=== PATIENT | female | born 2000 | race Caucasian/White ===

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

== ENCOUNTER 2021-01-06 15:56 | Emergency (ER) | payer BC, SELFPAY ==
[2021-01-06 15:57] VITALS: BP 147/98; PULSE 109; RESP 20; TEMP 35.9; O2SAT 98; BMI 51.6
--- NOTE | 2021-01-06 17:00 | RAD_ITS ---
STUDY: X-RAY CHEST REASON FOR EXAM: Female, 20 years old. Cough. Shortness of breath, worse with exertion. Sore throat and headache and multiple nosebleeds. TECHNIQUE: PA and lateral views of the chest. COMPARISON: 01/15/2020. FINDINGS: The lungs are clear and expanded. There is no demonstrated pleural abnormality. Normal size heart. Normal mediastinum and onelia. Normal visualized pulmonary arteries. Normal visualized aortic arch and descending thoracic aorta. Normal visualized thoracic spine. Normal visualized ribs, clavicles, and shoulders. There is no demonstrated abnormality of the visualized soft tissue structures of the upper abdomen. RAD/Chest PA and Lateral IMPRESSION: No acute cardiopulmonary disease. Electronically Signed: Dante Gimenez DO at 17:12 EDT Tel [phone], Service support ,
[2021-01-06] MEDS: Desmopressin Acetate 4 MCG/ML Ampul 15 MCG SC (17:16)
--- NOTE | 2021-01-06 17:34 | ED.VIS.DYS ---
HPI History of Present Illness Chief Complaint: Shortness of Breath Informant: patient and parent Narrative Narrative: Patient presents with 3 or 4 days of some cough. She did have a couple episodes of soft stools but that is resolved. She vomited once after a meal but that is also better. She has not had fevers or myalgias or loss of taste or smell. She does have a history of asthma. She is used her inhaler but does not notice a major change. She is not having chest pain. She is also been having some intermittent nosebleeds mostly on the left. She has a history of von Willebrand's disease but does not have DDAVP nasal spray because it is currently unavailable. No other bleeding. She has never received IV factors. She has never had significant bleeding. Nothing specifically makes her symptoms better or worse although they are slightly improved with albuterol. No history of DVT or PE. No travel. [facility] Medical History (Updated 01/06/21 @ 17:[address] Stanley Crowder MD) Asthma Diarrhea Knee pain Von Willebrand disease Home Medications etonogestrel 68 mg SQ X1 05/21/20 [History Last Taken Unknown] citalopram 40 mg tablet 40 mg PO DAILY 12/10/20 [History Last Taken Unknown] norgestimate 0.25 mg-ethinyl estradiol 35 mcg tablet 1 tab PO DAILY #84 tab 12/10/20 [Rx Last Taken Unknown] Allergy/AdvReac Type Severity Reaction Status Date / Time amphetamine [From Adderall] AdvReac Diarrhea Verified 01/06/21 16:01 dextroamphetamine AdvReac Diarrhea Verified 01/06/21 16:01 [From Adderall] NSAIDS (Non-Steroidal AdvReac BLEEDING Verified 01/06/21 16:00 Anti-Inflamma blood thinners AdvReac Unknown Uncoded 01/06/21 16:00 Surgical History H/O knee surgery Social History pets and animals: Yes sexually active: No Smoking Status: Never smoker alcohol intake: never seatbelt use: always ROS ROS ED Constitutional Constitutional ED: Denies chills or fever(s) Eyes Eyes: Denies blurry vision or change in vision ENT ENT ED: Reports rhinorrhea, sore throat and other Details: See history of present illness. ; Denies ear pain Cardiovascular Cardiovascular: Denies chest pain, palpitations or racing heartbeat Respiratory/Chest Respiratory/Chest: Reports cough and dyspnea; Denies sputum Gastrointestinal Gastrointestinal: Reports diarrhea and nausea; Denies abdominal pain or vomiting Genitourinary Genitourinary ED: Denies dysuria Musculoskeletal Musculoskeletal: Denies myalgias Integumentary Denies rash Neurologic Neurologic: Denies headache(s), paresthesias or weakness Endocrine Endocrinology: Denies polydipsia or polyuria Hematologic/Lymphatic Hematologic/Lymphatic: Denies easy bruising Allergic/Immunologic Allergic/Immunologic ED: Denies urticaria EXAM Physical Exam Const Vital Signs: 01/06/21 15:57 01/06/21 16:43 Temperature 96.7 F L Temperature Source Temporal Pulse Rate 109 H Respiratory Rate 20 H Respiratory Effort Normal Non-Labored Blood Pressure 147/98 H Blood Pressure Mean 114 Pulse Ox 98 Oxygen Delivery Method Room Air Room Air Patient is looking at phone. She is laying back comfortably. No acute distress. Positive well nourished and well developed General Appearance ED: well developed and NAD HEENT HEENT Narrative: No sign of active bleeding at this time. Tympanic membrane's are clear. Oropharynx is normal. No sinus tenderness. Negative for atraumatic, trauma or tenderness Eyes PERRL and EOMs intact bilaterally Neck no lymphadenopathy, supple and no JVD Resp normal respiratory effort and clear to auscultation bilaterally Resp Narrative: No pain with deep breath. Effort and Inspection: Negative for pain with movement Auscultation: Negative for rales, rhonchi or wheezes Cardio regular rate and regular rhythm GI non-tender Palpation: soft Back/Spine no CVA tenderness Extremity General Extremety ED: Negative for edema or tenderness General Extremity: Negative for edema Neuro oriented x3 Sensorium / Orientation: alert Psych mental status grossly normal Skin Rashes: no rashes MDM MDM MDM Narrative Medical decision making narrative: Chest x-ray showed no acute process. Covid is negative. I was able to get her a dose of DDAVP. She would normally use nasal spray for her symptoms. We are able to get subcutaneous as we do not have the nasal spray. She actually has a follow-up appointment with ENT tomorrow. She will use her inhaler. Lab Data Attestation: I reviewed the patient's lab results. Radiography Diagnostic Testing: Clinical Impression(s) from Imaging Studies Chest X-Ray 01/06/21 17:00 IMPRESSION: No acute cardiopulmonary disease. Electronically Signed: Dante BallesterosonDO at 17:12 EDT Tel [phone], Service support , Discharge Plan Triage Chief Complaint: Shortness of Breath ED Provider: Stanley Crowder Dx/Rx/DC Orders Clinical Impression: Von Willebrand disease, Viral URI, Left-sided epistaxis Instructions: Nosebleed, ED URI, Viral, No Abx (Adult) Prescriptions: No Action citalopram [Celexa] 40 mg tablet 40 mg PO DAILY RF: 0 norgestimate-ethinyl estradiol [Sprintec (28)] 0.25-35 mg-mcg tablet 1 tab PO DAILY Qty: 84 RF: 0 etonogestrel 68 MG implant 68 mg SQ X1 RF: 0 Primary Care Provider: Daryl Mccollum Referrals: Daryl Mccollum DO [Primary Care Provider] - 3-5 Days if not improving Disposition Disposition: Home, Self Care
[2021-01-06 17:48] VITALS: BP 137/87; PULSE 102; RESP 16; O2SAT 99
== END 2021-01-06 17:51 | disposition home or self-care (01) ==
PROVIDERS: Emergency Provider Emergency Medicine; PCP Family Medicine
DX: D68.0 Von Willebrand disease (principal); J06.9 Acute upper respiratory infection, unspecified; R04.0 Epistaxis
CPT/HCPCS: 71046; 87426; 99281; 99282; J2597

== ENCOUNTER → 2021-09-04 | Outpatient (CLI) | payer BC, SELFPAY ==
[2021-09-04 10:35] LABS: Absolute Lymphocyte Count 2.15 X10^3/uL (0.83-4.51); Absolute Neutrophil Count 7.7 X10^3/uL (2.0-7.7); Basophil# 0.05 X10^3/uL; Basophil% 0.4 % (0-1); Eosinophil# 0.51 X10^3/uL; Eosinophils% 4.5 % (0-5); Hematocrit 39.3 % (37-47); Hemoglobin 13.1 g/dL (12.0-15.0); Lymphocyte # 2.15 X10^3/ul (0.83-4.51); Mean Corp Hgb Conc 33.3 g/dL (32-36); Mean Corpuscular Hgb 27.3 pg (27.0-32.0); Mean Platelet Vol. 9.7 fl (6.2-12.0); Monocyte# 0.88 X10^3/uL; Monocyte% 7.8 % (0-10); NRBC Flagged by Analyzer 0 % (0-5); Neutrophil # 7.68 X10^3/uL (2.7-7.7); Neutrophil % 67.9 % (47-70); Platelet Count 409 K/mm3 (150-450); RBC Distribution Width CV 12.6 % (11.6-14.6); RBC Distribution Width SD 38.1 fl (35.1-43.9); Red Blood Count 4.79 M/mm3 (4.2-5.4); White Blood Count 11.3 K/mm3 (4.4-11.0)
[2021-09-04 10:43] LABS: Erythrocyte Sedimentation Rate 12 mm/hr (0-30)
[2021-09-04 11:24] LABS: ALB/GLOB Ratio 0.9 RATIO (0.9-2.4); AST(SGOT) 18 U/L (15-37); Alanine Aminotransfer ALT/SGPT 33 U/L (13-56); Albumin, Serum 3.5 g/dL (3.2-5.0); Alkaline Phosphatase 95 U/L (45-117); Amylase 42 U/L (25-115); Anion Gap 8 (5-15); BUN 10 mg/dL (7-18); CRP 4.23 mg/L (0.0-3.0); Calcium,Total 8.7 mg/dL (8.5-10.1); Chloride 107 mmol/L (98-107); Creatinine, Serum 0.77 mg/dL (0.55-1.02); EST Glomerular Filtration Rate 102 mL/min (>60); Est Glom Filt Rate - Afr Amer 124 mL/min (>60); Globulin 3.7 g/dL (2.2-4.2); Glucose 92 mg/dL (74-106); LDH 168 U/L (84-246); Lipase 103 U/L (73-393); Potassium 3.5 mmol/L (3.5-5.1); Protein, Total 7.2 g/dL (6.4-8.2); Sodium Level 140 mmol/L (136-145); Thyroid Stim Hormone (TSH) 2.28 uIU/mL (0.358-3.74)
[2021-09-04 12:15] LABS: Vitamin B12 525 pg/mL (211-911)
[2021-09-08 15:08] LABS: Anti-Centromere B Ab <0.2 AI (0.0-0.9); Anti-Chromatin <0.2 AI (0.0-0.9); Anti-Jo <0.2 AI (0.0-0.9); Anti-Scleroderma-70 AB <0.2 AI (0.0-0.9); RNP Ab 0.4 AI (0.0-0.9); SJOGREN'S Anti-SS-A test < 0.2 AI (0.0-0.9); SJOGREN'S Anti-SS-B test < 0.2 AI (0.0-0.9); Smith Ab <0.2 AI (0.0-0.9)
[2021-09-09 11:22] LABS: Anti-dsDNA Ab <1 IU/mL (0-9)
[2021-09-09 12:14] LABS: Vitamin D 1,25-Dihydroxy 42.4 pg/mL (24.8-81.5)
[2021-09-10 09:09] LABS: Albumin 3.5 g/dL (2.9-4.4); Alpha-1-Globulins 0.2 g/dL (0.0-0.4); Alpha-2-Globulins 0.8 g/dL (0.4-1.0); Gamma Globulin 0.9 g/dL (0.4-1.8); Immunoglobulin A 232 mg/dL (87-352); Immunoglobulin E 381 IU/mL (6-495); Immunoglobulin G 869 mg/dL (719-1475); Immunoglobulin M 60 mg/dL (58-230); PROEL- TOTAL PROTEIN 6.6 g/dL (6.0-8.5)
[2021-09-10 09:57] LABS: Cytoplasmic Ab (C-ANCA) <1:20 titer (Neg:<1:20); Perinuclear Ab (P-ANCA) <1:20 titer (Neg:<1:20)
== END | disposition home or self-care (01) ==
LOC: LAB 09:27
PROVIDERS: PCP Family Medicine; Referring Provider Nurse Practitioner Adult Health; Visit Provider Nurse Practitioner Adult Health
DX: K52.9 Noninfective gastroenteritis and colitis, unspecified (principal)
CPT/HCPCS: 36415; 80053; 82150; 82607; 82652; 82746; 82784; 82785; 83615; 83690; 84165; 84443; 85025; 85652; 86140; 86225; 86235; 86256; 86334

== ENCOUNTER → 2021-09-04 | Outpatient (CLI) | payer BC, SELFPAY ==
--- NOTE | 2021-09-04 13:22 | CT_ITS ---
STUDY: CT ABDOMEN AND PELVIS WITH CONTRAST REASON FOR EXAM: Female, 20 years old. Chronic diarrhea. Abdominal pain. RADIATION DOSAGE (If Supplied By Facility): CTDIvol = ( 34.99 ) mGy, DLP = ( 2092.38 ) mGycm TECHNIQUE: Transaxial images were obtained from the dome of the diaphragm to the symphysis pubis with oral contrast. Oral and amp;amp; IV Readi-CAT and amp;amp; 100mL Isovue-300 was administered. Sagittal and coronal images were reconstructed. Individualized dose optimization techniques were used for this CT. COMPARISON: Comparison is made with prior study dated 09/08/2018. FINDINGS: The visualized lung bases are unremarkable. The visualized portions of the heart are within normal limits. Borderline hepatomegaly. Normal gallbladder and extrahepatic biliary system. Normal spleen. Normal pancreas. Normal bilateral adrenal glands. Normal right kidney. Normal left kidney. Normal visualized stomach. Normal small intestine. Normal colon. The appendix is visualized and appears normal. Normal abdominal aorta. Normal inferior vena cava. Normal retroperitoneum. Normal urinary bladder. Normal abdominal wall. Normal osseous structures. CT/Abdomen/Pelvis WITH Contrast IMPRESSION: Borderline hepatomegaly. Electronically Signed: Robert Palomares MD at 14:06 EDT ,
== END | disposition home or self-care (01) ==
LOC: CT 13:20
PROVIDERS: PCP Family Medicine; Referring Provider Nurse Practitioner Adult Health; Visit Provider Nurse Practitioner Adult Health
DX: K52.9 Noninfective gastroenteritis and colitis, unspecified (principal); R10.9 Unspecified abdominal pain
CPT/HCPCS: 74177; Q9967

== ENCOUNTER → 2021-09-11 | Outpatient (CLI) | payer BC, SELFPAY ==
--- NOTE | 2021-09-11 11:18 | US_ITS ---
STUDY: ULTRASOUND OF THE FEMALE PELVIS - COMPLETE REASON FOR EXAM: Female, 20 years old. AUB -- heavy menses LMP: 08/08/2021. TECHNIQUE: Transabdominal and Transvaginal TECHNICAL QUALITY: Adequate. COMPARISON: None. FINDINGS: The uterus is anteverted and is tilted to the left side of the pelvis. The uterus measures 6.6 cm x 3.6 x 3 cm. Normal uterine cervix. The endometrium measures 4.7 mm in thickness, and is heterogeneous (striated). There is no demonstrated endometrial mass. There is no demonstrated myometrial mass. I.U.D. - The patient does not have an I.U.D. The right ovary is visualized. The right ovary measures 3 cm x 2.6 cm x 2.1 cm. There is no right ovarian cyst or ovarian mass. There is no visualized right adnexal mass or complex lesion. There is normal arterial and normal venous vascularity. The left ovary is visualized. The left ovary measures 3.1 cm x 1.8 cm x 2.1 cm. There is no left ovarian cyst or ovarian mass. There is no visualized left adnexal mass or complex lesion. There is normal arterial and normal venous vascularity. There is no fluid in the cul-de-sac. The pre void volume of the bladder was 303 ml. Polycystic ovary disease: No. US/Pelvic (Non ) IMPRESSION: Normal female pelvis. Electronically Signed: Robert Palomares MD at 13:07 EDT ,
--- NOTE | 2021-09-11 11:18 | US_ITS ---
STUDY: ULTRASOUND OF THE FEMALE PELVIS - COMPLETE REASON FOR EXAM: Female, 20 years old. AUB -- heavy menses LMP: 08/08/2021. TECHNIQUE: Transabdominal and Transvaginal TECHNICAL QUALITY: Adequate. COMPARISON: None. FINDINGS: The uterus is anteverted and is tilted to the left side of the pelvis. The uterus measures 6.6 cm x 3.6 x 3 cm. Normal uterine cervix. The endometrium measures 4.7 mm in thickness, and is heterogeneous (striated). There is no demonstrated endometrial mass. There is no demonstrated myometrial mass. I.U.D. - The patient does not have an I.U.D. The right ovary is visualized. The right ovary measures 3 cm x 2.6 cm x 2.1 cm. There is no right ovarian cyst or ovarian mass. There is no visualized right adnexal mass or complex lesion. There is normal arterial and normal venous vascularity. The left ovary is visualized. The left ovary measures 3.1 cm x 1.8 cm x 2.1 cm. There is no left ovarian cyst or ovarian mass. There is no visualized left adnexal mass or complex lesion. There is normal arterial and normal venous vascularity. There is no fluid in the cul-de-sac. The pre void volume of the bladder was 303 ml. Polycystic ovary disease: No. US/Transvaginal Non- IMPRESSION: Normal female pelvis. Electronically Signed: Robert Palomares MD at 13:07 EDT ,
== END | disposition home or self-care (01) ==
LOC: US 11:14
PROVIDERS: PCP Family Medicine; Referring Provider Obstetrics & Gynecology; Visit Provider Obstetrics & Gynecology
DX: N93.9 Abnormal uterine and vaginal bleeding, unspecified (principal)
CPT/HCPCS: 76830; 76856

== ENCOUNTER 2021-10-02 07:28 | Day surgery (SDC) | payer BC, SELFPAY ==
[2021-10-02] VITALS (9 sets, daily range): BP systolic 121–132; BP diastolic 67–88; PULSE 89–117; RESP 16–18; TEMP 36.7–36.9; O2SAT 95–100; BMI 51.2
--- NOTE | 2021-10-02 07:37 | PCM.HP.BLA ---
History and Physical Date of Admission: 10/02/21 MR#: [id number] Acct: [id number] Name:KEAGAN COOPRE Rep #: [id number] : 2000 ? ? Provider: Dr. Emili Charles, DO Age/Sex:? 20/F ? ? Location: [facility] [place] Status: Signed Intake Vital Signs ? 08/13/2210:32 Height 5 ft 6 in Weight: 315 lb 4 oz BMI 50.8 BP 140/100 H Intake Visit Reasons:?heavy bleeding with Nexplanon, possible removal Animal Behaviourist Required: No Is patient in pain?: No Allergies amphetamine [From Adderall] Adverse Reaction (Verified 08/13/21 11:32) Diarrheadextroamphetamine [From Adderall] Adverse Reaction (Verified 08/13/21 11:32) DiarrheaNSAIDS (Non-Steroidal Anti-Inflamma Adverse Reaction (Verified 08/13/21 11:32) BLEEDINGblood thinners Adverse Reaction (Uncoded 08/13/21 11:32) Unknown Medications citalopram 40 mg tablet 40 mg PO DAILY 12/10/20 [History Confirmed 08/13/21] etonogestrel 68 mg subdermal implant 1 implant SUBDERMAL ONCE 06/04/21 [History Confirmed 08/13/21] methylphenidate HCl 5 mg tablet 5 mg PO DAILY 08/13/21 [History Confirmed 08/13/21] tranexamic acid 650 mg tablet 650 mg PO BID 08/13/21 [History Confirmed 08/13/21] Post menopausal: No Patient : No : No PFSH Medical History? Asthma Depression Diarrhea Encounter for screening for COVID-19 Knee pain URI (upper respiratory infection) Von Willebrand disease Surgical History? H/O knee surgery Social History? pets and animals:? Yes sexually active:? No Smoking Status:? Never smoker alcohol intake:? never seatbelt use:? always HPI heavy bleeding with Nexplanon, possible removal Details: KEAGAN TILLMAN is a 20 year old who presents for discussion about breakthrough? bleeding with nexplanon. She has had it in place x 2 years. Her circus rider has her on lysteda as needed. pt is interested in switching over to a mirena but when this was tried in the office in the past she was unable to tolerate it. She is requesting exam under anesthesia with placement of IUD. Pregancy History ? ? ? 0 ? Elective abortions ? Hx Para ? Spontaneous abortions ? Hx # Term Pregnancies ? Ectopic pregnancies ? Hx # Pregnancies ? Multiple births ? # of living children ? ROS Const ROS Unobtainable: All systems reviewed & are unremarkable except as noted in H Resp Resp: Reports system reviewed and no additional complaints, except as documented; Denies cough GI GI: Reports as per HPI Psych Psych: Reports system reviewed and no additional complaints, except as documented Exam Const General: cooperative, healthy appearing, comfortable and no acute distress Resp Effort & Inspection: normal respiratory effort Skin General: no rashes or lesions noted Psych Appearance: grossly normal Speech and Movement: speech and movement normal Coding Level of Care Code Off vis,est,level 4 Diagnoses Abnormal uterine bleeding (AUB)? N93.9 Von Willebrand disease? D68.0 Menorrhagia with irregular cycle? N92.1 Assessment and Plan Assessment and Plan (1) Abnormal uterine bleeding (AUB): ?Status:?Acute ?Comment: Nexplanon 09/22. Sprintec for breakthrough bleeding 12/10/20 (2) Von Willebrand disease: ?Status:?Acute (3) Menorrhagia with irregular cycle: ?Status:?Acute ?Plan - Dr. Emili Charles, DO: will start with pelvic ultrasound and if uterus measures at least 7 cm will take her to OR for placement of mirena. if any abnormal tissue in endometrium, will also do a D&C UPDATE- I have seen the patient and performed any clinically relevant updates to the history and physical exam. Plan for D&C placement of IUD under anesthesia. Emili Charles, DO
[2021-10-02] MEDS: Lactated Ringers 1,000 ML 15 ML IV (08:00)
[2021-10-02 09:10] LABS: Internal QC Validated? YES +Cl - CLEAR BKGD; Pregnancy, Serum, hCG Quali. NEGATIVE Negative
--- NOTE | 2021-10-02 09:49 | DCINST_ITS ---
Discharge Instructions Diet Discharge Diet: No restrictions Activity Discharge Activity: Return to Normal Activity, May Shower and May Take a Tub Bath (after 1 week) May resume sexual activity in: 1-2 weeks Weight Bearing Status: Weight bearing as tolerated Lifting Restrictions: none Dressing / Incision Call your doctor if you observe: Fever of 101 or Higher, Using more than 1 pad per hour, Shortness of breath and Uncontrolled pain Follow Up Care Please Follow Up With: Emiil Charles DO When: Call [phone] to schedule appointment. Test Results: Test results from this visit will be discussed in further detail at your follow- up appointment, if applicable. Discharge Plan Admission Primary Reason for Your Visit: dilation and curettage, removal of nexplanon, insertion of IUD Attending Provider: Emili Charles Primary Care Provider: Daryl Mccollum Discharge Orders/Prescriptions Prescriptions: New cyclobenzaprine 10 mg tablet 10 mg PO TID PRN (Reason: muscle spasm) Qty: 10 0RF Continued citalopram [Celexa] 40 mg tablet 40 mg PO DAILY methylphenidate HCl [Ritalin] 5 mg tablet 5 mg PO DAILY tranexamic acid [Lysteda] 650 mg tablet 650 mg PO PRN PRN (Reason: Bleeding) colestipol [Colestid] 1 gram tablet 1 g PO BID Rx Instructions: other drugs should be taken at least one hour before or 4 hours after Discontinued Nexplanon 68 mg implant 1 implant subdermal ONCE Rx Instructions: as a single dose Referrals / Follow Up: Daryl Mccollum DO [Primary Care Provider] - Disposition Disposition (needs filled in before D/C Order can be placed): Home, Self Care
--- NOTE | 2021-10-02 09:50 | EMB_PTH ---
PATIENT: KEAGAN TILLMAN LOC: [facility] – [place] U#:[id number] AGE/SX: 20/F ROOM: RE10/02/[address]: Dr. Emili Charles DO : 2000 BED: DIS: 10/02/2021 SPEC #: [id number] RECD: 10/02/21 11:24 STATUS: LIZZ ZIMMERMAN #: [id number] GUDELIA: 10/02/21 09:[address]: Emili Charles DEPT: SURGICAL PATHOLOGY RECD BY: Hugo Steel ENTERED: 10/02/21 11:46 SP TYPE: ENDOM BX/C OTHR DR: Dr. Daryl Mccollum DO Tissues: Endometrium, NOS Procedures: Surgery Specimen Level IV HEADER OPERATION: Pelvic exam under anesthesia, IUD insertion, D & C PRE-OP DIAGNOSIS: Menorrhagia TISSUE SUBMITTED: Endometrial curettings MICROSCOPIC DIAGNOSIS Endometrial curettings: Proliferative endometrium with extensive glandular and stromal breakdown and mucoid tissue. See comment. CHANTEL:galo 10/05/2021 COMMENT The specimen predominantly consists of mucoid tissue. Correlation with clinical findings and appropriate follow up are necessary. MICROSCOPIC DESCRIPTION Slides are reviewed. GROSS DESCRIPTION Received in fixative is one container labeled with the patient's name and designated endometrial curettings. The specimen consists of multiple pieces of bradley-pink soft tissue that in aggregate measure 3 x 2.5 x 0.3 cm. The specimen is totally submitted in one cassette. / CHANTEL:galo 10/02/2021 TC:5 CPT: 49843
--- NOTE | 2021-10-02 09:54 | PCM.OP.BLANK ---
Problems Associated Problem List Diagnoses (1) Von Willebrand disease: (2) Menorrhagia with irregular cycle: Operative Report Date of Procedure: 10/02/21 pre-op diagnosis: menorrhagia, von willebrand's disease, obesity post -op diagnosis: menorrhagia, von willebrand's disease, obesity procedure : dilation and curettage, placement of Mirena IUD, removal of Nexplanon, exam under anesthesia surgeon: Dr. Emili Charles DO Corporate Legal Secretary: none EBL:10cc urine output: 100cc Anesthesia: MAC specimen removed: endometrial curettings Procedure: Patient was prepped and draped in a normal sterile fashion under MAC anesthesia. A weighted speculum was placed in the vagina and the anterior lip of the cervix was grasped with a single-tooth tenaculum. A paracervical block was placed with 1% lidocaine. Cervix was dilated and sounded to [ ] cm. Curettage was performed and 7cm , sent to pathology. The Mirena IUD was inserted without difficulty and the strings were trimmed to 3 cm from the cervix. All instruments were removed from the vagina and excellent hemostasis was noted. The Nexplanon was removed next, starting with injection of 0.25% Marcaine injection. An 11 blade was used to incise the skin and the device was grasped with a hemostat. A steri strip was applied followed by a band-aid. Patient was awoken and taken to recovery in stable condition. Multi Select Codes Urinary/Genital Urinary/Genital CPT Codes: Other Procedure See Report (Exam under anesthesia, dilation and curettage, insertion of mirena Intrauterine device, removal of Nexplanon)
[2021-10-02] MEDS: Bupivacaine 0.25% 30 ML Vial (09:55)
== END 2021-10-02 11:55 | disposition home or self-care (01) ==
LOC: SDC 07:29 → AC 07:29
PROVIDERS: Anesthesiology; PCP Family Medicine; Referring Provider Obstetrics & Gynecology; Visit Provider Obstetrics & Gynecology
PROC: (CPT 57410; principal; 2021-10-02 09:35)
PROC: (CPT 58120; 2021-10-02 09:35)
DX: N92.1 Excessive and frequent menstruation with irregular cycle (principal); D68.0 Von Willebrand disease; Z30.430 Encounter for insertion of intrauterine contraceptive device; F12.90 Cannabis use, unspecified, uncomplicated; F17.200 Nicotine dependence, unspecified, uncomplicated
CPT/HCPCS: 58120; 58300; 00940; 84703; 88305; J7120; J2405; J2597; J3490

== ENCOUNTER 2021-10-06 12:39 | Day surgery (SDC) | payer BC, SELFPAY ==
[2021-10-06] VITALS (7 sets, daily range): BP systolic 128–149; BP diastolic 86–108; PULSE 85–90; RESP 16–18; TEMP 36.3–36.9; O2SAT 97–100; BMI 52.1
[2021-10-06] MEDS: Lactated Ringers 1,000 ML 15 ML IV (13:00)
--- NOTE | 2021-10-06 13:08 | HP.PCM_ITS ---
History and Physical Date of Admission: 10/06/21 She has had diarrhea since elementary school, really since as long as she can remember.? She is very motivated to get the diarrhea under control in order to get a better paying job.? She has been limited in the type of job she can have because she has to have quick access to a bathroom at all times. 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 She estimates that 5 out of 7 days per weeks she has urgent diarrhea; this is typically liquid stool.? She usually has multiple BMs per day.? Diarrhea wakes her up every single night 2-3 times per night.? On random days she may have formed stool, it is usually soft to though.? She does have some lower abdominal cramping which she does not find overly bothersome.? She then intermittently has a severe pain that starts in the middle of the lower abdomen and radiates upward.? This pain occurs when the diarrhea is at its worst, when it is very watery, 4x per hour, has nausea then too, and will vomit. This pain has doubled her over.? She has had to leave work before because of this pain.? She can take 4 Imodium pills with no relief of her diarrhea whatsoever.? She has tried other antidiarrheal medications, whenever my mom has at home, but without relief. She has tried dietary changes but without relief of the diarrhea.? She did have allergy testing when her primary care was at [facility] in [place].? She is allergic to oats and rye so she avoids those.? She does not tolerate dairy or lettuce.? She gets heartburn from red sauce, so she uses bread to help with the heartburn or she takes Tums then. Mother has IBS. Maternal grandfather has UC. Primary care Dr. Mccollum checked labs in May 2021: Hemoglobin 13.6, negative celiac with normal IgA, ESR 17, CRP 3 She has von Willebrand type I.? She manages epistaxis by applying Vaseline in each nostril twice a day.? She manages menses by being on Nexplanon.? Soon she plans to have an IUD instead as long as uterus is appropriate size for that.? She is on citalopram for anxiety and depression.? She is on methylphenidate for ADHD.? She has tranexamic acid to use if needed for bleeding, since DDAVP is not currently available. ROS Const Constitutional: No fatigue ENT ENT: No difficulty swallowing Gastro GI: Positive for abdominal pain, bloating, change in bowel habits, diarrhea, heartburn, excessive flatus and nausea/dyspepsia; No belching, change in stool character, coffee ground emesis, constipation, cramping, difficulty swallowing, feeling full early, incontinent of stools, Vomiting blood/hematemesis, Blood in stool, loose stools, Black,tarry stools, pain with swallowing, vomiting or other Musc Musculoskeletal: Positive for muscle cramps and restless legs; No joint pain Skin Skin: No yellowing of the eye or itchy eyes Neuro Neurology: Positive for restless legs Psych Psychiatric: Positive for anxiety, Positive for depression and Positive for Compulsive Behavior Endo Endocrine: No fatigue Aller/Imm Allergy/Immunologic: No itchy eyes Michael/Lymp Hematologic/Lymphatic: Positive for easy bleeding and easy bruising Exam Const General: cooperative, comfortable, well developed and well groomed Nutritional Appearance: obese HENMT Head: normal to inspection Eyes General: appearance normal, both eyes and all related structures Resp Effort & Inspection: normal respiratory effort GI Palpation: soft, no hepatosplenomegaly, no masses and tender in the LLQ, in the RLQ and periumbilically Quality Reporting Tobacco Screening ([facility] 138) Smoking Status: Never smoker Assessment and Plan Assessment and Plan (1) Chronic diarrhea: ?Status:?Chronic (2) Abdominal pain: ?Status:?Acute ? ? ? Orders: Orders Calprotectin, Stool Today K52.9 - Noninfective gastroenteritis and colitis, unspecified ? Ova and Parasites 8623 Today K52.9 - Noninfective gastroenteritis and colitis, unspecified, K58.9 - Irritable bowel syndrome without diarrhea ? CDIFF (PCR) Today K52.9 - Noninfective gastroenteritis and colitis, unspecified ? ENTERIC PATHOGEN PANEL STOOL Today K52.9 - Noninfective gastroenteritis and colitis, unspecified, K58.9 - Irritable bowel syndrome without diarrhea ? Stool Lactoferrin/WBC Today K52.9 - Noninfective gastroenteritis and colitis, unspecified, K58.9 - Irritable bowel syndrome without diarrhea ? Giardia Lamblia, Stool EIA Today K52.9 - Noninfective gastroenteritis and colitis, unspecified ? Pancreatic Elastase, Fecal Today K52.9 - Noninfective gastroenteritis and colitis, unspecified ? Comprehensive Metabolic Profil Today K52.9 - Noninfective gastroenteritis and colitis, unspecified ? CRP Today K52.9 - Noninfective gastroenteritis and colitis, unspecified ? LDH Today K52.9 - Noninfective gastroenteritis and colitis, unspecified ? CBC W/Diff, Automated Today K52.9 - Noninfective gastroenteritis and colitis, unspecified ? Erythrocyte Sed Rate Today K52.9 - Noninfective gastroenteritis and colitis, unspecified ? [place] Comprehensive Panel Today K52.9 - Noninfective gastroenteritis and colitis, unspecified ? ANCA Today K52.9 - Noninfective gastroenteritis and colitis, unspecified ? Immunoglobulins G/A/M/E Today K52.9 - Noninfective gastroenteritis and colitis, unspecified ? EFREN + Protein Elect, Serum Today K52.9 - Noninfective gastroenteritis and colitis, unspecified ? Vitamin B12 Today K52.9 - Noninfective gastroenteritis and colitis, unspecified ? Folates, (Folic Acid) Today K52.9 - Noninfective gastroenteritis and colitis, unspecified ? Thyroid Stim Hormone (TSH) Today K52.9 - Noninfective gastroenteritis and colitis, unspecified ? Vitamin D 1,25-Dihydroxy Today K52.9 - Noninfective gastroenteritis and colitis, unspecified ? Amylase Today K52.9 - Noninfective gastroenteritis and colitis, unspecified ? Lipase Today K52.9 - Noninfective gastroenteritis and colitis, unspecified ? Fecal Fat, Qualitative Today K52.9 - Noninfective gastroenteritis and colitis, unspecified ? Abdomen/Pelvis WITH Contrast Today K52.9 - Noninfective gastroenteritis and colitis, unspecified, R10.9 - Unspecified abdominal pain ? Medications: New colestipol ?? other drugs should be taken at least one hour before or 4 hours after 1 g? PO BID 60 tabs 1RF diarrhea ? ? Plan This delightful 20-year-old female has significant longstanding diarrhea which includes nocturnal diarrhea.? She has intermittent heartburn.? She has comorbid von Willebrand disease.? Differential diagnosis includes IBS, infection, pancreas disorder. Will initiate biochemical w/u, stool tests for inflammation and infection.? CT of abd pelvis with oral and IV contrast to evaluate the chronic diarrhea with intermittent severe lower abdominal pain.? We will schedule her for EGD and colonoscopy.? I will have her try colestipol 1 g twice daily with caution to avoid taking it around her other medication.? Consider Lomotil.? I will contact her with results and further evaluation and treatment recommendations.? She will follow-up with me in approximately 6 weeks, as well as having a 2-week follow-up after her endoscopies. I have re-examined the patient. There are no clinical changes since date of exam.
[2021-10-06 13:37] LABS: Internal QC Validated? YES +Cl - CLEAR BKGD; Pregnancy, Serum, hCG Quali. NEGATIVE Negative
--- NOTE | 2021-10-06 14:00 | COLBX_PTH ---
PATIENT: KEAGAN TILLMAN LOC: EN U#:[id number] AGE/SX: 20/F ROOM: RE10/06/[address]: Dr. Samir Diaz DO : 2000 BED: DIS: 10/06/2021 SPEC #: [id number] RECD: 10/06/21 15:17 STATUS: LIZZ ERASMO #: [id number] GUDELIA: 10/06/21 14:[address]: Samir Diaz DEPT: SURGICAL PATHOLOGY RECD BY: Hugo Steel ENTERED: 10/07/21 06:57 SP TYPE: COLON BX OTHR DR: Dr. Daryl Mccollum DO Tissues: A - Duodenum, NOS B - Gastric mucous membrane C - Esophagus, NOS D - Ileum, NOS E - COLON BIOPSY Procedures: Special Stain Group II Surgery Specimen Level IV Alcian Blue/PAS (control) HEADER OPERATION: Colonoscopy, EGD ([facility]) PRE-OP DIAGNOSIS: Chronic diarrhea, abdominal pain, intermittent heartburn TISSUE SUBMITTED: A ? Duodenum biopsy, B ? Gastric body biopsy, C ? Distal esophagus biopsy, D ? Terminal ileum, E ? Random colon biopsies MICROSCOPIC DIAGNOSIS A. Duodenum, biopsy: No pathologic change. B. Gastric body, biopsy: Chronic gastritis. See comment. C. Distal esophagus, biopsy: Gastroesophageal junctional mucosa with chronic inflammation. Consistent with reflux esophagitis. No evidence of goblet cell metaplasia. See comment. D. Terminal ileum, biopsy: Acute enteritis. See comment. E. Colon, random biopsy: No pathologic change. AM:galo 10/08/2021 COMMENT B. The results of immunohistochemistry for Helicobacter pylori will be reported separately ([id number]). C. Alcian blue/PAS stain with matched control supports the above diagnosis. D. Sections show neutrophilic infiltration into glandular mucosa. No granulomas or transmural lymphoid aggregates are identified. Focal crypt abscesses are seen. In one fragment, the acute inflammation is seen into the mucosa outside of glands. A definitive ulcer is not identified, Clinical correlation is suggested. MICROSCOPIC DESCRIPTION Slides are reviewed. GROSS DESCRIPTION A - Received in fixative is one container labeled with the patient's name and designated duodenal biopsy. The specimen consists of multiple irregular fragments of light bradley soft tissue that in aggregate measure 0.6 x 0.6 x 0.1 cm. The specimen is totally submitted in one cassette. B - Received in fixative is one container labeled with the patient's name and designated gastric body biopsy. The specimen consists of one irregular fragment of light bradley soft tissue that measures 0.5 x 0.4 x 0.1 cm. The specimen is totally submitted in one cassette. C - Received in fixative is one container labeled with the patient's name and designated distal esophagus biopsy. The specimen consists of two irregular fragments of light bradley soft tissue that in aggregate measure 0.5 x 0.3 x 0.1 cm. The specimen is totally submitted in one cassette. D - Received in fixative is one container labeled with the patient's name and designated terminal ileum. The specimen consists of multiple irregular fragments of light bradley soft tissue that in aggregate measure 1 x 0.3 x 0.1 cm. The specimen is totally submitted in one cassette. E - Received in fixative is one container labeled with the patient's name and designated random colon biopsy. The specimen consists of multiple irregular fragments of light bradley soft tissue that in aggregate measure 2 x 0.6 x 0.1 cm. The specimen is totally submitted in one cassette. / SJ:galo 10/07/2021 TC:2 CPT: 42032 x5, 75550
--- NOTE | 2021-10-06 14:00 | IMM_PTH ---
PATIENT: KEAGAN TILLMAN LOC: EN U#:[id number] AGE/SX: 20/F ROOM: RE10/06/[address]: Dr. Samri Diaz DO : 2000 BED: DIS: 10/06/2021 SPEC #: [id number] RECD: 10/07/21 09:36 STATUS: LIZZ REQ #: [id number] GUDELIA: 10/06/21 14:[address]: Samir Diaz DEPT: IMMUNOHISTOCHEMISTRY RECD BY: Obdulia Swanson ENTERED: 10/07/21 09:36 SP TYPE: IMMUNO OTHR DR: Dr. Daryl Mccollum DO Tissues: B - Stomach, NOS Procedures: H Pylori (initial) Comments: @ Specimen number changed from [id number] to [id number] @ on 10/07/21 at 0941 by RGOOD. PHYSICIAN & INSTITUTION [place] [id number] SPECIMEN INFORMATION: Tissue Source: B ? Gastric body biopsy Clinical Info: Chronic diarrhea, abdominal pain, intermittent heartburn Specimen Number: [id number] CPT code: 01437 METHODOLOGY: Deparaffinized sections of prefer/formalin-fixed tissue or PAP/DQ stained slides are incubated with monoclonal/polyclonal antibodies/oligonucleotide probes. Localization is made via biotin free immunoperoxidase method. Appropriate controls are performed and reacted as expected. Results on target cell population are indicated in the following table: RESULTS: ANTIBODY / CLONE RESULT Block B H Pylori (polyclonal) negative These tests were developed and their performance characteristics determined by [facility]. They may not have been cleared or approved by the U.S. Food and Drug Administration. The FDA has determined that such clearance or approval is not necessary. The above immunohistochemical/dualISH markers are ordered and reviewed by the Pathologist. INTERPRETATION: B. Gastric body, biopsy: Negative for Helicobacter pylori organisms. AM:galo 10/08/2021
--- NOTE | 2021-10-06 15:05 | OP.EGD_ITS ---
Patient Name: Aniyah Munoz Procedure Date: 10/06/2021 2:31 PM Date of : 2000 Age: 20 Procedure: Upper GI endoscopy Indications: Epigastric abdominal pain, Failure to respond to medical treatment Providers: Samir Diaz DO Medicines: Monitored Anesthesia Care Patient Profile: This is a 20 year old female. Refer to note in patient chart for documentation of history and physical. Patient has symptoms of chronic abdominal cramping and chronic epigastric abdominal pain. Complications: No immediate complications. Procedure: Pre-Anesthesia Assessment: - Prior to the procedure, a History and Physical was performed, and patient medications and allergies were reviewed. The risks and benefits of the procedure and the sedation options and risks were discussed with the patient. All questions were answered and informed consent was obtained. Patient identification and proposed procedure were verified by the physician in the pre-procedure area. Mental Status Examination: alert and oriented. Airway Examination: normal oropharyngeal airway and neck mobility. Respiratory Examination: clear to auscultation. CV Examination: normal. Prophylactic Antibiotics: The patient does not require prophylactic antibiotics. Prior Anticoagulants: The patient has taken no previous anticoagulant or antiplatelet agents. After reviewing the risks and benefits, the patient was deemed in satisfactory condition to undergo the procedure. The anesthesia plan was to use moderate sedation / analgesia (conscious sedation). Immediately prior to administration of medications, the patient was re-assessed for adequacy to receive sedatives. The heart rate, respiratory rate, oxygen saturations, blood pressure, adequacy of pulmonary ventilation, and response to care were monitored throughout the procedure. The physical status of the patient was re-assessed after the procedure. After obtaining informed consent, the endoscope was passed under direct vision. Throughout the procedure, the patient's blood pressure, pulse, and oxygen saturations were monitored continuously. The pediatric colonoscope was introduced through the mouth, and advanced to the second part of duodenum. The upper GI endoscopy was accomplished without difficulty. The patient tolerated the procedure well. Scope In: 2:41:58 PM Scope Out: 2:46:50 PM Total Procedure Duration Time 0 hours 4 minutes 52 seconds Findings: The Z-line was irregular and was found 39 cm from the incisors. Biopsies were taken with a cold forceps for histology. Verification of patient identification for the specimen was done. Estimated blood loss was minimal. Patchy mildly erythematous mucosa without bleeding was found in the gastric body. Biopsies were taken with a cold forceps for histology. Verification of patient identification for the specimen was done. Estimated blood loss was minimal. Patchy mildly erythematous mucosa without active bleeding and with no stigmata of bleeding was found in the first portion of the duodenum and in the second portion of the duodenum. Biopsies were taken with a cold forceps for histology. Estimated blood loss: none. Impression: - Z-line irregular, 39 cm from the incisors. Biopsied. - Erythematous mucosa in the gastric body. Biopsied. - Erythematous duodenopathy. Biopsied. Recommendation: - Discharge patient to home. - Resume previous diet. - Continue present medications. - Await pathology results. - Repeat upper endoscopy in 1 year for surveillance. - Return to GI office. Procedure Code(s): --- Professional --- 05061, Esophagogastroduodenoscopy, flexible, transoral; with biopsy, single or multiple CPT copyright 2017 [employer]. All rights reserved. The codes documented in this report are preliminary and upon electric tape slitter review may be revised to meet current compliance requirements. Samir Diaz DO 10/06/2021 3:04:47 PM This report has been signed electronically. Number of Addenda: 1 Note Initiated On: 10/06/2021 2:31 PM Addendum Number: 1 Addendum Date: 12/10/2021 6:35:09 AM MAC was used as sedation for this procedure. Samir Diaz DO 12/10/2021 6:35:13 AM This report has been signed electronically.
--- NOTE | 2021-10-06 15:06 | OP.CCLET_ITS ---
12/10/2021 Daryl Mccollum [address] [place] [address] Re : Upper GI endoscopy procedure for Aniyah Munoz Dear Dr. Mccollum This procedure was performed on Wednesday, October 06, 2021. My impressions and recommendations are as follows: Impressions : - Z-line irregular, 39 cm from the incisors. Biopsied. - Erythematous mucosa in the gastric body. Biopsied. - Erythematous duodenopathy. Biopsied. Recommendations : - Discharge patient to home. - Resume previous diet. - Continue present medications. - Await pathology results. - Repeat upper endoscopy in 1 year for surveillance. - Return to GI office. My findings are described in the full procedure note, which is enclosed. If I can be of further assistance, please feel free to contact me at . Sincerely, Samir Diaz, 10/06/2021 3:04:47 PM This report has been signed electronically.
--- NOTE | 2021-10-06 15:43 | OP.COLON_ITS ---
Patient Name: Aniyah Munoz Procedure Date: 10/06/2021 2:47 PM Date of : 2000 Age: 20 Procedure: Colonoscopy Indications: Chronic diarrhea Providers: Samir Diaz DO Medicines: Monitored Anesthesia Care Patient Profile: This is a 20 year old female. Refer to note in patient chart for documentation of history and physical. Patient has symptoms of chronic abdominal cramping and chronic epigastric abdominal pain. Last Colonoscopy: none. The patient's first colonoscopy is today. Complications: No immediate complications. Procedure: Pre-Anesthesia Assessment: - Prior to the procedure, a History and Physical was performed, and patient medications and allergies were reviewed. The risks and benefits of the procedure and the sedation options and risks were discussed with the patient. All questions were answered and informed consent was obtained. Patient identification and proposed procedure were verified by the physician in the pre-procedure area. Mental Status Examination: alert and oriented. Airway Examination: normal oropharyngeal airway and neck mobility. Respiratory Examination: clear to auscultation. CV Examination: normal. Prophylactic Antibiotics: The patient does not require prophylactic antibiotics. Prior Anticoagulants: The patient has taken no previous anticoagulant or antiplatelet agents. After reviewing the risks and benefits, the patient was deemed in satisfactory condition to undergo the procedure. The anesthesia plan was to use moderate sedation / analgesia (conscious sedation). Immediately prior to administration of medications, the patient was re-assessed for adequacy to receive sedatives. The heart rate, respiratory rate, oxygen saturations, blood pressure, adequacy of pulmonary ventilation, and response to care were monitored throughout the procedure. The physical status of the patient was re-assessed after the procedure. After I obtained informed consent, the scope was passed under direct vision. Throughout the procedure, the patient's blood pressure, pulse, and oxygen saturations were monitored continuously. The pediatric colonoscope was introduced through the anus and advanced to the terminal ileum. The colonoscopy was performed without difficulty. The patient tolerated the procedure well. The quality of the bowel preparation was fair. Scope In: 2:50:03 PM Scope Withdrawal Time 0 hours 6 minutes 8 seconds Scope Out: 2:58:49 PM Total Procedure Duration Time 0 hours 8 minutes 46 seconds Findings: An area of mildly congested mucosa was found in the recto-sigmoid colon, in the sigmoid colon, at the splenic flexure and in the transverse colon. Biopsies were taken with a cold forceps for histology. Verification of patient identification for the specimen was done. Estimated blood loss was minimal. Stool was found in the rectum, in the recto-sigmoid colon, in the descending colon and in the ascending colon. A patchy area of mucosa in the terminal ileum was granular. Biopsies were taken with a cold forceps for histology. Verification of patient identification for the specimen was done. Estimated blood loss was minimal. Impression: - Preparation of the colon was fair. - Congested mucosa in the recto-sigmoid colon, in the sigmoid colon, at the splenic flexure and in the transverse colon. Biopsied. - Stool in the rectum, in the recto-sigmoid colon, in the descending colon and in the ascending colon. - Granularity in the terminal ileum. Biopsied. Recommendation: - Discharge patient to home. - Resume previous diet. - Continue present medications. - Await pathology results. - Repeat colonoscopy in 3 years for surveillance. Procedure Code(s): --- Professional --- 76689, Colonoscopy, flexible; with biopsy, single or multiple CPT copyright 2017 [employer]. All rights reserved. The codes documented in this report are preliminary and upon nurse advisor review may be revised to meet current compliance requirements. Samir Diaz DO 10/06/2021 3:42:46 PM This report has been signed electronically. Number of Addenda: 1 Note Initiated On: 10/06/2021 2:47 PM Addendum Number: 1 Addendum Date: 12/10/2021 6:35:21 AM MAC was used as sedation for this procedure. Samir Diaz DO 12/10/2021 6:35:27 AM This report has been signed electronically.
--- NOTE | 2021-10-06 15:44 | OP.CCLET_ITS ---
12/10/2021 Daryl Mccollum [address] [facility] [place] [address] Re : Colonoscopy procedure for Aniyah Munoz Dear Dr. Mccollum This procedure was performed on Wednesday, October 06, 2021. My impressions and recommendations are as follows: Impressions : - Preparation of the colon was fair. - Congested mucosa in the recto-sigmoid colon, in the sigmoid colon, at the splenic flexure and in the transverse colon. Biopsied. - Stool in the rectum, in the recto-sigmoid colon, in the descending colon and in the ascending colon. - Granularity in the terminal ileum. Biopsied. Recommendations : - Discharge patient to home. - Resume previous diet. - Continue present medications. - Await pathology results. - Repeat colonoscopy in 3 years for surveillance. My findings are described in the full procedure note, which is enclosed. If I can be of further assistance, please feel free to contact me at . Sincerely, Samir Diaz DO 10/06/2021 3:42:46 PM This report has been signed electronically.
== END 2021-10-06 15:55 | disposition home or self-care (01) ==
LOC: EN 12:43 → AC 12:44
PROVIDERS: Anesthesiology; PCP Family Medicine; Referring Provider Family Medicine; Visit Provider Internal Medicine Gastroenterology
PROC: 0DJD8ZZ Inspection of Lower Intestinal Tract, Via Natural or Artificial Opening Endoscopic (ICD-10-PCS; CPT 45378; principal; 2021-10-06 13:55)
DX: K52.9 Noninfective gastroenteritis and colitis, unspecified (principal); Z68.43 Body mass index [BMI] 50.0-59.9, adult; K31.89 Other diseases of stomach and duodenum; K21.00 Gastro-esophageal reflux disease with esophagitis, without bleeding; K29.50 Unspecified chronic gastritis without bleeding; K63.89 Other specified diseases of intestine; E66.9 Obesity, unspecified; F12.90 Cannabis use, unspecified, uncomplicated; F17.290 Nicotine dependence, other tobacco product, uncomplicated; F41.9 Anxiety disorder, unspecified; F90.9 Attention-deficit hyperactivity disorder, unspecified type; Z79.899 Other long term (current) drug therapy
CPT/HCPCS: 43239; 45380; 84703; 88305; 88313; 88342; J7120; J2405

== ENCOUNTER → 2021-10-13 | Outpatient (CLI) | payer BC, SELFPAY ==
[2021-10-13 12:51] LABS: Rubella IgG Reactive (Nonreactive)
[2021-10-16 15:08] LABS: Endomysial Antibody IgA Negative (Negative); HEPATITIS B SURFACE AG Negative (Negative); Hep C Antibodies 0.1 s/co ratio (0.0-0.9); Hepatitis A IgM Antibody Negative (Negative); Hepatitis B Core AB IgM Negative (Negative); Immunoglobulin A 230 mg/dL (87-352); QNTFERON TB Mitogen Value > 10.00 IU/mL (.); QNTFERON TB Nil Value 0.01 IU/mL (.); QNTFERON TB1+ Ag Value 0.01 IU/mL (.); QNTFERON TB2+ Ag Value 0.01 IU/mL (.)
[2021-10-16 17:15] LABS: Mumps Antibody,IgG 80.4 AU/mL (Immune >10.9); QNTIFERON TB Positive Criteria Negative (Negative); V-Zoster IgG (Immunity) 223 index (Immune >165); t-Transglutaminase IgA <2 U/mL (0-3)
== END | disposition home or self-care (01) ==
PROVIDERS: PCP Family Medicine; Referring Provider Nurse Practitioner Adult Health; Visit Provider Nurse Practitioner Adult Health
DX: Z01.84 Encounter for antibody response examination (principal); K50.90 Crohn's disease, unspecified, without complications
CPT/HCPCS: 36415; 80074; 82784; 83516; 86255; 86480; 86735; 86762; 86765; 86787

== ENCOUNTER → 2021-10-15 | Outpatient (CLI) | payer BC, SELFPAY ==
[2021-10-15 11:21] LABS: Cholesterol 200 mg/dL (200); High Density Lipoprotein 32 mg/dL; Triglycerides 154 mg/dL; Very Low Density Lipoprotein 31 mg/dL (5-40)
[2021-10-21 14:31] LABS: Giardia Lamblia, Stool EIA Negative (Negative); Pancreatic Elastase, Fecal > 500 (>200)
[2021-10-22 07:38] LABS: Calprotectin, Stool 82 ug/g (0-120); Fats, Neutral Normal (.); Fats, Total Normal (.)
== END | disposition home or self-care (01) ==
LOC: LAB 09:54
PROVIDERS: PCP Family Medicine; Referring Provider Nurse Practitioner Adult Health; Visit Provider Nurse Practitioner Adult Health
DX: K52.9 Noninfective gastroenteritis and colitis, unspecified (principal); K58.9 Irritable bowel syndrome, unspecified; R79.9 Abnormal finding of blood chemistry, unspecified
CPT/HCPCS: 36415; 80061; 82653; 82705; 83630; 83993; 87177; 87209; 87329; 87493; 87506

== ENCOUNTER 2021-12-12 08:21 | Outpatient (CLI) | payer BC, SELFPAY ==
[2021-12-12 08:52] LABS: Absolute Lymphocyte Count 1.77 X10^3/uL (0.83-4.51); Absolute Neutrophil Count 6.9 X10^3/uL (2.0-7.7); Basophil# 0.04 X10^3/uL; Basophil% 0.4 % (0-1); Eosinophil# 0.17 X10^3/uL; Eosinophils% 1.8 % (0-5); Hematocrit 39.6 % (37-47); Hemoglobin 13.1 g/dL (12.0-15.0); Lymphocyte # 1.77 X10^3/ul (0.83-4.51); Lymphocyte % 18.4 % (19-41); Mean Corp Hgb Conc 33.1 g/dL (32-36); Mean Corpuscular Hgb 28.2 pg (27.0-32.0); Mean Corpuscular Volume 85.2 fL (81-99); Mean Platelet Vol. 9.4 fl (6.2-12.0); Monocyte# 0.72 X10^3/uL; Monocyte% 7.5 % (0-10); NRBC Flagged by Analyzer 0 % (0-5); Neutrophil # 6.89 X10^3/uL (2.7-7.7); Neutrophil % 71.6 % (47-70); Platelet Count 375 K/mm3 (150-450); RBC Distribution Width SD 40.1 fl (35.1-43.9); Red Blood Count 4.65 M/mm3 (4.2-5.4); White Blood Count 9.6 K/mm3 (4.4-11.0)
[2021-12-12 09:19] LABS: AST(SGOT) 20 U/L (15-37); Alanine Aminotransfer ALT/SGPT 34 U/L (13-56); Albumin, Serum 3.6 g/dL (3.2-5.0); Alkaline Phosphatase 90 U/L (45-117); Amylase 42 U/L (25-115); Anion Gap 7 (5-15); BUN 14 mg/dL (7-18); BUN/Creat Ratio 18.5 RATIO (10-20); Calcium,Total 9.3 mg/dL (8.5-10.1); Chloride 110 mmol/L (98-107); Creatinine, Serum 0.76 mg/dL (0.55-1.02); EST Glomerular Filtration Rate 104 mL/min (>60); Est Glom Filt Rate - Afr Amer 126 mL/min (>60); Globulin 3.7 g/dL (2.2-4.2); Glucose 90 mg/dL (74-106); Lipase 105 U/L (73-393); Potassium 4.2 mmol/L (3.5-5.1); Protein, Total 7.3 g/dL (6.4-8.2); Sodium Level 143 mmol/L (136-145)
== END 2021-12-12 23:59 | disposition home or self-care (01) ==
LOC: LAB 08:24
PROVIDERS: PCP Family Medicine; Referring Provider Nurse Practitioner Adult Health; Visit Provider Nurse Practitioner Adult Health
DX: K50.90 Crohn's disease, unspecified, without complications (principal)
CPT/HCPCS: 36415; 80053; 82150; 83690; 85025; 85305; 85306

== ENCOUNTER 2021-12-24 08:05 | Emergency (ER) | payer BC, SELFPAY ==
[2021-12-24 08:06] VITALS: BP 161/103; PULSE 78; RESP 18; TEMP 35.8; O2SAT 100; BMI 48.4
[2021-12-24] MEDS: 0.9% Normal Saline 1,000 ML 1000 ML IV (08:37)
--- NOTE | 2021-12-24 08:42 | ED.VIS.GI ---
HPI HPI - GI History of Present Illness Chief Complaint: Diarrhea Informant: patient Narrative Narrative: Patient persistent watery diarrhea for the past few days. Yesterday cramping in her thighs and headache. No fevers or cough. No abdominal pain. No recent antibiotics. Recent diagnosis of moderate severe Crohn's disease with endoscopies this past October. Stool studies were negative. She is followed by Dr. Diaz. Family history of ulcerative colitis in her father. She was started on Stelara from records initial infusion however insurance declined continued every 2 weeks therapies. Therefore methotrexate weekly injections in the office. After the third dose approximately a week ago she had worse side effects therefore was held. Awaiting for preapproval for Stelara. She did not tolerate prednisone in the past. History of von Willebrand's disease along with psoriasis. Denies any bloody stools. Denies any urinary symptoms. She has been closely followed by GI with her symptoms she had Colestid restarted using Lomotil and Bentyl was increased. She has no abdominal cramping. She had the initial COVID-vaccine x2 with no COVID infections in the past. Reports mild headache. Tylenol taken this morning. Prior similar symptoms: Yes PFSH PFSH Medical History Abnormal uterine bleeding (AUB) Asthma Crohn's disease Depression Encounter for intrauterine device placement Knee pain Marijuana use Rash Restless legs Smoker Von Willebrand disease Home Medications citalopram 40 mg tablet (Celexa) 40 mg PO DAILY 12/10/20 [History Last Taken Unknown] methylphenidate HCl 5 mg tablet (Ritalin) 5 mg PO DAILY 08/13/21 [History Last Taken Unknown] levonorgestrel 20 mcg/24 hours (8 yrs) 52 mg intrauterine device (Mirena) 1 device intrauterine ONCE 10/23/21 [History Last Taken Unknown] ustekinumab 90 mg/mL subcutaneous syringe (Stelara) 90 mg subcut Q8W #1 mL 11/13/21 [Rx Last Taken Unknown] methotrexate sodium (PF) 25 mg/mL injection solution 25 mg subcut QWEEK Crohn's #20 mL 11/30/21 [Rx Last Taken Unknown] promethazine 25 mg tablet 25 mg PO TID PRN nausea and vomiting #30 tabs 12/11/21 [Rx Last Taken Unknown] dicyclomine 10 mg capsule 10 mg PO BID diarrhea #60 caps 12/22/21 [Rx Last Taken Unknown] colestipol 1 gram tablet 1 g PO TID #90 tabs 12/23/21 [Rx Last Taken Unknown] Allergy/AdvReac Type Severity Reaction Status Date / Time nickel Allergy Hives Verified 12/24/21 08:08 amphetamine [From Adderall] AdvReac Diarrhea Verified 12/24/21 08:08 dextroamphetamine AdvReac Diarrhea Verified 12/24/21 08:08 [From Adderall] NSAIDS (Non-Steroidal AdvReac BLEEDING Verified 12/24/21 08:08 Anti-Inflamma blood thinners AdvReac Unknown Uncoded 11/27/21 15:32 Surgical History H/O dilation and curettage H/O knee surgery History of endoscopy Hx of colonoscopy Social History pets and animals: Yes sexually active: No Smoking Status: Current every day smoker tobacco type: e-cigarettes alcohol intake: never substance use type: marijuana seatbelt use: always ROS ROS ED Constitutional Constitutional ED: Denies chills, fever(s) or sweats Eyes Eyes: Denies change in vision ENT ENT ED: Denies dysphagia or sore throat Cardiovascular Cardiovascular: Denies chest pain, leg edema, palpitations or racing heartbeat Respiratory/Chest Respiratory/Chest: Denies cough, dyspnea or dyspnea on exertion Gastrointestinal Gastrointestinal: Reports diarrhea; Denies abdominal pain, nausea or vomiting Genitourinary Genitourinary ED: Denies dysuria, hematuria or urinary frequency Musculoskeletal Musculoskeletal: Reports myalgias; Denies back pain, extremity pain or neck pain Integumentary Denies rash or wounds Neurologic Neurologic: Reports headache(s); Denies paresthesias or weakness EXAM Physical Exam Const Vital Signs: 12/24/21 08:06 Temperature 96.5 F L Temperature Source Temporal Pulse Rate 78 Respiratory Rate 18 Blood Pressure 161/103 H Blood Pressure Mean 122 Pulse Ox 100 Oxygen Delivery Method Room Air Positive well nourished and well developed General Appearance ED: well developed and NAD HEENT HEENT Narrative: Mild dry mucosal membranes normocephalic and atraumatic Eyes PERRL, EOMs intact bilaterally and conjunctivae normal General Eye ED: Yes normal appearance of both eyes Neck no lymphadenopathy and supple Neck Narrative: No meningismus General: Negative for tenderness Chest Wall Chest: Negative for tenderness Resp normal respiratory effort and normal air movement Effort and Inspection: symmetric chest movement; Negative for respiratory distress Cardio regular rate, regular rhythm and no murmurs Peripheral Pulses: pulses 2+ throughout GI normal to inspection, nondistended, normoactive bowel sounds and non-tender GI Narrative: Negative Zhou's McBurney's tenderness. Palpation: Negative for guarding or rebound tenderness present Back/Spine no CVA tenderness and no thoracic nor lumbar tenderness Extremity normal to inspection General Extremety ED: Negative for edema or tenderness General Extremity: Negative for edema Neuro oriented x3, CN's II-XII intact bilaterally and no sensory deficits noted Sensorium / Orientation: awake and alert Skin no rashes or lesions noted and no wounds MDM MDM MDM Narrative Medical decision making narrative: Patient nontoxic vital stable no meningismus. Watery stools are nonbloody. Nontender abdomen. With diarrhea and myalgias in her legs we will check electrolytes. IV fluids given with mild dry mucosal membranes. Will check for COVID due to headache and myalgias and diarrhea. Electrolytes normal COVID-negative. Patient continue oral fluids for hydration should continue her medications per GI. She is awaiting approval for her Stelara. She will follow-up with GI. All questions were answered. Lab Data Labs: Laboratory Results - last 24 hr 12/24/21 08:34 Sodium 140 Potassium 3.6 Chloride 108 H Carbon Dioxide 28.0 Anion Gap 4 L BUN 8 Creatinine 0.71 Estim Creat Clear Calc 118.32 Est GFR (MDRD) Af Amer 135 Est GFR (MDRD) Non-Af 112 BUN/Creatinine Ratio 11.3 Glucose 93 Calcium 9.0 Discharge Plan Triage Chief Complaint: Diarrhea ED Provider: Tim Glasgow Dx/Rx/DC Orders Clinical Impression: Diarrhea, Headache, Hx of Crohn's disease, Myalgia, Dehydration Instructions: ED Crohn's Disease, ED Diarrhea, Unknown Cause, ED Myalgias Prescriptions: No Action citalopram [Celexa] 40 mg tablet 40 mg PO DAILY methylphenidate HCl [Ritalin] 5 mg tablet 5 mg PO DAILY Mirena 20 mcg/24 hours (7 yrs) 52 mg intrauterine device 1 device intrauterine ONCE Rx Instructions: as a single dose Stelara 90 mg/mL syringe 90 mg subcut Q8W Qty: 1 6RF Hold Instructions: Home Medication placed on hold at Doctor's office methotrexate sodium (PF) 25 mg/mL solution 25 mg subcut QWEEK Qty: 20 0RF promethazine 25 mg tablet 25 mg PO TID PRN (Reason: nausea and vomiting) Qty: 30 0RF dicyclomine 10 mg capsule 10 mg PO BID Qty: 60 1RF colestipol 1 gram tablet 1 g PO TID Qty: 90 0RF Primary Care Provider: Daryl Mccollum Referrals: Daryl Mccollum DO [Primary Care Provider] - Friend,DO Samir [Med Staff - Active Staff] - 3-5 Days if not improving Activity Restrictions/Additional Instructions: COVID-negative. Electrolytes normal. Continue fluids for hydration. Continue medications by GI. Follow-up with GI. Disposition Disposition: Home, Self Care
[2021-12-24 09:00] LABS: Anion Gap 4 (5-15); BUN 8 mg/dL (7-18); BUN/Creat Ratio 11.3 RATIO (10-20); Chloride 108 mmol/L (98-107); Creatinine, Serum 0.71 mg/dL (0.55-1.02); EST Glomerular Filtration Rate 112 mL/min (>60); Est Glom Filt Rate - Afr Amer 135 mL/min (>60); Estimated Creatinine Clearance 118.32 ml/min; Glucose 93 mg/dL (74-106); Potassium 3.6 mmol/L (3.5-5.1); Sodium Level 140 mmol/L (136-145)
[2021-12-24 09:48] VITALS: RESP 14
== END 2021-12-24 09:49 | disposition home or self-care (01) ==
PROVIDERS: Emergency Provider Emergency Medicine; PCP Family Medicine; Visit Provider Emergency Medicine
DX: R19.7 Diarrhea, unspecified (principal); R51.9 Headache, unspecified; F12.90 Cannabis use, unspecified, uncomplicated; M79.10 Myalgia, unspecified site; E86.0 Dehydration
CPT/HCPCS: 80048; 87811; 96360; 99283; J7030; A4216

== ENCOUNTER → 2022-04-12 | Outpatient (CLI) | payer BC, SELFPAY ==
[2022-04-12 10:07] VITALS: BP 136/76; PULSE 84; RESP 16; TEMP 36.4; O2SAT 97; BMI 45.5
[2022-04-12 12:13] VITALS: BP 139/84; PULSE 67; RESP 16; TEMP 36.1; O2SAT 99
== END | disposition home or self-care (01) ==
LOC: MEDOUTP 09:49
PROVIDERS: PCP Family Medicine; Referring Provider Nurse Practitioner Adult Health; Visit Provider Nurse Practitioner Adult Health
DX: Z45.2 Encounter for adjustment and management of vascular access device (principal)
CPT/HCPCS: 96365; 96366; J7050; A4216; J3358

== ENCOUNTER → 2022-05-03 | Outpatient (CLI) | payer BC, SELFPAY | END | disposition home or self-care (01) | LOC: SL 08:09 | PROVIDERS: PCP Family Medicine; Referring Provider Family Medicine; Visit Provider Family Medicine | DX: R06.83 Snoring (principal); G47.10 Hypersomnia, unspecified; E66.9 Obesity, unspecified | CPT/HCPCS: 95806 ==

== ENCOUNTER → 2022-09-20 | Outpatient (CLI) | payer BC, SELFPAY ==
[2022-09-20 16:31] LABS: Erythrocyte Sedimentation Rate 7 mm/hr (0-30)
[2022-09-20 17:24] LABS: CRP < 2.90 mg/L (0.0-3.0)
== END | disposition home or self-care (01) ==
PROVIDERS: PCP Family Medicine; Referring Provider Internal Medicine Gastroenterology; Visit Provider Internal Medicine Gastroenterology
DX: K50.90 Crohn's disease, unspecified, without complications (principal)
CPT/HCPCS: 36415; 85652; 86140

== ENCOUNTER → 2023-05-02 | Outpatient (CLI) | payer BC, SELFPAY ==
--- OUTSIDE RECORDS SUMMARY | 2023-05-02 23:28 | XMS RPT_ITS | CCD ---
Author Name Unknown Address [address] [place] [address] Organization [facility] Care Team Providers Care Blade Operator Name Role Phone Kathy Mccollum DO Primary Care Provider KATHY MCCOLLUM Primary Care Unavailable SELF, SELF Referring Unavailable KAREN FRIEDMAN Attending Unavailable SELF, SELF Referring Unavailable SUKHJINDER CONNELL Attending Un available KATHY MCCOLLUM Primary Care Unavailable Kathy Mccollum DO Primary Care Provider Allergies Allergy Classification Reported Allergen(s) Allergy Type Date of Onset Reaction(s) Facility (2 sources) Amphetamine Drug Allergy 1 [facility] (2 sources) Dextroamphetamine Drug Allergy 1 Diarrhea [facility] (2 sources) Ibuprofen Drug Allergy 7 [facility] (2 sources) nickel sulfate Drug Allergy 8 Hives [facility] (2 sources) NSAIDs Propensity to adverse reactions to drug 9 Bleeding [facility] Medications Current Medications Medication Drug Class(es) Dates Sig (Normalized) Sig (Original) tranexamic acid 650 mg oral tablet (3 sources) Antifibrinolytic Agent Start: 04-23-2021 End: 04-25-2023 take 2 tablets by mouth three times daily tranexamic acid (Lysteda) 650 MG tablet Take 2 tablets by mouth 3 times daily. Take as directed for bleeding. May take day 1-3 of your period 60 tablet 3 04/25/2023 Active ustekinumab (2 sources) Interleukin-12 Antagonist, Interleukin-23 Antagonist Ustekinumab (STELARA IV) by Intravenous route. Active Completed/Discontinued Medications Medication Drug Class(es) Dates Sig (Normalized) Sig (Original) citalopram 40 mg oral tablet (2 sources) Serotonin Reuptake Inhibitor Start: 03-27-2021 End: 04-25-2023 take 1 tablet by mouth once daily citalopram 40 MG tablet Take 1 tablet by mouth daily. 03/27/2021 04/25/2023 Discontinued (Other (suppress cancel msg)) etonogestrel 68 mg drug implant (1 source) Progestin End: 04-26-2022 Etonogestrel 68 MG SC implant Inject under the skin. 0 04/26/2022 Discontinued 12 hr loratadine 5 mg / pseudoephedrine sulfate 120 mg extended release oral tablet (2 sources) alpha-Adrenergi c Agonist End: 04-25-2023 loratadine-pseudoeph edrine 5-120 MG Tab SR 12 HR Take by mouth every 12 hours. 04/25/2023 Discontinued (Other (suppress cancel msg)) 8 hr methylphenidate hydrochloride 20 mg extended release oral tablet (2 sources) Central Nervous System Stimulant Start: 02-12-2021 End: 04-25-2023 take 1 tablet by mouth once daily methylphenidate ER 20 MG tablet Take 20 mg by mouth daily. 02/12/2021 04/25/2023 Discontinued (Other (suppress cancel msg)) Problems Active Problems Problem Classification Problem Date Documented Date Episodic/Chronic Anxiety disorders (2 sources) Anxiety; Translations: [Anxiety disorder, unspecified] Onset: 04-23-2021 04-23-2021 Chronic Coagulation and hemorrhagic disorders (4 sources) von Willebrand disorder; Translations: [Von Willebrand disease] Onset: 06-08-2016 Chronic Disorders usually diagnosed in infancy, childhood, or adolescence (2 sources) Attention deficit hyperactivity disorder, predominantly inattentive type; Translations: [Other specified behavioral and emotional disorders with onset usually occurring in childhood and adolescence] Onset: 09-08-2012 04-23-2021 Chronic Menstrual disorders (2 sources) Menometrorrhagia; Translations: [Excessive and frequent menstruation with irregular cycle] Onset: 04-23-2021 04-23-2021 Chronic Other female genital disorders (2 sources) Abnormal uterine bleeding; Translations: [Abnormal uterine and vaginal bleeding, unspecified] Onset: 04-23-2021 04-23-2021 Chronic Other nutritional; endocrine; and metabolic disorders (2 sources) Body mass index 40+ - severely obese; Translations: [Morbid (severe) obesity due to excess calories] Onset: 04-26-2022 04-26-2022 Chronic Unclassified (1 source) Von Willebrand disease, unspecified; Translations: [Von Willebrand disease, unspecified] Onset: 04-25-2023 Past or Other Problems Problem Classification Problem Date Documented Date Episodic/Chronic Mood disorders (2 sources) Mood disorders Onset: 04-23-2021 Resolved: 04-25-2023 04-23-2021 Noninfectious gastroenteritis (2 sources) Gastroenteritis; Translations: [Noninfective gastroenteritis and colitis, unspecified] Onset: 04-23-2021 04-23-2021 Episodic Other upper respiratory disease (2 sources) Bleeding from nose; Translations: [Epistaxis] Onset: 04-23-2021 04-23-2021 Episodic Unclassified (1 source) Von Willebrand disease, unspecified; Translations: [Von Willebrand disease, unspecified] Onset: 04-25-2023 Results Test Name Value Interpretation Reference Range Facil ity Vital Signs Date Time Vital Sign Value Performing Clinician Faci lity 04-25-2023 10:09-0500 Body mass index (BMI) [Ratio] 37.25 kg/m2 Karen Sprockel PAC Work Phone: [facility] 04-25-2023 10:09-0500 Body temperature 97.7 [degF] Karen Sprockel PAC Work Phone: [facility] 04-25-2023 10:09-0500 Body weight 104.69 kg Karen Sprockel PAC Work Phone: [facility] 04-25-2023 10:09-0500 Diastolic blood pressure 86 mm[Hg] Karen Sprockel PAC Work Phone: [facility] 04-25-2023 10:09-0500 Heart rate 76 /min Karen Sprockel PAC Work Phone: [facility] 04-25-2023 10:09-0500 Respiratory rate 16 /min Karen Sprockel PAC Work Phone: [facility] 04-25-2023 10:09-0500 SaO2% (BldA) [Mass fraction] 98 % Karen Sprockel PAC Work Phone: [facility] 04-25-2023 10:09-0500 Systolic blood pressure 135 mm[Hg] Karen Sprockel PAC Work Phone: [facility] 04-26-2022 13:33-0500 Body height 167.6 cm Karen Sprockel PA-C Work Phone: [facility] 04-26-2022 13:33-0500 Body mass index (BMI) [Ratio] 44.71 kg/m2 Karen Sprockel PA-C Work Phone: [facility] 04-26-2022 13:33-0500 Body temperature 98.6 [degF] Karen Sprockel PA-C Work Phone: [facility] 04-26-2022 13:33-0500 Body weight 125.65 kg Karen Sprockel PA-C Work Phone: [facility] 04-26-2022 13:33-0500 Diastolic blood pressure 90 mm[Hg] Karen Sprockel PA-C Work Phone: [facility] 04-26-2022 13:33-0500 Heart rate 76 /min Karen Sprockel PA-C Work Phone: [facility] 04-26-2022 13:33-0500 Respiratory rate 16 /min Karen Sprockel PA-C Work Phone: [facility] 04-26-2022 13:33-0500 SaO2% (BldA) [Mass fraction] 99 % Karen Sprockel PA-C Work Phone: [facility] 04-26-2022 13:33-0500 Systolic blood pressure 140 mm[Hg] Karen Sprockel PA-C Work Phone: [facility] Encounters Encounter Date Encounter Type Care Provider Facility Start: 04-25-2023 ambulatory KATHY Delgado y:MATIAS Start: 04-25-2023 End: 04-25-2023 Office outpatient visit 15 minutes Karen C Sprockel PAC Work Phone: Division of Hematology & Oncology Procedures Date Procedure Procedure Detail Performing Clinician Start: 04-25-2023 CBC AND ELECTRONIC DIFF Karen C Sprockel PAC Work Phone: Start: 04-25-2023 Complete blood count with white cell differential, automated Karen C Sprockel PAC Work Phone: Start: 04-25-2023 Comprehensive metabo lic panel Karen C Sprockel PAC Work Phone: Start: 04-25-2023 REQUEST FOR [facility] SENDOUT Karen C Sprockel PAC Work Phone: Start: 04-26-2022 CBC AND ELECTRONIC DIFF Karen C Sprockel PA-C Work Phone: Start: 04-26-2022 Complete blood count with white cell differential, automated Karen C Sprockel PA-C Work Phone: Start: 04-26-2022 Comprehensive metabo lic panel Karen C Sprockel PA-C Work Phone: Plan of Treatment Date Care Activity Detail Author Start: 04-30-2024 End: 04-30-2024 Patient encounter procedure 04/30/2024 11:30 AM EST Office Visit Division of Hematology & Oncology [address] [facility] [address] [facility] [address] [place] [address] Cullenel, Karen C, PAC [address] [facility] [address] [place] [address] Division of Hematology & Oncology Start: 01-29-2024 Tetanus vaccination TETANUS [facility] Start: 04-25-2023 End: 04-25-2024 VITAMIN C [facility] Immunizations Immunization Date Immunization Notes Care Provider Fa cility 01-23-2022 influenza virus vacc ine, unspecified formulation Karen Sprockel PAC Work Phone: [facility] 08-05-2020 COVID-19 vaccine, Ronna Villanueva, 100 mcg/0.5 mL Karen Sprockel PA-C Work Phone: [facility] 07-05-2020 COVID-19 vaccine, Ronna Villanueva, 100 mcg/0.5 mL Karen Sprockel PA-C Work Phone: [facility] 05-07-2020 meningococcal B vacc ine, recombinant, OMV, adjuvanted Karen Sprockel PA-C Work Phone: [facility] 12-10-2019 influenza, injectabl e, quadrivalent, preservative free Karen Sprockel PA-C Work Phone: [facility] 05-07-2019 meningococcal B vacc ine, recombinant, OMV, adjuvanted Karen Sprockel PA-C Work Phone: [facility] 12-06-2018 influenza virus vacc ine, whole virus Karen Sprockel PA-C Work Phone: [facility] 12-06-2018 influenza, injectabl e, quadrivalent, contains preservative Karen Sprockel PA-C Work Phone: [facility] 12-06-2018 influenza, injectabl e, quadrivalent, preservative free Karen Sprockel PA-C Work Phone: [facility] 04-24-2018 meningococcal polysaccharide (groups A, C, Y and W-135) diphtheria toxoid conjugate vaccine (MCV4P) Karen Sprockel PA-C Work Phone: [facility] 12-04-2017 influenza virus vacc ine, whole virus Karen Sprockel PA-C Work Phone: [facility] 12-04-2017 influenza, injectabl e, quadrivalent, preservative free Karen Sprockel PA-C Work Phone: [facility] 01-10-2017 influenza virus vacc ine, split virus (incl. purified surface antigen) Karen Sprockel PA-C Work Phone: [facility] 01-10-2017 influenza, injectabl e, quadrivalent, preservative free Karen Sprockel PA-C Work Phone: [facility] 11-13-2016 influenza, injectabl e, quadrivalent, preservative free Karen Sprockel PA-C Work Phone: [facility] 03-16-2016 influenza, injectabl e, quadrivalent, preservative free Karen Sprockel PA-C Work Phone: [facility] 03-16-2016 influenza, seasonal, injectable, preservative free Karen Sprockel PA-C Work Phone: [facility] 01-04-2015 influenza, injectabl e, quadrivalent, preservative free Karen Sprockel PA-C Work Phone: [facility] 01-28-2014 meningococcal polysaccharide (groups A, C, Y and W-135) diphtheria toxoid conjugate vaccine (MCV4P) Karen Sprockel PA-C Work Phone: [facility] 01-28-2014 tetanus toxoid, redu shun diphtheria toxoid, and acellular pertussis vaccine, adsorbed Karen Sprockel PA-C Work Phone: [facility] 01-12-2014 influenza, live, intranasal, quadrivalent Karen Sprockel PA-C Work Phone: [facility] 12-05-2012 influenza, live, intranasal, quadrivalent Karen Sprockel PA-C Work Phone: [facility] 11-25-2011 Influenza Vaccine Nasal Abig ail Sprockel PAC Work Phone: [facility] 11-25-2011 influenza virus vacc ine, live, attenuated, for intranasal use Karen Sprockel PA-C Work Phone: [facility] 01-02-2011 Influenza Vaccine Nasal Abig ail Sprockel PAC Work Phone: [facility] 01-02-2011 influenza virus vacc ine, live, attenuated, for intranasal use Karen Sprockel PA-C Work Phone: [facility] 12-27-2009 Influenza Vaccine Nasal Abig ail Sprockel PAC Work Phone: [facility] 12-27-2009 influenza virus vacc ine, live, attenuated, for intranasal use Karen Sprockel PA-C Work Phone: [facility] 01-08-2009 novel Influenza-H1N1 -09, live virus for nasal administration Karen Sprockel PA-C Work Phone: [facility] 12-27-2008 Influenza Vaccine Nasal Abig ail Sprockel PAC Work Phone: [facility] 12-27-2008 influenza virus vacc ine, live, attenuated, for intranasal use Karen Sprockel PA-C Work Phone: [facility] 12-27-2007 influenza virus vacc ine, unspecified formulation Karen Sprockel PA-C Work Phone: [facility] 12-27-2007 influenza virus vacc ine, whole virus Karen Sprockel PA-C Work Phone: [facility] 12-19-2006 diphtheria, tetanus toxoids and acellular pertussis vaccine Karen Sprockel PA-C Work Phone: [facility] 12-19-2006 diphtheria, tetanus toxoids and acellular pertussis vaccine, unspecified formulation Karen Sprockel PA-C Work Phone: [facility] 12-19-2006 influenza virus vacc ine, unspecified formulation Karen Sprockel PA-C Work Phone: [facility] 12-19-2006 influenza virus vacc ine, whole virus Karen Sprockel PA-C Work Phone: [facility] 12-19-2006 measles, mumps and rubella virus vaccine Karen Sprockel PA-C Work Phone: [facility] 12-19-2006 poliovirus vaccine, inactivated Karen Sprockel PA-C Work Phone: [facility] 12-19-2006 varicella virus vaccine Abig ail Sprockel PA-C Work Phone: [facility] 01-13-2006 hepatitis A vaccine, pediatric/adolescent dosage, 2 dose schedule Karen Sprockel PA-C Work Phone: [facility] 01-13-2006 influenza virus vacc ine, unspecified formulation Karen Sprockel PA-C Work Phone: [facility] 01-13-2006 influenza virus vacc ine, whole virus Karen Sprockel PA-C Work Phone: [facility] 07-09-2005 hepatitis A vaccine, pediatric/adolescent dosage, 2 dose schedule Karen Sprockel PA-C Work Phone: [facility] 12-23-2004 influenza virus vacc ine, unspecified formulation Karen Sprockel PA-C Work Phone: [facility] 12-23-2004 influenza virus vacc ine, whole virus Karen Sprockel PA-C Work Phone: [facility] 12-30-2003 pneumococcal conjuga te vaccine, 7 valent Karen Sprockel PA-C Work Phone: [facility] 04-18-2003 diphtheria, tetanus toxoids and acellular pertussis vaccine Karen Sprockel PA-C Work Phone: [facility] 04-18-2003 diphtheria, tetanus toxoids and acellular pertussis vaccine, unspecified formulation Karen Sprockel PA-C Work Phone: [facility] 04-18-2003 haemophilus influenz ae type b conjugate and Hepatitis B vaccine Karen Sprockel PA-C Work Phone: [facility] 04-18-2003 varicella virus vaccine Abig ail Sprockel PA-C Work Phone: [facility] 02-07-2003 influenza virus vacc ine, unspecified formulation Karen Sprockel PA-C Work Phone: [facility] 02-07-2003 influenza virus vacc ine, whole virus Karen Sprockel PA-C Work Phone: [facility] 01-11-2003 influenza virus vacc ine, unspecified formulation Karen Sprockel PA-C Work Phone: [facility] 01-11-2003 influenza virus vacc ine, whole virus Karen Sprockel PA-C Work Phone: [facility] 01-11-2003 measles, mumps and rubella virus vaccine Karen Sprockel PA-C Work Phone: [facility] 10-03-2002 pneumococcal conjuga te vaccine, 7 valent Karen Sprockel PA-C Work Phone: [facility] 10-03-2002 poliovirus vaccine, inactivated Karen Sprockel PA-C Work Phone: [facility] 06-22-2002 diphtheria, tetanus toxoids and acellular pertussis vaccine Karen Sprockel PA-C Work Phone: [facility] 06-22-2002 diphtheria, tetanus toxoids and acellular pertussis vaccine, unspecified formulation Karen Sprockel PA-C Work Phone: [facility] 06-22-2002 haemophilus influenz ae type b vaccine, PRP-T conjugate Karen Sprockel PA-C Work Phone: [facility] 04-12-2002 diphtheria, tetanus toxoids and acellular pertussis vaccine Karen Sprockel PA-C Work Phone: [facility] 04-12-2002 diphtheria, tetanus toxoids and acellular pertussis vaccine, unspecified formulation Karen Sprockel PA-C Work Phone: [facility] 04-12-2002 haemophilus influenz ae type b vaccine, PRP-T conjugate Karen Sprockel PA-C Work Phone: [facility] 04-12-2002 pneumococcal conjuga te vaccine, 7 valent Karen Sprockel PA-C Work Phone: [facility] 04-12-2002 poliovirus vaccine, inactivated Karen Sprockel PA-C Work Phone: [facility] 02-09-2002 diphtheria, tetanus toxoids and acellular pertussis vaccine Karen Sprockel PA-C Work Phone: [facility] 02-09-2002 diphtheria, tetanus toxoids and acellular pertussis vaccine, unspecified formulation Karen Sprtiarrael PA-C Work Phone: [facility] 02-09-2002 haemophilus influenz ae type b conjugate and Hepatitis B vaccine Karen Sprockel PA-C Work Phone: [facility] 02-09-2002 pneumococcal conjuga te vaccine, 7 valent Karen Sprockel PA-C Work Phone: [facility] 02-09-2002 poliovirus vaccine, inactivated Karen Sprockel PA-C Work Phone: [facility] 2001 hepatitis B vaccine, pediatric or pediatric/adolescent dosage Karen Sprockel PA-C Work Phone: [facility] Payers Date Payer Category Payer Unknown JONATHAN CASTILLO O PPO POS [id number] 2019-Present [address] [place] [address] [id number] 2019 Unknown [id number] 2001 Unknown [id number] 2001 Unknown [id number] Social History Date Type Detail Facility Start[facility] Start: 04-26-2022 Tobacco use and exposure Smoke less tobacco non-user [facility] Start: 04-26-2022 End: 04-25-2023 Alcohol intake Lifetime non-drinker (finding) [facility] Start: 04-23-2021 History SDOH Alcohol Frequency 1 [facility] Start: 2001 Sex Assigned At Not on file O SNYDER [facility] Start: 04-16-2022 End: 04-26-2022 Exposure to SARS-CoV-2 (event) Not sure [facility] Start: 04-25-2023 History of Social function [facility] Start: 04-25-2023 Tobacco use panel [facility] Adolescent depressio n screening assessment 0 [facility] History of Present illness Narrative 04-25-2023 Dexter Wong RN - 04/25/2023 10:00 AM Sabina Qiu, [facility] - 04/25/2023 10:00 AM Sara Rdz RN - 04/25/2023 10:00 AM Zach Friedman, JOLIE - 04/25/2023 10:00 AM EST Note Date & Type Note Facility 04-25-2023 History of Present illness Narrative Have you had any s/s of bleeding? (nosebleeds, gums when brushing or flossing, stool/urine): Pt denies Any planned procedures/dental work?: Pt denies Periods- duration, products #/hr, flow: Patient reports moderate to light periods lasting 5-6, using regular tampons, changing every 4 hours or so. Pt reports abnormal bleeding in between periods, in the last two periods has had 4 episodes. They last 1 day, almost not enough bleeding to wear a pad, associated with very painful cramps/nausea. Pt reports having IUD since September or October. Refills needed?: Pt denies Pt reports fatigue increase in fatigue. Initially lost 50lbs with control change in and slowly has continued to lose weight, has leveled out around 230 lbs in the last 3 months. Pt also with new diagnosis of Crohn's and had changed diet. Referral given x 2 for dentist and patient has not heard from them yet. Patient seen by pharmacist today in conjunction with multidisciplinary team. Pt w/ vWD. Stimate Challenge? no Insurance: [facility] (current): Fills TXA at local [facility] Bleeding Log 04/25/23 Treatment: Has TXA for prn use, not using Bleeding history: Menorrhagia- relatively controlled with IUD Bleeding in the last 3 months? none Admissions related to bleeding disorder since last visit: No Upcoming procedures? Yes- wisdom teeth removal. Planning to do here as [facility] will not allow with. Hasn't been able to schedule yet Upcoming high bleed risk activities? No Refill needed? No - only used TXA for IUD placement Treatment adequate to control bleeding? yes Considerations for treatment adjustment: None, advised could use TXA prn heavier menses but not having any issues currently Patient denies difficulty obtaining or affording medications. Patient is not interested in filling at [facility]. Patient informed that she has the right to choose her own pharmacy supplier and is in no way required to fill with [facility], unless desired. PLAN Continue TXA prn. Plan for IV DDAVP + TXA for wisdom teeth removal Problem list updated with current emergency plan Defer to PAIGE Armendariz note for full therapy plan. Clinical Coordinator introduces self to patient and explains role and functioning of [facility]. Discussed with patient that anytime a procedure including dental is going to occur we request they notify the [facility] ahead of time. Also, anytime may need to use factor we request the [facility] be notified. Pt states understanding RN reached out to Norma [facility] regarding need for new ID for pt but d/t allergies needs to be titanium and there are no offerings for titanium bracelets on the order site. Informed pt once she hears back she will contact pt via [employer]. Pt agreeable to this. Hematology Clinic Hemostasis and Thrombosis DISEASE HISTORY: R/O Bleeding diathesis. 22 yo F with diagnosis of Von Willebrand Disease (most likely quantitative) presenting in clinic to establish care. -History: Menorrhagia (2016) -Blood Type: O+ -ISTH-BAT: 7 (04/2021) -Bleeding history: Epistaxis (+) Until age 16 (1-2 times a week, up to 30 minutes) s/p cauterization x 3 (last 02/2021). Bleeding oral hygiene: Brushing (+), Flossing ( no flossing). Bleeding on minor dental procedures/dentist comments in regards of bleeding (-) Easy Bruising (+) > 1 cm (no more than 5 at a time) spontaneous 0% Bleeding minor wounds (+) > 10 minutes Surgeries/Procedures: Tympanostomy Tubes (infancy) --> No bleeding Gingival surgery to expose teeth (2015) --> No bleeding Left knee arthroscopy (2017) --> No bleeing (intranasal DDAVP pre procedure) IUD placement 2021 - Received DDAVP pre and TXA po post, no reported bleeding complications Colonoscopy 2021- did not receive anything, no bleeding complications. Obstetrics/Gynecology: Menarche at 13yo (7-10 days, heavy days 7, changing pads Q1H), states no history of YANNI. Started OCPs 16 yo to control bleeding.Previously had Nexplanon. Currently has IUD. Other Bleeds ( hematuria, GI bleed, muscle hematomas, hemarthrosis): Denies -Family History: Father with history of nosebleeds, has not been evaluated for bleeding disorder. Paternal grandmother with easy bruising and bleeding. -Medication: TXA PRN -Workup: 05/17/2016: Normal multimer analysis 06/29/2016: 0936: FVIII 54.9% (ref 50-170), vWF Ag 58% (ref 50-160), Risto 38% (ref 50-150), vWF propeptide 64 (ref 56-140) 1124: FVIII 305% (Ref 50-170), vWF Ag 215% (ref 50-160), Risto 212% (ref 50-150) 04/23/2021: PT 13.2 (ref 11.9-14.2), PTT 30.3 (ref 24-34.3), Fibrinogen 339 (ref 220-410), FVIII 83% (ref 75-220), vWF Ag 61% (ref 50-180), Risto 71% (ref 40-200), normal multimer analysis, normal PFA INTERVAL HISTORY: Pt was last seen in clinic 04/2022. Presents with father at today's appointment. Pt last had IUD replaced in summer 2021. States periods are monthly, last 5 days and are not heavy, changing tampon 4-5 hours, not soaked. However recently pt has noted to have vaginal spotting, light where she can just wear a panty liner, lasts maybe 1-2 days. During these events she will have pain that radiates to her belly button and radiate to her thighs, and will feel nauseous and have hot sweats. Has lost 90 lbs. Does have increased fatigue. Does report sleep schedule is not consistent due to work. Has Crohn's and is on stelara. Pt still has not heard from [facility]. [place] teeth are starting to come in and are causing discomfort and recurrent dental infections. Past Medical History: Diagnosis Date Crohn's colitis 09/2022 Past Surgical History: Procedure Laterality Date COLONOSCOPY DIAGNOSTIC 09/2022 INSERTION EAR TUBE Bilateral 2001 Family History Problem Relation Age of Onset Depression Mother Diabetes Mother Lipid Disorder Mother Anxiety Disorder Father Depression Father Heart Disease - Other Maternal Grandfather valve replacement Social History Tobacco Use Smoking status: Never Smokeless tobacco: Never Vaping Use Vaping status: Every Day Start date: 04/23/2018 Last attempt to quit: 04/23/2020 Substances: Nicotine Substance Use Topics Alcohol use: Never Drug use: Never Review of Systems Constitutional: Positive for malaise/fatigue and weight loss. HENT: Negative for nosebleeds. Cardiovascular: Negative for chest pain, dyspnea on exertion and leg swelling. Respiratory: Negative for hemoptysis and shortness of breath. Hematologic/Lymphatic: Negative for bleeding problem. Bruises/bleeds easily. Gastrointestinal: Negative for abdominal pain, hematemesis, hematochezia and melena. Genitourinary: Positive for non-menstrual bleeding (spotting inbetween periods). Negative for hematuria and menorrhagia. Outpatient Medications Prior to Visit Medication Sig Dispense Refill Ustekinumab (STELARA IV) by Intravenous route. tranexamic acid (Lysteda) 650 MG tablet Take 2 tablets by mouth 3 times daily as needed. 60 tablet 3 citalopram 40 MG tablet Take 1 tablet by mouth daily. (Patient not taking: Reported on 04/25/2023) loratadine-pseudoephedrine 5-120 MG Tab SR 12 HR Take by mouth every 12 hours. (Patient not taking: Reported on 04/26/2022) methylphenidate ER 20 MG tablet Take 20 mg by mouth daily. (Patient not taking: Reported on 04/26/2022) No facility-administered medications prior to visit. PHYSICAL EXAM: Vitals: 04/25/23 1009 BP: 135/86 Pulse: 76 Resp: 16 Temp: 97.7 degrees F (36.5 degrees C) TempSrc: Oral SpO2: 98% Weight: 104.7 kg (230 lb 12.8 oz) Physical Exam Constitutional: General: She is not in acute distress. Appearance: She is obese. She is not toxic-appearing. HENT: Head: Normocephalic and atraumatic. Eyes: Comments: EOMs intact to tracking examiner in room Cardiovascular: Rate and Rhythm: Normal rate and regular rhythm. Heart sounds: Normal heart sounds. Pulmonary: Breath sounds: Normal breath sounds. Abdominal: General: Bowel sounds are normal. There is no distension. Palpations: Abdomen is soft. Tenderness: There is no abdominal tenderness. Musculoskeletal: General: No swelling or tenderness. Skin: General: Skin is warm and dry. Neurological: General: No focal deficit present. Mental Status: She is alert. Psychiatric: Mood and Affect: Mood normal. ASSESSMENT AND PLAN: 22 yo F with diagnosis of Von Willebrand Disease (most likely quantitative), Type 1. Previously seen at [facility]. Workup prompted by severe menorrhagia (with unclear history of anemia) + recurrent epistaxis. Patient with controlled menorrhagia previously on etonogestrel implant (Nexplanon), currently has IUD. Epistaxis controlled s/p Cauterization x 3 (last 02/2021). No history of iron deficiency anemia. Patient with mucocutaneous bleeding phenotype, ISTH-BAT of 7 (04/2021), mostly driven by menorrhagia and epistaxis, but no major bleeding after small procedures. Lowest ristocetin cofactor of 38 (2017) with ratio 0.66 (indeterminate for type I or type II, most likely I), but in pair to bleeding phenotype qualifies for diagnosis of VWD.Has history of response to DDAVP at 2 hours at least. Labs ordered: CBC, CMP, PT/PTT, Iron studies + Ferritin, Vitamin C, Vitamin D, TSH/FT4, vWD (Versiti) Partially reviewed. Will recommend vitamin D supplement. Will message pt via [employer] TXA PRN for minor bleeds New referral to Dentistry Encouraged pt to reach out to OBGYN about spotting in between periods. Case was briefly discussed with attending Dr. Rocha. RTC 1 year with KAYLEE. Pt will contact clinic for bleeding events, upcoming procedures/surgeries. Pt utilizes [employer]. Karen Friedman PA-C Hematology documented in this encounter [facility] Instructions 04-25-2023 Patient Instructions Note Date & Type Note Facility 04-25-2023 Instructions Leeanne Gasca RN - 04/25/2023 10:00 AM EST AVLs Referral to Dentistry for wisdom teeth extraction Please call and schedule dental appointment: [phone] RTC 1 year with KAYLEE [place] Tuesday [facility] Your Team: Providers: Dr. Sukhjinder Christensen, Alyson Torrez, NAMAN, and Karen Friedman PA-C Primary Clinic Nurse: Raquel Associate Clinic Nurse: Dexter Clinical Coordinators: Kevin GODFREY Pharmacists: Peterson Barbosa Physical Therapist: Isatu Assistant Fitness Manager: Kathy Research Coordinator: Nery After Hours Medication refills Please allow 1 week for all medication refills. You may request refills via [employer] or by calling [phone]. Paperwork Please allow 2 weeks to complete all paperwork including but not limited to disability, FMLA, and insurance paperwork. Please clarify what to do once they are completed, including any fax numbers or addresses needed. [facility] is a secure way to get access to ask non urgent questions and access your lab results online. For questions or concerns regarding [employer] access or technical difficulties, please call [phone] or toll free at . Appointment's/ No show visits If you arrive late to your scheduled appointment, you may be asked to reschedule your visit. Please call [phone] at least 24 hours in advance if you are not able to make it to your scheduled visit. If you have three no show visits within one year, you will be discharged from our practice. Hemophilia Patient Instructions Please download and use the [employer] isabel to keep a log of bleeding episodes and treatment or Factor infusions. Bring the record to every visit with the dairy associate. Bleeding episode logs aid in diagnosis and treatment of Hemophilia. For non-emergent questions or issues during business hours please call the [facility] ([facility]) at [phone]. For any of the following, please notify the [facility] ([facility]) Nurses at [phone] during normal business hours, or after hours the Hematology triage line at [phone]. Any signs or symptoms of a bleeding episode: including prolonged bleeding after injury or surgery, joint or muscle pain swelling or redness, oral bleeding, nose bleeding, heavy menstrual bleeding. Any time you use factor or think you may need to use factor. Serious bleeds require immediate physician assessment: For any of the following, please proceed to the emergency department (ED) for assessment and then notify the C at [phone]. Head trauma, concussion, eye injury, throat injury, blood in urine or stools, abdominal injury, groin bleed or injury, major trauma, car accident. Bleeding may occur spontaneously. Early treatment with Factor replacement will prevent complications. Emergency Department Locations and Instructions [facility] Emergency Department (Main [place]): [address] [address] Phone number: The [facility] Emergency Departments are currently unable to use/administer factor brought with you from home. The [facility] Emergency Department [facility]: [address] [place] [address] Phone number: The [facility] Emergency Departments are currently unable to use/administer factor brought with you from home. Surgeries and Procedures: A minimum notice of two weeks is required prior to all surgeries or procedures. Inability to notify the [facility] in this time frame could result in the need to postpone/reschedule your upcoming surgery/procedure. Please notify the [facility] of ANY upcoming surgeries or procedures including dental procedures. Pre procedure and post procedure treatment may be recommended. Completed recommendation letters will be provided to requesting provider's office approximately two weeks prior to procedure date. If you have not been seen in our office within the past year, we cannot legally provide any surgical clearance or medical recommendations. Travel: Please notify the [facility] of any upcoming travel plans that you may need a travel letter for. A minimum notice of two weeks is requested for all travel letters. Inability to notify the C in this time frame could result in delays. Safety Measures: A medical alert is recommended for all patients diagnosed with a bleeding disorder to wear. Please notify your [facility] of your sports activity, especially high contact or collision sports. Please wear all recommended helmets and padding for sports activities, and hobbies. FRANKLIN each joint/muscle bleed (protect, rest, ice, compress, elevate) Medications to Avoid with a Bleeding Disorder Aspirin and NSAIDs such as Ibuprofen (Advil, Motrin), Naproxen (Aleve) and Ketorolac (Toradol) can also increase bleeding symptoms. Please speak with your treatment team prior to taking any of these medications. Bleeding Logs: Keeping an updated and accurate bleeding log is important for the management of your bleeding disorder and assistance in the following: Allows you to review how well your medication is working Allows your treatment team to make changes to your treatment plan if and when needed Most insurance plans now require bleeding logs for continued payment of your factor product Will support any future disability claims you may make A bleeding log should include: A record of all bleeds, including date and time of bleed, severity and location of bleed, and other symptoms experienced A record of all medication administrations, including date and time given, medication name, expiration date, lot number, amount used, and reason for use (prophylaxis, pre-surgery, bleed management) If a bleeding log is kept on paper, please bring these to your annual visit with the treatment team Options for phone/computer applications to keep bleeding logs include [employer] and [employer]. Ask your treatment team for more information documented in this encounter [facility] History of Present illness Narrative 04-26-2022 Karen Friedman PA-C - 04/26/2022 1:30 PM Logan Gasca RN - 04/26/2022 1:30 PM Herbert Upton ENGRAVER APPRENTICE DECORATIVE - 04/26/2022 1:30 PM EST Note Date & Type Note Facility 04-26-2022 History of Present illness Narrative Hematology Clinic Hemostasis and Thrombosis ID: 20 yo F with diagnosis of Von Willebrand Disease (most likely quantitative) presenting in clinic to establish care. DISEASE HISTORY: 1. R/O Bleeding diathesis -History: Menorrhagia (2016) -Blood Type: O+ -ISTH-BAT: 7 (04/2021) -Bleeding history: *Epistaxis (+), until age 16 (1-2 times a week, up to 30 minutes) s/p cauterization x 3 (last 02/2021). Bleeding oral hygiene: Brushing (+), Flossing (No flossing). No comments from dentist in regards of bleeding. *Easy Bruising (+), > 1 cm (no more than 5 at a time) spontaneous 0%, Bleeding minor wounds (+) <10 minutes *Surgeries/Procedures: -Timpanostomy Tubes (infancy) --> No bleeding -Gingival surgery to expose teeth (2015) --> No bleeding -Left knee arthroscopy (2017) --> No bleeing (intranasal DDAVP pre procedure) *Obstetrics/Gynecology -Mecharche at 13yo (7-10 days, heavy days 7, changing pads Q1H), states no history of YANNI. Started OCPs 16 yo to control bleeding, nexplanon (1999-), improved (no current menstrual period) *Family History: None *Medication: IN DDAVP (+) *Workup: 2017: Ristocetin=38, Antigen=58, FVIII=55, normal Propeptide vWD 04/2021: FVIII 83%, vWF Ag 61%, Risto 71%, normal multimer analysis, fibrinogen 339, normal PFA *Intranasal DDVAP challenge: 2017: 2 H --> Aqlkjco=081, Goldkiii=337, ZUZRQ=823 2. Anixery/ADHD INTERVAL HISTORY: Pt is doing well overall. Had IUD placed last summer where she was given pre IV DDAVP and post TXA, and tolerated it well. Menses currently last 4-5 days, with one heavy day where she has to change super tampon every 1.5h, does not need to change overnight. Pt reports she will be having an at home sleep study 05/03 to evaluate for possible ELIZA. Pt is likely going to need wisdom teeth extraction. States her oral surgeon in [place] recommends that she comes to [facility] for procedure if she is going to need IV medications. Pt does states she craves ice, has RLS. SOB currently but states she is currently having a sinus infection, otherwise denies. No past medical history on file. Past Surgical History: Procedure Laterality Date INSERTION EAR TUBE Bilateral 2001 Family History Problem Relation Age of Onset Depression Mother Diabetes Mother Lipid Disorder Mother Anxiety Disorder Father Depression Father Heart Disease - Other Maternal Grandfather valve replacement Social History Tobacco Use Smoking status: Never Smokeless tobacco: Never Vaping Use Vaping Use: Every day Start date: 04/23/2018 Last attempt to quit: 04/23/2020 Substances: Nicotine Substance Use Topics Alcohol use: Never Drug use: Never Review of Systems Constitutional: Positive for malaise/fatigue. HENT: Negative for nosebleeds. Cardiovascular: Negative for chest pain, dyspnea on exertion, leg swelling and palpitations. Respiratory: Positive for shortness of breath. Negative for hemoptysis. Hematologic/Lymphatic: Negative for bleeding problem. Bruises/bleeds easily. Musculoskeletal: Positive for joint pain (L knee pain, chronic after knee injury). Gastrointestinal: Negative for abdominal pain, hematemesis, hematochezia and melena. Not since last cauterization Genitourinary: Negative for menorrhagia. Outpatient Medications Prior to Visit Medication Sig Dispense Refill citalopram 40 MG tablet Take 1 tablet by mouth daily. tranexamic acid (Lysteda) 650 MG tablet Take 2 tablets by mouth 3 times daily as needed. 60 tablet 3 loratadine-pseudoephedrine 5-120 MG Tab SR 12 HR Take by mouth every 12 hours. (Patient not taking: Reported on 04/26/2022) methylphenidate ER 20 MG tablet Take 20 mg by mouth daily. (Patient not taking: Reported on 04/26/2022) Ustekinumab (STELARA IV) by Intravenous route. Etonogestrel 68 MG SC implant Inject under the skin. (Patient not taking: Reported on 04/26/2022) No facility-administered medications prior to visit. PHYSICAL EXAM: Vitals: 04/26/22 1333 BP: 140/90 Pulse: 76 Resp: 16 Temp: 98.6 degrees F (37 degrees C) TempSrc: Oral SpO2: 99% Weight: 125.6 kg (277 lb) Height: 1.676 m (5' 6 ) Physical Exam Constitutional: General: She is not in acute distress. Appearance: Normal appearance. She is obese. She is not toxic-appearing. HENT: Head: Normocephalic and atraumatic. Nose: Nose normal. Eyes: Comments: EOMs intact to tracking examiner Cardiovascular: Rate and Rhythm: Normal rate and regular rhythm. Heart sounds: Normal heart sounds. Pulmonary: Effort: Pulmonary effort is normal. Abdominal: General: Bowel sounds are normal. There is no distension. Palpations: Abdomen is soft. Tenderness: There is no abdominal tenderness. Musculoskeletal: General: No swelling or tenderness. Skin: General: Skin is warm and dry. Neurological: General: No focal deficit present. Mental Status: She is alert. Psychiatric: Mood and Affect: Mood normal. ASSESSMENT AND PLAN: 20 yo F with diagnosis of Von Willebrand Disease (most likely quantitative), Type 1. Previously seen at [facility]. Workup prompted by severe menorrhagia (with unclear history of anemia) + recurrent epistaxis. Patient with controlled menorrhagia previously on etonogestrel implant (Nexplanon), currently has IUD. Epistaxis controlled s/p Cauterization x 3 (last 02/2021). No history of iron deficiency anemia. Patient with mucocutaneous bleeding phenotype, ISTH-BAT of 7 (04/2021), mostly driven by menorrhagia and epistaxis, but no major bleeding after small procedures. Lowest ristocetin cofactor of 38 (2017) with ratio 0.66 (indeterminate for type I or type II, most likely I), but in pair to bleeding phenotype qualifies for diagnosis of VWD.Has history of response to DDAVP at 2 hours at least. Labs ordered: CBC, CMP, Iron studies + Ferritin for stability. Reviewed. WBC and RBC slightly elevated, pt also with current sinus infection and being worked up for sleep apnea; Iron sat and Iron low with wnl Ferritin. Can have pt repeat labs in 3-4 months. Labs ordered as OSH, will have pt obtain locally. Continue to use TXA prn Can continue to use Tylenol for pain control For upcoming wisdom teeth extraction likely will do IV DDAVP pre and oral TXA post op for 3-5 days. Given local oral surgeon not comfortable with pt getting IV DDAVP, will make referral to [facility]. Will repeat Stimate/DDAVP challenge for evaluation of response at 4 hours. RTC 1 year. Pt will contact clinic for bleeding events, upcoming procedures/surgeries. Pt will try to activate her MyChart. Karen Friedman PA-C Hematology Have you had any s/s of bleeding? (nosebleeds, gums when brushing or flossing, stool/urine): Nose ring too long, increased nose bleeds recently Any planned procedures/dental work? : Patient requesting surgical clearance for wisdom teeth removal Periods- duration, products #/hr, flow: Patient reports much instrument tester periods since IUD placement in August. Patient uses super tampon and pad, changes every 1.5 hours on 1 heavy day of period. Took lysteda in August after IUD placement Refills needed?: No Worker met with pt for annual comprehensive clinic visit. She was in attendance with her significant other. 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 She denied any financial concerns at this time. Worker discussed bleeding disorder chapter new benefits and enrolled pt in their membership to join their mailing list.Pt was actively wearing her MedicAlert and requires a membership renewal. Worker noted her ID number and will have the chapter cover her renewal. No additional needs reported at this time. documented in this encounter [facility] Instructions 04-26-2022 Patient Instructions Note Date & Type Note Facility 04-26-2022 Instructions Arabella Mcclellan RN - 04/26/2022 1:30 PM EST RTO 1 year Tuesday morning AV LABS Provider: Karen Friedman PA-C Primary Nurse: Arabella Associate Nurse: Raquel IMPORTANT: SURGICAL CLEARANCE: We MUST receive 2 WEEKS notice prior to any dental procedures, births, surgeries, and other procedures for Hematology clearance from our office. If you have not been seen by our office in over a year we cannot legally provide clearance. Failure to provide sufficient notice of at least two weeks prior may result in your surgery or procedure being delayed. Don't wait, communicate! Call [phone] and let our office know about what the procedure is for and where to send the clearance to as soon as you are aware. Thank you. Medication refills Please allow 1 week for all medication refills. You may request refills via [employer] or by calling [phone]. Paperwork Please allow 2 weeks to complete disability, FMLA, and insurance paperwork. Please clarify what to do once they are completed, including any fax numbers or addresses needed. [facility] is a secure way to get access to your labs online. Once you're online, you may need to send a message to the office to release results so that you can review the results of your blood tests. For non-emergent concerns, please send us a [employer] message but describe your issue fully. As an example, tell us how long you've had the symptom, what makes it better or worse, what you've done for it already) and one of our nurses or nurse practitioners will respond emeka. For questions or concerns regarding [employer] access or technical dificulties, please call [phone] or toll free at . Appointment's/ No show visits If you arrive late to your scheduled appointment, you may be asked to reschedule your visit. Please call [phone] at least 24 hours in advance if you are not able to make it to your scheduled visit. If you have three no show visit's within one year, you will be discharged from our practice. documented in this encounter [facility] Evaluation note Note Date & Type Note Facility documented in this encounter [facility] Evaluation note Note Date & Type Note Facility documented in this encounter [facility] Summary Purpose Family History No Family History Records FoundNo Family History Records Found Advance Directives No Advanced Directives Records FoundNo Advanced Directives Records Found Reason for Referral Specialty Diagnoses / Procedures Referred By Contac t Referred To Contact Dentistry Diagnoses Von Willebrand disease Sprockel Karen C, PA-C [address] [place] [address] [place] [address] Referral ID Status Reason Start Date Expiration Date V isits Requested Visits Authorized [id number] New Request 04/26/2022 05/21/2023 1 1 Scheduling Instructions [facility] Dentistry Locations: [facility] [place] [address] [place] [id number] [facility] [address] [place] [address] [facility] [address] [facility], [address] [place] [address] Specialty Diagnoses / Procedures Referred By Contac t Referred To Contact Dentistry Diagnoses Von Willebrand disease Sprockel, Karen C, PAC [address] [place] [address], [place] [address] Referral ID Status Reason Start Date Expiration Date V isits Requested Visits Authorized [id number] New Request 04/25/2023 05/19/2024 1 1 Additional Source Comments INFORMATION SOURCE (unrecogn ized section and content) DATE CREATED AUTHOR AUTHOR'S ORGANIZ ATION 04/25/2023 [facility] Reason for Visit (unrecogniz ed section and content) Specialty Diagnoses / Procedures Referred By Contac t Referred To Contact Hematology Diagnoses New patient Procedures NEW BENIGN HEMATOLOGY Self, Self Sukhjinder Connell MD [address] [facility] [address] [place] [address] Referral ID Status Reason Start Date Expiration Date Visits Re quested Visits Authorized [id number] Closed 04/23/2021 05/18/2022 1 1 Reason Comments Follow-up [facility] Specialty Diagnoses / Procedures Referred By Dea t Referred To Contact Hematology Diagnoses New patient Procedures NEW BENIGN HEMATOLOGY Self, Self Sukhjinder Connell MD [address] [facility] [address] [place] [address] Referral ID Status Reason Start Date Expiration Date V isits Requested Visits Authorized [id number] Pending Review 04/23/2021 05/18/2022 1 1 Reason Comments Follow-up Von Willebrand disea se Referral ID Status Reason Start Date Expiration Date Visits Re quested Visits Authorized [id number] Closed 04/23/2021 05/18/2022 1 1 Care Teams (unrecognized sec tion and content) Blade Operator Relationship Specialty Start Date End Date Kathy Mccollum DO [facility] [place] [phone] PCP - General Family Medicine 04/23/21 FOR RECORDS PERTAINING TO PATIENTS WHO ARE OR HAVE BEEN ENROLLED IN A CHEMICAL DEPENDENCY/SUBSTANCEABUSE PROGRAM, SOME INFORMATION MAY BE OMITTED. This clinical summary was aggregated from multiple sources. Caution should be exercised in using it in the provision of clinical care. This summary normalizes information from multiple sources, and as a consequence, information in this document may materially change the coding, format and clinical context of patient data. In addition, data may be omitted in some cases. CLINICAL DECISIONS SHOULD BE BASED ON THE PRIMARY CLINICAL RECORDS. [email or web address] [facility]. provides no warranty or guarantee of the accuracy or completeness of information in this document.
[2023-05-05 07:08] LABS: Chlamydia By Nucleic Acid AMP Negative (Negative); Gonococcus By Nucleic Acid AMP Negative (Negative)
== END | disposition home or self-care (01) ==
LOC: LABSPEC 14:47
PROVIDERS: PCP Family Medicine; Referring Provider Nurse Practitioner Women's Health; Visit Provider Nurse Practitioner Women's Health
DX: Z11.3 Encounter for screening for infections with a predominantly sexual mode of transmission (principal)
CPT/HCPCS: 87491; 87591

== ENCOUNTER → 2023-05-04 | Outpatient (CLI) | payer BC, SELFPAY ==
--- NOTE | 2023-05-04 15:08 | US_ITS ---
INDICATION: pain, IUD EXAMINATION: Ultrasound US Pelvis Non OB Complete With Transvaginal Imaging TECHNIQUE: Transabdominal and transvaginal pelvic ultrasound was performed. Grayscale, spectral waveform, and color flow Doppler evaluation of the adnexa. COMPARISON: September 11, 2021 FINDINGS: UTERUS: The uterus measures 4.8 x 6.2 x 3.0 cm. There is no uterine mass. The endometrial stripe measures 1.9 mm in AP diameter which is within normal limits. There is an intrauterine device in place in a grossly satisfactory position. RIGHT OVARY: 2.1 x 3.6 x 2.6 cm. Non-enlarged, normal echogenicity. There appears to be a corpus luteal cyst within the right ovary. There is normal arterial inflow and venous outflow present in the right ovary. LEFT OVARY: 2.2 x 3.0 x 1.9 cm. Non-enlarged, normal echogenicity. There is normal arterial inflow and venous outflow present in the left ovary. FREE FLUID: None. US/Pelvic w/ Transvaginal IMPRESSION: Within normal limits pelvic ultrasound with an intrauterine device in a grossly satisfactory position. Electronically Signed: Latoya Hubbard MD at 20:49 EST ,
--- OUTSIDE RECORDS SUMMARY | 2023-05-05 00:39 | XMS RPT_ITS | CCD ---
Author Name Unknown Address [address] [place] [address] Organization [facility] Care Team Providers Care Manager Payment Name Role Phone Kathy Mccollum DO Primary Care Provider KATHY MCCOLLUM Primary Care Unavailable KAREN FRIEDMAN Attending Unavailable SELF, SELF Referring Unavailable Allergies Allergy Classification Reported Allergen(s) Allergy Type Date of Onset Reaction(s) Facility (2 sources) Amphetamine Drug Allergy 1 [facility] (2 sources) Dextroamphetamine Drug Allergy [address] [facility] (2 sources) Ibuprofen Drug Allergy 7 [facility] (2 sources) nickel sulfate Drug Allergy [address] [facility] (2 sources) NSAIDs Propensity to adverse reactions to drug [address] [facility] Medications Current Medications Medication Drug Class(es) Dates [...] 37.25 kg/m2 Karen Sprockel PAC Work Phone: [facility] 04-25-2023 10:09-0500 Body temperature 97.7 [degF] Karen Sprockel PAC Work Phone: [facility] 04-25-2023 10:09-0500 Body weight 104.69 kg Karen Sprockel PAC Work Phone: [facility] 04-25-2023 10:09-0500 Diastolic blood pressure 86 mm[Hg] Karen Sprockel PAC Work Phone: [facility] 04-25-2023 10:09-0500 Heart rate 76 /min Karen Sprockel PAC Work Phone: [facility] 04-25-2023 10:09-0500 Respiratory rate 16 /min Karen Sprockel PAC Work Phone: [facility] 04-25-2023 10:09-0500 SaO2% (BldA) [Mass fraction] 98 % Karen Sprockel PAC Work Phone: [facility] 04-25-2023 10:09-0500 Systolic blood pressure 135 mm[Hg] Karen Sprockel PAC Work Phone: [facility] 04-26-2022 13:33-0500 Body height 167.6 cm Karen Sprockel PA-C Work Phone: [facility] 04-26-2022 13:33-0500 Body mass index (BMI) [Ratio] 44.71 kg/m2 Karen Sprockel PA-C Work Phone: [facility] 04-26-2022 13:33-0500 Body temperature 98.6 [degF] Karen Sprockel PA-C Work Phone: [facility] 04-26-2022 13:33-0500 Body weight 125.65 kg Karen Sprockel PA-C Work Phone: [facility] 04-26-2022 13:33-0500 Diastolic blood pressure 90 mm[Hg] Karen Sprockel PA-C Work Phone: [facility] 04-26-2022 13:33-0500 Heart rate 76 /min Karen Sprockel PA-C Work Phone: [facility] 04-26-2022 13:33-0500 Respiratory rate 16 /min Karen Sprockel PA-C Work Phone: [facility] 04-26-2022 13:33-0500 SaO2% (BldA) [Mass fraction] 99 % Karen Sprockel PA-C Work Phone: [facility] 04-26-2022 13:33-0500 Systolic blood pressure 140 mm[Hg] Karen Sprockel PA-C Work Phone: [facility] Encounters Encounter Date Encounter Type Care Provider [...] PAC Work Phone: Start: 04-25-2023 REQUEST FOR MISC LAB SENDOUT Karen C Sprockel PAC Work [...] Visit Division of Hematology & Oncology [address] [facility] [place] [address] Ganga, Karen C, PAC [address] [place] [address] Division of Hematology & Oncology Start: 01-29-[address] [facility] Start: 04-25-2023 End: 04-25-[address] [facility] Immunizations Immunization Date Immunization Notes Care Provider Fa alisson 01-23-2022 influenza virus vacc ine, unspecified formulation Karen Sprockel PAC Work Phone: [facility] 08-05-2020 COVID-19 vaccine, Ronna Villanueva, 100 mcg/0.5 mL Karen Sprockel PA-C Work Phone: [facility] 07-05-2020 COVID-19 vaccine, Ronna Villanueva, 100 mcg/0.5 mL Karen Sprockel PA-C Work Phone: [facility] 05-07-2020 meningococcal B vacc ine, recombinant, OMV, adjuvanted Karen Sprockel PA-C Work Phone: [facility] 12-10-2019 influenza, injectabl e, quadrivalent, preservative free Karen Sprockel PA-C Work Phone: [facility] 05-07-2019 meningococcal B vacc ine, recombinant, OMV, adjuvanted Karen Sprockel PA-C Work Phone: [facility] 12-06-2018 influenza virus vacc ine, whole virus Karen Sprockel PA-C Work Phone: [facility] 12-06-2018 influenza, injectabl e, quadrivalent, contains preservative Karen Sprockel PA-C Work Phone: [facility] 12-06-2018 influenza, injectabl e, quadrivalent, preservative free Karen Sprockel PA-C Work Phone: [facility] 04-24-2018 meningococcal polysaccharide (groups A, C, Y and W-135) diphtheria toxoid conjugate vaccine (MCV4P) Karen Sprockel PA-C Work Phone: [facility] 12-04-2017 influenza virus vacc ine, whole virus Karen Sprockel PA-C Work Phone: [facility] 12-04-2017 influenza, injectabl e, quadrivalent, preservative free Karen Sprockel PA-C Work Phone: [facility] 01-10-2017 influenza virus vacc ine, split virus (incl. purified surface antigen) Karen Sprockel PA-C Work Phone: [facility] 01-10-2017 influenza, injectabl e, quadrivalent, preservative free Karen Sprockel PA-C Work Phone: [facility] 11-13-2016 influenza, injectabl e, quadrivalent, preservative free Karen Sprockel PA-C Work Phone: [facility] 03-16-2016 influenza, injectabl e, quadrivalent, preservative free Karen Sprockel PA-C Work Phone: [facility] 03-16-2016 influenza, seasonal, injectable, preservative free Karen Sprockel PA-C Work Phone: [facility] 01-04-2015 influenza, injectabl e, quadrivalent, preservative free Karen Sprockel PA-C Work Phone: [facility] 01-28-2014 meningococcal polysaccharide (groups A, C, Y and W-135) diphtheria toxoid conjugate vaccine (MCV4P) Karen Sprockel PA-C Work Phone: [facility] 01-28-2014 tetanus toxoid, redu shun diphtheria toxoid, and acellular pertussis vaccine, adsorbed Karen Sprockel PA-C Work Phone: [facility] 01-12-2014 influenza, live, intranasal, quadrivalent Karen Sprockel PA-C Work Phone: [facility] 12-05-2012 influenza, live, intranasal, quadrivalent Karen Sprockel PA-C Work Phone: [facility] 11-25-2011 Influenza Vaccine Nasal Abig ail Sprockel PAC Work Phone: [facility] 11-25-2011 influenza virus vacc ine, live, attenuated, for intranasal use Karen Sprockel PA-C Work Phone: [facility] 01-02-2011 Influenza Vaccine Nasal Abig ail Sprockel PAC Work Phone: [facility] 01-02-2011 influenza virus vacc ine, live, attenuated, for intranasal use Karen Sprockel PA-C Work Phone: [facility] 12-27-2009 Influenza Vaccine Nasal Abig ail Sprockel PAC Work Phone: [facility] 12-27-2009 influenza virus vacc ine, live, attenuated, for intranasal use Karen Sprockel PA-C Work Phone: [facility] 01-08-2009 novel Influenza-H1N1 -09, live virus for nasal administration Karen Sprockel PA-C Work Phone: [facility] 12-27-2008 Influenza Vaccine Nasal Abig ail Sprockel PAC Work Phone: [facility] 12-27-2008 influenza virus vacc ine, live, attenuated, for intranasal use Karen Sprockel PA-C Work Phone: [facility] 12-27-2007 influenza virus vacc ine, unspecified formulation Karen Sprockel PA-C Work Phone: [facility] 12-27-2007 influenza virus vacc ine, whole virus Karen Sprockel PA-C Work Phone: [facility] 12-19-2006 diphtheria, tetanus toxoids and acellular pertussis vaccine Karen Sprockel PA-C Work Phone: [facility] 12-19-2006 diphtheria, tetanus toxoids and acellular pertussis vaccine, unspecified formulation Karen Sprockel PA-C Work Phone: [facility] 12-19-2006 influenza virus vacc ine, unspecified formulation Karen Sprockel PA-C Work Phone: [facility] 12-19-2006 influenza virus vacc ine, whole virus Karen Sprockel PA-C Work Phone: [facility] 12-19-2006 measles, mumps and rubella virus vaccine Karen Sprockel PA-C Work Phone: [facility] 12-19-2006 poliovirus vaccine, inactivated Karen Sprockel PA-C Work Phone: [facility] 12-19-2006 varicella virus vaccine Abig ail Sprockel PA-C Work Phone: [facility] 01-13-2006 hepatitis A vaccine, pediatric/adolescent dosage, 2 dose schedule Karen Sprockel PA-C Work Phone: [facility] 01-13-2006 influenza virus vacc ine, unspecified formulation Karen Sprockel PA-C Work Phone: [facility] 01-13-2006 influenza virus vacc ine, whole virus Karen Sprockel PA-C Work Phone: [facility] 07-09-2005 hepatitis A vaccine, pediatric/adolescent dosage, 2 dose schedule Karen Sprockel PA-C Work Phone: [facility] 12-23-2004 influenza virus vacc ine, unspecified formulation Karen Sprockel PA-C Work Phone: [facility] 12-23-2004 influenza virus vacc ine, whole virus Karen Sprockel PA-C Work Phone: [facility] 12-30-2003 pneumococcal conjuga te vaccine, 7 valent Karen Sprockel PA-C Work Phone: [facility] 04-18-2003 diphtheria, tetanus toxoids and acellular pertussis vaccine Karen Sprockel PA-C Work Phone: [facility] 04-18-2003 diphtheria, tetanus toxoids and acellular pertussis vaccine, unspecified formulation Karen Sprockel PA-C Work Phone: [facility] 04-18-2003 haemophilus influenz ae type b conjugate and Hepatitis B vaccine Karen Sprockel PA-C Work Phone: [facility] 04-18-2003 varicella virus vaccine Abig ail Sprockel PA-C Work Phone: [facility] 02-07-2003 influenza virus vacc ine, unspecified formulation Karen Sprockel PA-C Work Phone: [facility] 02-07-2003 influenza virus vacc ine, whole virus Karen Sprockel PA-C Work Phone: [facility] 01-11-2003 influenza virus vacc ine, unspecified formulation Karen Sprockel PA-C Work Phone: [facility] 01-11-2003 influenza virus vacc ine, whole virus Karen Sprockel PA-C Work Phone: [facility] 01-11-2003 measles, mumps and rubella virus vaccine Karen Sprockel PA-C Work Phone: [facility] 10-03-2002 pneumococcal conjuga te vaccine, 7 valent Karen Sprockel PA-C Work Phone: [facility] 10-03-2002 poliovirus vaccine, inactivated Karen Sprockel PA-C Work Phone: [facility] 06-22-2002 diphtheria, tetanus toxoids and acellular pertussis vaccine Karen Sprockel PA-C Work Phone: [facility] 06-22-2002 diphtheria, tetanus toxoids and acellular pertussis vaccine, unspecified formulation Karen Sprockel PA-C Work Phone: [facility] 06-22-2002 haemophilus influenz ae type b vaccine, PRP-T conjugate Karen Sprockel PA-C Work Phone: [facility] 04-12-2002 diphtheria, tetanus toxoids and acellular pertussis vaccine Karen Sprockel PA-C Work Phone: [facility] 04-12-2002 diphtheria, tetanus toxoids and acellular pertussis vaccine, unspecified formulation Karen Sprockel PA-C Work Phone: [facility] 04-12-2002 haemophilus influenz ae type b vaccine, PRP-T conjugate Karen Sprockel PA-C Work Phone: [facility] 04-12-2002 pneumococcal conjuga te vaccine, 7 valent Karen Sprockel PA-C Work Phone: [facility] 04-12-2002 poliovirus vaccine, inactivated Karen Sprockel PA-C Work Phone: [facility] 02-09-2002 diphtheria, tetanus toxoids and acellular pertussis vaccine Karen Sprockel PA-C Work Phone: [facility] 02-09-2002 diphtheria, tetanus toxoids and acellular pertussis vaccine, unspecified formulation Karen Sprockel PA-C Work Phone: [facility] 02-09-2002 haemophilus influenz ae type b conjugate and Hepatitis B vaccine Karen Sprockel PA-C Work Phone: [facility] 02-09-2002 pneumococcal conjuga te vaccine, 7 valent Karen Sprockel PA-C Work Phone: [facility] 02-09-2002 poliovirus vaccine, inactivated Karen Sprockel PA-C Work Phone: [facility] 2001 hepatitis B vaccine, pediatric or pediatric/adolescent dosage Karen Sprockel PA-C Work Phone: [facility] Payers Date Payer Category Payer Unknown JONATHAN JONATHAN O PPO POS [id number] 2019-Present [address] [place] [address] [id number] 2019 Unknown [id number] 2001 Unknown [id number] Social History Date Type Detail Facility [facility]: [facility] Start: 04-26-2022 Tobacco use and exposure Smoke less tobacco non-user [facility] Start: 04-26-2022 End: 04-25-2023 Alcohol intake Lifetime non-drinker (finding) [facility] Start: 04-23-2021 History SDOH Alcohol Frequency 1 [facility] Start: 2001 Sex Assigned At Not on file [facility] Start: 04-16-2022 End: 04-26-2022 Exposure to SARS-CoV-2 (event) Not sure [facility] Start: 04-25-2023 History of Social function [facility] Start: 04-25-2023 Tobacco use panel [facility] Adolescent depressio n screening assessment 0 [facility] History of Present illness Narrative 04-25-2023 Dexter Wong RN - 04/25/2023 10:00 AM Sabina Qiu, [facility] - 04/25/2023 10:00 AM Sara Rdz RN - 04/25/2023 10:00 AM Zach Shane Cullencoleman, [facility] - 04/25/2023 10:00 AM EST Note Date [...] Initially lost 50lbs with control change in September/October and slowly has continued to lose weight, has leveled out around 230 lbs in the last 3 months. Pt also with new diagnosis of Crohn's and had changed diet. Referral given x 2 for dentist and patient has not heard from them yet. Patient seen by pharmacist today in conjunction with multidisciplinary team. Pt w/ vWD. Stimate Challenge? no Insurance: [facility] (current): Fills TXA at local [facility] Bleeding Log 04/25/23 Treatment: Has TXA for prn use, not using Bleeding history: Menorrhagia- relatively controlled with IUD Bleeding in the last 3 months? none Admissions related to bleeding disorder since last visit: No Upcoming procedures? Yes- wisdom teeth removal. Planning to do here as [place] will not allow with. Hasn't been able [...] updated with current emergency plan Defer to Karen Friedman PA-C s note for full therapy plan. Clinical Coordinator [...] hears back she will contact pt via [employer]. Pt agreeable to this. Hematology Clinic Hemostasis and Thrombosis DISEASE HISTORY: R/O Bleeding diathesis. 22 yo F with diagnosis of Von Willebrand Disease (most likely quantitative) presenting in clinic to establish care. -History: Menorrhagia (2017) -Blood Type: O+ -ISTH-BAT: 7 (04/2021) -Bleeding [...] No bleeding Gingival surgery to expose teeth (2016) --> No bleeding Left knee arthroscopy (2018) --> No bleeing (intranasal DDAVP pre procedure) [...] still has not heard from [facility] dentistry. [place] teeth are starting to come in and [...] likely quantitative), Type 1. Previously seen at [facility]. Workup prompted by severe menorrhagia (with unclear [...] vitamin D supplement. Will message pt via [employer] TXA PRN for minor bleeds New referral to Dentistry Encouraged pt to reach out to OBGYN about spotting in between periods. Case was briefly discussed with attending Dr. Rocha. RTC 1 year with KAYLEE. Pt will contact clinic for bleeding events, upcoming procedures/surgeries. Pt utilizes [employer]isto. Karen Friedman PA-C Hematology documented in this encounter [facility] Instructions 04-25-2023 Patient Instructions Note Date & Type Note Facility 04-25-2023 Instructions Leeanne Gasca RN - 04/25/2023 10:00 AM EST AVLs Referral to Dentistry for wisdom teeth extraction Please call and schedule dental appointment: [phone] RTC 1 year with KAYLEE [place] Tuesday [facility] Your Team: Providers: Dr. Demian Christensen, Alyson Torrez, NAMAN, and Karen Friedman PA-C Primary Clinic Nurse: Raquel Associate Clinic Nurse: Dexter Clinical Coordinators: Kevin GODFREY Pharmacists: Peterson Barbosa Physical Therapist: Isatu Dancing Teacher: Kathy Research Coordinator: Nery After Hours Medication refills Please allow 1 week for all medication refills. You may request refills via Teamisto or by calling [phone]. Paperwork Please allow 2 weeks to complete all paperwork including but not limited to disability, FMLA, and insurance paperwork. Please clarify what to do once they are completed, including any fax numbers or addresses needed. OS [employer] is a secure way to get access to ask non urgent questions and access your lab results online. For questions or concerns regarding [employer] access or technical difficulties, please call [phone] or toll free at . Appointment's/ No show visits If you arrive late to your scheduled appointment, you may be asked to reschedule your visit. Please call [phone] at least 24 hours in advance if you are not able to make it to your scheduled visit. If you have three no show visits within one year, you will be discharged from our practice. Hemophilia Patient Instructions Please download and use the [employer] isabel to keep a log of bleeding episodes and treatment or Factor infusions. Bring the record to every visit with the architecture professor. Bleeding episode logs aid in diagnosis and treatment of Hemophilia. For non-emergent questions or issues during business hours please call the [facility] Center (C) at [phone]. For any of the following, please notify the [facility] ([facility]) Nurses at [phone] during normal business hours, or after hours the Hematology triage line at [phone]. Any signs or symptoms of a bleeding [...] (ED) for assessment and then notify the [facility] at [phone]. Head trauma, concussion, eye injury, throat injury, blood in urine or stools, abdominal injury, groin bleed or injury, major trauma, car accident. Bleeding may occur spontaneously. Early treatment with Factor replacement will prevent complications. Emergency Department Locations and Instructions [facility] Emergency Department ([place]): [address] [address] Phone number: The [facility] Emergency Departments are currently unable to use/administer factor brought with you from home. [facility] Emergency Department [place]: [address] [place] [address] Phone number: The [facility] Emergency Departments are currently unable to use/administer factor brought with you from home. Surgeries and Procedures: A minimum notice of two weeks is required prior to all surgeries or procedures. Inability to notify the [facility] in this time frame could result in the need to postpone/reschedule your upcoming surgery/procedure. Please notify the [facility] of ANY upcoming surgeries or procedures including dental procedures. Pre procedure and post procedure treatment may be recommended. Completed recommendation letters will be provided to requesting provider's office approximately two weeks prior to procedure date. If you have not been seen in our office within the past year, we cannot legally provide any surgical clearance or medical recommendations. Travel: Please notify the [facility] of any upcoming travel plans that you may need a travel letter for. A minimum notice of two weeks is requested for all travel letters. Inability to notify the [facility] in this time frame could result in [...] phone/computer applications to keep bleeding logs include [employer] and [employer]. Ask your treatment team for more information documented in this encounter [facility] History of Present illness Narrative 04-26-2022 Karen Friedman PA-C - 04/26/2022 1:30 PM Logan Gasca RN - 04/26/2022 1:30 PM ANAHY Jimenez - 04/26/2022 1:30 PM EST Note Date & Type Note Facility 04-26-2022 History of Present illness Narrative Hematology Clinic Hemostasis and Thrombosis ID: 20 yo F with diagnosis of Von Willebrand Disease (most likely quantitative) presenting in clinic to establish care. DISEASE HISTORY: 1. R/O Bleeding diathesis -History: Menorrhagia (2017) -Blood Type: O+ -ISTH-BAT: 7 (04/2021) -Bleeding [...] *Intranasal DDVAP challenge: 2017: 2 H --> Cvksudr=622, Eredlotc=173, RLJQN=875 2. Anixery/ADHD INTERVAL HISTORY: Pt is doing [...] teeth extraction. States her oral surgeon in [place] recommends that she comes to [facility] for [...] likely quantitative), Type 1. Previously seen at [facility]. Workup prompted by severe menorrhagia (with unclear [...] will try to activate her MyChart. Karen Sprockel PA-C Hematology Have you had any s/s of bleeding? (nosebleeds, gums when brushing or flossing, stool/urine): Nose ring too long, increased nose bleeds recently Any planned procedures/dental work? : Patient requesting surgical clearance for wisdom teeth removal Periods- duration, products #/hr, flow: Patient reports much seat mender periods since IUD placement in August. 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 She currently resides with [...] at this time. documented in this encounter [facility] Instructions 04-26-2022 Patient Instructions Note Date & [...] procedure being delayed. Don't wait, communicate! Call [phone] and let our office know about what the procedure is for and where to send the clearance to as soon as you are aware. Thank you. Medication refills Please allow 1 week for all medication refills. You may request refills via Teamisto or by calling [phone]. Paperwork Please allow 2 weeks to complete disability, FMLA, and insurance paperwork. Please clarify what to do once they are completed, including any fax numbers or addresses needed. [employer] is a secure way to get access to your labs online. Once you're online, you may need to send a message to the office to release results so that you can review the results of your blood tests. For non-emergent concerns, please send us a Teamisto message but describe your issue fully. As an example, tell us how long you've had the symptom, what makes it better or worse, what you've done for it already) and one of our nurses or nurse practitioners will respond emeka. For questions or concerns regarding Teamisto access or technical dificulties, please call [phone] or toll free at . Appointment's/ No show visits If you arrive late to your scheduled appointment, you may be asked to reschedule your visit. Please call [phone] at least 24 hours in advance if you are not able to make it to your scheduled visit. If you have three no show visit's within one year, you will be discharged from our practice. documented in this encounter [facility] Evaluation note Note Date & Type Note Facility documented in this encounter [facility] Evaluation note Note Date & Type Note Facility documented in this encounter [facility] Summary Purpose Family History No Family History Records FoundNo Family History Records Found Advance Directives No Advanced Directives Records FoundNo Advanced Directives Records Found Reason for Referral Specialty Diagnoses / Procedures Referred By Contac t Referred To Contact Dentistry Diagnoses Von Willebrand disease Karen Friedman, PANikkyC [address] [facility] [address] [place] [address] Referral ID Status Reason Start Date Expiration Date V isits Requested Visits Authorized [id number] New Request 04/26/2022 05/21/2023 1 1 Scheduling Instructions [facility] Locations: [facility] Dental Clinics [facility] [address] [place] [address] [facility] [place] [address] [place] [address] [facility] [address] [facility], [address] [place] [address] Specialty Diagnoses / Procedures Referred By Contac t Referred To Contact Dentistry Diagnoses Von Willebrand disease Karen Friedman, PAC [address] [facility] [address], [place] [address] Referral ID Status Reason Start Date Expiration Date V isits Requested Visits Authorized [id number] New Request 04/25/2023 05/19/2024 1 1 Additional Source Comments INFORMATION SOURCE (unrecogn ized section and content) DATE CREATED AUTHOR AUTHOR'S ORGANIZ ATION 05/03/2023 [facility] Reason for Visit (unrecogniz ed section and content) Specialty Diagnoses / Procedures Referred By Contac t Referred To Contact Hematology Diagnoses New patient Procedures NEW BENIGN HEMATOLOGY Self, Self Demian Liu MD [address] [facility] [address] [place] [address] Referral ID Status Reason Start Date Expiration Date Visits Re quested Visits Authorized [id number] Closed 04/23/2021 05/18/2022 1 1 Reason Comments Follow-up VWD Referral ID Status Reason Start Date Expiration Date V isits Requested Visits Authorized [id number] Pending Review 04/23/2021 05/18/2022 1 1 Care Teams (unrecognized sec tion and content) Manager Payment Relationship Specialty Start Date End Date Kathy Mccollum DO [address] [facility] [place] [address] PCP - General Family Medicine 04/23/21 FOR [...] BE BASED ON THE PRIMARY CLINICAL RECORDS. [facility]. provides no warranty or guarantee of the accuracy or completeness of information in this document.
== END | disposition home or self-care (01) ==
LOC: US 15:07
PROVIDERS: PCP Family Medicine; Referring Provider Nurse Practitioner Women's Health; Visit Provider Nurse Practitioner Women's Health
DX: R10.2 Pelvic and perineal pain (principal); Z97.5 Presence of (intrauterine) contraceptive device
CPT/HCPCS: 76830; 76856

== ENCOUNTER → 2023-08-15 | Outpatient (CLI) | payer BC, SELFPAY ==
[2023-08-15 16:03] LABS: Absolute Lymphocyte Count 1.33 X10^3/uL (0.83-4.51); Absolute Neutrophil Count 8.3 X10^3/uL (2.0-7.7); Basophil# 0.06 X10^3/uL; Basophil% 0.6 % (0-1); Eosinophil# 0.28 X10^3/uL; Eosinophils% 2.6 % (0-5); Hematocrit 38.9 % (37-47); Hemoglobin 12.9 g/dL (12.0-15.0); Lymphocyte # 1.33 X10^3/ul (0.83-4.51); Lymphocyte % 12.5 % (19-41); Mean Corp Hgb Conc 33.2 g/dL (32-36); Mean Corpuscular Hgb 28.3 pg (27.0-32.0); Mean Corpuscular Volume 85.3 fL (81-99); Mean Platelet Vol. 9.7 fl (6.2-12.0); Monocyte# 0.72 X10^3/uL; Monocyte% 6.7 % (0-10); NRBC Flagged by Analyzer 0 % (0-5); Neutrophil # 8.26 X10^3/uL (2.7-7.7); Neutrophil % 77.3 % (47-70); Platelet Count 295 K/mm3 (150-450); RBC Distribution Width CV 11.9 % (11.6-14.6); RBC Distribution Width SD 36.8 fl (35.1-43.9); Red Blood Count 4.56 M/mm3 (4.2-5.4); White Blood Count 10.7 K/mm3 (4.4-11.0)
[2023-08-15 16:16] LABS: Erythrocyte Sedimentation Rate 2 mm/hr (0-30)
[2023-08-15 17:01] LABS: ALB/GLOB Ratio 1.2 RATIO (0.9-2.4); AST(SGOT) 13 U/L (15-37); Alanine Aminotransfer ALT/SGPT 16 U/L (13-56); Albumin, Serum 3.8 g/dL (3.2-5.0); Alkaline Phosphatase 75 U/L (45-117); Anion Gap 4 (5-15); BUN 12 mg/dL (7-18); BUN/Creat Ratio 16.4 RATIO (10-20); CRP < 2.90 mg/L (0.0-3.0); Calcium,Total 9.5 mg/dL (8.5-10.1); Chloride 107 mmol/L (98-107); Creatinine, Serum 0.73 mg/dL (0.55-1.02); EST Glomerular Filtration Rate 106 mL/min (>60); Est Glom Filt Rate - Afr Amer 128 mL/min (>60); Globulin 3.3 g/dL (2.2-4.2); Glucose 85 mg/dL (74-106); Potassium 3.7 mmol/L (3.5-5.1); Protein, Total 7.1 g/dL (6.4-8.2); Sodium Level 137 mmol/L (136-145)
== END | disposition home or self-care (01) ==
PROVIDERS: PCP Family Medicine; Referring Provider Internal Medicine Gastroenterology; Visit Provider Internal Medicine Gastroenterology
DX: K50.00 Crohn's disease of small intestine without complications (principal)
CPT/HCPCS: 36415; 80053; 85025; 85652; 86140

== ENCOUNTER 2024-01-08 12:07 | Emergency (ER) | payer BC, SELFPAY ==
[2024-01-08 12:07] VITALS: BP 150/102; PULSE 104; RESP 18; TEMP 36.8; O2SAT 100; BMI 34.4
--- NOTE | 2024-01-08 12:42 | CT_ITS ---
EXAM: CT ABDOMEN AND PELVIS WITH INTRAVENOUS CONTRAST CLINICAL INDICATION: abdominal pain TECHNIQUE: Helically acquired images were obtained of the abdomen and pelvis with intravenous contrast. This CT exam was performed using one or more of the following dose reduction techniques: automated exposure control, adjustment of the mA and/or kV according to patient size, and/or use of iterative reconstruction technique. CONTRAST: 100 ML ISOVUE 370 COMPARISON: CT abdomen and pelvis, 09/08/2018. FINDINGS: LOWER THORAX: No significant abnormality. Lung bases are clear. No cardiomegaly. No significant pericardial effusion. ABDOMEN: LIVER: The liver measures 22.8 cm in length. No focal hepatic lesion is identified. GALLBLADDER AND BILE DUCTS: No significant abnormality. No calcified gallstones. No gallbladder distention or wall edema. No intra- or extrahepatic biliary ductal dilation. PANCREAS: No significant abnormality. No focal cystic or solid mass. SPLEEN: No significant abnormality. Normal size without focal cystic or solid mass. ADRENALS: No significant abnormality. No nodules. KIDNEYS AND URETERS: No significant abnormality. Normal renal size and position. No hydronephrosis. STOMACH AND BOWEL: No significant abnormality. No stomach or bowel distention. No focal inflammatory change. PELVIS: APPENDIX: There is a normal appendix in the right lower quadrant. BLADDER: No significant abnormality. REPRODUCTIVE: An IUD is present. ABDOMEN and PELVIS: INTRAPERITONEAL SPACE: No significant abnormality. No ascites or other fluid collection. No free air. BONES/JOINTS: No significant abnormality. No suspicious lytic or blastic abnormality. SOFT TISSUES: No significant abnormality. No discrete abdominal or pelvic wall hernia. VASCULATURE: No significant abnormality. Abdominal aorta is non-dilated. LYMPH NODES: No significant abnormality. No enlarged lymph nodes. CT/Abdomen/Pelvis W IV Cont ONLY IMPRESSION: 1. No acute inflammatory process of the bowel, bowel obstruction, fistula, or bowel perforation. 2. Hepatomegaly. Electronically Signed: Bob Gomez DO at 13:53 EST ,
--- NOTE | 2024-01-08 12:48 | EDS_ITS ---
HPI <KAYLEE Mccarthy - Last Filed: 01/08/24 14:26> HPI - GI History of Present Illness Chief Complaint: Abd Pain Narrative Narrative: 23-year-old female with past medical history of Crohn's disease presents with 13 days of abdominal pain. She states typically she has 4-5 BMs a day with her Crohn's disease but over the last 2 weeks has only been going 2-3 times a day because whenever she pushes she has rectal pain. The pain radiates from her rectum to her left lower abdomen and left lower back. She is able to go 2-3 times a day with normal soft brown stool and denies melena or hematochezia. She has no urinary symptoms. She has no fever chills or nausea or vomiting. She was diagnosed with Crohn's disease by colonoscopy around 03/2021 and has been on Stelara and well-controlled. She denies needing admissions or frequent steroids for Crohn's. She sees Dr. Diaz and has an appointment scheduled on January 19 but the pain persisted and she did not want a wait prompting her to come in today. She has no abdominal surgical history. She has an IUD. [facility] <KAYLEE Mccarthy - Last Filed: 01/08/24 14:26> [facility] Medical History Abnormal uterine bleeding (AUB) Asthma Crohn's disease Depression Knee pain Marijuana use Rash Restless legs Smoker Von Willebrand disease Home Medications ?Medication ?Instructions ?Recorded ?Last Taken ?Type levonorgestrel 21 mcg/24 hr (up to 1 device intrauterine ONCE 10/23/21 Unknown History 8 years) 52 mg intrauterine device (Mirena) ustekinumab 90 mg/mL subcutaneous 90 mg subcut Q8W #1 mL 04/18/23 Unknown Rx syringe (Stelara) buspirone 15 mg tablet 15 mg PO BID 08/15/23 Unknown History ondansetron HCl 8 mg tablet 8 mg PO Q8H PRN nausea and 09/30/23 Unknown Rx vomiting #14 tabs Allergy/AdvReac Type Severity Reaction Status Date / Time nickel Allergy Hives Verified 01/08/24 12:09 amphetamine (From Adderall) AdvReac Diarrhea Verified 01/08/24 12:09 dextroamphetamine (From AdvReac Diarrhea Verified 01/08/24 12:09 Adderall) NSAIDS (Non-Steroidal AdvReac BLEEDING Verified 01/08/24 12:09 Anti-Inflamma Surgical History H/O knee surgery History of endoscopy Hx of colonoscopy S/P D&C (status post dilation and curettage) Social History pets and animals: Yes sexually active: No Smoking Status: Current every day smoker tobacco type: e-cigarettes alcohol intake: never substance use type: marijuana seatbelt use: always ROS <KAYLEE Mccarthy - Last Filed: 01/08/24 14:26> ROS ED ROS Narrative Constitutional: Negative for fever, chills, malaise. CVS: Negative for palpitations, chest pain, syncope. Respiratory: Negative for shortness of breath, cough. GI: Negative for vomiting, diarrhea, melena, hematochezia. : Negative for dysuria, hematuria or frequency. EXAM <KAYLEE Mccarthy - Last Filed: 01/08/24 14:26> Physical Exam Narrative Exam Narrative: CONST: Patient sitting in no acute distress. EYES: Normal inspection. NECK: Normal inspection. RESP: No respiratory distress, CTAB. CVS: Regular rate and rhythm, no murmur, no gallop. ABD: Soft with lower midline abdominal and LLQ tenderness, no guarding or rebound, nondistended. Normal bowel sounds x 4. Back: Normal inspection, no CVA tenderness. SKIN: Color normal, no rash, warm, dry, intact. EXTREMITIES: Normal appearance, no pedal edema. NEURO: Alert and answering questions appropriately. PSYCH: Normal affect. Const Vital Signs: 01/08/24 12:07 01/08/24 13:46 01/08/24 14:08 Temperature 98.2 F 97.6 F L Temperature Source Oral Pulse Rate 104 H 78 78 Respiratory Rate 18 16 16 Blood Pressure 150/102 H 127/92 H 127/92 H Blood Pressure Mean 118 103 103 Pulse Ox 100 98 98 Oxygen Delivery Method Room Air Room Air <Dr. Lei High MD - Last Filed: 01/08/24 13:27> Physical Exam Const Vital Signs: 01/08/24 12:07 01/08/24 13:46 01/08/24 14:08 Temperature 98.2 F 97.6 F L Temperature Source Oral Pulse Rate 104 H 78 78 Respiratory Rate 18 16 16 Blood Pressure 150/102 H 127/92 H 127/92 H Blood Pressure Mean 118 103 103 Pulse Ox 100 98 98 Oxygen Delivery Method Room Air Room Air [facility] <KAYLEE Mccarthy - Last Filed: 01/08/24 14:26> [facility] Narrative Medical decision making narrative: History gathered from: Patient and spouse Patient has had about 2 weeks of rectal pain associated with bowel movements. She has a [facility] She appears well and nontoxic. Vital signs stable. She has a soft, benign abdominal exam. Normal rectal exam with no evidence of hemorrhoids or abscess. CBC and BMP are unremarkable. Urinalysis is negative for infection and test is negative. CT scan shows no acute finding. Patient had resolution of pain after IV morphine and Zofran. At this time I recommended she continue Tylenol and follow-up with Dr. Diaz. She has an appointment scheduled on January 19. I discussed symptoms that would warrant return prior to that and she was discharged in stable condition. Differential includes but not limited to: Crohn's flare, diverticulitis, abscess, perforation, UTI among others I have personally performed a face to face assessment of the patient and have reviewed the DOUGIE Note. I performed a substantive portion of the visit including all aspects of the following. My hollins findings include: History: 23-year-old female history of Crohn's disease. No prior abdominal surgery. States she has had suprapubic and rectal pain for a week. No vomiting. Limited diarrhea. No fever or drastic weight loss. No dysuria. Exam: [Well-appearing 23-year-old female. Vital signs stable afebrile. H EENT exam unremarkable. Neck nontender. Lungs clear equal symmetrical. Heart regular rate and rhythm and rate about 90 November. Abdomen currently is nontender normal bowel sounds without peritoneal signs. Patient was already treated with IV morphine Prior to my exam. No hernia or mass. No peritoneal signs. No obstruction. Intact nontender. Moving all 4 extremities. Calves are nontender edema or cords.] Medical Decision Making: [23-year-old with history of Crohn's abdominal pain rectal pain primarily CAT scan being obtained and labs. He woke up] Lab Data Labs: Laboratory Results - last 24 hr 01/08/24 12:45 WBC 11.0 RBC 4.90 Hgb 14.2 Hct 41.6 MCV 84.9 MCH 29.0 MCHC 34.1 RDW Std Deviation 36.7 RDW Coeff of Samantha 11.9 Plt Count 359 MPV 9.5 Immature Gran % (Auto) 0.400 Neut % (Auto) 72.7 H Lymph % (Auto) 18.5 L [place] % (Auto) 6.6 Eos % (Auto) 1.4 Baso % (Auto) 0.4 Absolute Neuts (auto) 8.0 H Absolute Lymphs (auto) 2.04 Nucleated RBC % 0 Sodium 140 Potassium 3.4 L Chloride 107 Carbon Dioxide 27.0 Anion Gap 6 BUN 9 Creatinine 0.82 Estim Creat Clear Calc 126.25 Est GFR (MDRD) Af Amer 113 Est GFR (MDRD) Non-Af 93 BUN/Creatinine Ratio 11.0 Glucose 126 H Calcium 9.0 Urine Color Yellow Urine Clarity Sl. Cloudy Urine pH 6.0 Ur Specific [place] 1.015 Urine Protein 15 H Urine Glucose (UA) Normal Urine Ketones Negative Urine Occult Blood Negative Urine Nitrite Negative Urine Bilirubin Negative Urine Urobilinogen Normal Ur Leukocyte Esterase 25 H Urine RBC 0 SEEN Urine WBC 0-5 SEEN Ur Squamous Epith Cells 0-5 SEEN Urine Bacteria 2+ Urine Mucus 0 SEEN Urine Test Negative Radiography Diagnostic Testing: Clinical Impression(s) from Imaging Studies Abdomen/Pelvis CT 01/08/24 12:42 IMPRESSION: 1. No acute inflammatory process of the bowel, bowel obstruction, fistula, or bowel perforation. 2. Hepatomegaly. Electronically Signed: Bob Gomez DO at 13:53 EST , <Dr. Lei High MD - Last Filed: 01/08/24 13:27> [facility] Narrative Medical decision making narrative: History gathered from: Patient and spouse Patient has had about 2 weeks of rectal pain associated with having bowel movements. She has a history of Crohn's disease on Stelara. She appears well and nontoxic. Vital signs stable. She has a soft, benign abdominal exam. Normal rectal exam with no evidence of hemorrhoids or abscess. I have personally performed a face to face assessment of the patient and have reviewed the DOUGIE Note. I performed a substantive portion of the visit including all aspects of the following. My hollins findings include: History: 23-year-old female history of Crohn's disease. No prior abdominal surgery. States she has had suprapubic and rectal pain for a week. No vomiting. Limited diarrhea. No fever or drastic weight loss. No dysuria. Exam: [Well-appearing 23-year-old female. Vital signs stable afebrile. H EENT exam unremarkable. Neck nontender. Lungs clear equal symmetrical. Heart regular rate and rhythm and rate about 90 November. Abdomen currently is nontender normal bowel sounds without peritoneal signs. Patient was already treated with IV morphine Prior to my exam. No hernia or mass. No peritoneal signs. No obstruction. Intact nontender. Moving all 4 extremities. Calves are nontender edema or cords.] Medical Decision Making: [23-year-old with history of Crohn's abdominal pain rectal pain primarily CAT scan being obtained and labs. He woke up] History & Record Review Discussion w/independent historian: Patient and Family Lab Data Attestation: I reviewed the patient's lab results. Lab results narrative: CBC normal. White count 11. H&H 14 and 41. Platelets 359. Electrolytes potassium 3.4. 6. Normal BUN and creatinine. Glucose 126. UA negative. No white or red cells. No nitrites. Urine test negative. Labs: Laboratory Results - last 24 hr 01/08/24 12:45 WBC 11.0 RBC 4.90 Hgb 14.2 Hct 41.6 MCV 84.9 MCH 29.0 MCHC 34.1 RDW Std Deviation 36.7 RDW Coeff of Samantha 11.9 Plt Count 359 MPV 9.5 Immature Gran % (Auto) 0.400 Neut % (Auto) 72.7 H Lymph % (Auto) 18.5 L [place] % (Auto) 6.6 Eos % (Auto) 1.4 Baso % (Auto) 0.4 Absolute Neuts (auto) 8.0 H Absolute Lymphs (auto) 2.04 Nucleated RBC % 0 Sodium 140 Potassium 3.4 L Chloride 107 Carbon Dioxide 27.0 Anion Gap 6 BUN 9 Creatinine 0.82 Estim Creat Clear Calc 126.25 Est GFR (MDRD) Af Amer 113 Est GFR (MDRD) Non-Af 93 BUN/Creatinine Ratio 11.0 Glucose 126 H Calcium 9.0 Urine Color Yellow Urine Clarity Sl. Cloudy Urine pH 6.0 Ur Specific [place] 1.015 Urine Protein 15 H Urine Glucose (UA) Normal Urine Ketones Negative Urine Occult Blood Negative Urine Nitrite Negative Urine Bilirubin Negative Urine Urobilinogen Normal Ur Leukocyte Esterase 25 H Urine RBC 0 SEEN Urine WBC 0-5 SEEN Ur Squamous Epith Cells 0-5 SEEN Urine Bacteria 2+ Urine Mucus 0 SEEN Urine Test Negative Radiography Diagnostic Testing: Clinical Impression(s) from Imaging Studies Abdomen/Pelvis CT 01/08/24 12:42 IMPRESSION: 1. No acute inflammatory process of the bowel, bowel obstruction, fistula, or bowel perforation. 2. Hepatomegaly. Electronically Signed: Bob Gomez DO at 13:53 EST Reading Location ID and State: [facility] / [place] Tel , Service support , Discharge Plan Triage Chief Complaint: Abd Pain ED Midlevel Provider: Pamela Mendoza ED Provider: Lei High Dx/Rx/DC Orders Clinical Impression: Abdominal pain, History of Crohn's disease Instructions: Abdominal Pain Prescriptions: No Action Mirena 20 mcg/24 hours (7 yrs) 52 mg intrauterine device 1 device intrauterine ONCE Rx Instructions: as a single dose buspirone 15 mg tablet 15 mg PO BID ondansetron HCl 8 mg tablet 8 mg PO Q8H PRN (Reason: nausea and vomiting) Qty: 14 0RF Stelara 90 mg/mL syringe 90 mg subcut Q8W Qty: 1 6RF Rx Instructions: Approved 05.24.23-06.23.23 ID: [id number] Primary Care Provider: Daryl Mccollum Referrals: Daryl Mccollum DO [Primary Care Provider] - Samir Diaz DO [Med Staff - Active Staff] - Activity Restrictions/Additional Instructions: Continue Tylenol as needed and follow-up with GI/Dr. Diaz Print Language: Romansh Disposition Disposition: Home, Self Care Discharge Date/Time: 01/08/24 14:09
[2024-01-08 12:52] LABS: Mucous, Urine 0 SEEN /hpf (<or=2+); Red Blood Cells-Urine 0 SEEN /hpf (0-5)
[2024-01-08] MEDS: Morphine 4 MG/ML Syringe IV (12:52)
[2024-01-08] MEDS: Ondansetron 4 MG/2 ML Vial IV (12:52)
[2024-01-08 12:57] LABS: Absolute Lymphocyte Count 2.04 X10^3/uL (0.83-4.51); Basophil# 0.04 X10^3/uL; Basophil% 0.4 % (0-1); Eosinophil# 0.15 X10^3/uL; Eosinophils% 1.4 % (0-5); Hematocrit 41.6 % (37-47); Hemoglobin 14.2 g/dL (12.0-15.0); Lymphocyte # 2.04 X10^3/ul (0.83-4.51); Lymphocyte % 18.5 % (19-41); Mean Corp Hgb Conc 34.1 g/dL (32-36); Mean Corpuscular Volume 84.9 fL (81-99); Mean Platelet Vol. 9.5 fl (6.2-12.0); Monocyte# 0.73 X10^3/uL; Monocyte% 6.6 % (0-10); NRBC Flagged by Analyzer 0 % (0-5); Neutrophil # 8.02 X10^3/uL (2.7-7.7); Neutrophil % 72.7 % (47-70); Platelet Count 359 K/mm3 (150-450); RBC Distribution Width CV 11.9 % (11.6-14.6); RBC Distribution Width SD 36.7 fl (35.1-43.9)
[2024-01-08 13:05] LABS: Color, Urine Yellow (Yellow); Glucose, Dipstick Normal (Normal); Ketone-Dipstick Negative (Negative); Leukocyte Esterase-Dipstick 25 /ul (Negative); Nitrite-Dipstick Negative (Negative); Occult Blood-Urine Negative /ul (Negative); Protein-Dipstick 15 mg/dl (Negative); Specific Gravity, Urine 1.015 (1.002-1.030); Urine Bilirubin Dipstick Negative (Negative); Urine Clarity Sl. Cloudy (Clear); Urine Urobilinogen Normal (Normal)
[2024-01-08 13:07] LABS: Anion Gap 6 (5-15); BUN 9 mg/dL (7-18); Chloride 107 mmol/L (98-107); Creatinine, Serum 0.82 mg/dL (0.55-1.02); EST Glomerular Filtration Rate 93 mL/min (>60); Est Glom Filt Rate - Afr Amer 113 mL/min (>60); Estimated Creatinine Clearance 126.25 ml/min; Glucose 126 mg/dL (74-106); Potassium 3.4 mmol/L (3.5-5.1); Sodium Level 140 mmol/L (136-145)
[2024-01-08 13:13] LABS: Bacteria 2+ /hpf (None Seen); Squamous Epithelial Cells - UA 0-5 SEEN /hpf (5-10)
[2024-01-08 13:14] LABS: White Blood Cells 0-5 SEEN /hpf (0-5)
[2024-01-08 13:18] LABS: Internal QC Validated? YES +Cl - CLEAR BKGD; Pregnancy, Urine Negative Negative
[2024-01-08 13:46] VITALS: BP 127/92; PULSE 78; RESP 16; O2SAT 98
[2024-01-08 14:08] VITALS: BP 127/92; PULSE 78; RESP 16; TEMP 36.4; O2SAT 98
== END 2024-01-08 14:09 | disposition home or self-care (01) ==
PROVIDERS: Physician Assistant; Emergency Provider Emergency Medicine; PCP Family Medicine; Visit Provider Emergency Medicine
DX: K50.90 Crohn's disease, unspecified, without complications (principal); R10.9 Unspecified abdominal pain; F17.290 Nicotine dependence, other tobacco product, uncomplicated; F12.90 Cannabis use, unspecified, uncomplicated
CPT/HCPCS: 74177; 80048; 81001; 81025; 85025; 96374; 96375; 99284; Q9967; A4216; J2405

== ENCOUNTER → 2024-06-01 | Outpatient (CLI) | payer BC, SELFPAY ==
[2024-06-01 09:35] LABS: Absolute Lymphocyte Count 1.71 X10^3/uL (0.83-4.51); Absolute Neutrophil Count 5.5 X10^3/uL (2.0-7.7); Basophil# 0.03 X10^3/uL; Basophil% 0.4 % (0-1); Eosinophil# 0.07 X10^3/uL; Eosinophils% 0.9 % (0-5); Hematocrit 39.3 % (37-47); Hemoglobin 13.9 g/dL (12.0-15.0); Lymphocyte # 1.71 X10^3/ul (0.83-4.51); Lymphocyte % 21.9 % (19-41); Mean Corp Hgb Conc 35.4 g/dL (32-36); Mean Corpuscular Hgb 29.1 pg (27.0-32.0); Mean Corpuscular Volume 82.2 fL (81-99); Mean Platelet Vol. 10.3 fl (6.2-12.0); Monocyte% 6.4 % (0-10); NRBC Flagged by Analyzer 0 % (0-5); Neutrophil # 5.47 X10^3/uL (2.7-7.7); Platelet Count 299 K/mm3 (150-450); RBC Distribution Width CV 11.7 % (11.6-14.6); RBC Distribution Width SD 34.8 fl (35.1-43.9); RET-HE 31.9 pg (30-35); Red Blood Count 4.78 M/mm3 (4.2-5.4); Reticulocyte Count 0.93 % (0.5-1.5); White Blood Count 7.8 K/mm3 (4.4-11.0)
[2024-06-01 09:37] LABS: Erythrocyte Sedimentation Rate 1 mm/hr (0-30)
[2024-06-01 11:21] LABS: Albumin, Serum 4.6 g/dL (3.5-5.0); BUN 6 mg/dL (4-19); BUN/Creat Ratio 8.3 RATIO (10-20); Creatinine, Serum 0.75 mg/dL (0.70-1.20); EST Glomerular Filtration Rate 116 (>60); Globulin 2.7 g/dL (2.2-4.2); Glucose 81 mg/dL (70-99); Protein, Total 7.2 g/dL (5.9-8.4)
[2024-06-01 11:22] LABS: ALB/GLOB Ratio 1.7 RATIO (0.9-2.4); AST(SGOT) 14 U/L (<=31); Alanine Aminotransfer ALT/SGPT 12 U/L (<=34); Alkaline Phosphatase 63 U/L (35-104); Anion Gap 15 (5-15); Calcium,Total 9.4 mg/dL (7.6-11.0); Carbon Dioxide 17.3 mmol/L (21.0-32.0); Chloride 107 mmol/L (98-108); Ferritin 143 ng/mL (22-378); Potassium 3.7 mmol/L (3.3-5.1); Sodium Level 139 mmol/L (133-145); Total Bilirubin 0.61 mg/dL (0.00-1.30)
[2024-06-01 13:03] LABS: CRP < 3.00 mg/L (0.0-3.0); Iron 77 ug/dL (50-170); LDH 141 U/L (84-246)
[2024-06-05 12:08] LABS: Albumin 4.3 g/dL (2.9-4.4); Alpha-1-Globulins 0.2 g/dL (0.0-0.4); Alpha-2-Globulins 0.6 g/dL (0.4-1.0); Endomysial Antibody IgA Negative (Negative); Immunoglobulin A 239 mg/dL (87-352); Immunoglobulin G 969 mg/dL (586-1602); Immunoglobulin M 72 mg/dL (26-217); t-Transglutaminase IgA <2 U/mL (0-3)
== END | disposition home or self-care (01) ==
LOC: LAB 08:31
PROVIDERS: PCP Family Medicine; Referring Provider Internal Medicine Gastroenterology; Visit Provider Internal Medicine Gastroenterology
DX: K50.00 Crohn's disease of small intestine without complications (principal)
CPT/HCPCS: 36415; 80053; 82728; 82784; 83516; 83540; 83615; 84165; 85025; 85045; 85652; 86003; 86005; 86140; 86255; 86334; 86480

== ENCOUNTER → 2024-07-17 | Outpatient (CLI) | payer BC, SELFPAY ==
--- NOTE | 2024-07-17 12:30 | MRI_ITS ---
EXAM: ENTEROGRAPHY ABD/PEL 07/17/2024 CLINICAL HISTORY: K50.00 - CROHN'S DISEASE OF SMALL INTESTINE WITHOUT COMPLICATIONS. TECHNIQUE: MRI of the abdomen and pelvis was performed. Multiplanar and multisequence images were obtained with and without intravenous gadolinium contrast. 19 mL of gadolinium contrast administered intravenously. COMPARISON: None FINDINGS: Liver: Visualized portions the liver appear normal. Gallbladder: Ovoid filling defects within the gallbladder lumen consistent with cholelithiasis. No stranding edema or fluid adjacent to the gallbladder. No biliary ductal dilatation. Spleen: Visualized portions of the spleen appear normal. Pancreas: Pancreas appears normal Adrenal glands: The adrenal glands appear normal. Kidneys: Kidneys appear normal. No hydronephrosis. Retroperitoneum: No retroperitoneal hemorrhage. No area of abdominal aneurysm. GI: No evidence of bowel obstruction. No abnormal bowel wall thickening or edema seen. No abnormal bowel wall enhancement. Pelvis: Urinary bladder appears normal. Uterus and adnexa appear normal. No free fluid. Osseous: No acute osseous abnormality seen. Additional: No fluid collection MRI/Enterography Abd/Pel IMPRESSION: 1. Cholelithiasis without evidence of cholecystitis. 2. Nno evidence of bowel wall thickening, enhancement, edema or inflammation Reading Location: [facility]
[2024-07-17 12:52] VITALS: BP 132/83; PULSE 72; RESP 18; O2SAT 99; BMI 34.9
[2024-07-17] MEDS: Glucagon 1 MG/ML Syringe IV (13:53)
[2024-07-17] MEDS: 0.9% Saline Lock 10 ML Syringe IV (13:54)
[2024-07-17 14:22] VITALS: BP 137/96; PULSE 66; RESP 16; O2SAT 100
== END | disposition home or self-care (01) ==
PROVIDERS: PCP Family Medicine; Referring Provider Internal Medicine Gastroenterology; Visit Provider Internal Medicine Gastroenterology
DX: K50.00 Crohn's disease of small intestine without complications (principal)
CPT/HCPCS: 74183; 96374; A9575; A4216; J1610

== ENCOUNTER → 2024-08-17 | Outpatient (CLI) | payer BC, SELFPAY ==
--- NOTE | 2024-08-17 12:48 | NM_ITS ---
PROCEDURE: HEPATOBILLIARY IMG W/PHARM INT 08/17/2024 REASON FOR EXAM: GALL STONES TECHNIQUE: Intravenous Choletec with planar imaging of the abdomen. 1.9 mcg Kinevac intravenously approximately 60 minutes after the radiopharmaceutical with additional anterior imaging and a region of interest drawn around the gallbladder to calculate a time-activity curve. RADIOPHARMACEUTICAL: Mebrofenin DOSE 5.5mCi COMPARISON: None FINDINGS: There is good uptake of the radiopharmaceutical by the liver. Normal gallbladder visualization with the gallbladder identified by 30 minutes. Gallbladder Ejection Fraction: 46 % (Normal is >35%) NM/Hepatobilliary Img w/Pharm Int IMPRESSION: Normal hepatobiliary scan with Kinevac. Reading Location: [id number]
--- OUTSIDE RECORDS SUMMARY | 2024-08-17 19:19 | XMS RPT_ITS | CCD ---
Author Organization [facility] Care Team Providers Care Industrial Tractor Driver Name Role Phone Dr. Kathy Israel Primary Care Provider [phone] Dr. Kathy Israel Referring Provider KAYLEE Lundberg Attending Provider Dr. Emili Charles Attending Provider [phone] Serene GALARZA, COMMUNITY HEALTH PLANNING DIRECTOR-C Emily Burnette Attending Provider [phone] Dr. Emili Charles Referring Provider [phone] Dr. Emili Charles Other Provider Dr. Kathy Israel Primary Care Provider Dr. Kathy Israel Referring Provider Dr. Samir Diaz Attending Provider [phone] Dr. Samir Diaz Other Provider [phone] KAYLEE Lundberg Attending Provider Dr. Kathy Israel Primary Care Provider Dr. Emili Charles Attending Provider [phone] Dr. Kathy Israel Referring Provider Serene GALARZA NP-Shane Burnette Attending Provider [phone] Kathy Israel DO Primary Care Provider Dr. Kathy Israel Primary Care Provider [phone] Dr. Kathy Israel Referring Provider KAYLEE Lundberg Attending Provider Kathy Israel Primary Care Provider Unavailabl e ChunKathy mancini Referring Provider Unavailable KAYLEE Pinon Attending Provider Kathy Sharma Primary Care Provider Unavail able Kathy Sharma Referring Provider Unavailabl e Friend, Dr. Dawson Attending Provider Kathy Israel DO Primary Care Provider Kathy Sharma Primary Care Provider Unavail able Kathy Sharma Referring Provider Unavailabl e Friend, Dr. Dawson Attending Provider Dr. Kathy Israel Primary Care Provider [phone] Dr. Kathy Israel Referring Provider Vy COMMUNITY HEALTH PLANNING DIRECTOR, COMMUNITY HEALTH PLANNING DIRECTOR-C Isabel Attending Provider SPRTIARRAEL, KAREN C Referring Unavailable DILCIAOCKCONY KAREN C Attending Unavailable KATHY ISRAEL A Primary Care Unavailable Dr. Kathy Israel DO Primary Care Provider Dr. Kathy Israel DO Referring Provider [phone] Samir WHITTAKER Attending Provider Friend Dr. Samir WHITTAKER Referring Provider Friend, Samir Referring Unavailable Chun, Kathy Primary Care Unavailable Friend, Samir Attending Unavailable Chun, Kathy Referring Unavailable Friend, Samir Attending Unavailable Chun, Kathy Primary Care Unavailable Chun, Kathy Referring Unavailable Chun, Ktahy Primary Care Unavailable Polo Lundberg Attending Unavailable Chun, Kathy Primary Care Unavailable Chun Kathy KAUR Referring Unavailable Friend, Samir Attending Unavailable Friend, Samir Referring Unavailable Chun, Kathy Primary Care Unavailable Friend, Samir Attending Unavailable Chun, Kathy Referring Unavailable Chun, Kathy Primary Care Unavailable Friend, Samir Attending Unavailable Chun, Kathy Primary Care Unavailable Friend, Samir Referring Unavailable Friend, Samir Attending Unavailable Friend, Samir Referring Unavailable Chun, Kathy Primary Care Unavailable Friend, Samir Attending Unavailable Chun, Kathy Primary Care Unavailable Lei High Attending Unavailable Allergies Allergy Classification Reported Allergen(s) Allergy Type Date of Onset Reaction(s) Facility (19 sources) Amphetamine Drug Allergy 01-07-20 21 Diarrhea [facility] (14 sources) Dextroamphetamine Drug Allergy 08-22-19 22 Diarrhea [facility] (15 sources) NSAIDS (Non-Steroidal Anti-Inflamma; Translations: [NSAIDS (Non-Steroidal Anti-Inflamma] Propensity to adverse reactions 08-22-19 22 BLEEDING [facility] Comment on above: h/o Von Willebrand- should not receive NSAIDS (13 sources) blood thinners; Translations: [blood thinners] Propensity to adverse reactions 08-22-19 22 Unknown [facility] (11 sources) nickel Drug Allergy 09-25-19 22 [facility] Comment on above: skin turns green (5 sources) Dextroamphetamine Drug Allergy 01-07-20 21 Diarrhea [facility] (5 sources) Ibuprofen Drug Allergy 06-09-19 17 [facility] (5 sources) nickel sulfate Drug Allergy 08-23-19 18 [facility] (5 sources) NSAIDs Propensity to adverse reactions to drug 01-24-20 19 Bleeding [facility] (1 source) Amphetamine Drug Allergy 06-02-19 25 [facility] (1 source) Dextroamphetamine Drug Allergy 06-02-19 25 [facility] (1 source) nickel Drug Allergy 06-02-19 25 [facility] Medications Current Medications Medication Drug Class(es) Dates Sig (Normalized) Sig (Original) busPIRone hydrochloride 15 mg oral tablet (10 sources) Start: 08-15-2023 take 1 tablet by mouth twice daily Buspirone 15 mg tablet Active 15 mg PO TWICE A DAY August 15, 2023 12:00am Start: 09-20-2022 End: 05-02-2023 Buspirone 15 mg tablet Disco ntinued 15 mg PO September 20, 2022 12:00am May 02, 2023 12:45pm desmopressin acetate 0.15 mg/actuat metered dose nasal spray (17 sources) Vasopressin Analog, Factor VIII Activator Start: 12-29-2023 take 1 spray(s) nasal route once daily Desmopressin (Stimate) 1.5 MG/ML Solution nasal spray 1 spray each nostril prior to wisdom tooth extraction. Then, may use 1 spray each nostril daily up to three days for bleeds. Limit fluid intake to 40 oz per day while using 0.6 mL 12/29/2023 Active Start: 01-31-2017 End: 04-07-2017 Desmopressin 150 MCG/0.1 ML spray,non-aerosol Discontinued January 31, 2017 1:00am April 07, 2017 5:47pm levonorgestrel 0.825029 mg/hr intrauterine system (7 sources) Progestin, Progestin-containing Intrauterine Device Start: 10-23-2021 Levonorgestrel (Mirena) 20 mcg/24 hours (7 yrs) 52 mg intrauterine device Active 1 NMA INTRA-UTER ONCE October 23, 2021 12:00am as a single dose Start: 10-23-2021 Levonorgestrel (Mirena) 20 mcg/24 hours (7 yrs) 52 mg intrauterine device Active 1 DEVICE INTRA-UTER ONCE October 22, 2021 11:00pm as a single dose methylphenidate hydrochloride 5 mg oral tablet (10 sources) Central Nervous System Stimulant Start: 08-13-2021 take 1 tablet by mouth once daily Methylphenidate Hcl (Ritalin) 5 mg tablet Active 5 MG PO DAILY August 13, 2021 12:00am Start: 02-12-2021 End: 04-25-2023 take 1 tablet by mouth once daily methylphenidate ER 20 MG tablet Take 20 mg by mouth daily. 02/12/2021 04/25/2023 Discontinued (Other (suppress cancel msg)) ondansetron 8 mg oral tablet (4 sources) Serotonin-3 Receptor Antagonist Start: 09-30-2023 End: 01-20-2024 take 1 tablet by mouth every eight hours as needed for nausea and vomiting Ondansetron Hcl 8 mg tablet Active 8 mg PO Q8H as needed for nausea and vomiting 60 January 20, 2024 5:02pm tranexamic acid 650 mg oral tablet (20 sources) Antifibrinolytic Agent Start: 12-29-2023 take 2 tablets by mouth three times daily tranexamic acid (Lysteda) 650 MG tablet Take 2 tablets by mouth 3 times daily. Start 4 hours prior to wisdom tooth extraction and continue for 5 days after as directed 32 tablet 12/29/2023 Active Start: 08-13-2021 End: 10-23-2021 Tranexamic Acid (Lysteda) 65 0 mg tablet Discontinued 650 mg PO NEEDED as needed for Bleeding August 13, 2021 12:00am October 23, 2021 10:48am Start: 04-23-2021 End: 04-25-2023 take 2 tablets by mouth three times daily tranexamic acid (Lysteda) 650 MG tablet Take 2 tablets by mouth 3 times daily. Take as directed for bleeding. May take day 1-3 of your period 60 tablet 3 04/25/2023 Active Start: 04-07-2017 End: 09-04-2018 take 1 tablet by mouth every eight hours Tranexamic Acid (Lysteda) 650 mg tablet Discontinued 650 mg PO Q8H April 07, 2017 1:00am September 04, 2018 3:17pm 24 hr venlafaxine 75 mg extended release oral capsule (1 source) Serotonin and Norepinephrine Reuptake Inhibitor Start: 07-17-2024 take 1 capsule by mouth once daily Venlafaxine 75 mg capsule,extended release 24hr Active 75 mg PO DAILY July 17, 2024 12:00am Completed/Discontinued Medications Medication Drug Class(es) Dates Sig (Normalized) Sig (Original) amoxicillin 500 mg oral capsule (20 sources) Penicillin-class Antibacterial Start: 02-19-2022 End: 03-01-2022 take 2 capsules by mouth twice daily Amoxicillin 500 mg capsule Discontinued 1000 mg PO TWICE A DAY 40 February 19, 2022 1:00am February 28, 2022 1:00am March 01, 2022 1:04am Start: 02-19-2022 End: 03-01-2022 take 1000 mg by mouth twice daily Amoxicillin Discontinued 1000 MG PO TWICE A DAY 40 February 19, 2022 12:00am March 01, 2022 12:04am Start: 06-23-2020 End: 07-03-2020 take 1 capsule by mouth twice daily Amoxicillin 500 mg capsule Discontinued 500 mg PO TWICE A DAY 20 June 23, 2020 12:00am July 02, 2020 12:00am July 03, 2020 12:01am amoxicillin 875 mg / clavulanate 125 mg oral tablet (20 sources) Penicillin-class Antibacterial Start: 07-17-2023 End: 07-24-2023 Amoxicillin-Pot Clavulanate 875-125 mg tablet Discontinued 1 {tbl} PO TWICE A DAY 14 July 17, 2023 12:00am July 23, 2023 12:00am July 24, 2023 12:06am Start: 11-04-2022 End: 11-14-2022 Amoxicillin-Pot Clavulanate 875-125 mg tablet Discontinued 1 {tbl} PO Q12H 20 November 04, 2022 12:00am November 13, 2022 12:00am November 14, 2022 12:04am Start: 06-08-2021 End: 06-18-2021 Amoxicillin-Pot Clavulanate 875-125 mg tablet Discontinued 1 {tbl} PO Q12H 20 June 08, 2021 12:00am June 17, 2021 12:00am June 18, 2021 12:03am Start: 05-21-2020 End: 06-23-2020 take 1 tablet by mouth every twelve hours Amoxicillin-Pot Clavulanate 875 MG tablet Discontinued 875 mg PO Q12H May 21, 2020 12:00am June 23, 2020 11:59am Start: 01-15-2020 End: 01-25-2020 Amoxicillin-Pot Clavulanate (Augmentin) 875-125 mg tablet Discontinued 1 {tbl} PO Q12H 20 January 15, 2020 1:00am January 24, 2020 1:00am January 25, 2020 1:03am atropine sulfate 0.025 mg / diphenoxylate hydrochloride 2.5 mg oral tablet (7 sources) Anticholinergic, Cholinergic Muscarinic Antagonist, Antidiarrheal Start: 10-23-2021 End: 11-27-2021 Diphenoxylate-Atropine (Lomotil) 2.5-0.025 mg tablet Discontinued 1 {tbl} PO TWICE A DAY as needed for diarrhea 60 October 23, 2021 12:00am November 27, 2021 4:07pm benzonatate 200 mg oral capsule (6 sources) Non-narcotic Antitussive Start: 04-22-2022 End: 05-02-2023 take 1 capsule by mouth three times daily as needed for cough Benzonatate 200 mg capsule Discontinued 200 mg PO THREE TIMES A DAY as needed for cough April 22, 2022 1:00am May 02, 2023 12:45pm cephalexin 500 mg oral capsule (9 sources) Cephalosporin Antibacterial Start: 10-15-2021 End: 10-23-2021 take 1 capsule by mouth every twelve hours Cephalexin 500 mg capsule Discontinued 500 mg PO Q12H 20 October 15, 2021 12:00am October 24, 2021 12:00am October 23, 2021 10:40am cholecalciferol 0.125 mg oral capsule (4 sources) Vitamin D Start: 05-02-2023 End: 08-15-2023 take 1 capsule by mouth once daily Cholecalciferol (Vitamin D3) 125 mcg (5,000 unit) capsule Discontinued 125 ug PO DAILY May 02, 2023 1:00am August 15, 2023 2:32pm ciprofloxacin 500 mg oral tablet (2 sources) Quinolone Antimicrobial Start: 01-20-2024 End: 01-27-2024 take 1 tablet by mouth twice daily Ciprofloxacin Hcl 500 mg tablet Discontinued 500 mg PO TWICE A DAY 14 January 20, 2024 1:00am January 26, 2024 1:00am January 27, 2024 1:10am citalopram 40 mg oral tablet (16 sources) Serotonin Reuptake Inhibitor Start: 12-10-2020 End: 04-25-2023 take 1 tablet by mouth once daily Citalopram (Celexa) 40 mg tablet Discontinued 40 mg PO DAILY December 10, 2020 12:00am September 20, 2022 3:14pm colestipol hydrochloride 1000 mg oral tablet (20 sources) Bile Acid Sequestrant Start: 12-23-2021 End: 05-02-2023 Colestipol 1 gram tablet Discontinued 1 g PO THREE TIMES A DAY December 23, 2021 12:00am May 02, 2023 12:45pm Start: 08-21-2021 End: 10-23-2021 Colestipol (Colestid) 1 gram tablet Discontinued 1 g PO TWICE A DAY September 24, 2021 10:15am October 23, 2021 10:41am other drugs should be taken at least one hour before or 4 hours after cyclobenzaprine hydrochloride 10 mg oral tablet (11 sources) Muscle Relaxant Start: 10-02-2021 End: 10-23-2021 take 1 tablet by mouth three times daily as needed for muscle spasms Cyclobenzaprine 10 mg tablet Discontinued 10 mg PO THREE TIMES A DAY as needed for muscle spasm October 02, 2021 12:00am October 23, 2021 10:41am dicyclomine hydrochloride 10 mg oral capsule (14 sources) Anticholinergic Start: 10-23-2021 End: 05-02-2023 take 1 capsule by mouth twice daily Dicyclomine 10 mg capsule Discontinued 10 mg PO TWICE A DAY December 22, 2021 7:28am May 02, 2023 12:45pm ergocalciferol 1.25 mg oral capsule (3 sources) Provitamin D2 Compound Start: 04-28-2023 End: 04-30-2024 take 1 capsule by mouth every week Vitamin D, Ergocalciferol, [address] units capsule Take 1 capsule by mouth once a week. 8 capsule 04/28/2023 04/30/2024 Discontinued (Other (suppress cancel msg)) Norgestimate-Ethinyl Estradiol (14 sources) Progestin, Estrogen Start: 12-10-2020 End: 08-13-2021 Norgestimate-Ethiny l Estradiol (Sprintec (28)) 0.25-35 mg-mcg tablet Discontinued 1 {tbl} PO DAILY December 10, 2020 12:00am August 13, 2021 11:37am Start: 12-10-2020 End: 08-13-2021 take 1 tablet by mouth once daily Norgestimate-Ethinyl Estradiol (Sprintec (28)) 0.25-35 mg-mcg tablet Discontinued 1 TABLET PO DAILY December 09, 2020 11:00pm August 13, 2021 10:37am Start: 12-10-2020 End: 08-13-2021 take 1 tablet by mouth once daily Norgestimate-Ethinyl Estradiol (Sprintec (28)) 0.25-35 mg-mcg tablet Discontinued 1 TABLET PO DAILY December 10, 2020 12:00am August 13, 2021 11:37am Norgestrel-Ethinyl Estradiol (14 sources) Estrogen Start: 09-16-2018 End: 10-03-2018 Norgestrel-Ethinyl Estradiol 1 EACH tablet Discontinued 1 {tbl} PO DAILY September 16, 2018 12:00am October 03, 2018 9:53am Start: 09-16-2018 End: 10-03-2018 take 1 tablet by mouth once daily Norgestrel-Ethinyl Estradiol Discontinued 1 TABLET PO DAILY September 15, 2018 11:00pm October 03, 2018 8:53am Start: 09-16-2018 End: 10-03-2018 take 1 tablet by mouth once daily Norgestrel-Ethinyl Estradiol Discontinued 1 TABLET PO DAILY September 16, 2018 12:00am October 03, 2018 9:53am etonogestrel 68 mg drug implant (20 sources) Progestin Start: 06-04-2021 End: 10-02-2021 Etonogestrel (Nexplanon) 68 mg implant Discontinued 1 NMA subdermal ONCE June 04, 2021 12:00am October 02, 2021 9:50am as a single dose Start: 05-21-2020 End: 08-13-2021 inject 68 mg by subcutaneous injection once Etonogestrel 68 MG implant Discontinued 68 mg SQ ONE TIME May 21, 2020 12:00am August 13, 2021 11:37am End: 04-26-2022 Etonogestrel 68 MG SC implan t Inject under the skin. 0 04/26/2022 Discontinued fluconazole 150 mg oral tablet (2 sources) Azole Antifungal Start: 07-17-2023 End: 08-15-2023 Fluconazole 150 mg tablet Discontinued 150 mg PO Every 3 Days 2 July 17, 2023 12:00am August 15, 2023 2:33pm may repeat second dose 72 hrs after first dose if symptoms persist Hydrocortisone Acetate 25 mg suppository (2 sources) Start: 01-20-2024 End: 07-17-2024 Hydrocortisone Acetate 25 mg suppository Discontinued 25 mg RC TWICE A DAY January 20, 2024 1:00am July 17, 2024 12:50pm Start: 01-20-2024 Hydrocortisone Acetate 25 mg suppository Active 25 mg RC TWICE A DAY 24 January 20, 2024 1:00am hyoscyamine sulfate 0.125 mg oral tablet (2 sources) Start: 01-20-2024 End: 01-30-2024 Hyoscyamine Sulfate 0.125 mg tablet Discontinued 0.125 mg PO 2 to 4 times per day as needed for dyspepsia 40 10 January 20, 2024 1:00am January 29, 2024 1:00am January 30, 2024 1:08am 12 hr loratadine 5 mg / pseudoephedrine sulfate 120 mg extended release oral tablet (2 sources) alpha-Adrenergic Agonist End: 04-25-2023 loratadine-pseudoephedr ine 5-120 MG Tab SR 12 HR Take by mouth every 12 hours. 04/25/2023 Discontinued (Other (suppress cancel msg)) Magic Mouth Wash (Bmx) (2 sources) Start: 11-04-2022 End: 05-02-2023 Magic Mouth Wash (Bmx) Discontinued 5 ML BUCCAL .4 times daily 180 November 03, 2022 11:00pm May 02, 2023 11:45am diphenhydramine 12.5 mg/5 mL oral liquid 60 mL; aluminum-mag hydroxide-simethicone 400 mg-400 mg-40 mg/5 mL oral susp 60 mL; Lidocaine Viscous 2 % mucosal solution 60 mL; Per 180 mL Magic Mouth Wash (Bmx) 180 mL suspension (2 sources) Start: 11-04-2022 End: 05-02-2023 Magic Mouth Wash (Bmx) 180 mL suspension Discontinued 5 mL BUCCAL .4 times daily as needed for mouth pain 180 November 04, 2022 12:00am May 02, 2023 12:45pm diphenhydramine 12.5 mg/5 mL oral liquid 60 mL; aluminum-mag hydroxide-simethicone 400 mg-400 mg-40 mg/5 mL oral susp 60 mL; Lidocaine Viscous 2 % mucosal solution 60 mL; Per 180 mL 40 ml methotrexate 25 mg/ml injection (14 sources) Folate Analog Metabolic Inhibitor Start: 11-30-2021 End: 01-20-2022 Methotrexate Sodium (Pf) 25 mg/mL solution Discontinued 25 mg SC EVERY WEEK November 30, 2021 12:00am January 20, 2022 2:05pm Start: 11-30-2021 End: 01-20-2022 Methotrexate Sodium (Pf) Dis continued 25 MG SC EVERY WEEK November 29, 2021 11:00pm January 20, 2022 1:05pm Start: 11-27-2021 End: 11-30-2021 Methotrexate (Pf) 25 mg/0.5 mL auto-injector Discontinued 25 mg SC EVERY WEEK 2 November 27, 2021 12:00am November 30, 2021 10:50am methylPREDNISolone 4 mg oral tablet (16 sources) Corticosteroid Start: 09-30-2023 End: 10-06-2023 take 1 tablet by mouth once Methylprednisolone (Medrol (Cj)) 4 mg tablets,dose pack Discontinued 4 mg PO per package directions 25 08September 30, 2023 12:00am October 05, 2023 12:00am October 06, 2023 12:04am Start: 07-04-2020 End: 07-09-2020 take 1 tablet by mouth once Methylprednisolone (Medrol (Cj)) 4 mg tablets,dose pack Discontinued 4 mg PO per package directions 25 07July 04, 2020 12:00am July 08, 2020 12:00am July 09, 2020 12:01am metroNIDAZOLE 500 mg oral tablet (2 sources) Nitroimidazole Antimicrobial Start: 01-20-2024 End: 01-27-2024 take 1 tablet by mouth twice daily Metronidazole 500 mg tablet Discontinued 500 mg PO TWICE A DAY 14 January 20, 2024 1:00am January 26, 2024 1:00am January 27, 2024 1:10am naproxen 500 mg oral tablet (14 sources) Nonsteroidal Anti-inflammatory Drug Start: 01-16-2018 End: 09-04-2018 take 1 tablet by mouth twice daily as needed Naproxen 500 MG tablet Discontinued 500 mg PO TWICE DAILY NEEDED January 16, 2018 1:00am September 04, 2018 3:17pm nitrofurantoin, macrocrystals 25 mg / nitrofurantoin, monohydrate 75 mg oral capsule (14 sources) Nitrofuran Antibacterial Start: 08-24-2019 End: 08-31-2019 take 1 capsule by mouth every twelve hours at mealtime Nitrofurantoin Monohyd/M-Cryst 100 mg capsule Discontinued 1 NMA PO Q12H 14 August 24, 2019 12:00am August 30, 2019 12:00am August 31, 2019 12:02am administer with a meal/food; swallow whole; do not open, crush, dissolve , or chew predniSONE 20 mg oral tablet (17 sources) Start: 06-01-2024 End: 07-17-2024 take 2 tablets by mouth once daily Prednisone 20 mg tablet Discontinued 40 mg PO daily 60 June 01, 2024 12:00am July 17, 2024 12:50pm Start: 05-27-2023 End: 06-08-2023 Prednisone 10 mg tablet Disc ontinued 10 mg PO daily 30 May 27, 2023 12:00am June 07, 2023 12:00am June 08, 2023 12:05am Take 4 tabs once daily days 1-3 3 tabs once daily days 4-6 2 tabs once daily days 7-9 and 1 tab once daily days 10-12. Start: 04-22-2022 End: 11-04-2022 take 1 tablet by mouth twice daily Prednisone 10 mg tablet Discontinued 10 mg PO TWICE A DAY April 22, 2022 1:00am November 04, 2022 2:07pm Start: 10-29-2021 End: 11-05-2021 take 1 tablet by mouth once daily Prednisone 20 mg tablet Discontinued 20 mg PO DAILY October 29, 2021 12:00am November 05, 2021 2:05pm promethazine hydrochloride 25 mg oral tablet (7 sources) Phenothiazine Start: 12-11-2021 End: 05-02-2023 take 1 tablet by mouth three times daily as needed for nausea and vomiting Promethazine 25 mg tablet Discontinued 25 mg PO THREE TIMES A DAY as needed for nausea and vomiting December 11, 2021 12:00am May 02, 2023 12:45pm triamcinolone acetonide 5 mg/ml topical cream (14 sources) Corticosteroid Start: 08-07-2019 End: 12-10-2020 Triamcinolone Acetonide 0.5 % cream Discontinued 1 NMA TOPICAL TWICE A DAY 15 August 07, 2019 12:00am December 10, 2020 9:25am peasized amount as instructed 1 ml ustekinumab 90 mg/ml prefilled syringe (20 sources) Interleukin-12 Antagonist, Interleukin-23 Antagonist Start: 03-25-2022 End: 11-04-2022 Ustekinumab 130 mg/26 mL solution Discontinued 520 mg .Route ONCE March 25, 2022 1:00am November 04, 2022 2:08pm 136kg Start: 11-13-2021 End: 05-29-2024 Ustekinumab (Stelara) 90 mg/ mL syringe Discontinued 90 mg SC every 8 weeks 1 May 10, 2024 5:20pm May 29, 2024 2:30pm Approved 3.20.23-4.18.24 ID: [id number] Ustekinumab (NIKHIL HARRY IV) by Intravenous route. Active Ustekinumab (NIKHIL HARRY IV) by Intravenous route. 0 Active Problems Active Problems Problem Classification Problem Date Documented Da te Episodic/Chronic Acute bronchitis (13 sources) Acute bronchitis; Translations: [Acute bronchitis, unspecified] 01-15-2020 Episodic Allergic reactions (2 sources) Irritant contact dermatitis; Translations: [Irritant contact dermatitis, unspecified cause] 05-27-2023 Episodic Anal and rectal conditions (4 sources) Painful spasm of anus; Translations: [Anal spasm] 01-20-2024 Episodic Anxiety disorders (19 sources) Anxiety; Translations: [Anxiety disorder, unspecified] Onset: 04-23-2021 04-23-2021 Chronic Attention-deficit, conduct, and disruptive behavior disorders (14 sources) Attention deficit hyperactivity disorder; Translations: [Attention-deficit hyperactivity disorder, unspecified type] 12-10-2020 Chronic Biliary tract disease (1 source) Calculus of gallbladder without cholecystitis without obstruction; Translations: [Calculus of gallbladder without cholecystitis without obstruction] Onset: 08-10-2024 Episodic Coagulation and hemorrhagic disorders (20 sources) von Willebrand disorder; Translations: [Von Willebrand's disease] Onset: 06-08-2016 Chronic Contraceptive and procreative management (4 sources) Intrauterine contraceptive device in situ; Translations: [Encounter for routine checking of intrauterine contraceptive device] Episodic Disorders usually diagnosed in infancy, childhood, or adolescence (5 sources) Attention deficit hyperactivity disorder, predominantly inattentive type; Translations: [Other specified behavioral and emotional disorders with onset usually occurring in childhood and adolescence] Onset: 09-08-2012 04-23-2021 Chronic Fluid and electrolyte disorders (7 sources) Dehydration; Translations: [Dehydration] 01-01-2022 Episodic Headache; including migraine (7 sources) Headache; Translations: [Headache] 01-01-2022 Episodic Immunizations and screening for infectious disease (20 sources) Patient encounter status; Translations: [Encounter for screening for COVID-19] 09-24-2021 Episodic Menstrual disorders (20 sources) Menometrorrhagia; Translations: [Excessive and frequent menstruation with irregular cycle] Onset: 04-23-2021 Chronic Noninfectious gastroenteritis (20 sources) Gastroenteritis; Translations: [Noninfective gastroenteritis and colitis, unspecified] Onset: 04-23-2021 Episodic Other connective tissue disease (10 sources) Pain in left lower limb; Translations: [Pain in left lower leg] 07-04-2020 Episodic Other connective tissue disease (7 sources) Muscle pain; Translations: [Myalgia, unspecified site] 01-01-2022 Episodic Other female genital disorders (19 sources) Abnormal uterine bleeding; Translations: [Abnormal uterine and vaginal bleeding, unspecified] Onset: 04-23-2021 04-23-2021 Chronic Comment on above: Nexplanon 09/22. Spri ntec for breakthrough bleeding 12/10/20. mirena IUD 2021 Other female genital disorders (7 sources) Abnormal uterine and vaginal bleeding, unspecified; Translations: [Unspecified disorders of menstruation and other abnormal bleeding from female genital tract] Chronic Other gastrointestinal disorders (9 sources) History of Crohns disease; Translations: [Personal history of other diseases of the digestive system] 01-01-2022 Episodic Other gastrointestinal disorders (7 sources) Diarrhea; Translations: [Diarrhea, unspecified] 01-01-2022 Episodic Other inflammatory condition of skin (9 sources) Psoriasis; Translations: [Psoriasis, unspecified] 10-13-2021 Chronic Other nutritional; endocrine; and metabolic disorders (5 sources) Body mass index 40+ - severely obese; Translations: [Morbid (severe) obesity due to excess calories] Onset: 04-26-2022 04-26-2022 Chronic Other upper respiratory disease (19 sources) Bleeding from nose; Translations: [Epistaxis] Onset: 04-23-2021 04-23-2021 Episodic Other upper respiratory infections (2 sources) Maxillary sinusitis; Translations: [Chronic maxillary sinusitis] 07-17-2023 Chronic Other upper respiratory infections (20 sources) Upper respiratory infection; Translations: [Acute upper respiratory infection, unspecified] 09-24-2021 Episodic Otitis media and related conditions (14 sources) Acute right otitis media; Translations: [Otitis media, unspecified, right ear] Episodic Regional enteritis and ulcerative colitis (19 sources) Crohn's disease; Translations: [Crohn's disease, unspecified, without complications] Onset: 07-21-2024 Chronic Sprains and strains (20 sources) Strain of muscle of left lower leg; Translations: [Strain of unspecified muscle(s) and tendon(s) at lower leg level, left leg, initial encounter] 07-04-2020 Episodic Superficial injury; contusion (8 sources) Abrasion of left upper arm, initial encounter; Translations: [Infected abrasion of skin of left upper arm] Episodic Unclassified (12 sources) Fat globules in blood specimen; Translations: [Fat globules in blood specimen] 09-11-2021 Unclassified (1 source) Von willebrand disease, type 1; Translations: [Von willebrand disease, type 1] Onset: 04-26-2022 Urinary tract infections (10 sources) Cystitis; Translations: [Cystitis, unspecified without hematuria] 08-24-2019 Episodic Past or Other Problems Problem Classification Problem Date Documented Da te Episodic/Chronic Abdominal pain (20 sources) Abdominal pain; Translations: [Unspecified abdominal pain] Onset: 01-30-2024 Episodic Mood disorders (5 sources) Mood disorders Onset: 04-23-2021 Resolved: 04-30-2024 04-23-2021 Unclassified (1 source) Von willebrand disease, type 1; Translations: [Von willebrand disease, type 1] Onset: 04-30-2024 Results Test Name Value Interpretation Reference Range Facility Enterography Abd/Deep 07-17 Enterography Abd/Pel [facility] Imaging Services [address] [place] [address] Enterography Abd/Pel MR#: [id number] Acct: [id number] Name: KEAGAN TILLMAN Rep #: [id number] : 2000 F 23 From: Dennis Jane MD PCP: Dr. Kathy Israel, DO Status: DEP CLI Study: Enterography Abd/Pel Date of Exam: 07/17/24 Exam# [id number] Ordering Dr: Samir Diaz DO EXAM: ENTEROGRAPHY ABD/PEL 07/17/2024 CLINICAL HISTORY: K50.00 - CROHN'S DISEASE OF SMALL INTESTINE WITHOUT COMPLICATIONS. TECHNIQUE: MRI of the abdomen and pelvis was performed. Multiplanar and multisequence images were obtained with and without intravenous gadolinium contrast. 19 mL of gadolinium contrast administered intravenously. COMPARISON: None FINDINGS: Liver: Visualized portions the liver appear normal. Gallbladder: Ovoid filling defects within the gallbladder lumen consistent with cholelithiasis. No stranding edema or fluid adjacent to the gallbladder. No biliary ductal dilatation. Spleen: Visualized portions of the spleen appear normal. Pancreas: Pancreas appears normal Adrenal glands: The adrenal glands appear normal. Kidneys: Kidneys appear normal. No hydronephrosis. Retroperitoneum: No retroperitoneal hemorrhage. No area of abdominal aneurysm. GI: No evidence of bowel obstruction. No abnormal bowel wall thickening or edema seen. No abnormal bowel wall enhancement. Pelvis: Urinary bladder appears normal. Uterus and adnexa appear normal. No free fluid. Osseous: No acute osseous abnormality seen. Additional: No fluid collection MRI/Enterography Abd/Pel IMPRESSION: 1. Cholelithiasis without evidence of cholecystitis. 2. Nno evidence of bowel wall thickening, enhancement, edema or inflammation Reading [facility] CC: Dr. Kathy Israel, ; Samir Diaz, Beck Tender: Signed Normal [facility] L5500.0550on 06-12-2024 BEEF <0.10 Normal Class 0 [facility] Comment on above: Performed By: #### L 101.9900, L3410.9998, L3410.2400, L5500.0550, L503.6550, L500.4050, L3400.8000, L100.0100, L503.6150, L3100.3425, L504.2610, L501.6710, L100.9950 ####[facility] [address] [place], [place], [id number] CHOCOLATE <0.10 Normal Class 0 [facility] Comment on above: Performed By: #### L 101.9900, L3410.9998, L3410.2400, L5500.0550, L503.6550, L500.4050, L3400.8000, L100.0100, L503.6150, L3100.3425, L504.2610, L501.6710, L100.9950 ####[facility] [address] [place], [place], [id number] CODFISH <0.10 Normal Class 0 [facility] Comment on above: Performed By: #### L 101.9900, L3410.9998, L3410.2400, L5500.0550, L503.6550, L500.4050, L3400.8000, L100.0100, L503.6150, L3100.3425, L504.2610, L501.6710, L100.9950 ####[facility] [address] [place], [address] COMMENT Comment Normal . [facility] Comment on above: Result Comment: Josy rodriguez of Specific IgE Class Description of Class ----- < 0.10 0 Negative 0.10 - 0.31 0/I Equivocal/Low 0.32 - 0.55 I Low 0.56 - 1.40 II Moderate 1.41 - 3.90 III High 3.91 - 19.00 IV Very High 19.01 - 100.00 V Very High >100.00 Very High Performed By: #### L 101.9900, L3410.9998, L3410.2400, L5500.0550, L503.6550, L500.4050, L3400.8000, L100.0100, L503.6150, L3100.3425, L504.2610, L501.6710, L100.9950 ####[facility] [address] [place], [place], [id number] CORN <0.10 Normal Class 0 [facility] Comment on above: Performed By: #### L 101.9900, L3410.9998, L3410.2400, L5500.0550, L503.6550, L500.4050, L3400.8000, L100.0100, L503.6150, L3100.3425, L504.2610, L501.6710, L100.9950 ####[facility] [address] [place], [place], [address] EGG, WHOLE <0.10 Normal Class 0 [facility] Comment on above: Result Comment: Perf ormed at: BN - [facility] [address] [id number] Mortgage Underwriter: George Barone MD, Phone: [phone] Performed By: #### L 101.9900, L3410.9998, L3410.2400, L5500.0550, L503.6550, L500.4050, L3400.8000, L100.0100, L503.6150, L3100.3425, L504.2610, L501.6710, L100.9950 ####[facility] [address] [place], [place], [phone] MILK (COW) <0.10 Normal Class 0 [facility] Comment on above: Performed By: #### L 101.9900, L3410.9998, L3410.2400, L5500.0550, L503.6550, L500.4050, L3400.8000, L100.0100, L503.6150, L3100.3425, L504.2610, L501.6710, L100.9950 ####[facility] [address] [place], [place], [address] MUSSELS <0.10 Normal Class 0 [facility] Comment on above: Performed By: #### L 101.9900, L3410.9998, L3410.2400, L5500.0550, L503.6550, L500.4050, L3400.8000, L100.0100, L503.6150, L3100.3425, L504.2610, L501.6710, L100.9950 ####[facility] [address] [place], [address] PEANUT <0.10 Normal Class 0 [facility] Comment on above: Performed By: #### L 101.9900, L3410.9998, L3410.2400, L5500.0550, L503.6550, L500.4050, L3400.8000, L100.0100, L503.6150, L3100.3425, L504.2610, L501.6710, L100.9950 ####[facility] [address] [place], [address] PORK <0.10 Normal Class 0 [facility] Comment on above: Performed By: #### L 101.9900, L3410.9998, L3410.2400, L5500.0550, L503.6550, L500.4050, L3400.8000, L100.0100, L503.6150, L3100.3425, L504.2610, L501.6710, L100.9950 ####[facility] [address] [place], [address] SALMON <0.10 Normal Class 0 [facility] Comment on above: Performed By: #### L 101.9900, L3410.9998, L3410.2400, L5500.0550, L503.6550, L500.4050, L3400.8000, L100.0100, L503.6150, L3100.3425, L504.2610, L501.6710, L100.9950 ####[facility] [address] [place], [address] SHRIMP 0.11 kU/L Abnormal Class 0/I [facility] Comment on above: Performed By: #### L 101.9900, L3410.9998, L3410.2400, L5500.0550, L503.6550, L500.4050, L3400.8000, L100.0100, L503.6150, L3100.3425, L504.2610, L501.6710, L100.9950 ####[facility] [address] [place], [place], [phone] SOYBEAN <0.10 Normal Class 0 [facility] Comment on above: Performed By: #### L 101.9900, L3410.9998, L3410.2400, L5500.0550, L503.6550, L500.4050, L3400.8000, L100.0100, L503.6150, L3100.3425, L504.2610, L501.6710, L100.9950 ####[facility] [address] [place], [place], [id number] TUNA <0.10 Normal Class 0 [facility] Comment on above: Performed By: #### L 101.9900, L3410.9998, L3410.2400, L5500.0550, L503.6550, L500.4050, L3400.8000, L100.0100, L503.6150, L3100.3425, L504.2610, L501.6710, L100.9950 ####[facility] [address] [place], [place], [phone] WHEAT <0.10 Normal Class 0 [facility] Comment on above: Performed By: #### L 101.9900, L3410.9998, L3410.2400, L5500.0550, L503.6550, L500.4050, L3400.8000, L100.0100, L503.6150, L3100.3425, L504.2610, L501.6710, L100.9950 ####[facility] [address] [place], [place], [phone] [facility] Misc.on 06-08-2024 [facility] Misc. COMMENT Normal . [facility] Comment on above: Order Comment: [id number] 4USTEKINUMAB LEVEL RED FRZ Result Comment: Test Ordered: [id number] Ustekinumab Drug + Antibody Ustekinumab 3.1 ug/mL ES Reference Range: . Quantitation Limit: <0.1 ug/mL Results of 0.1 ug/mL or higher indicate detection of ustekinumab. COMMENTS: - Induction levels in Crohn's Disease: - Patients who received IV 130 mg or 6 mg/kg had median trough concentrations of 2.1 ug/mL and 6.4 ug/mL, respectively, at week 8 in UNITI trials.(1) - Maintenance levels: - Of UNITI patients with trough levels greater than 1.1 ug/mL, about 80% achieved clinical remission (HBI < 5) and about 50% attained CRP normalization.(2) - Higher maintenance concentrations, greater than 4.5 ug/mL (achieved with q8wk or q4wk dosing after SQ induction), may be necessary for endoscopic response (SES-CD score reduction >=50%).(3) - Trough levels predictive of mucosal healing and fistula healing have yet to be determined. - In plaque psoriasis, median trough ustekinumab concentrations were 0.4 ug/mL at weeks 14 and 28 (ranging from undetectable to 3.6 ug/mL).(4) Although PASI50 responders had higher trough concentrations than non- responders in a study of 76 patients, a definitive therapeutic target range for psoriasis has yet to be established.(5) - As with other biologics, the optimal drug concentration depends upon patient-specific factors including co- morbidities, disease and desired therapeutic endpoint - This ustekinumab drug assay measures the free fraction of ustekinumab (antibody-unbound ustekinumab) when serum anti-ustekinumab antibodies are present. Anti-Ustekinumab Antibody <40 ng/mL ES Reference Range: . Quantitation Limit: < 40 ng/mL Results of 40 ng/mL or higher indicate detection of anti- ustekinumab antibodies. COMMENTS: - This anti-ustekinumab antibody assay is drug-tolerant, i.e. the detection of anti-ustekinumab antibodies is not impeded by the presence of ustekinumab in serum. - All positive anti-ustekinumab antibody results are verified by a confirmatory test. - The concomitant free ustekinumab drug concentration (reported above) is the pharmacodynamically active drug when anti-ustekinumab antibodies are present. - Serial measurements over time may be helpful to assess the impact of immunogenicity on the free drug level. - In the IM-UNITI trial, the incidence of anti-ustekinumab antibodies in Crohn's Disease at 1 year was 2.3%.(1) - In psoriasis, anti-ustekinumab antibodies occurred in 4-6% of patients.(6) References: 1. Jade GARCIA, et al. Gastroenterology 2016;150(4):S408. 2. Jade Lassiter et al. P007 Exposure-Response to SC Ustekinumab in Moderate - Severe Crohn's Disease: Results from the IM-UNITI Maintenance Study. Advances in AIBD. December 2016. 3. Amy R et al. Clin Gastroenterol Hepatol 2017;15: 7195-4440. 4. Sukhdeving SP, et al. Br J Dermatol;2015:173;855-857. 5. Samantha H, et al. PLOS ONE DOI;10:1371/journal.pone.5413277. 6. Cheli L, et al. Br J Dermatol 2014;170:261-273. These tests were developed and their performance characteristics determined by [employer]. They have not been cleared or approved by the Food and Drug Administration. However, both drug and anti-drug antibody assays have been developed and validated in accordance with FDA Guidance for Industry documents: Bioanalytical Method Validation (2013) and Assay Development and Validation for Immunogenicity Testing of Therapeutic Protein Products (2016). Performed at: [facility] [address] [place] [id number] Mortgage Underwriter: Jonathan Fletcher MD, Phone: [phone] Performed at: [address] [id number] Mortgage Underwriter: Tin Holland PhD, Phone: [phone] Performed By: #### L 101.9900, L3410.9998, L3410.2400, L5500.0550, L503.6550, L500.4050, L3400.8000, L100.0100, L503.6150, L3100.3425, L504.2610, L501.6710, L100.9950 ####[facility] [address] [place], [address] Celiac Disease Profileon ENDOMYSIAL IGA Negative Normal Negative [facility] Comment on above: Performed By: #### L 101.9900, L3410.9998, L3410.2400, L5500.0550, L503.6550, L500.4050, L3400.8000, L100.0100, L503.6150, L3100.3425, L504.2610, L501.6710, L100.9950 ####[facility] [address] [place], [address] tTG IGA <2 Normal 0-3 [facility] Comment on above: Result Comment: Nega tive 0 - 3 Weak Positive 4 - 10 Positive >10 Tissue Transglutaminase (tTG) has been identified as the endomysial antigen. Studies have demonstr- ated that endomysial IgA antibodies have over 99% specificity for gluten sensitive enteropathy. Performed By: #### L 101.9900, L3410.9998, L3410.2400, L5500.0550, L503.6550, L500.4050, L3400.8000, L100.0100, L503.6150, L3100.3425, L504.2610, L501.6710, L100.9950 ####[facility] [address] [place], [place], [phone] EFREN + Protein Elect, Serumon 06-05-2024 Albumin [Mass/Vol] 4.3 g/dL Normal 2.9-4.4 [facility] Comment on above: Order Comment: [id number] Performed By: #### L 101.9900, L3410.9998, L3410.2400, L5500.0550, L503.6550, L500.4050, L3400.8000, L100.0100, L503.6150, L3100.3425, L504.2610, L501.6710, L100.9950 ####[facility] [address] [place], [address](017) Albumin/Globulin [Mass ratio] 1.6 {ratio} Normal 0.7-1.7 [facility] Comment on above: Order Comment: [id number] Performed By: #### L 101.9900, L3410.9998, L3410.2400, L5500.0550, L503.6550, L500.4050, L3400.8000, L100.0100, L503.6150, L3100.3425, L504.2610, L501.6710, L100.9950 ####[facility] [address] [place], [place], [phone]) KZZXG-7-HAJJ 0.2 g/dL Normal 0.0-0.4 [facility] Comment on above: Order Comment: [id number] Performed By: #### L 101.9900, L3410.9998, L3410.2400, L5500.0550, L503.6550, L500.4050, L3400.8000, L100.0100, L503.6150, L3100.3425, L504.2610, L501.6710, L100.9950 ####[facility] [address] [place], [address]) QTCZV-2-WZZP 0.6 g/dL Normal 0.4-1.0 [facility] Comment on above: Order Comment: [id number] Performed By: #### L 101.9900, L3410.9998, L3410.2400, L5500.0550, L503.6550, L500.4050, L3400.8000, L100.0100, L503.6150, L3100.3425, L504.2610, L501.6710, L100.9950 ####[facility] [address] [place], [address] BETA GLOBULIN 0.8 g/dL Normal 0.7-1.3 [facility] Comment on above: Order Comment: [id number] Performed By: #### L 101.9900, L3410.9998, L3410.2400, L5500.0550, L503.6550, L500.4050, L3400.8000, L100.0100, L503.6150, L3100.3425, L504.2610, L501.6710, L100.9950 ####[facility] [address] [place], [place], [phone] GAMMA GLOBULIN 1.0 g/dL Normal 0.4-1.8 [facility] Comment on above: Order Comment: [id number] Performed By: #### L 101.9900, L3410.9998, L3410.2400, L5500.0550, L503.6550, L500.4050, L3400.8000, L100.0100, L503.6150, L3100.3425, L504.2610, L501.6710, L100.9950 ####[facility] [address] [place], [address] Globulin (S) [Mass/Vol] 2.7 g/dL Normal 2.2-3.9 [facility] Comment on above: Order Comment: [id number] Performed By: #### L 101.9900, L3410.9998, L3410.2400, L5500.0550, L503.6550, L500.4050, L3400.8000, L100.0100, L503.6150, L3100.3425, L504.2610, L501.6710, L100.9950 ####[facility] [address] [place], [place], [phone] EFREN RESULT,S Comment Normal . [facility] Comment on above: Order Comment: [id number] Result Comment: No m onoclonality detected. Performed By: #### L 101.9900, L3410.9998, L3410.2400, L5500.0550, L503.6550, L500.4050, L3400.8000, L100.0100, L503.6150, L3100.3425, L504.2610, L501.6710, L100.9950 ####[facility] [address] [place], [address] IMMUNOGLOB A QN 239 mg/dL Normal 87-352 [facility] Comment on above: Order Comment: [id number] Performed By: #### L 101.9900, L3410.9998, L3410.2400, L5500.0550, L503.6550, L500.4050, L3400.8000, L100.0100, L503.6150, L3100.3425, L504.2610, L501.6710, L100.9950 ####[facility] [address] [place], [address] IMMUNOGLOB G QN 969 mg/dL Normal 586-1602 [facility] Comment on above: Order Comment: [id number] Performed By: #### L 101.9900, L3410.9998, L3410.2400, L5500.0550, L503.6550, L500.4050, L3400.8000, L100.0100, L503.6150, L3100.3425, L504.2610, L501.6710, L100.9950 ####[facility] [address] [place], [address] IMMUNOGLOB M QN 72 mg/dL Normal 26-217 [facility] Comment on above: Order Comment: [id number] Performed By: #### L 101.9900, L3410.9998, L3410.2400, L5500.0550, L503.6550, L500.4050, L3400.8000, L100.0100, L503.6150, L3100.3425, L504.2610, L501.6710, L100.9950 ####[facility] [address] [place], [place], [id number] M-Sebastian Not Observed Normal Not Observed [facility] Comment on above: Order Comment: [id number] Performed By: #### L 101.9900, L3410.9998, L3410.2400, L5500.0550, L503.6550, L500.4050, L3400.8000, L100.0100, L503.6150, L3100.3425, L504.2610, L501.6710, L100.9950 ####[facility] [address] [place], [address] NOTE: Comment Normal . [facility] Comment on above: Order Comment: [id number] Result Comment: Prot ein electrophoresis scan will follow via computer, mail, or falsework builder delivery. Performed By: #### L 101.9900, L3410.9998, L3410.2400, L5500.0550, L503.6550, L500.4050, L3400.8000, L100.0100, L503.6150, L3100.3425, L504.2610, L501.6710, L100.9950 ####[facility] [address] [place], [address] Protein [Mass/Vol] 7.0 g/dL Normal 6.0-8.5 [facility] Comment on above: Order Comment: [id number] Performed By: #### L 101.9900, L3410.9998, L3410.2400, L5500.0550, L503.6550, L500.4050, L3400.8000, L100.0100, L503.6150, L3100.3425, L504.2610, L501.6710, L100.9950 ####[facility] [address] [place], [address] Quantiferon TB-Gold+on 06-05 QFT MITOGEN SREEKANTH TNP Normal . [facility] Comment on above: Result Comment: Test not performed Performed By: #### L 101.9900, L3410.9998, L3410.2400, L5500.0550, L503.6550, L500.4050, L3400.8000, L100.0100, L503.6150, L3100.3425, L504.2610, L501.6710, L100.9950 ####[facility] [address] [place], [place], [phone] QFT NIL VALUE TNP Normal . [facility] Comment on above: Result Comment: Test not performed Performed By: #### L 101.9900, L3410.9998, L3410.2400, L5500.0550, L503.6550, L500.4050, L3400.8000, L100.0100, L503.6150, L3100.3425, L504.2610, L501.6710, L100.9950 ####[facility] [address] [place], [address] QFT TB GOLD+ TNP Normal . [facility] Comment on above: Performed By: #### L 101.9900, L3410.9998, L3410.2400, L5500.0550, L503.6550, L500.4050, L3400.8000, L100.0100, L503.6150, L3100.3425, L504.2610, L501.6710, L100.9950 ####[facility] [address] [place], [address] QFT TB POS CRIT TNP Normal . [facility] Comment on above: Performed By: #### L 101.9900, L3410.9998, L3410.2400, L5500.0550, L503.6550, L500.4050, L3400.8000, L100.0100, L503.6150, L3100.3425, L504.2610, L501.6710, L100.9950 ####[facility] [address] [place], [place], [id number] QFT TB1+ AG SREEKANTH TNP Normal . [facility] Comment on above: Result Comment: Mariposa se refer to the following specimen for additional lab results. SEE [id number] Performed By: #### L 101.9900, L3410.9998, L3410.2400, L5500.0550, L503.6550, L500.4050, L3400.8000, L100.0100, L503.6150, L3100.3425, L504.2610, L501.6710, L100.9950 ####[facility] [address] [place], [place], [id number] QFT TB2+ AG SREEKANTH TNP Normal . [facility] Comment on above: Result Comment: Test not performed Performed By: #### L 101.9900, L3410.9998, L3410.2400, L5500.0550, L503.6550, L500.4050, L3400.8000, L100.0100, L503.6150, L3100.3425, L504.2610, L501.6710, L100.9950 ####[facility] [address] [place], [place], [id number] Absolute lymphocyte countOrd ered By: Samir Diaz on 06-01-2024 Lymphocytes Auto (Unsp spec) [#/Vol] 1.71 10*3/uL 0.83-4.51 [facility] Absolute neutrophil countOrd ered By: Samir Diaz on 06-01-2024 Neutrophils (Bld) [#/Vol] 5.5 10*3/uL 2.0-7.7 [facility] Addendum DocumentOrdered By: Samir Diaz on 06-01-2024 Serum Immunofixation Comments Comment . [facility] Comment on above: Protein electrophore sis scan will follow via computer,mail, or falsework builder delivery. Albumin Elph [Mass/Vol]Order ed By: Samir Diaz on 06-01-2024 Albumin [Mass/Vol] 4.3 g/dL 2.9-4.4 [facility] Alpha 1 globulin Elph [Mass/ Vol]Ordered By: Samir Diaz on 06-01-2024 Fyheu-3-Otmjfpwwf (EFREN) 0.2 g/dL 0.0-0.4 [facility] Haemk-8-Wggqqmqeb (EFREN) 0.6 g/dL 0.4-1.0 [facility] Anion gap in Serum or Plasma Ordered By: aSmir Diaz on 06-01-2024 Anion gap [Moles/Vol] 15 mmol/L 5-15 [facility] Automated lymphocyte count a s percentage of total leukocytesOrdered By: Samir Diaz on 06-01-2024 Lymphocytes/100 WBC Auto (Unsp spec) 21.9 % 19-41 [facility] BUN/creatinine ratioOrdered By: Samir Diaz on 06-01-2024 Urea nitrogen/Creatinine [Mass ratio] 8.3 mg/mg Low 10-20 [facility] Basophil percentageOrdered B y: Samir Diaz on 06-01-2024 Basophils/100 WBC (Bld) 0.4 % 0-1 [facility] Beta globulin Elph [Mass/Vol ]Ordered By: Samir Diaz on 06-01-2024 Beta-Globulins (EFREN) 0.8 g/dL 0.7-1.3 [facility] Bilirubin, totalOrdered By: Samir Diaz on 06-01-2024 Bilirubin [Mass/Vol] 0.61 mg/dL 0.00-1.30 [facility] CBC W/Diff, Automatedon 05-06 Absolute Lymph 1.71 X10 3/uL Normal 0.83-4.51 [facility] Comment on above: Performed By: #### L 101.9900, L3410.9998, L3410.2400, L5500.0550, L503.6550, L500.4050, L3400.8000, L100.0100, L503.6150, L3100.3425, L504.2610, L501.6710, L100.9950 #### [facility] [address] [place], [address] Absolute Neut 5.5 X10 3/uL Normal 2.0-7.7 [facility] Comment on above: Performed By: #### L 101.9900, L3410.9998, L3410.2400, L5500.0550, L503.6550, L500.4050, L3400.8000, L100.0100, L503.6150, L3100.3425, L504.2610, L501.6710, L100.9950 #### [facility] [address] [place], [address] Basophils/100 WBC (Bld) 0.4 % Normal 0-1 [facility] Comment on above: Performed By: #### L 101.9900, L3410.9998, L3410.2400, L5500.0550, L503.6550, L500.4050, L3400.8000, L100.0100, L503.6150, L3100.3425, L504.2610, L501.6710, L100.9950 #### [facility] [address] [place], [address] Eosinophils/100 WBC (Bld) 0.9 % Normal 0-5 [facility] Comment on above: Performed By: #### L 101.9900, L3410.9998, L3410.2400, L5500.0550, L503.6550, L500.4050, L3400.8000, L100.0100, L503.6150, L3100.3425, L504.2610, L501.6710, L100.9950 #### [facility] [address] [place], [address] Erythrocyte distribution width (RBC) [Ratio] 11.7 % Normal 11.6-14.6 [facility] Comment on above: Performed By: #### L 101.9900, L3410.9998, L3410.2400, L5500.0550, L503.6550, L500.4050, L3400.8000, L100.0100, L503.6150, L3100.3425, L504.2610, L501.6710, L100.9950 #### [facility] [address] [place], [address] Hematocrit (Bld) [Volume fraction] 39.3 % Normal 37-47 [facility] Comment on above: Performed By: #### L 101.9900, L3410.9998, L3410.2400, L5500.0550, L503.6550, L500.4050, L3400.8000, L100.0100, L503.6150, L3100.3425, L504.2610, L501.6710, L100.9950 #### [facility] [address] [place], [place], [phone] (233) Hemoglobin (Bld) [Mass/Vol] 13.9 g/dL Normal 12.0-15.0 [facility] Comment on above: Performed By: #### L 101.9900, L3410.9998, L3410.2400, L5500.0550, L503.6550, L500.4050, L3400.8000, L100.0100, L503.6150, L3100.3425, L504.2610, L501.6710, L100.9950 #### [facility] [address] [place], [place], [phone] (321) IG% 0.400 Normal 0.0-0.9 [facility] Comment on above: Result Comment: IG% - Immature Granulocytes (promyelocytes, myelocytes and metamyelocytes) > 1% indicates that a LEFT SHIFT is Present. Performed By: #### L 101.9900, L3410.9998, L3410.2400, L5500.0550, L503.6550, L500.4050, L3400.8000, L100.0100, L503.6150, L3100.3425, L504.2610, L501.6710, L100.9950 #### [facility] [address] [place], [address] Lymphocytes/100 WBC (Bld) 21.9 % Normal 19-41 [facility] Comment on above: Performed By: #### L 101.9900, L3410.9998, L3410.2400, L5500.0550, L503.6550, L500.4050, L3400.8000, L100.0100, L503.6150, L3100.3425, L504.2610, L501.6710, L100.9950 #### [facility] [address] [facility] [place], [address] MCH (RBC) [Entitic mass] 29.1 pg Normal 27.0-32.0 [facility] Comment on above: Performed By: #### L 101.9900, L3410.9998, L3410.2400, L5500.0550, L503.6550, L500.4050, L3400.8000, L100.0100, L503.6150, L3100.3425, L504.2610, L501.6710, L100.9950 #### [facility] [address] [place], [address] MCHC (RBC) [Mass/Vol] 35.4 g/dL Normal 32-36 [facility] Comment on above: Performed By: #### L 101.9900, L3410.9998, L3410.2400, L5500.0550, L503.6550, L500.4050, L3400.8000, L100.0100, L503.6150, L3100.3425, L504.2610, L501.6710, L100.9950 #### [facility] [address] [place], [address] MCV (RBC) [Entitic vol] 82.2 fL Normal 81-99 [facility] Comment on above: Performed By: #### L 101.9900, L3410.9998, L3410.2400, L5500.0550, L503.6550, L500.4050, L3400.8000, L100.0100, L503.6150, L3100.3425, L504.2610, L501.6710, L100.9950 #### [facility] [address] [place], [address] Monocytes/100 WBC (Bld) 6.4 % Normal 0-10 [facility] Comment on above: Performed By: #### L 101.9900, L3410.9998, L3410.2400, L5500.0550, L503.6550, L500.4050, L3400.8000, L100.0100, L503.6150, L3100.3425, L504.2610, L501.6710, L100.9950 #### [facility] [address] [place], [address] Neutrophils/100 WBC (Bld) 70.0 % Normal 47-70 [facility] Comment on above: Performed By: #### L 101.9900, L3410.9998, L3410.2400, L5500.0550, L503.6550, L500.4050, L3400.8000, L100.0100, L503.6150, L3100.3425, L504.2610, L501.6710, L100.9950 #### [facility] [address] [place], [address] Nucleated RBC (Bld) [#/Vol] 0 10*3/uL Normal 0-5 [facility] Comment on above: Performed By: #### L 101.9900, L3410.9998, L3410.2400, L5500.0550, L503.6550, L500.4050, L3400.8000, L100.0100, L503.6150, L3100.3425, L504.2610, L501.6710, L100.9950 #### [facility] [address] [place], [address] Platelet mean volume (Bld) [Entitic vol] 10.3 fL Normal 6.2-12.0 [facility] Comment on above: Performed By: #### L 101.9900, L3410.9998, L3410.2400, L5500.0550, L503.6550, L500.4050, L3400.8000, L100.0100, L503.6150, L3100.3425, L504.2610, L501.6710, L100.9950 #### [facility] [address] [place], [address] Platelets (Bld) [#/Vol] 299 10*3/uL Normal 150-450 [facility] Comment on above: Performed By: #### L 101.9900, L3410.9998, L3410.2400, L5500.0550, L503.6550, L500.4050, L3400.8000, L100.0100, L503.6150, L3100.3425, L504.2610, L501.6710, L100.9950 #### [facility] [address] [place], [address] (447) RBC (Bld) [#/Vol] 4.78 10*6/uL Normal 4.2-5.4 [facility] Comment on above: Performed By: #### L 101.9900, L3410.9998, L3410.2400, L5500.0550, L503.6550, L500.4050, L3400.8000, L100.0100, L503.6150, L3100.3425, L504.2610, L501.6710, L100.9950 #### [facility] [address] [place], [address] RDW SD 34.8 fl Low 35.1-43.9 [facility] Comment on above: Performed By: #### L 101.9900, L3410.9998, L3410.2400, L5500.0550, L503.6550, L500.4050, L3400.8000, L100.0100, L503.6150, L3100.3425, L504.2610, L501.6710, L100.9950 #### [facility] [address] [place], [place], [phone] WBC (Bld) [#/Vol] 7.8 10*3/uL Normal 4.4-11.0 [facility] Comment on above: Performed By: #### L 101.9900, L3410.9998, L3410.2400, L5500.0550, L503.6550, L500.4050, L3400.8000, L100.0100, L503.6150, L3100.3425, L504.2610, L501.6710, L100.9950 #### [facility] [address] [place], [address] (650) CRPon 06-01-2024 C-REACTIVE PROT < 3.00 Normal 0.0-3.0 [facility] Comment on above: Performed By: #### L 101.9900, L3410.9998, L3410.2400, L5500.0550, L503.6550, L500.4050, L3400.8000, L100.0100, L503.6150, L3100.3425, L504.2610, L501.6710, L100.9950 ####[facility] [id number] [facility] [place], [place], [phone](800) CRP [Mass/Vol]Ordered By: Ra angeles Diaz on 06-01-2024 C-Reactive Protein Extended Range < 3.00 mg/L 0.0-3.0 [facility] Carbon dioxide, total [Moles /volume] in Central venous bloodOrdered By: Samir Diaz on 06-01-2024 CO2 [Moles/Vol] 17.3 mmol/L Low 21.0-32.0 [facility] Chloride assayOrdered By: Ra angeles Diaz on 06-01-2024 Chloride [Moles/Vol] 107 mmol/L 98-108 [facility] Comprehensive Metabolic Prof ilon 06-01-2024 Albumin/Globulin [Mass ratio] 1.7 {ratio} Normal 0.9-2.4 [facility] Comment on above: Order Comment: [id number] 4 Performed By: #### L 101.9900, L3410.9998, L3410.2400, L5500.0550, L503.6550, L500.4050, L3400.8000, L100.0100, L503.6150, L3100.3425, L504.2610, L501.6710, L100.9950 #### [facility] [address] [place], [address] ALK PHOS 63 U/L Normal 35-104 [facility] Comment on above: Order Comment: [id number] 4 Performed By: #### L 101.9900, L3410.9998, L3410.2400, L5500.0550, L503.6550, L500.4050, L3400.8000, L100.0100, L503.6150, L3100.3425, L504.2610, L501.6710, L100.9950 #### [facility] [address] [place], [place], [phone] ALT [Catalytic activity/Vol] 12 U/L Normal <=34 [facility] Comment on above: Order Comment: [id number] 4 Performed By: #### L 101.9900, L3410.9998, L3410.2400, L5500.0550, L503.6550, L500.4050, L3400.8000, L100.0100, L503.6150, L3100.3425, L504.2610, L501.6710, L100.9950 #### [facility] [address] [place], [place], [phone] (216) AST [Catalytic activity/Vol] 14 U/L Normal <=31 [facility] Comment on above: Order Comment: [id number] 4 Performed By: #### L 101.9900, L3410.9998, L3410.2400, L5500.0550, L503.6550, L500.4050, L3400.8000, L100.0100, L503.6150, L3100.3425, L504.2610, L501.6710, L100.9950 #### [facility] [address] [place], [place], [phone] (216) Bilirubin [Mass/Vol] 0.61 mg/dL Normal 0.00-1.30 [facility] Comment on above: Order Comment: 09136 4 Performed By: #### L 101.9900, L3410.9998, L3410.2400, L5500.0550, L503.6550, L500.4050, L3400.8000, L100.0100, L503.6150, L3100.3425, L504.2610, L501.6710, L100.9950 #### [facility] [address] [facility] [address] [place], [place], [phone] (672) Calcium [Mass/Vol] 9.4 mg/dL Normal 7.6-11.0 [facility] Comment on above: Order Comment: 92729 4 Performed By: #### L 101.9900, L3410.9998, L3410.2400, L5500.0550, L503.6550, L500.4050, L3400.8000, L100.0100, L503.6150, L3100.3425, L504.2610, L501.6710, L100.9950 #### [facility] [address] [place], [address] Chloride [Moles/Vol] 107 mmol/L Normal 98-108 [facility] Comment on above: Order Comment: 70670 4 Performed By: #### L 101.9900, L3410.9998, L3410.2400, L5500.0550, L503.6550, L500.4050, L3400.8000, L100.0100, L503.6150, L3100.3425, L504.2610, L501.6710, L100.9950 #### [facility] [address] [place], [place], [phone] (175) CO2 [Moles/Vol] 17.3 mmol/L Low 21.0-32.0 [facility] Comment on above: Order Comment: 31079 4 Performed By: #### L 101.9900, L3410.9998, L3410.2400, L5500.0550, L503.6550, L500.4050, L3400.8000, L100.0100, L503.6150, L3100.3425, L504.2610, L501.6710, L100.9950 #### [facility] [address] [place], [place], [phone] GAP 15 Normal 5-15 [facility] Comment on above: Order Comment: [id number] 4 Performed By: #### L 101.9900, L3410.9998, L3410.2400, L5500.0550, L503.6550, L500.4050, L3400.8000, L100.0100, L503.6150, L3100.3425, L504.2610, L501.6710, L100.9950 #### [facility] [address] [place], [place], [id number] Potassium [Moles/Vol] 3.7 mmol/L Normal 3.3-5.1 [facility] Comment on above: Order Comment: [id number] 4 Performed By: #### L 101.9900, L3410.9998, L3410.2400, L5500.0550, L503.6550, L500.4050, L3400.8000, L100.0100, L503.6150, L3100.3425, L504.2610, L501.6710, L100.9950 #### [facility] [address] [place], [address] (854) Sodium [Moles/Vol] 139 mmol/L Normal 133-145 [facility] Comment on above: Order Comment: 70710 4 Performed By: #### L 101.9900, L3410.9998, L3410.2400, L5500.0550, L503.6550, L500.4050, L3400.8000, L100.0100, L503.6150, L3100.3425, L504.2610, L501.6710, L100.9950 #### [facility] [address] [place], [address] (195) Albumin [Mass/Vol] 4.6 g/dL Normal 3.5-5.0 [facility] Comment on above: Order Comment: 63637 4 Performed By: #### L 101.9900, L3410.9998, L3410.2400, L5500.0550, L503.6550, L500.4050, L3400.8000, L100.0100, L503.6150, L3100.3425, L504.2610, L501.6710, L100.9950 #### [facility] [address] [place], [address] BUN/CRE 8.3 RATIO Low 10-20 [facility] Comment on above: Order Comment: 73087 4 Performed By: #### L 101.9900, L3410.9998, L3410.2400, L5500.0550, L503.6550, L500.4050, L3400.8000, L100.0100, L503.6150, L3100.3425, L504.2610, L501.6710, L100.9950 #### [facility] [address] [place], [address] (509) Creatinine [Mass/Vol] 0.75 mg/dL Normal 0.70-1.20 [facility] Comment on above: Order Comment: [id number] 4 Performed By: #### L 101.9900, L3410.9998, L3410.2400, L5500.0550, L503.6550, L500.4050, L3400.8000, L100.0100, L503.6150, L3100.3425, L504.2610, L501.6710, L100.9950 #### [facility] [address] [place], [place], [phone] (707) GFR/1.73 sq M.predicted among non-blacks MDRD (S/P/Bld) [Vol rate/Area] 116 mL/min/{1.73_m2} Normal >60 [facility] Comment on above: Order Comment: 83432 4 Result Comment: mL/m in/1.73m2 CKD-EPI Creatinine Equation (2020) Performed By: #### L 101.9900, L3410.9998, L3410.2400, L5500.0550, L503.6550, L500.4050, L3400.8000, L100.0100, L503.6150, L3100.3425, L504.2610, L501.6710, L100.9950 #### [facility] [address] [place], [place], [phone] (559) Globulin (S) [Mass/Vol] 2.7 g/dL Normal 2.2-4.2 [facility] Comment on above: Order Comment: [id number] 4 Performed By: #### L 101.9900, L3410.9998, L3410.2400, L5500.0550, L503.6550, L500.4050, L3400.8000, L100.0100, L503.6150, L3100.3425, L504.2610, L501.6710, L100.9950 #### [facility] [address] [place], [place], [phone] (593) Glucose [Mass/Vol] 81 mg/dL Normal 70-99 [facility] Comment on above: Order Comment: 88311 4 Performed By: #### L 101.9900, L3410.9998, L3410.2400, L5500.0550, L503.6550, L500.4050, L3400.8000, L100.0100, L503.6150, L3100.3425, L504.2610, L501.6710, L100.9950 #### [facility] [address] [place], [address] T PROT 7.2 g/dL Normal 5.9-8.4 [facility] Comment on above: Order Comment: 92914 4 Performed By: #### L 101.9900, L3410.9998, L3410.2400, L5500.0550, L503.6550, L500.4050, L3400.8000, L100.0100, L503.6150, L3100.3425, L504.2610, L501.6710, L100.9950 #### [facility] [address] [place], [address] Urea nitrogen [Mass/Vol] 6 mg/dL Normal 4-19 [facility] Comment on above: Order Comment: [id number] 4 Performed By: #### L 101.9900, L3410.9998, L3410.2400, L5500.0550, L503.6550, L500.4050, L3400.8000, L100.0100, L503.6150, L3100.3425, L504.2610, L501.6710, L100.9950 #### [facility] [address] [place], [address] Endomysial IgA antibody assa yOrdered By: Samir Diaz on 06-01-2024 Endomysial IgA Antibody Negative Negative [facility] Eosinophil percentageOrdered By: Samir Diaz on 06-01-2024 Eosinophils/100 WBC (Bld) 0.9 % 0-5 [facility] Erythrocyte Sed Rateon 03-28 -2025 SED RATE 1 mm/hr Normal 0-30 [facility] Comment on above: Performed By: #### L 101.9900, L3410.9998, L3410.2400, L5500.0550, L503.6550, L500.4050, L3400.8000, L100.0100, L503.6150, L3100.3425, L504.2610, L501.6710, L100.9950 #### [facility] [address] [place], [address] Erythrocyte distribution wid th ratioOrdered By: Samir Diaz on 06-01-2024 Erythrocyte distribution width (RBC) [Ratio] 11.7 % 11.6-14.6 [facility] Erythrocyte distribution wid th standard deviationOrdered By: Samir Diaz on 06-01-2024 Erythrocyte distribution width (RBC) [Entitic vol] 34.8 fL Low 35.1-43.9 [facility] Erythrocyte distribution width (RBC) [Ratio] 34.8 fl Low 35.1-43.9 [facility] Erythrocyte sedimentation ra teOrdered By: Samir Diaz on 06-01-2024 ESR (Bld) [Velocity] 1 mm/h 0-30 [facility] Ferritinon 06-01-2024 Ferritin [Mass/Vol] 143 ng/mL Normal 22-378 [facility] Comment on above: Performed By: #### L 101.9900, L3410.9998, L3410.2400, L5500.0550, L503.6550, L500.4050, L3400.8000, L100.0100, L503.6150, L3100.3425, L504.2610, L501.6710, L100.9950 #### [facility] [address] [place], [address] GFR/1.73 sq M.predicted celestine g non-blacks MDRD (S/P/Bld) [Vol rate/Area]Ordered By: Samir Diaz on 03-28-2025 Estimated GFR (MDRD) Non-Af Amer 116 >60 [facility] Comment on above: mL/min/1.73m2 CKD-EP I Creatinine Equation (2020) Gamma globulin Elph [Mass/Vo l]Ordered By: Samir Diaz on 06-01-2024 Gamma Globulins (EFREN) 1.0 g/dL 0.4-1.8 [facility] Gastroenterology Visit Repor ton 06-01-2024 Gastroenterology Visit Report [facility] [address] [place] [address] OFFICE VISIT Date of Service: 06/01/24 MR#: [id number] Acct: [id number] Name: KEAGAN TILLMAN Rep #: [id number] : 2000 Provider: Samir Diaz DO Age/Sex: 23/F Location: [facility] Status: Signed Intake Vital Signs 01/08/24 12:07 Height 5 ft 6 in Intake Visit Reasons: BLOOD IN STOOL*REFUSED TO GO TO ER* Chief Complaint: nausea, diarrhea, abd cramping Allergies nickel Allergy (Verified 06/01/24 07:55) Hives amphetamine (From Adderall) Adverse Reaction (Verified 06/01/24 07:55) Diarrhea dextroamphetamine (From Adderall) Adverse Reaction (Verified 06/01/24 07:55) Diarrhea NSAIDS (Non-Steroidal Anti-Inflamma Adverse Reaction (Verified 06/01/24 07:55) BLEEDING Medications ???Medication ???Instructions ???Recorded ???Confirmed ???Type levonorgestrel (Mirena) 1 device intrauterine ONCE 2 06/01/24 History buspirone 15 mg tablet 15 mg PO BID 08/15/23 06/01/24 His tory hydrocortisone acetate 25 mg 25 mg IA BID 21 days #24 ea 06/01/24 Rx rectal suppository ondansetron HCl 8 mg tablet 8 mg PO Q8H PRN nausea and 4 06/01/24 Rx vomiting #60 tabs ustekinumab 90 mg/mL subcutaneous 90 mg subcut Q8W #1 mL 05/29/24 0 06/01/24 Rx syringe (Stelara) prednisone 20 mg tablet 40 mg (2 x 20 mg) PO QDAY 30 days 06/01/24 06/01/24 Rx #60 tabs PFSH Medical History Crohn's disease Marijuana use Rash Restless legs Smoker Depression Abnormal uterine bleeding (AUB) Von Willebrand disease Asthma Knee pain Surgical History S/P D C (status post dilation and curettage) History of endoscopy Hx of colonoscopy H/O knee surgery Social History pets and animals: Yes sexually active: No Smoking Status: Current every day smoker tobacco type: e-cigarettes alcohol intake: never substance use type: marijuana seatbelt use: always HPI HPI Chief Complaint: nausea, diarrhea, abd cramping Details: KEAGAN TILLMAN, is a 23 F who presents to the office today for follow up. BGI established 08.21.21 with loose stools since childhood which has interfered with her lifestyle and job choices. Watery loose stools 10+/day most days of the week with lower abdominal cramping/mid abdominal pain ? Stool calprotectin, elastase, fat, C.Difficile, lactoferrin, EP, O/P, giardia WNL ? CT abd/pel 09.04.21 borderline hepatomegaly ? EGD and colonoscopy 10.06.21 EGD irregular Zline 39cm; gastritis; duodenitis. ? Colonoscopy fair prep; congested mucosa; TI granularity, acute enteritis with focal crypt abscesses. OV 9. start methotrexate. Contact methotrexate, prednisone ineffective. Start Stelara OV 7 continue dicyclomine for symptom management during flare. Doing well with Stelara every 8 weeks OV 1.8.24 she has been having some bloating with pressure related pain that has been bothersome, Gas-X has been helpful; notes breads are is definitely a trigger, trialed gluten free which was helpful but did not resolve symptoms. Has had food allergen testing previously and [place] [address] pt reports that she is doing well overall with GI symptoms of concern at this time. Pt does report that since starting Stelara she has constipation during her menstrual cycle. Pt reports that she will normally have 1-2 bm per day; denies blood in the stool. [facility] ED 11..24 abd pain and rectal pain with BM abd/pelvis CT 11.24 1. No acute inflammatory process of the bowel, bowel obstruction, fistula, or bowel perforation. 2. Hepatomegaly. OV 1115.24 pt reports that for the past month she has been having rectal pain while trying to have a bm that radiates to her abdomen. Pt reports she began her menstrual cycle this week, which she feels has made her symptoms worse. OV 06.01.25- Pt states she was having increased diarrhea and rectal bleeding towards the beginning of this month. She said since making this appointment the blood has subsided. She is still having increased diarrhea with intermittent abdominal cramping. She continues with Stelara every 8 weeks and is due for next injection this comming Sunday 06/04. ROS Const Constitutional: No fatigue, fever(s) or weight change Gastro GI: Positive for abdominal pain, bloating, change in bowel habits, diarrhea, heartburn, excessive flatus, nausea/dyspepsia and vomiting; No belching, change in stool character, coffee ground emesis, const (more content not included)... Normal [facility] Glomerular filtration rate ( GFR) estimation/1.73 sq m using serum, plasma, or whole bOrdered By: Samir Diaz on 06-01-2024 GFR/1.73 sq M.predicted among non-blacks MDRD (S/P/Bld) [Vol rate/Area] 116 mL/min/{1.73_m2} >60 [facility] Comment on above: mL/min/1.73m2 CKD-EP I Creatinine Equation (2020) Hematocrit Auto (Bld) [Volum e fraction]Ordered By: Samir Diaz on 06-01-2024 Hematocrit (Bld) [Volume fraction] 39.3 % 37-47 [facility] Hemoglobin (Reticulocytes) [ Entitic mass]Ordered By: Samir Diaz on 06-01-2024 Reticulocyte Hemoglobin Equivalent 31.9 pg 30-35 [facility] Hemoglobin measurementOrdere d By: Samir Diaz on 06-01-2024 Hemoglobin (Bld) [Mass/Vol] 13.9 g/dL 12.0-15.0 [facility] IgA [Mass/Vol]Ordered By: Ra angeles Diaz on 06-01-2024 Immunoglobulin A 239 mg/dL 87-352 [facility] IgG [Mass/Vol]Ordered By: Ra angeles Diaz on 06-01-2024 Immunoglobulin G 969 mg/dL [phone] [facility] Immature granulocytes/100 WB C Auto (Bld)Ordered By: Samir Diaz on 06-01-2024 Immature granulocytes/100 WBC (Bld) 0.400 % 0.0-0.9 [facility] Comment on above: IG% - Immature Granu locytes (promyelocytes, myelocytes and metamyelocytes) > 1% indicates that a LEFT SHIFT is Present. Immature reticulocyte fracti onOrdered By: Samir Diaz on 06-01-2024 Immature Reticulocyte Fraction 2.90 % Low 3.00-15.90 [facility] Immunoglobulin M measurement Ordered By: Samir Diaz on 06-01-2024 Immunoglobulin M 72 mg/dL 26-217 [facility] Interpretation IEP [Interp]O rdered By: Samir Diaz on 06-01-2024 Immunofixation Screen Comment . [facility] Comment on above: No monoclonality det ected. Interpretation of serum or p lasma protein pattern by immunofixation (narrative resultOrdered By: Samir Diaz on 03-28-2025 Protein Fractions Immunofixation Kamlesh [Interp] Not Observed g/dL Not Observed [facility] Ironon 06-01-2024 Iron [Mass/Vol] 77 ug/dL Normal 50-170 [facility] Comment on above: Order Comment: [id number] Performed By: #### L 101.9900, L3410.9998, L3410.2400, L5500.0550, L503.6550, L500.4050, L3400.8000, L100.0100, L503.6150, L3100.3425, L504.2610, L501.6710, L100.9950 ####[facility] [id number] [place], [address] Iron (Unsp spec) [Mass/Mass] Ordered By: Samir Diaz on 06-01-2024 Iron [Mass/Vol] 77 ug/dL 50-170 [facility] Iron measurement (mass/mass) Ordered By: Samir Diaz on 06-01-2024 Iron (Unsp spec) [Mass/Mass] 77 ug/dL 50-170 [facility] LDHon 06-01-2024 LDH 141 U/L Normal 84-246 [facility] Comment on above: Order Comment: [id number] Performed By: #### L 101.9900, L3410.9998, L3410.2400, L5500.0550, L503.6550, L500.4050, L3400.8000, L100.0100, L503.6150, L3100.3425, L504.2610, L501.6710, L100.9950 ####[facility] [id number] [place], [address] Laboratory - Chemistry and C hemistry - challengeOrdered By: Samir Diaz on 06-01-2024 AST [Catalytic activity/Vol] 14 U/L <32 [facility] Laboratory - Miscellaneous t estsOrdered By: Samir Diaz on 06-01-2024 Service comment (Unsp spec) [Interp] Comment . [facility] Comment on above: Levels of Specific I gE Class Description of Class ----- < 0.10 0 Negative 0.10 - 0.31 0/I Equivocal/Low 0.32 - 0.55 I Low 0.56 - 1.40 II Moderate 1.41 - 3.90 III High 3.91 - 19.00 IV Very High 19.01 - 100.00 V Very High >100.00 Very High Lactate dehydrogenase (LDH) measurementOrdered By: Samir Diaz on 06-01-2024 LDH [Catalytic activity/Vol] 141 U/L 84-246 [facility] Lymphocytes Auto (Unsp spec) [#/Vol]Ordered By: Samir Diaz on 06-01-2024 Lymphocytes (Bld) [#/Vol] 1.71 10*3/uL 0.83-4.51 [facility] Lymphocytes/100 WBC Auto (Un sp spec)Ordered By: Samir Diaz on 06-01-2024 Lymphocytes/100 WBC (Bld) 21.9 % 19-41 [facility] M. tuberculosis tuberculin s pedro luis IFN-g Ql (Bld)Ordered By: Samir Diaz on 06-01-2024 TB Test (QFT) Antigen 1 TNP [facility] Comment on above: Test not performedPl ease refer to the following specimen for additional labresults.SEE [id number] MCV (mean corpuscular volume ) determinationOrdered By: Samir Diaz on 06-01-2024 MCV (RBC) [Entitic vol] 82.2 fL 81-99 [facility] Mean corpuscular hemoglobin (MCH) determinationOrdered By: Samir Diaz on 06-01-2024 MCH (RBC) [Entitic mass] 29.1 pg 27.0-32.0 [facility] Mean corpuscular hemoglobin concentration (MCHC) determinationOrdered By: Samir Diaz on 06-01-2024 MCHC (RBC) [Mass/Vol] 35.4 g/dL 32-36 [facility] Mean platelet volume determi nationOrdered By: Samir Diaz on 06-01-2024 Platelet mean volume (Bld) [Entitic vol] 10.3 fL 6.2-12.0 [facility] Monocyte percentageOrdered B y: Samir Diaz on 06-01-2024 Monocytes/100 WBC (Bld) 6.4 % 0-10 [facility] Neutrophil percentageOrdered By: Samir Diaz on 06-01-2024 Neutrophils/100 WBC (Bld) 70.0 % 47-70 [facility] No Panel InformationOrdered By: Samir Diaz on 06-01-2024 Addendum Document Comment . [facility] Comment on above: Protein electrophore sis scan will follow via computer,mail, or falsework builder delivery. Nucleated red blood cell per centageOrdered By: Samir Diaz on 06-01-2024 Nucleated RBC/100 WBC (Bld) [Ratio] 0 % 0-5 [facility] Platelet countOrdered By: Ra angeles Diaz on 06-01-2024 Platelets (Bld) [#/Vol] 299 10*3/uL 150-450 [facility] Potassium (Unsp spec) [Mass/ Vol]Ordered By: Samir Diaz on 06-01-2024 Potassium [Moles/Vol] 3.7 mmol/L 3.3-5.1 [facility] Potassium measurement (mass/ volume)Ordered By: Samir Diaz on 06-01-2024 Potassium (Unsp spec) [Mass/Vol] 3.7 mmol/L 3.3-5.1 [facility] Protein Fractions Immunofixa tion Kamlesh [Interp]Ordered By: Samir Diaz on 06-01-2024 M-Sebastian (EFREN) Not Observed g/dL Not Observed [facility] Qualitative QuantiFERON-TB g old in tube testOrdered By: Samir Diaz on 06-01-2024 M. tuberculosis tuberculin stim IFN-g Ql (Bld) [facility] Comment on above: Test not performedPl ease refer to the following specimen for additional labresults.SEE [id number] Quantiferon-TB Gold Plus gavin tOrdered By: Samir Diaz on 06-01-2024 TB Test (QFT) [facility] Comment on above: Test not performed TB Test (QFT) Antigen 2 TNP [facility] Comment on above: Test not performedTe st not performed TB Test (QFT) Mitogen TNP [facility] Comment on above: Test not performedTe st not performed TB Test (QFT) Nil [facility] Comment on above: Test not performedTe st not performed TB Test (QFT) Positive Criteria [facility] Comment on above: Test not performed RBC Auto (Bld) [#/Vol]Ordere d By: Samir Friend on 06-01-2024 RBC (Bld) [#/Vol] 4.78 10*6/uL 4.2-5.4 [facility] Retic Panelon 06-01-2024 IM RET FRACTION 2.90 Low 3.00-15.90 [facility] Comment on above: Performed By: #### L 101.9900, L3410.9998, L3410.2400, L5500.0550, L503.6550, L500.4050, L3400.8000, L100.0100, L503.6150, L3100.3425, L504.2610, L501.6710, L100.9950 #### [facility] [address] [place], [address] RET-HE 31.9 pg Normal 30-35 [facility] Comment on above: Performed By: #### L 101.9900, L3410.9998, L3410.2400, L5500.0550, L503.6550, L500.4050, L3400.8000, L100.0100, L503.6150, L3100.3425, L504.2610, L501.6710, L100.9950 #### [facility] [address] [place], [address] Retic Count 0.93 Normal 0.5-1.5 [facility] Comment on above: Performed By: #### L 101.9900, L3410.9998, L3410.2400, L5500.0550, L503.6550, L500.4050, L3400.8000, L100.0100, L503.6150, L3100.3425, L504.2610, L501.6710, L100.9950 #### [facility] [place], [address] Reticulocyte hemoglobin equi valent (RET-He) measurementOrdered By: Samir Diaz on 06-01-2024 Hemoglobin (Reticulocytes) [Entitic mass] 31.9 pg 30-35 [facility] Reticulocytes Auto (Bld) [#/ Vol]Ordered By: Samir Diaz on 06-01-2024 Reticulocyte Count 0.93 % 0.5-1.5 [facility] Reticulocytes/100 RBC (Bld) 0.93 % 0.5-1.5 [facility] Serum albumin/globulin ratio Ordered By: Samir Diaz on 06-01-2024 Albumin/Globulin (EFREN) 1.6 0.7-1.7 [facility] Serum beef IgE antibody assa y (units/volume)Ordered By: Samir Diaz on 06-01-2024 Beef IgE Qn (S) <0.10 kU/L Class 0 [facility] Serum codfish IgE antibody a ssay (units/volume)Ordered By: Samir Diaz on 06-01-2024 Codfish IgE Qn (S) <0.10 kU/L Class 0 [facility] Serum corn IgE antibody assa y (units/volume)Ordered By: Samir Diaz on 06-01-2024 [place] IgE Qn (S) <0.10 kU/L Class 0 [facility] Serum cow milk IgE antibody assay (units/volume)Ordered By: Samir Diaz on 06-01-2024 Cow milk IgE Qn (S) <0.10 kU/L Class 0 [facility] Serum creatinine measurement (mass/volume)Ordered By: Samir Diaz on 06-01-2024 Creatinine [Mass/Vol] 0.75 mg/dL 0.70-1.20 [facility] Serum globulin measurement ( mass/volume)Ordered By: Samir Diaz on 06-01-2024 Globulin (S) [Mass/Vol] 2.7 g/dL 2.2-3.9 [facility] Serum glucose measurement (m ass/volume)Ordered By: Samir Diaz on 06-01-2024 Glucose [Mass/Vol] 81 mg/dL 70-99 [facility] Serum or plasma C reactive p rotein measurement (mass/volume)Ordered By: Samir Diaz on 06-01-2024 CRP [Mass/Vol] mg/L 0.0-3.0 [facility] Serum or plasma IgA measurem ent (mass/volume)Ordered By: Samir Diaz on 06-01-2024 IgA [Mass/Vol] 239 mg/dL 87-352 [facility] Serum or plasma IgG measurem ent (mass/volume)Ordered By: Samir Diaz on 06-01-2024 IgG [Mass/Vol] 969 mg/dL 586-1602 [facility] Serum or plasma alanine hernadez otransferase (ALT) measurementOrdered By: Samir Diaz on 06-01-2024 ALT [Catalytic activity/Vol] 12 U/L <35 [facility] Serum or plasma albumin anu urement (mass/volume)Ordered By: Samir Diaz on 06-01-2024 Albumin [Mass/Vol] 4.6 g/dL 3.5-5.0 [facility] Serum or plasma albumin/glob ulin mass ratioOrdered By: Samir Diaz on 06-01-2024 Albumin/Globulin [Mass ratio] 1.7 {ratio} 0.9-2.4 [facility] Serum or plasma alkaline john sphatase measurementOrdered By: Samir Diaz on 06-01-2024 ALP [Catalytic activity/Vol] 63 U/L 35-104 [facility] Serum or plasma alpha 1 glob ulin measurement by electrophoresis (mass/volume)Ordered By: Samir Diaz on 06-01-2024 Alpha 1 globulin Elph [Mass/Vol] 0.2 g/dL 0.0-0.4 [facility] Alpha 1 globulin Elph [Mass/Vol] 0.6 g/dL 0.4-1.0 [facility] Serum or plasma beta globuli n measurement by electrophoresis (mass/volume)Ordered By: Samir Diaz on 06-01-2024 Beta globulin Elph [Mass/Vol] 0.8 g/dL 0.7-1.3 [facility] Serum or plasma calcium aun urement (mass/volume)Ordered By: Samir Diaz on 06-01-2024 Calcium [Mass/Vol] 9.4 mg/dL 7.6-11.0 [facility] Serum or plasma ferritin rosy surement (mass/volume)Ordered By: Samir Diaz on 06-01-2024 Ferritin [Mass/Vol] 143 ng/mL 22-378 [facility] Serum or plasma gamma globul in measurement by electrophoresis (mass/volume)Ordered By: Samir Diaz on 06-01-2024 Gamma globulin Elph [Mass/Vol] 1.0 g/dL 0.4-1.8 [facility] Serum or plasma immunoelectr ophoresis interpretation (nominal result)Ordered By: Samir Diaz on 06-01-2024 Interpretation IEP [Interp] Comment . [facility] Comment on above: No monoclonality det ected. Serum or plasma protein anu urement (mass/volume)Ordered By: Samir Diaz on 06-01-2024 Protein [Mass/Vol] 7.0 g/dL 6.0-8.5 [facility] Serum or plasma urea nitroge n measurement (mass/volume)Ordered By: Samir Diaz on 06-01-2024 Urea nitrogen [Mass/Vol] 6 mg/dL 4-19 [facility] Serum peanut IgE antibody as say (units/volume)Ordered By: Samir Diaz on 06-01-2024 Peanut IgE Qn (S) <0.10 kU/L Class 0 [facility] Serum pork IgE antibody assa y (units/volume)Ordered By: Samir Diaz on 06-01-2024 Pork IgE Qn (S) <0.10 kU/L Class 0 [facility] Serum salmon IgE antibody as say (units/volume)Ordered By: Samir Diaz on 06-01-2024 Venus IgE Qn (S) <0.10 kU/L Class 0 [facility] Serum soybean IgE antibody a ssay (units/volume)Ordered By: Samir Diaz on 06-01-2024 Soybean IgE Qn (S) <0.10 kU/L Class 0 [facility] Serum tissue transglutaminas e (tTG) IgA antibody assay (units/volume)Ordered By: Samir Diaz on 06-01-2024 tTG IgA Qn (S) <2 U/mL 0-3 [facility] Comment on above: Negative 0 - 3 Weak Positive 4 - 10 Positive >10 Tissue Transglutaminase (tTG) has been identified as the endomysial antigen. Studies have demonstr- ated that endomysial IgA antibodies have over 99% specificity for gluten sensitive enteropathy. Serum tuna IgE antibody assa y (units/volume)Ordered By: Samir Diaz on 06-01-2024 Tuna IgE Qn (S) <0.10 kU/L Class 0 [facility] Serum wheat IgE antibody ass ay (units/volume)Ordered By: Samir Diaz on 06-01-2024 Wheat IgE Qn (S) <0.10 kU/L Class 0 [facility] Serum whole egg IgE antibody assay (units/volume)Ordered By: Samir Diaz on 06-01-2024 Whole Egg IgE Qn (S) <0.10 kU/L Class 0 [facility] Comment on above: Performed at: [address] [id number] Director: George Barone MD, Phone: [phone] Sodium levelOrdered By: Lv Varner on 06-01-2024 Sodium [Moles/Vol] 139 mmol/L 133-145 [facility] Total proteinOrdered By: Juan R Diaz on 06-01-2024 Protein [Mass/Vol] 7.2 g/dL 5.9-8.4 [facility] White blood cell (WBC) count Ordered By: Samir Diaz on 06-01-2024 WBC (Bld) [#/Vol] 7.8 10*3/uL 4.4-11.0 [facility] tTG IgA Qn (S)Ordered By: Ra angeles Diaz on 06-01-2024 Tissue Transglutaminase IgA Ab <2 U/mL 0-3 [facility] Comment on above: Negative 0 - 3 Weak Positive 4 - 10 Positive >10 Tissue Transglutaminase (tTG) has been identified as the endomysial antigen. Studies have demonstr- ated that endomysial IgA antibodies have over 99% specificity for gluten sensitive enteropathy. Gastroenterology Visit Rep[facility] 01-20-2024 Gastroenterology Visit Report [facility] Gastroenterology [address] [place] [address] OFFICE VISIT Date of Service: 01/20/24 MR#: [id number] Acct: [id number] Name: KEAGAN TILLMAN Rep #: [id number] : 2000 Provider: Samir Diaz DO Age/Sex: 23/F Location[place] [facility] Status: Signed Intake Vital Signs 05/02/23 11:45 01/08/24 12:07 Height 5 ft 6 in 5 ft 6 in Intake Visit Reasons: 6 M FU Allergies nickel Allergy (Verified 01/08/24 12:09) Hives amphetamine (From Adderall) Adverse Reaction (Verified 01/08/24 12:09) Diarrhea dextroamphetamine (From Adderall) Adverse Reaction (Verified 01/08/24 12:09) Diarrhea NSAIDS (Non-Steroidal Anti-Inflamma Adverse Reaction (Verified 01/08/24 12:09) BLEEDING Medications ???Medication ???Instructions ???Recorded ???Confirmed ???Type levonorgestrel (Mirena) 1 device intrauterine ONCE 10/23/21 01/20/24 History ustekinumab 90 mg/mL subcutaneous 90 mg subcut Q8W #1 mL 04/18/23 01/20/24 Rx syringe (Stelara) buspirone 15 mg tablet 15 mg PO BID 08/15/23 01/20/24 History ciprofloxacin HCl 500 mg tablet 500 mg PO BID 7 days #14 tabs 01/20/24 01/20/24 Rx hydrocortisone acetate 25 mg 25 mg IA BID 21 days #24 ea 01/20/24 01/20/24 Rx rectal suppository hyoscyamine sulfate 0.125 mg tablet 0.125 mg PO BID-QID PRN dyspepsia 01/20/24 01/20/24 Rx 10 days #40 tabs metronidazole 500 mg tablet 500 mg PO BID 7 days #14 tabs 01/20/24 01/20/24 Rx ondansetron HCl 8 mg tablet 8 mg PO Q8H PRN nausea and 01/20/24 01/20/24 Rx vomiting #60 tabs PFSH Medical History Abnormal uterine bleeding (AUB) Asthma Crohn's disease Depression Knee pain Marijuana use Rash Restless legs Smoker Von Willebrand disease Surgical History H/O knee surgery History of endoscopy Hx of colonoscopy S/P D C (status post dilation and curettage) Social History pets and animals: Yes sexually active: No Smoking Status: Current every day smoker tobacco type: e-cigarettes alcohol intake: never substance use type: marijuana seatbelt use: always HPI HPI Details: KEAGAN TILLMAN, is a 23 F who presents to the office today for follow up. *BGI established 08.21.21 with loose stools since childhood which has interfered with her lifestyle and job choices. Watery loose stools 10+/day most days of the week with lower abdominal cramping/mid abdominal pain ? Stool calprotectin, elastase, fat, C.Difficile, lactoferrin, EP, O/P, giardia WNL ? CT abd/pel 09.04.21 borderline hepatomegaly ? EGD and colonoscopy 10.06.21 EGD irregular Zline 39cm; gastritis; duodenitis. ? Colonoscopy fair prep; congested mucosa; TI granularity, acute enteritis with focal crypt abscesses. OV 11.27.22 start methotrexate. Contact methotrexate, prednisone ineffective. Start Stelara OV 7 continue dicyclomine for symptom management during flare. Doing well with Stelara every 8 weeks OV 1 she has been having some bloating with pressure related pain that has been bothersome, Gas-X has been helpful; notes breads are is definitely a trigger, trialed gluten free which was helpful but did not resolve symptoms. Has had food allergen testing previously and has a sensitivity to oats and rye. OV 6 pt reports that she is doing well overall with GI symptoms of concern at this time. Pt does report that since starting Stelara she has constipation during her menstrual cycle. Pt reports that she will normally have 1-2 bm per day; denies blood in the stool. [facility] ED 1124 abd pain and rectal pain with BM abd/pelvis CT 11.24 1. No acute inflammatory process of the bowel, bowel obstruction, fistula, or bowel perforation. 2. Hepatomegaly. OV 01.20.24 pt reports that for the past month she has been having rectal pain while trying to have a bm that radiates to her abdomen. Pt reports she began her menstrual cycle this week, which she feels has made her symptoms worse. ESR/CRP? Calp/Lact? Serum/ab 09.04.21? 82/neg? --/--? CBC, ESR, CMP, LFT, CRP, LDH, Vid D1,25, folates, TSH, amylase, lipase, [place] comp, ANCA, GAME, EFREN WNL. 08 --/--? --/--? --/--? (more content not included)... Normal [facility] Abdomen/Pelvis W IV Cont ONL [facility] 01-08-2024 Abdomen/Pelvis W IV Cont ONLY [facility] Imaging Services [address] [place] [id number] Abdomen/Pelvis W IV Cont ONLY MR#: [id number] Acct: [id number] Name: KEAGAN TILLMAN Rep #: [id number] : 2000 F 23 From: Bob yañez DO PCP: Dr. Kathy Israel, DO Status: PRE ER Study: Abdomen/Pelvis W IV Cont ONLY Date of Exam: Exam# [id number] Ordering Dr: Pamela Mendoza [id number] EXAM: CT ABDOMEN AND PELVIS WITH INTRAVENOUS CONTRAST CLINICAL INDICATION: abdominal pain TECHNIQUE: Helically acquired images were obtained of the abdomen and pelvis with intravenous contrast. This CT exam was performed using one or more of the following dose reduction techniques: automated exposure control, adjustment of the mA and/or kV according to patient size, and/or use of iterative reconstruction technique. CONTRAST: 100 ML ISOVUE 370 COMPARISON: CT abdomen and pelvis, 09/08/2018. FINDINGS: LOWER THORAX: No significant abnormality. Lung bases are clear. No cardiomegaly. No significant pericardial effusion. ABDOMEN: LIVER: The liver measures 22.8 cm in length. No focal hepatic lesion is identified. GALLBLADDER AND BILE DUCTS: No significant abnormality. No calcified gallstones. No gallbladder distention or wall edema. No intra- or extrahepatic biliary ductal dilation. PANCREAS: No significant abnormality. No focal cystic or solid mass. SPLEEN: No significant abnormality. Normal size without focal cystic or solid mass. ADRENALS: No significant abnormality. No nodules. KIDNEYS AND URETERS: No significant abnormality. Normal renal size and position. No hydronephrosis. STOMACH AND BOWEL: No significant abnormality. No stomach or bowel distention. No focal inflammatory change. PELVIS: APPENDIX: There is a normal appendix in the right lower quadrant. BLADDER: No significant abnormality. REPRODUCTIVE: An IUD is present. ABDOMEN and PELVIS: INTRAPERITONEAL SPACE: No significant abnormality. No ascites or other fluid collection. No free air. BONES/JOINTS: No significant abnormality. No suspicious lytic or blastic abnormality. SOFT TISSUES: No significant abnormality. No discrete abdominal or pelvic wall hernia. VASCULATURE: No significant abnormality. Abdominal aorta is non-dilated. LYMPH NODES: No significant abnormality. No enlarged lymph nodes. CT/Abdomen/Pelvis W IV Cont ONLY IMPRESSION: 1. No acute inflammatory process of the bowel, bowel obstruction, fistula, or bowel perforation. 2. Hepatomegaly. Electronically Signed: Bob Gomez DO at 13:53 EST , CC: Dr. Kathy Israel DO; KAYLEE Mccarthy Beck Tender: Signed Normal [facility] Basic Metabolic Profile (BMP )on 01-08-2024 BUN/CRE 11.0 RATIO Normal 10-20 [facility] Comment on above: Performed By: #### L 100.0100, L500.2500 ####[facility] [address] [place], [address] CA,Total 9.0 mg/dL Normal 8.5-10.1 [facility] Comment on above: Performed By: #### L 100.0100, L500.2500 ####[facility] [address] [place], [address] Chloride [Moles/Vol] 107 mmol/L Normal 98-107 [facility] Comment on above: Performed By: #### L 100.0100, L500.2500 ####[facility] [address] [place], [address] CO2 [Moles/Vol] 27.0 mmol/L Normal 21.0-32.0 [facility] Comment on above: Performed By: #### L 100.0100, L500.2500 ####[facility] [address] [place], [address] Creatinine [Mass/Vol] 0.82 mg/dL Normal 0.55-1.02 [facility] Comment on above: Result Comment: The validity of the calculated GFR GFRAA in patients over 70 years has not been determined. Clinical correlation is essential. Performed By: #### L 100.0100, L500.2500 ####[facility] [address] [place], [address] ECRCL 126.25 ml/min Normal [facility] Comment on above: Performed By: #### L 100.0100, L500.2500 ####[facility] [address] [place], [address] EST GFR - AA 113 mL/min Normal >60 [facility] Comment on above: Result Comment: Afri can Bulgarian GFR Calc Performed By: #### L 100.0100, L500.2500 ####[facility] [address] [place], [address] GAP 6 Normal 5-15 [facility] Comment on above: Performed By: #### L 100.0100, L500.2500 ####[facility] [address] [place], [address] GFR/1.73 sq M.predicted among non-blacks MDRD (S/P/Bld) [Vol rate/Area] 93 mL/min/{1.73_m2} Normal >60 [facility] Comment on above: Result Comment: Non- GFR Calc Performed By: #### L 100.0100, L500.2500 ####[facility] [address] [place], [address] Glucose [Mass/Vol] 126 mg/dL High 74-106 [facility] Comment on above: Result Comment: Fast ing Glucose result greater than or equal to 126 mg/dL suggests DIABETES MELLITUS per A.D.A. criteria. Performed By: #### L 100.0100, L500.2500 ####[facility] [address] [place], [address] Potassium [Moles/Vol] 3.4 mmol/L Low 3.5-5.1 [facility] Comment on above: Performed By: #### L 100.0100, L500.2500 ####[facility] [address] [place], [address] Sodium [Moles/Vol] 140 mmol/L Normal 136-145 [facility] Comment on above: Performed By: #### L 100.0100, L500.2500 ####[facility] [address] [place], [address] Urea nitrogen [Mass/Vol] 9 mg/dL Normal 7-18 [facility] Comment on above: Performed By: #### L 100.0100, L500.2500 ####[facility] [address] [place], [address] CBC W/Diff, Automatedon 11-0 3-2024 Absolute Lymph 2.04 X10 3/uL Normal 0.83-4.51 [facility] Comment on above: Performed By: #### L 100.0100, L500.2500 ####[facility] [address] [place], [address] Absolute Neut 8.0 X10 3/uL High 2.0-7.7 [facility] Comment on above: Performed By: #### L 100.0100, L500.2500 ####[facility] [address] [place], [address] Basophils/100 WBC (Bld) 0.4 % Normal 0-1 [facility] Comment on above: Performed By: #### L 100.0100, L500.2500 ####[facility] [address] [place], [address] Eosinophils/100 WBC (Bld) 1.4 % Normal 0-5 [facility] Comment on above: Performed By: #### L 100.0100, L500.2500 ####[facility] [address] [place], [address] Erythrocyte distribution width (RBC) [Ratio] 11.9 % Normal 11.6-14.6 [facility] Comment on above: Performed By: #### L 100.0100, L500.2500 ####[facility] [address] [place], [address] Hematocrit (Bld) [Volume fraction] 41.6 % Normal 37-47 [facility] Comment on above: Performed By: #### L 100.0100, L500.2500 ####[facility] [address] [place], [address] Hemoglobin (Bld) [Mass/Vol] 14.2 g/dL Normal 12.0-15.0 [facility] Comment on above: Performed By: #### L 100.0100, L500.2500 ####[facility] [address] [place], [address] IG% 0.400 Normal 0.0-0.9 [facility] Comment on above: Result Comment: IG% - Immature Granulocytes (promyelocytes, myelocytes and metamyelocytes) > 1% indicates that a LEFT SHIFT is Present. Performed By: #### L 100.0100, L500.2500 ####[facility] [address] [place], [address] Lymphocytes/100 WBC (Bld) 18.5 % Low 19-41 [facility] Comment on above: Performed By: #### L 100.0100, L500.2500 ####[facility] [address] [place], [address] MCH (RBC) [Entitic mass] 29.0 pg Normal 27.0-32.0 [facility] Comment on above: Performed By: #### L 100.0100, L500.2500 ####[facility] [address] [place], [address] MCHC (RBC) [Mass/Vol] 34.1 g/dL Normal 32-36 [facility] Comment on above: Performed By: #### L 100.0100, L500.2500 ####[facility] [address] [place], [address] MCV (RBC) [Entitic vol] 84.9 fL Normal 81-99 [facility] Comment on above: Performed By: #### L 100.0100, L500.2500 ####[facility] [address] [place], [address] Monocytes/100 WBC (Bld) 6.6 % Normal 0-10 [facility] Comment on above: Performed By: #### L 100.0100, L500.2500 ####[facility] [address] [place], [address] Neutrophils/100 WBC (Bld) 72.7 % High 47-70 [facility] Comment on above: Performed By: #### L 100.0100, L500.2500 ####[facility] [address] [place], [address] Nucleated RBC (Bld) [#/Vol] 0 10*3/uL Normal 0-5 [facility] Comment on above: Performed By: #### L 100.0100, L500.2500 ####[facility] [address] [place], [address] Platelet mean volume (Bld) [Entitic vol] 9.5 fL Normal 6.2-12.0 [facility] Comment on above: Performed By: #### L 100.0100, L500.2500 ####[facility] [address] [place], [address] Platelets (Bld) [#/Vol] 359 10*3/uL Normal 150-450 [facility] Comment on above: Performed By: #### L 100.0100, L500.2500 ####[facility] [address] [place], [address] RBC (Bld) [#/Vol] 4.90 10*6/uL Normal 4.2-5.4 [facility] Comment on above: Performed By: #### L 100.0100, L500.2500 ####[facility] [address] [place], [address] RDW SD 36.7 fl Normal 35.1-43.9 [facility] Comment on above: Performed By: #### L 100.0100, L500.2500 ####[facility] [address] [place], [address] WBC (Bld) [#/Vol] 11.0 10*3/uL Normal 4.4-11.0 [facility] Comment on above: Performed By: #### L 100.0100, L500.2500 ####[facility] [address] [place], [address] Emergency Department Summary on 01-08-2024 Emergency Department Summary [facility] Medical Records Department [address] [place] [address] Emergency Department Summary 01/08/24 MR#: [id number] Acct: [id number] Name: KEAGAN TILLMAN Rep #: [id number] : 2000 23 From: Lei High MD PCP: Dr. Kathy Israel, DO Status:DEP ER Location: ED HPI HPI - GI History of Present Illness Chief Complaint: Abd Pain Narrative Narrative: 23-year-old female with past medical history of Crohn's disease presents with 13 days of abdominal pain. She states typically she has 4-5 BMs a day with her Crohn's disease but over the last 2 weeks has only been going 2-3 times a day because whenever she pushes she has rectal pain. The pain radiates from her rectum to her left lower abdomen and left lower back. She is able to go 2-3 times a day with normal soft brown stool and denies melena or hematochezia. She has no urinary symptoms. She has no fever chills or nausea or vomiting. She was diagnosed with Crohn's disease by colonoscopy around 03/2021 and has been on Stelara and well-controlled. She denies needing admissions or frequent steroids for Crohn's. She sees Dr. Diaz and has an appointment scheduled on January 19 but the pain persisted and she did not want a wait prompting her to come in today. She has no abdominal surgical history. She has an IUD. [facility] Medical History Abnormal uterine bleeding (AUB) Asthma Crohn's disease Depression Knee pain Marijuana use Rash Restless legs Smoker Von Willebrand disease Home Medications ???Medication ???Instructions ???Recorded ???Last Taken ???Type levonorgestrel 21 mcg/24 hr (up to 1 device intrauterine ONCE 10/23/21 Unknown History 8 years) 52 mg intrauterine device (Mirena) ustekinumab 90 mg/mL subcutaneous 90 mg subcut Q8W #1 mL 04/18/23 Unknown Rx syringe (Stelara) buspirone 15 mg tablet 15 mg PO BID 08/15/23 Unknown History ondansetron HCl 8 mg tablet 8 mg PO Q8H PRN nausea and 09/30/23 Unknown Rx vomiting #14 tabs Allergy/AdvReac Type Severity Reaction Status Date / Time nickel Allergy Hives Verified 01/08/24 12:09 amphetamine (From Adderall) AdvReac Diarrhea Verified 01/08/24 12:09 dextroamphetamine (From AdvReac Diarrhea Verified 01/08/24 12:09 Adderall) NSAIDS (Non-Steroidal AdvReac BLEEDING Verified 01/08/24 12:09 Anti-Inflamma Surgical History H/O knee surgery History of endoscopy Hx of colonoscopy S/P D C (status post dilation and curettage) Social History pets and animals: Yes sexually active: No Smoking Status: Current every day smoker tobacco type: e-cigarettes alcohol intake: never substance use type: marijuana seatbelt use: always ROS ROS ED ROS Narrative Constitutional: Negative for fever, chills, malaise. CVS: Negative for palpitations, chest pain, syncope. Respiratory: Negative for shortness of breath, cough. GI: Negative for vomiting, diarrhea, melena, hematochezia. : Negative for dysuria, hematuria or frequency. EXAM Physical Exam Narrative Exam Narrative: CONST: Patient sitting in no acute distress. EYES: Normal inspection. NECK: Normal inspection. RESP: No respiratory distress, CTAB. CVS: Regular rate and rhythm, no murmur, no gallop. ABD: Soft with lower midline abdominal and LLQ tenderness, no guarding or rebound, nondistended. Normal bowel sounds x 4. Back: Normal inspection, no CVA tenderness. SKIN: Color normal, no rash, warm, dry, intact. EXTREMITIES: Normal appearance, no pedal edema. NEURO: Alert and answering questions appropriately. PSYCH: Normal affect. Const Vital Signs: 01/08/24 12:07 01/08/24 13:46 01/08/24 14:08 Temperature 98.2 F 97.6 F L Temperature Source Oral Pulse Rate 104 H 78 78 Respiratory Rate 18 16 16 Blood Pressure 150/102 H 127/92 H 127/92 H Blood Pressure Mean 118 103 103 Pulse Ox 100 98 98 Oxygen Delivery Method Room Air Room Air Physical Exam Const Vital Signs: 01/08/24 12:07 01/08/24 13:46 01/08/24 14:08 Temperature 98.2 F 97.6 F L Temperature Source Oral Pulse Rate 104 H 78 78 Respiratory Rate 18 16 16 Blood Pressure 150/102 H 127/92 H 127/92 H Blood Pressure Mean 118 103 103 Pulse Ox 100 98 98 Oxygen Delivery Method Room Air Room Air MDM MDM MDM Narrative Medical decision making narrative: History gathered from: Patient and spouse Patient has had about 2 weeks of rectal pain associated with bowel movements. She has a history of Crohn's disease on Stelara. She appears well and nontoxic. Vital signs stable. She has a soft, benign abdominal exam. Normal rectal exam with no evidence of hemor (more content not included)... Normal [facility] ,Urineon 01-08-2024 Beta HCG ( test) Ql (U) Negative Normal [facility] Comment on above: Order Comment: CLEAN CATCH Result Comment: Very dilute urine specimens, as indicated by a low specific gravity, may not contain floor representative levels of hCG. If is still suspected, a first morning urine specimen should be collected 48 hours later and tested. Performed By: #### L 400.7600, L400.0001 ####[facility] [address] [facility] [address] Urinalysis, Completeon 01-07 WBC 0-5 SEEN Normal 0-5 [facility] Comment on above: Order Comment: CLEAN CATCH Performed By: #### L 400.7600, L400.0001 ####[facility] [address] [place], [address] BACTERIA 2+ /hpf Normal None Seen [facility] Comment on above: Order Comment: CLEAN CATCH Performed By: #### L 400.7600, L400.0001 ####[facility] [address] [place], [address] EPI,SQUAMOUS 0-5 SEEN Normal 5-10 [facility] Comment on above: Order Comment: CLEAN CATCH Performed By: #### L 400.7600, L400.0001 ####[facility] [address] [place], [address] Mucus Ql (Urine sed) 0 SEEN Normal [facility] Comment on above: Order Comment: CLEAN CATCH Performed By: #### L 400.7600, L400.0001 ####[facility] [address] [place], [address] RBC 0 SEEN Normal 0-5 [facility] Comment on above: Order Comment: CLEAN CATCH Performed By: #### L 400.7600, L400.0001 ####[facility] [address] [place], [address] Urgent Care Visit Reporton 0 09-30-2023 Urgent Care Visit Report [facility] [address], [address] [place] [address] OFFICE VISIT Date of Service: 09/30/23 MR#: [id number] Acct: [id number] Name: KEAGAN TILLMAN Rep #: [id number] : 2000 Provider: KAYLEE Olson Age/Sex: 22/F Location: [facility] Status: Signed Intake Vital Signs 05/02/23 11:45 09/30/23 15:42 Height 5 ft 6 in BP 132/86 H Blood Pressure Location Lt brachial Position Sitting Respiration 15 Pulse 89 Pulse Source NIBP Temp 97.9 F Temp Source Temporal Pulse Oximetry (%) 97 Oxygen Delivery Method room air Intake Visit Reasons: DIAHRREA/NAUSEA Chief Complaint: nausea, diarrhea, abd cramping 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 hx crohns and feels like a flare. tried anti-diarrheal this morning without relief. pt boyfriend with same s/s PFSH Medical History Abnormal uterine bleeding (AUB) Asthma Crohn's disease Depression Knee pain Marijuana use Rash Restless legs Smoker Von Willebrand disease Surgical History H/O knee surgery History of endoscopy Hx of colonoscopy S/P D C (status post dilation and curettage) Social History pets and animals: Yes sexually active: No Smoking Status: Current every day smoker tobacco type: e-cigarettes alcohol intake: never substance use type: marijuana seatbelt use: always HPI HPI Chief Complaint: nausea, diarrhea, abd cramping Details: KEAAGN TILLMAN, is a 22 F who presents to the office today for complaint of nausea, diarrhea and abdominal cramping starting yesterday. Patient states she has been around her boyfriend who has similar symptoms for the past 5 days. She denies hematochezia, hematemesis or hemoptysis. No known fever however has had chills and sweats. Patient does also have a history of Crohn's disease and is currently taking Stelara. No other associated symptoms or alleviating/aggravating factors. ROS Const Constitutional: No other (as above) Exam Const General: cooperative and healthy appearing [facility] Head: normocephalic and atraumatic Ears: hearing grossly normal bilaterally Face and sinus: face symmetric Eyes General: appearance normal, both eyes and all related structures Pupils: PERRL Resp Effort Inspection: normal respiratory effort Auscultation: Bilateral: Clear to Auscultation Cardio Rate: regular rate Rhythm: regular rhythm GI Inspection: normal to inspection Auscultation: hyperactive bowel sounds Percussion: normal to percussion Palpation: soft, no hepatosplenomegaly, no guarding and nontender General: bimanual renal exam normal bilaterally and No CVA tenderness Skin General: no rashes or lesions noted Neuro General: patient alert and CN's II-XI intact bilaterally Psych Appearance: grossly normal Mental Status: mental status grossly normal Coding Level of Care Code Off vis,est,level 3 Diagnoses Gastroenteritis K52.9 Assessment and Plan Assessment and Plan (1) Gastroenteritis: Status: Acute Plan: Medrol Dosepak and Zofran as prescribed today. Encouraged to get plenty of rest, drink lots of clear liquids, and use Tylenol or Ibuprofen (unless contraindicated) for fever and comfort. Patient also educated on other symptomatic management techniques. To be seen in 7-10 days if no improvement; sooner if worsening of symptoms. Patient advised of potential red flags and when appropriate to report to the ED. Patient verbalized understanding and agreement with all the above. Medications: New methylprednisolone (Medrol (Cj)) 4 mg PO PER PKG DIR 6 days 21 tabs 0RF ondansetron HCl 8 mg PO Q8H PRN 14 tabs 0RF nausea and vomiting Clinical Quality Measures Falls Risk Screening/Assistive Devices Have you fallen in the past year?: No 09/30/23 1554 Date Polo Wilde Signature: Date (if applicable) CC: Normal [facility] Miscellaneous Lab Procedureo n 08-28-2023 [facility] [place] Normal [facility] Comment on above: Order Comment: Comme nts: [id number] levels Result Comment: Scan santos image report available in EMR Performed By: #### L 501.6710, L500.4050, L100.0100, L801.1541, L101.9900 ####[facility] [address] [place], [address] CBC W/Diff, Automatedon 06- 0-2024 Absolute Lymph 1.33 X10 3/uL Normal 0.83-4.51 [facility] Comment on above: Performed By: #### L 501.6710, L500.4050, L100.0100, L801.1541, L101.9900 ####[facility] [address] [place], [address] Absolute Neut 8.3 X10 3/uL High 2.0-7.7 [facility] Comment on above: Performed By: #### L 501.6710, L500.4050, L100.0100, L801.1541, L101.9900 ####[facility] [address] [place], [address] Basophils/100 WBC (Bld) 0.6 % Normal 0-1 [facility] Comment on above: Performed By: #### L 501.6710, L500.4050, L100.0100, L801.1541, L101.9900 ####[facility] [address] [place], [address] Eosinophils/100 WBC (Bld) 2.6 % Normal 0-5 [facility] Comment on above: Performed By: #### L 501.6710, L500.4050, L100.0100, L801.1541, L101.9900 ####[facility] [address] [place], [address] Erythrocyte distribution width (RBC) [Ratio] 11.9 % Normal 11.6-14.6 [facility] Comment on above: Performed By: #### L 501.6710, L500.4050, L100.0100, L801.1541, L101.9900 ####[facility] [address] [place], [address] Hematocrit (Bld) [Volume fraction] 38.9 % Normal 37-47 [facility] Comment on above: Performed By: #### L 501.6710, L500.4050, L100.0100, L801.1541, L101.9900 ####[facility] [address] [place], [address] Hemoglobin (Bld) [Mass/Vol] 12.9 g/dL Normal 12.0-15.0 [facility] Comment on above: Performed By: #### L 501.6710, L500.4050, L100.0100, L801.1541, L101.9900 ####[facility] [address] [place], [address] IG% 0.300 Normal 0.0-0.9 [facility] Comment on above: Result Comment: IG% - Immature Granulocytes (promyelocytes, myelocytes and metamyelocytes) > 1% indicates that a LEFT SHIFT is Present. Performed By: #### L 501.6710, L500.4050, L100.0100, L801.1541, L101.9900 ####[facility] [address] [place], [address] Lymphocytes/100 WBC (Bld) 12.5 % Low 19-41 [facility] Comment on above: Performed By: #### L 501.6710, L500.4050, L100.0100, L801.1541, L101.9900 ####[facility] [address] [place], [address] MCH (RBC) [Entitic mass] 28.3 pg Normal 27.0-32.0 [facility] Comment on above: Performed By: #### L 501.6710, L500.4050, L100.0100, L801.1541, L101.9900 ####[facility] [address] [place], [address] MCHC (RBC) [Mass/Vol] 33.2 g/dL Normal 32-36 [facility] Comment on above: Performed By: #### L 501.6710, L500.4050, L100.0100, L801.1541, L101.9900 ####[facility] [address] [place], [address] MCV (RBC) [Entitic vol] 85.3 fL Normal 81-99 [facility] Comment on above: Performed By: #### L 501.6710, L500.4050, L100.0100, L801.1541, L101.9900 ####[facility] [address] [place], [address] Monocytes/100 WBC (Bld) 6.7 % Normal 0-10 [facility] Comment on above: Performed By: #### L 501.6710, L500.4050, L100.0100, L801.1541, L101.9900 ####[facility] [address] [place], [address] Neutrophils/100 WBC (Bld) 77.3 % High 47-70 [facility] Comment on above: Performed By: #### L 501.6710, L500.4050, L100.0100, L801.1541, L101.9900 ####[facility] [address] [place], [address] Nucleated RBC (Bld) [#/Vol] 0 10*3/uL Normal 0-5 [facility] Comment on above: Performed By: #### L 501.6710, L500.4050, L100.0100, L801.1541, L101.9900 ####[facility] [address] [place], [address] Platelet mean volume (Bld) [Entitic vol] 9.7 fL Normal 6.2-12.0 [facility] Comment on above: Performed By: #### L 501.6710, L500.4050, L100.0100, L801.1541, L101.9900 ####[facility] [address] [place], [address] Platelets (Bld) [#/Vol] 295 10*3/uL Normal 150-450 [facility] Comment on above: Performed By: #### L 501.6710, L500.4050, L100.0100, L801.1541, L101.9900 ####[facility] [address] [place], [address] RBC (Bld) [#/Vol] 4.56 10*6/uL Normal 4.2-5.4 [facility] Comment on above: Performed By: #### L 501.6710, L500.4050, L100.0100, L801.1541, L101.9900 ####[facility] [address] [place], [address] RDW SD 36.8 fl Normal 35.1-43.9 [facility] Comment on above: Performed By: #### L 501.6710, L500.4050, L100.0100, L801.1541, L101.9900 ####[facility] [address] [place], [address] WBC (Bld) [#/Vol] 10.7 10*3/uL Normal 4.4-11.0 [facility] Comment on above: Performed By: #### L 501.6710, L500.4050, L100.0100, L801.1541, L101.9900 ####[facility] [address] [place], [address] CRPon 08-15-2023 C-REACTIVE PROT < 2.90 Normal 0.0-3.0 [facility] Comment on above: Order Comment: [facility] [id number] Result Comment: C-Re active Protein (CRP) provides useful information for the diagnosis, therapy and monitoring of inflammatory processes and associated diseases. For the evaluation of Relative Risk for Cardiovascular Disease, a High Sensitivity CRP (HSCRP) should be ordered. Performed By: #### L 501.6710, L500.4050, L100.0100, L801.1541, L101.9900 ####[facility] [address] [place], [address] Comprehensive Metabolic Prof ohon 08-15-2023 Albumin [Mass/Vol] 3.8 g/dL Normal 3.2-5.0 [facility] Comment on above: Order Comment: [facility] [id number] Performed By: #### L 501.6710, L500.4050, L100.0100, L801.1541, L101.9900 ####[facility] [address] [place], [address] Albumin/Globulin [Mass ratio] 1.2 {ratio} Normal 0.9-2.4 [facility] Comment on above: Order Comment: [facility] [id number] Performed By: #### L 501.6710, L500.4050, L100.0100, L801.1541, L101.9900 ####[facility] [address] [place], [address] ALK P 75 U/L Normal 45-117 [facility] Comment on above: Order Comment: [facility] [id number] Performed By: #### L 501.6710, L500.4050, L100.0100, L801.1541, L101.9900 ####[facility] [address] [place], [address] ALT [Catalytic activity/Vol] 16 U/L Normal 13-56 [facility] Comment on above: Order Comment: [facility] [id number] Performed By: #### L 501.6710, L500.4050, L100.0100, L801.1541, L101.9900 ####[facility] [address] [place], [address] AST [Catalytic activity/Vol] 13 U/L Low 15-37 [facility] Comment on above: Order Comment: [facility] [id number] Performed By: #### L 501.6710, L500.4050, L100.0100, L801.1541, L101.9900 ####[facility] [address] [place], [address] Bilirubin [Mass/Vol] 0.40 mg/dL Normal 0.20-1.00 [facility] Comment on above: Order Comment: [facility] [id number] Result Comment: For patients on eltrombopag therapy, use of Dimension [place] TBIL is not recommended. Performed By: #### L 501.6710, L500.4050, L100.0100, L801.1541, L101.9900 ####[facility] [address] [place], [address] BUN/CRE 16.4 RATIO Normal 10-20 [facility] Comment on above: Order Comment: [facility] [id number] Performed By: #### L 501.6710, L500.4050, L100.0100, L801.1541, L101.9900 ####[facility] [address] [place], [address] CA,Total 9.5 mg/dL Normal 8.5-10.1 [facility] Comment on above: Order Comment: [facility] [id number] Performed By: #### L 501.6710, L500.4050, L100.0100, L801.1541, L101.9900 ####[facility] [address] [place], [address] Chloride [Moles/Vol] 107 mmol/L Normal 98-107 [facility] Comment on above: Order Comment: [facility] [id number] Performed By: #### L 501.6710, L500.4050, L100.0100, L801.1541, L101.9900 ####[facility] [address] [place], [address] CO2 [Moles/Vol] 26.0 mmol/L Normal 21.0-32.0 [facility] Comment on above: Order Comment: [facility] [id number] Performed By: #### L 501.6710, L500.4050, L100.0100, L801.1541, L101.9900 ####[facility] [address] [place], [address] Creatinine [Mass/Vol] 0.73 mg/dL Normal 0.55-1.02 [facility] Comment on above: Order Comment: [facility] [id number] Result Comment: The validity of the calculated GFR GFRAA in patients over 70 years has not been determined. Clinical correlation is essential. Performed By: #### L 501.6710, L500.4050, L100.0100, L801.1541, L101.9900 ####[facility] [address] [place], [address] EST GFR - AA 128 mL/min Normal >60 [facility] Comment on above: Order Comment: [facility] [id number] Result Comment: Afri can Bulgarian GFR Calc Performed By: #### L 501.6710, L500.4050, L100.0100, L801.1541, L101.9900 ####[facility] [address] [place], [address] GAP 4 Low 5-15 [facility] Comment on above: Order Comment: [facility] [id number] Performed By: #### L 501.6710, L500.4050, L100.0100, L801.1541, L101.9900 ####[facility] [address] [place], [address] GFR/1.73 sq M.predicted among non-blacks MDRD (S/P/Bld) [Vol rate/Area] 106 mL/min/{1.73_m2} Normal >60 [facility] Comment on above: Order Comment: [facility] [id number] Result Comment: Non- GFR Calc Performed By: #### L 501.6710, L500.4050, L100.0100, L801.1541, L101.9900 ####[facility] [address] [place], [address] Globulin (S) [Mass/Vol] 3.3 g/dL Normal 2.2-4.2 [facility] Comment on above: Order Comment: [facility] [id number] Performed By: #### L 501.6710, L500.4050, L100.0100, L801.1541, L101.9900 ####[facility] [address] [place], [address] Glucose [Mass/Vol] 85 mg/dL Normal 74-106 [facility] Comment on above: Order Comment: [facility] [id number] Performed By: #### L 501.6710, L500.4050, L100.0100, L801.1541, L101.9900 ####[facility] [address] [place], [address] Potassium [Moles/Vol] 3.7 mmol/L Normal 3.5-5.1 [facility] Comment on above: Order Comment: [facility] [id number] Performed By: #### L 501.6710, L500.4050, L100.0100, L801.1541, L101.9900 ####[facility] [id number] [place], [address] Sodium [Moles/Vol] 137 mmol/L Normal 136-145 [facility] Comment on above: Order Comment: [facility] [place] [id number] Performed By: #### L 501.6710, L500.4050, L100.0100, L801.1541, L101.9900 ####[facility] [address] [place], [address] T PROT 7.1 g/dL Normal 6.4-8.2 [facility] Comment on above: Order Comment: [facility] [place] [place] [id number] Performed By: #### L 501.6710, L500.4050, L100.0100, L801.1541, L101.9900 ####[facility] [address] [place], [address] Urea nitrogen [Mass/Vol] 12 mg/dL Normal 7-18 [facility] Comment on above: Order Comment: [facility] [place] [place] [id number] Performed By: #### L 501.6710, L500.4050, L100.0100, L801.1541, L101.9900 ####[facility] [id number] [place], [address] Erythrocyte Sed Rateon 08-14 SED RATE 2 mm/hr Normal 0-30 [facility] Comment on above: Performed By: #### L 501.6710, L500.4050, L100.0100, L801.1541, L101.9900 ####[facility] [address] [place], [address] Gastroenterology Visit Repor ton 08-15-2023 Gastroenterology Visit Report [facility] Gastroenter[facility] [address] [place] [address] OFFICE VISIT Date of Service: 08/15/23 MR#: [id number] Acct: [id number] Name: KEAGAN TILLMAN Rep #: [id number] : 2000 Provider: Samir Diaz DO Age/Sex: 22/F Location[place] [facility] [place] Status: Signed Intake Vital Signs 04/12/22 10:07 05/02/23 11:45 Height 5 ft 6 in 5 ft 6 in Intake Visit Reasons: 5 mo fu Allergies nickel Allergy (Verified 07/17/23 12:31) Hives amphetamine (From Adderall) Adverse Reaction (Verified 07/17/23 12:31) Diarrhea dextroamphetamine (From Adderall) Adverse Reaction (Verified 07/17/23 12:31) Diarrhea NSAIDS (Non-Steroidal Anti-Inflamma Adverse Reaction (Verified 07/17/23 12:31) BLEEDING blood thinners Adverse Reaction (Uncoded 05/27/23 13:42) Unknown Medications ???Medication ???Instructions ???Recorded ???Confirmed ???Type levonorgestrel 21 mcg/24 hr (up to 1 device intrauterine ONCE 10/23/21 08/15/23 History 8 years) 52 mg intrauterine device (Mirena) ustekinumab 90 mg/mL subcutaneous 90 mg subcut Q8W #1 mL 04/18/23 08/15/23 Rx syringe (Stelara) buspirone 15 mg tablet 15 mg PO BID 08/15/23 08/15/23 History PFSH Medical History Abnormal uterine bleeding (AUB) Asthma Crohn's disease Depression Knee pain Marijuana use Rash Restless legs Smoker Von Willebrand disease Surgical History H/O knee surgery History of endoscopy Hx of colonoscopy S/P D C (status post dilation and curettage) Social History pets and animals: Yes sexually active: No Smoking Status: Current every day smoker tobacco type: e-cigarettes alcohol intake: never substance use type: marijuana seatbelt use: always HPI HPI Details: KEAGAN TILLMAN, is a 22 F who presents to the office today for follow up. *BGI established 08.21.21 with loose stools since childhood which has interfered with her lifestyle and job choices. Watery loose stools 10+/day most days of the week with lower abdominal cramping/mid abdominal pain ? Stool calprotectin, elastase, fat, C.Difficile, lactoferrin, EP, O/P, giardia WNL ? CT abd/pel 09.04.21 borderline hepatomegaly ? EGD and colonoscopy 10.06.21 EGD irregular Zline 39cm; gastritis; duodenitis. ? Colonoscopy fair prep; congested mucosa; TI granularity, acute enteritis with focal crypt abscesses. OV 11.27.22 start methotrexate. Contact methotrexate, prednisone ineffective. Start Stelara OV 09.20.22 continue dicyclomine for symptom management during flare. Doing well with Stelara every 8 weeks OV 03.14.23 she has been having some bloating with pressure related pain that has been bothersome, Gas-X has been helpful; notes breads are is definitely a trigger, trialed gluten free which was helpful but did not resolve symptoms. Has had food allergen testing previously and has a sensitivity to oats and rye. OV 08.15.23 pt reports that she is doing well overall with GI symptoms of concern at this time. Pt does report that since starting Stelara she has constipation during her menstrual cycle. Pt reports that she will normally have 1-2 bm per day; denies blood in the stool. ESR/CRP? Calp/Lact? Serum/ab 07.01.22 12/4.23? 82/neg? --/--? CBC, ESR, CMP, LFT, CRP, LDH, Vid D1,25, folates, TSH, amylase, lipase, [place] comp, ANCA, GAME, EFREN WNL. 08.11.22 --/--? --/--? --/--? LDL H137, HDL L32. Triglycerides, celiac, titers, TB, IBD WNL 12.12.21 --/--? --/--? --/--? CBC, CMP, LFT, amylase, lipase without pertinent abnormality. 04.12.22? Stelara Infusion 09.20.22 7/2.9? --/--? 3.1/neg ROS Const Constitutional: Positive for weight change (weight loss); No fatigue or fever(s) ENT ENT: No difficulty swallowing Gastro GI: (more content not included)... Normal [facility] Chlamydia trachomatis rRNA d etection by probe and target amplification methodOrdered By: Isabel Mcclellan on 05-02-2023 C. trachomatis rRNA JEREMÍAS+probe Ql (Unsp spec) Negative Negative [facility] Laboratory - Microbiology an d Antimicrobial susceptibilityOrdered By: Isabel Mcclellan on 05-02-2023 N. gonorrhoeae DNA JEREMÍAS+probe Ql (Unsp spec) Negative Negative [facility] Comment on above: Performed at: [address] [id number] Director: Kristen Geiger MD, Phone: [phone] No Panel Informationon 05-02 POC Trichomonas (Rapid) Negative [facility] CBC AND ELECTRONIC DIFFon Basophils (Bld) [#/Vol] 0.04 10*3/uL 0.00 - 0.15 K/uL [facility] Basophils/100 WBC (Bld) 0.4 % [facility] Differential cell count method Nom (Bld) Electronic Differential [facility] Eosinophils (Bld) [#/Vol] 0.09 10*3/uL 0.00 - 0.42 K/uL [facility] Eosinophils/100 WBC (Bld) 0.9 % [facility] Erythrocyte distribution width (RBC) [Ratio] 11.8 % 10.8 - 14.9 % [facility] Hematocrit (Bld) [Volume fraction] 42.3 % 34.9 - 44.3 % [facility] Hemoglobin (Bld) [Mass/Vol] 14.8 g/dL 11.4 - 15.2 g/dL [facility] Immature granulocytes (Bld) [#/Vol] K/uL NINF - 0.08 K/uL [facility] Immature granulocytes/100 WBC (Bld) 0.3 % [facility] Lymphocytes (Bld) [#/Vol] 2.19 10*3/uL 1.16 - 3.51 K/uL [facility] Lymphocytes/100 WBC (Bld) 22.8 % [facility] MCH (RBC) [Entitic mass] 29.6 pg 25.9 - 33.9 pg [facility] MCHC (RBC) [Mass/Vol] 35.0 g/dL 31.4 - 35.9 g/dL [facility] MCV (RBC) [Entitic vol] 84.6 fL 79.6 - 97.7 fL [facility] Monocytes (Bld) [#/Vol] 0.50 10*3/uL 0.22 - 0.87 K/uL [facility] Monocytes/100 WBC (Bld) 5.2 % [facility] Neutrophils (Bld) [#/Vol] 6.76 10*3/uL 1.64 - 7.28 K/uL [facility] Nucleated RBC/100 WBC (Bld) [Ratio] 0.0 % [facility] Platelet mean volume (Bld) [Entitic vol] 9.8 fL 8.5 - 12.2 fL [facility] Platelets (Bld) [#/Vol] 378 10*3/uL 150 - 393 K/uL [facility] RBC (Bld) [#/Vol] 5.00 10*6/uL [facility] Segmented neutrophils/100 WBC (Bld) 70.4 % [facility] WBC (Bld) [#/Vol] 9.61 10*3/uL 3.99 - 11. 19 K/uL [facility] COMPREHENSIVE METABOLIC PANE Jonathan 04-25-2023 Albumin [Mass/Vol] 4.9 g/dL 3.5 - 5.0 g/dL [facility] ALP [Catalytic activity/Vol] 70 U/L 32 - 126 U/L [facility] ALT [Catalytic activity/Vol] 9 U/L 9 - 48 U/L [facility] Anion gap [Moles/Vol] 12 mmol/L 7 - 17 mmol/L [facility] AST [Catalytic activity/Vol] 11 U/L 10 - 39 U/L [facility] Bilirubin [Mass/Vol] 0.7 mg/dL [facility] - 1.5 mg/dL [facility] Calcium [Mass/Vol] 9.7 mg/dL 8.6 - 10. 5 mg/dL [facility] Chloride [Moles/Vol] 105 mmol/L 98 - 10 8 mmol/L [facility] CO2 [Moles/Vol] 26 mmol/L 21 - 31 mmol/L [facility] Creatinine [Mass/Vol] 0.78 mg/dL 0.50 - 1.20 mg/dL [facility] eGFR, CKD-EPI, Female - PINF [facility] Comment on above: Reported eGFR is bas ed on the CKD-EPI 2020 equation using creatinine, age, and sex. Glucose [Mass/Vol] 85 mg/dL 70 - 99 mg/dL [facility] Osmolality Calc [Osmolality] 290 [facility] Potassium [Moles/Vol] 3.9 mmol/L 3.5 - 5.0 mmol/L [facility] Protein [Mass/Vol] 7.4 g/dL 6.4 - 8.3 g/dL [facility] Sodium [Moles/Vol] 139 mmol/L 135 - 145 mmol/L [facility] Urea nitrogen [Mass/Vol] 12 mg/dL 7 - 25 mg/dL [facility] Urea nitrogen/Creatinine [Mass ratio] 15 mg/mg [facility] FERRITINon 04-25-2023 Ferritin [Mass/Vol] 74.8 ng/mL 7.3 - 27 0.7 ng/mL [facility] Interpretation and review of laboratory results Normal [facility] IRON/IRON BINDING/TRANSFERRI Non 04-25-2023 Interpretation and review of laboratory results Normal [facility] Iron [Mass/Vol] 82 ug/dL [facility] Iron binding capacity [Mass/Vol] 306 [facility] Iron saturation [Mass fraction] 27 % 20 - 55 % [facility] Transferrin [Mass/Vol] 245 mg/dL 200 - 400 mg/dL [facility] No Panel Informationon 04-25 [facility] PT,INR,PTTon 04-25-2023 aPTT Coag (PPP) [Time] 32.6 s [facility] INR Coag (Bld) [Relative time] 1.1 {INR} 0.9 - 1.1 [facility] Interpretation and review of laboratory results Normal [facility] PT Coag (PPP) [Time] 14.0 s [facility] REQUEST FOR MISC LAB SENDOUT Ordered By: Kassie Savage on 04-25-2023 [facility] TSH W/FT4 REFLEXon Interpretation and review of laboratory results Normal [facility] TSH Qn 1.098 m[IU]/L [facility] VITAMIN D (25-HYDROXY,TOTAL) on 04-25-2023 Interpretation and review of laboratory results Abnormal [facility] Vitamin D+Metabolites [Mass/Vol] 6.8 ng/mL Low 30.0 - 100.0 ng/mL [facility] Comment on above: <10 Deficiency 10-29 Insufficiency 30-100 Optimal Level >100 Possible Toxicity Vitamin D values hav e been shown to be falsely decreased in lipemic samples and should be interpreted with caution. [facility] Erythrocyte sedimentation ra teOrdered By: Samir Diaz on 09-20-2022 ESR (Bld) [Velocity] 7 mm/h 0-30 [facility] Serum or plasma C reactive p rotein measurement (mass/volume)Ordered By: Samir Diaz on 09-20-2022 CRP [Mass/Vol] mg/L 0.0-3.0 [facility] Comment on above: C-Reactive Protein ( CRP) provides useful information for thediagnosis, therapy and monitoring of inflammatory processesand associated diseases. For the evaluation of Relative Riskfor Cardiovascular Disease, a High Sensitivity CRP (HSCRP)should be ordered. CBC AND ELECTRONIC DIFFon Basophils (Bld) [#/Vol] 0.05 10*3/uL 0.00 - 0.15 K/uL [facility] Basophils/100 WBC (Bld) 0.4 % O [facility] Differential cell count method Nom (Bld) Electronic Differential [facility] Eosinophils (Bld) [#/Vol] 0.20 10*3/uL 0.00 - 0.42 K/uL [facility] Eosinophils/100 WBC (Bld) 1.5 % [facility] Erythrocyte distribution width (RBC) [Ratio] 12.5 % 10.8 - 14.9 % [facility] Hematocrit (Bld) [Volume fraction] 42.7 % 34.9 - 44.3 % [facility] Hemoglobin (Bld) [Mass/Vol] 14.3 g/dL 11.4 - 15.2 g/dL [facility] Immature granulocytes (Bld) [#/Vol] 0.06 10*3/uL NINF - 0.08 K/uL [facility] Immature granulocytes/100 WBC (Bld) 0.4 % [facility] Interpretation and review of laboratory results Abnormal [facility] Lymphocytes (Bld) [#/Vol] 1.87 10*3/uL 1.16 - 3.51 K/uL [facility] Lymphocytes/100 WBC (Bld) 13.8 % [facility] MCH (RBC) [Entitic mass] 27.9 pg 25.9 - 33.9 pg [facility] MCHC (RBC) [Mass/Vol] 33.5 g/dL 31.4 - 35.9 g/dL [facility] MCV (RBC) [Entitic vol] 83.4 fL 79.6 - 97.7 fL [facility] Monocytes (Bld) [#/Vol] 0.91 10*3/uL High 0.22 - 0.87 K/uL [facility] Monocytes/100 WBC (Bld) 6.7 % [facility] Neutrophils (Bld) [#/Vol] 10.42 10*3/uL High 1.64 - 7.28 K/uL [facility] Nucleated RBC/100 WBC (Bld) [Ratio] 0.0 % [facility] Platelet mean volume (Bld) [Entitic vol] 10.7 fL 8.5 - 12.2 fL [facility] Platelets (Bld) [#/Vol] 361 10*3/uL 150 - 393 K/uL [facility] RBC (Bld) [#/Vol] 5.12 10*6/[facility]L [facility]/100 WBC (Bld) 77.2 % [facility] WBC (Bld) [#/Vol] 13.51 10*3/uL High 3.99 - 11 .19 K/uL [facility] COMPREHENSIVE METABOLIC PANE Jonathan 04-26-2022 Albumin [Mass/Vol] 4.6 g/dL 3.5 - 5.0 g/dL [facility] ALP [Catalytic activity/Vol] 78 U/L 32 - 126 U/L [facility] ALT [Catalytic activity/Vol] 29 U/L 9 - 48 U/L [facility] Anion gap [Moles/Vol] 12 mmol/L 7 - 17 mmol/L [facility] AST [Catalytic activity/Vol] 25 U/L 10 - 39 U/L [facility] Bilirubin [Mass/Vol] 0.7 mg/dL NINF - 1.5 mg/dL [facility] Calcium [Mass/Vol] 10.0 mg/dL 8.6 - 10. 5 mg/dL [facility] Chloride [Moles/Vol] 106 mmol/L 98 - 10 8 mmol/L [facility] CO2 [Moles/Vol] 25 mmol/L 21 - 31 mmol/L [facility] Creatinine [Mass/Vol] 0.67 mg/dL 0.50 - 1.20 mg/dL [facility] GFR/1.73 sq M.predicted CKD-EPI (S/P/Bld) [Vol rate/Area] - PINF [facility] Comment on above: Reported eGFR is bas ed on the CKD-EPI 2020 equation using creatinine, age, and sex. Glucose [Mass/Vol] 101 mg/dL High 70 - 99 mg/dL [facility] Osmolality Calc [Osmolality] 289 [facility] Potassium [Moles/Vol] 3.8 mmol/L 3.5 - 5.0 mmol/L [facility] Protein [Mass/Vol] 7.4 g/dL 6.4 - 8.3 g/dL [facility] Sodium [Moles/Vol] 139 mmol/L 135 - 145 mmol/L [facility] Urea nitrogen [Mass/Vol] 8 mg/dL 7 - 25 mg/dL [facility] Urea nitrogen/Creatinine [Mass ratio] 12 mg/mg [facility] FERRITINon 04-26-2022 Ferritin [Mass/Vol] 43.0 ng/mL 10.0 - 2 91.0 ng/mL [facility] Interpretation and review of laboratory results Normal [facility] IRON/IRON BINDING/TRANSFERRI Non 04-26-2022 Iron [Mass/Vol] 24 ug/dL Low [facility] Iron binding capacity [Mass/Vol] 325 [facility] Iron saturation [Mass fraction] 7 % Low 20 - 55 % [facility] Transferrin [Mass/Vol] 260 mg/dL 200 - 400 mg/dL [facility] No Panel Informationon 04-26 Interpretation and review of laboratory results Abnormal [facility] Laboratory - Microbiology an d Antimicrobial susceptibilityon 04-22-2022 SARS-CoV-2 (COVID-19) RNA JEREMÍAS+probe Ql (Unsp spec) Not detected [facility] No Panel Informationon 04-22 Influenza Types A,B Rapid (Clinic) Not detected [facility] Basophil percentageon 2021 Chloride [Moles/Vol] 108 mmol/L 98-[address] [facility] [address] [facility] Work Phone: Glucose [Mass/Vol] 93 mg/dL 74-106 [facility] Work Phone: Potassium [Moles/Vol] 3.6 mmol/L 3.5-5.1 [facility] Work Phone: Sodium [Moles/Vol] 140 mmol/L 136-145 [facility] Work Phone: Laboratory - Chemistry and C hemistry - challengeon 12-24-2021 CO2 [Moles/Vol] 28.0 mmol/L 21.0-32.0 [facility] Work Phone: Urea nitrogen/Creatinine [Mass ratio] 11.3 mg/mg 12-24 [facility] Work Phone: No Panel Informationon 12-24 Estimated Creatinine Clearance Calc 118.32 ml/min [facility] Work Phone: Estimated GFR (MDRD) Amer 135 mL/min >60 [facility] Work Phone: Comment on above: GFR Calc Estimated GFR (MDRD) Non-Af Amer 112 mL/min >60 [facility] Work Phone: Comment on above: Non- GFR Calc Serum or plasma calcium anu urement (mass/volume)on 12-24-2021 Calcium [Mass/Vol] 9.0 mg/dL 8.5-10.1 [facility] Work Phone: Serum or plasma creatinine m easurement (mass/volume)on 12-24-2021 Creatinine [Mass/Vol] 0.71 mg/dL 0.55-1.02 [facility] Work Phone: Comment on above: The validity of the calculated GFR & GFRAA in patients over 70 years has not been determined. Clinical correlation is essential. Serum or plasma urea nitroge n measurement (mass/volume)on 12-24-2021 Urea nitrogen [Mass/Vol] 8 mg/dL 7-18 [facility] Work Phone: Thin prep Papanicolaou smear with manual screeningon 12-24-2021 Thin prep Papanicolaou smear with manual screening 4 5-15 [facility] Work Phone: Absolute lymphocyte counton 12-12-2021 Lymphocytes Auto (Unsp spec) [#/Vol] 1.77 10*3/uL 0.83-4.51 [facility] Work Phone: Basophil percentageon 2021 Amylase [Catalytic activity/Vol] 42 U/L 25-115 [facility] Work Phone: Basophils/100 WBC (Bld) 0.4 % 0-1 [facility] Work Phone: Bilirubin [Mass/Vol] 0.50 mg/dL 0.20-1.00 [facility] Work Phone: Comment on above: For patients on eltr ombopag therapy, use of Dimension [place] TBIL is not recommended. Chloride [Moles/Vol] 110 mmol/L 98-107 [facility] Work Phone: Eosinophils/100 WBC (Bld) 1.8 % 0-5 [facility] Work Phone: Glucose [Mass/Vol] 90 mg/dL 74-106 [facility] Work Phone: Neutrophils (Bld) [#/Vol] 6.9 10*3/uL 2.0-7.7 [facility] Work Phone: Neutrophils/100 WBC (Bld) 71.6 % 47-70 [facility] Work Phone: Potassium [Moles/Vol] 4.2 mmol/L 3.5-5.1 [facility] Work Phone: Protein [Mass/Vol] 7.3 g/dL 6.4-8.2 [facility] Work Phone: Sodium [Moles/Vol] 143 mmol/L 136-145 [facility] Work Phone: WBC (Bld) [#/Vol] 9.6 10*3/uL 4.4-11.0 [facility] Work Phone: Blood erythrocytes count (nu mber/volume)on 12-12-2021 RBC (Bld) [#/Vol] 4.65 10*6/uL 4.2-5.4 [facility] Work Phone: Blood hemoglobin measurement (mass/volume)on 12-12-2021 Hemoglobin (Bld) [Mass/Vol] 13.1 g/dL 12.0-15.0 [facility] Work Phone: Blood lymphocytes/100 leukoc yteson 12-12-2021 Lymphocytes/100 WBC (Bld) 18.4 % 19-41 [facility] Work Phone: Blood monocytes/100 leukocyt eson 12-12-2021 Monocytes/100 WBC (Bld) 7.5 % 0-10 [facility] Work Phone: Blood platelet mean volumeon 12-12-2021 Platelet mean volume (Bld) [Entitic vol] 9.4 fL 6.2-12.0 [facility] Work Phone: [phone] Determination of erythrocyte mean corpuscular volume (MCV)on 12-12-2021 MCV (RBC) [Entitic vol] 85.2 fL 81-99 [facility] Work Phone: Hematocrit Auto (Bld) [Volum e fraction]on 12-12-2021 Hematocrit (Bld) [Volume fraction] 39.6 % 37-47 [facility] Work Phone: [phone] Laboratory - Chemistry and C hemistry - challengeon 12-12-2021 ALP [Catalytic activity/Vol] 90 U/L 45-117 [facility] Work Phone: ALT [Catalytic activity/Vol] 34 U/L 13-56 [facility] Work Phone: CO2 [Moles/Vol] 26.0 mmol/L 21.0-32.0 [facility] Work Phone: [phone] Globulin (S) [Mass/Vol] 3.7 g/dL 2.2-4.2 [facility] Work Phone: Lipase [Catalytic activity/Vol] 105 U/L 73-393 [facility] Work Phone: [phone] Urea nitrogen/Creatinine [Mass ratio] 18.5 mg/mg 10-20 [facility] Work Phone: Laboratory - Hematology and Cell countson 12-12-2021 Erythrocyte distribution width (RBC) [Entitic vol] 40.1 fL 35.1-43.9 [facility] Work Phone: Erythrocyte distribution width (RBC) [Ratio] 13.0 % 11.6-14.6 [facility] Work Phone: Immature granulocytes/100 WBC (Bld) 0.300 % 0.0-0.9 [facility] Work Phone: Comment on above: IG% - Immature Granu locytes (promyelocytes, myelocytes and metamyelocytes) > 1% indicates that a LEFT SHIFT is Present. MCH (RBC) [Entitic mass] 28.2 pg 27.0-32.0 [facility] Work Phone: Nucleated RBC/100 WBC (Bld) [Ratio] 0 % 0-5 [facility] Work Phone: MCHC Auto (RBC) [Mass/Vol]on 12-12-2021 MCHC (RBC) [Mass/Vol] 33.1 g/dL 32-36 [facility] Work Phone: No Panel Informationon 12-12 Estimated GFR (MDRD) Amer 126 mL/min >60 [facility] Work Phone: Comment on above: GFR Calc Estimated GFR (MDRD) Non-Af Amer 104 mL/min >60 [facility] Work Phone: Comment on above: Non- GFR Calc Platelets bldon 12-12-2021 Platelets (Bld) [#/Vol] 375 10*3/uL 150-450 [facility] Work Phone: Serum or plasma albumin anu urement (mass/volume)on 12-12-2021 Albumin [Mass/Vol] 3.6 g/dL 3.2-5.0 [facility] Work Phone: Serum or plasma albumin/glob ulin mass ratioon 12-12-2021 Albumin/Globulin [Mass ratio] 1.0 {ratio} 0.9-2.4 [facility] Work Phone: Serum or plasma calcium anu urement (mass/volume)on 12-12-2021 Calcium [Mass/Vol] 9.3 mg/dL 8.5-10.1 [facility] Work Phone: Serum or plasma creatinine m easurement (mass/volume)on 12-12-2021 Creatinine [Mass/Vol] 0.76 mg/dL 0.55-1.02 [facility] Work Phone: Comment on above: The validity of the calculated GFR & GFRAA in patients over 70 years has not been determined. Clinical correlation is essential. Serum or plasma urea nitroge n measurement (mass/volume)on 12-12-2021 Urea nitrogen [Mass/Vol] 14 mg/dL 7-18 [facility] Work Phone: Thin prep Papanicolaou smear with manual screeningon 12-12-2021 Thin prep Papanicolaou smear with manual screening 20 U/L 15-37 [facility] Work Phone: Thin prep Papanicolaou smear with manual screening 7 5-15 [facility] Work Phone: Basophil percentageon 2021 Cholesterol [Mass/Vol] 200 mg/dL <200 [facility] Work Phone: Comment on above: <200 mg/dL Desirable 200-240 mg/dL Borderline >240 mg/dL High Risk Triglyceride [Mass/Vol] 154 mg/dL <199 [facility] Work Phone: Comment on above: The drugs N-Acetylcy steine and Metamizole may falsely depress this assay.Serum Triglycerides Reference Interval Normal <150 mg/dL Borderline high 150 - 199 mg/dL High 200 - 499 mg/dL Very High > or = 500 mg/dL Giardia lamblia ag stool EIA on 10-15-2021 G. lamblia Ag IA Ql (Stl) Negative Negative [facility] Work Phone: Comment on above: Performed at: [address] [id number] Director: George Barone MD, Phone: [phone] at: [facility] [id number] [place], [place] [id number] Director: Tin Holland PhD, Phone: [phone] No Panel Informationon 10-15 Stool Calprotectin 82 ug/g 0-120 [facility] Work Phone: Comment on above: Concentration Interp retation Follow-Up<16 - 50 ug/g Normal None>50 -120 ug/g Borderline Re-evaluate in 4-6 weeks >120 ug/g Abnormal Repeat as clinically indicatedPerformed at: [facility] [address] [place], [place] [id number] Director: Tin Holland PhD, Phone: [phone] at: [employer] [address] [id number] Director: George Barone MD, Phone: [phone] Stool Neutral Fats Normal . [facility] Work Phone: Comment on above: Normal (<60 Droplets /HPF) Stool Pancreatic Elastase > 500 >200 [facility] Work Phone: Comment on above: Result Units: ug Thu st./g Severe Pancreatic Insufficiency: <100 Moderate Pancreatic Insufficiency: 100 - 200 Normal: >200 Qualitative fecal fat or lip idson 10-15-2021 Fat Ql (Stl) Normal . [facility] Work Phone: Comment on above: Normal (<100 Droplet s/HPF) Serum or plasma cholesterol in HDL measurement (mass/volume)on 10-15-2021 Cholesterol in HDL [Mass/Vol] 32 mg/dL >40 [facility] Work Phone: Comment on above: The drugs N-Acetylcy steine and Metamizole may falsely depress this assay. Reference Range HDL <40 mg/dL Low HDL Cholesterol HDL >or= 60 mg/dL High HDL Cholesterol Serum or plasma cholesterol in VLDL measurement (mass/volume)on 10-15-2021 Cholesterol in VLDL [Mass/Vol] 31 mg/dL 5-40 [facility] Work Phone: Serum or plasma low density lipoprotein (LDL) cholesterol measurement (mass/volume)on 10-15-2021 Cholesterol in LDL [Mass/Vol] 137 mg/dL 0-130 [facility] Work Phone: No Panel Informationon 10-13 Miscellaneous Test See comment [facility] Work Phone: Comment on above: TEST RESULT LIMITSCr ohn's IBDX Prognostic PanelgASCA 22 units 0-50 Negative <45 Equivocal 45 - 50 Positive >50ACCA 29 units 0-90 Negative <80 Equivocal 80 - 90 Positive >90ALCA 16 units 0-60 Negative <55 Equivocal 55 - 60 Positive >60AMCA 75 units 0-100 Negative < 90 Equivocal 90 - 100 Positive >100In patients diagnosed with Crohn's disease, a positive result for two or more antibodies in this panel (Jessica, ACCA, ALCA, or AMCA) has been reported to be associated with an elevated risk of more aggressive disease behavior (1-4). The incidence of complications and/or need for abdominal surgery has been reported to increase with both the number of positive antibodies and with the relative reactivity of individual antibodies (1-4).1. Dotan I. et al. Gastroenterology. 2006; 131:366-3782. Sly M. et al. Gut. 2007; 56:1394-94221. Norman M. et al. Am J Gastroenterology. 2007; 102:1-174. Patience X. et al. World J Gastroenterology. 2008; 14:5115-5124This test was developed and its performance characteristics determined by [employer]. It has not been cleared or approved by the Food and Drug Administration. The FDA has determined that such clearance or approval is not necessary. TESTING PERFORMED AT [facility]. ORIGINAL REPORT ON FILE IN LAB CONTAINS ADDITIONAL TEST SITE INFORMATION. Endomysial IgA Antibody Negative Negative [facility] Work Phone: Hepatitis A IgM Antibody Negative Negative [facility] Work Phone: Hepatitis B Core IgM Antibody Negative Negative [facility] Work Phone: Hepatitis C Antibody (EIA) 0.1 s/co ratio 0.0-0.9 [facility] Work Phone: Hepatitis C Antibody Comment Comment . [facility] Work Phone: Comment on above: NegativeNot infected with HCV, unless recent infection issuspected or other evidence exists to indicate HCVinfection. Rubella IgG Antibody Reactive Nonreactive [facility] Work Phone: Comment on above: Antibody Results Int erpretation of Immune Status Non Reactive Presumed Non-Immune Equivocal Equivocal Reactive Presumed Immune Qualitative QuantiFERON-TB g old in tube teston 10-13-2021 M. tuberculosis tuberculin stim IFN-g Ql (Bld) 0.01 IU/mL . [facility] Work Phone: Serum IgA measurement (units /volume)on 10-13-2021 IgA Qn (S) 230 mg/dL 87-352 [facility] Work Phone: Serum Varicella zoster virus IgG antibody assay by immunoassay (units/volume)on 10-13-2021 VZV IgG IA Qn (S) 223 index Immune >165 [facility] Work Phone: Comment on above: Negative <135 Equivo candelario 135 - 165 Positive >165A positive result generally indicates exposure to thepathogen or administration of specific immunoglobulins,but it is not indication of active infection or stageof disease. Serum measles virus IgG anti body assay by immunoassay (units/volume)on 10-13-2021 MeV IgG IA Qn (S) 42.0 AU/mL Immune >16.4 [facility] Work Phone: Comment on above: Negative <13.5 Equiv ocal 13.5 - 16.4 Positive >16.4Presence of antibodies to Rubeola is presumptive evidenceof immunity except when acute infection is suspected.Performed at: [facility] [place], [place] [id number] Director: Tin Holland PhD, Phone: [phone] Serum mumps virus IgG antibo dy assay (units/volume)on 10-13-2021 MuV IgG Qn (S) 80.4 AU/mL Immune >10.9 [facility] Work Phone: Comment on above: Negative <9.0 Equivo candelario 9.0 - 10.9 Positive >10.9A positive result generally indicates past exposure toMumps virus or previous vaccination. Serum or plasma hepatitis B virus surface antigen detection by immunoassayon 10-13-2021 HBV surface Ag IA Ql Negative Negative [facility] Work Phone: Serum tissue transglutaminas e IgA antibody assay (units/volume)on 10-13-2021 tTG IgA Qn (S) <2 U/mL 0-3 [facility] Work Phone: Comment on above: Negative 0 - 3 Weak Positive 4 - 10 Positive >10 Tissue Transglutaminase (tTG) has been identified as the endomysial antigen. Studies have demonstr- ated that endomysial IgA antibodies have over 99% specificity for gluten sensitive enteropathy. Thin prep Papanicolaou smear with manual screeningon 10-13-2021 Thin prep Papanicolaou smear with manual screening Comment . [facility] Work Phone: Comment on above: QuantiFERON-TB Gold Plus is a qualitative indirect test forM tuberculosis infection (including disease) and isintended for use in conjunction with risk assessment,radiography, and other medical and diagnostic evaluations.The QuantiFERON-TB Gold Plus result is determined bysubtracting the Nil value from either TB antigen (Ag)value. The Mitogen tube serves as a control for the test. Thin prep Papanicolaou smear with manual screening 0.01 IU/mL . [facility] Work Phone: Thin prep Papanicolaou smear with manual screening > 10.00 IU/mL . [facility] Work Phone: Thin prep Papanicolaou smear with manual screening Negative Negative [facility] Work Phone: Comment on above: No response to M tub erculosis antigens detected.Infection with M tuberculosis is unlikely, but high riskindividuals should be considered for additional testing(ATS/IDSA/CDC Clinical Practice Guidelines, 2017). Thereference range is an Antigen minus Nil result of <0.35IU/mL.The specimen received for QuantiFERON testing was incubatedby the ordering institution. Specific procedures outlinedin our Directory of Services and in the package insert forthe QuantiFERON Gold (In Tube) test must be followed toenable for proper stimulation of cells for the productionof interferon gamma. Chemiluminescence immunoassaymethodology Beta hCG serum qualon 2021 Beta HCG ( test) Ql Negative [facility] Work Phone: Beta hCG serum qualon 2021 Beta HCG ( test) Ql Negative [facility] Work Phone: Absolute lymphocyte counton 09-04-2021 Lymphocytes Auto (Unsp spec) [#/Vol] 2.15 10*3/uL 0.83-4.51 [facility] Work Phone: Atypical perinuclear antineu trophil cytoplasmic antibodies measurementon 09-04-2021 Neutrophil cytoplasmic Ab.perinuclear.atypical IF (S) [Titer] <1:20 titer Neg:<1:20 [facility] Work Phone: Comment on above: Serum is slightly li pemic.The atypical pANCA pattern has been observed in asignificant percentage of patients with ulcerative colitis,primary sclerosing cholangitis and autoimmune hepatitis.Performed at: [facility] [employer] [id number] Director: Tin Holland PhD, Phone: [phone] at: [facility] [id number] Director: George Barone MD, Phone: [phone] Basophil percentageon 2021 Amylase [Catalytic activity/Vol] 42 U/L 25-115 [facility] Work Phone: Basophil percentage < 0.2 AI 0.0-0.9 [facility] Work Phone: Basophils/100 WBC (Bld) 0.4 % 0-1 [facility] Work Phone: Bilirubin [Mass/Vol] 0.30 mg/dL 0.20-1.00 [facility] Work Phone: Comment on above: For patients on eltr ombopag therapy, use of Dimension [place] TBIL is not recommended. Chloride [Moles/Vol] 107 mmol/L 98-107 [facility] Work Phone: Eosinophils/100 WBC (Bld) 4.5 % 0-5 [facility] Work Phone: Glucose [Mass/Vol] 92 mg/dL 74-106 [facility] Work Phone: Neutrophils (Bld) [#/Vol] 7.7 10*3/uL 2.0-7.7 [facility] Work Phone: Neutrophils/100 WBC (Bld) 67.9 % 47-70 [facility] Work Phone: Potassium [Moles/Vol] 3.5 mmol/L 3.5-5.1 [facility] Work Phone: Protein [Mass/Vol] 7.2 g/dL 6.4-8.2 [facility] Work Phone: Sodium [Moles/Vol] 140 mmol/L 136-145 [facility] Work Phone: WBC (Bld) [#/Vol] 11.3 10*3/uL 4.4-11.0 [facility] Work Phone: Blood erythrocytes count (nu mber/volume)on 09-04-2021 RBC (Bld) [#/Vol] 4.79 10*6/uL 4.2-5.4 [facility] Work Phone: Blood hemoglobin measurement (mass/volume)on 09-04-2021 Hemoglobin (Bld) [Mass/Vol] 13.1 g/dL 12.0-15.0 [facility] Work Phone: Blood lymphocytes/100 leukoc yteson 09-04-2021 Lymphocytes/100 WBC (Bld) 19.0 % 19-41 [facility] Work Phone: Blood monocytes/100 leukocyt eson 09-04-2021 Monocytes/100 WBC (Bld) 7.8 % 0-10 [facility] Work Phone: [phone] Blood platelet mean volumeon 09-04-2021 Platelet mean volume (Bld) [Entitic vol] 9.7 fL 6.2-12.0 [facility] Work Phone: [phone] Determination of erythrocyte mean corpuscular volume (MCV)on 09-04-2021 MCV (RBC) [Entitic vol] 82.0 fL 81-99 [facility] Work Phone: [phone] Erythrocyte sedimentation ra leonides 09-04-2021 ESR (Bld) [Velocity] 12 mm/h 0-30 [facility] Work [facility]: [phone] Hematocrit Auto (Bld) [Volum e fraction]on 09-04-2021 Hematocrit (Bld) [Volume fraction] 39.3 % 37-47 [facility] Work Phone: [phone] Interpretation of serum or p lasma protein pattern by immunofixation (narrative resulton 09-04-2021 Protein Fractions Immunofixation Kamlesh [Interp] See comment [facility] Work Phone: [phone] Comment on above: Result: Not Observed Laboratory - Chemistry and C hemistry - challengeon 09-04-2021 ALP [Catalytic activity/Vol] 95 U/L 45-117 [facility] Work Phone: ALT [Catalytic activity/Vol] 33 U/L 13-56 [facility] Work Phone: CO2 [Moles/Vol] 25.0 mmol/L 21.0-32.0 [facility] Work Phone: [phone] Cobalamin (Vitamin B12) [Mass/Vol] 525 pg/mL 211-911 [facility] Work Phone: [phone] Globulin (S) [Mass/Vol] 3.7 g/dL 2.2-4.2 [facility] Work Phone: Lipase [Catalytic activity/Vol] 103 U/L 73-393 [facility] Work Phone: Urea nitrogen/Creatinine [Mass ratio] 13.0 mg/mg 10-20 [facility] Work Phone: Laboratory - Hematology and Cell countson 09-04-2021 Erythrocyte distribution width (RBC) [Entitic vol] 38.1 fL 35.1-43.9 [facility] Work Phone: Erythrocyte distribution width (RBC) [Ratio] 12.6 % 11.6-14.6 [facility] Work Phone: Immature granulocytes/100 WBC (Bld) 0.400 % 0.0-0.9 [facility] Work Phone: Comment on above: IG% - Immature Granu locytes (promyelocytes, myelocytes and metamyelocytes) > 1% indicates that a LEFT SHIFT is Present. MCH (RBC) [Entitic mass] 27.3 pg 27.0-32.0 [facility] Work Phone: Nucleated RBC/100 WBC (Bld) [Ratio] 0 % 0-5 [facility] Work Phone: MCHC Auto (RBC) [Mass/Vol]on 09-04-2021 MCHC (RBC) [Mass/Vol] 33.3 g/dL 32-36 [facility] Work Phone: No Panel Informationon 09-04 Addendum Document Comment . [facility] Work Phone: Comment on above: Protein electrophore sis scan will follow via computer,mail, or falsework builder delivery. Centromere B Antibody <0.2 AI 0.0-0.9 [facility] Work Phone: Estimated GFR (MDRD) Amer 124 mL/min >60 [facility] Work Phone: Comment on above: GFR Calc Estimated GFR (MDRD) Non-Af Amer 102 mL/min >60 [facility] Work Phone: Comment on above: Non- GFR Calc Immunoglobulin E 381 IU/mL 6-495 [facility] Work Phone: NON FOOD RECEIVING CLERK Antibody 0.4 AI 0.0-0.9 [facility] Work Phone: Thyroid Stimulating Hormone (TSH) 2.28 uIU/mL 0.358-3.74 [facility] Work Phone: [phone] Platelets bldon 09-04-2021 Platelets (Bld) [#/Vol] 409 10*3/uL 150-450 [facility] Work Phone: Serum DNA double strand anti body assay (units/volume)on 09-04-2021 DNA double strand Ab Qn (S) [IU]/mL 0-9 [facility] Work Phone: Comment on above: Negative <5 Equivoca l 5 - 9 Positive >9 Serum Susana-1 antibody assay (u nits/volume)on 09-04-2021 Susana-1 extractable nuclear Ab Qn (S) <0.2 AI 0.0-0.9 [facility] Work Phone: Serum Scl-70 extractable nuc lear antibody assay (units/volume)on 09-04-2021 SCL-70 extractable nuclear Ab Qn (S) <0.2 AI 0.0-0.9 [facility] Work Phone: Serum Scott extractable nucl ear antibody detectionon 09-04-2021 Scott extractable nuclear Ab Ql (S) <0.2 AI 0.0-0.9 [facility] Work Phone: Serum ssjgo-1-gtrigpsf measu rement by electrophoresison 09-04-2021 Alpha 1 globulin Elph [Mass/Vol] 0.2 g/dL 0.0-0.4 [facility] Work Phone: Alpha 1 globulin Elph [Mass/Vol] 0.8 g/dL 0.4-1.0 [facility] Work Phone: Serum classic neutrophil cyt oplasmic antibody assay (units/volume)on 09-04-2021 Neutrophil cytoplasmic Ab.classic Qn (S) <1:20 titer Neg:<1:20 [facility] Work Phone: Comment on above: Serum is slightly li pemic. Serum globulin measurement ( mass/volume)on 09-04-2021 Globulin (S) [Mass/Vol] 3.1 g/dL 2.2-3.9 [facility] Work Phone: Serum or plasma C reactive p rotein measurement (mass/volume)on 09-04-2021 CRP [Mass/Vol] 4.23 mg/L 0.0-3.0 [facility] Work Phone: Comment on above: C-Reactive Protein ( CRP) provides useful information for thediagnosis, therapy and monitoring of inflammatory processesand associated diseases. For the evaluation of Relative Riskfor Cardiovascular Disease, a High Sensitivity CRP (HSCRP)should be ordered. Serum or plasma IgA measurem ent (mass/volume)on 09-04-2021 IgA [Mass/Vol] 232 mg/dL 87-352 [facility] Work Phone: Serum or plasma IgG measurem ent (mass/volume)on 09-04-2021 IgG [Mass/Vol] 869 mg/dL 719-1475 [facility] Work Phone: Serum or plasma IgM measurem ent (mass/volume)on 09-04-2021 IgM [Mass/Vol] 60 mg/dL 58-230 [facility] Work Phone: Serum or plasma albumin anu urement (mass/volume)on 09-04-2021 Albumin [Mass/Vol] 3.5 g/dL 2.9-4.4 [facility] Work Phone: Serum or plasma albumin/glob ulin mass ratioon 09-04-2021 Albumin/Globulin [Mass ratio] 0.9 {ratio} 0.9-2.4 [facility] Work Phone: Serum or plasma beta globuli n measurement by electrophoresis (mass/volume)on 09-04-2021 Beta globulin Elph [Mass/Vol] 1.2 g/dL 0.7-1.3 [facility] Work Phone: Serum or plasma calcitriol m easurement (mass/volume)on 09-04-2021 1,25-dihydroxyvitamin D3 [Mass/Vol] 42.4 pg/mL 24.8-81.5 [facility] Work Phone: Comment on above: Please note refere nce interval changePerformed at: [employer] [address] [id number] Director: Tin Holland PhD, Phone: [phone] at: [facility] [id number] Director: George Barone MD, Phone: [phone] Serum or plasma calcium anu urement (mass/volume)on 09-04-2021 Calcium [Mass/Vol] 8.7 mg/dL 8.5-10.1 [facility] Work Phone: Serum or plasma creatinine m easurement (mass/volume)on 09-04-2021 Creatinine [Mass/Vol] 0.77 mg/dL 0.55-1.02 [facility] Work Phone: Comment on above: The validity of the calculated GFR & GFRAA in patients over 70 years has not been determined. Clinical correlation is essential. Serum or plasma folate measu rement (mass/volume)on 09-04-2021 Folate [Mass/Vol] 15.10 ng/mL 3.1-55.4 [facility] Work Phone: Serum or plasma gamma globul in measurement by electrophoresis (mass/volume)on 09-04-2021 Gamma globulin Elph [Mass/Vol] 0.9 g/dL 0.4-1.8 [facility] Work Phone: Serum or plasma immunoelectr ophoresis interpretation (nominal result)on 09-04-2021 Interpretation IEP [Interp] Comment . [facility] Work Phone: Comment on above: No monoclonality det ected. Serum or plasma urea nitroge n measurement (mass/volume)on 09-04-2021 Urea nitrogen [Mass/Vol] 10 mg/dL 7-18 [facility] Work Phone: Serum perinuclear neutrophil cytoplasmic antibody titer by immunofluorescenceon 09-04-2021 Neutrophil cytoplasmic Ab.perinuclear IF (S) [Titer] <1:20 titer Neg:<1:20 [facility] Work Phone: Comment on above: Serum is slightly li pemic.The presence of positive fluorescence exhibiting P-ANCA orC-ANCA patterns alone is not specific for the diagnosis ofWegener's Granulomatosis (WG) or microscopic polyangiitis.Decisions about treatment should not be based solely onANCA IFA results. The International ANCA Group Consensusrecommends follow up testing of positive sera with both IA-3 and MPO-ANCA enzyme immunoassays. As many as 5% serumsamples are positive only by EIA. Ref. AM J Clin [id number];111:507-513. Thin prep Papanicolaou smear with manual screeningon 09-04-2021 Thin prep Papanicolaou smear with manual screening 18 U/L 15-37 [facility] Work Phone: Thin prep Papanicolaou smear with manual screening 8 5-15 [facility] Work Phone: Thin prep Papanicolaou smear with manual screening 168 U/L 84-246 [facility] Work Phone: Thin prep Papanicolaou smear with manual screening 1.2 0.7-1.7 [facility] Work Phone: Total protein bloodon 2021 Protein [Mass/Vol] 6.6 g/dL 6.0-8.5 [facility] Work Phone: Progress Noteon 10-06-2020 Public Accountant Authentication Interface Message Text Patient ID: Keagan Tillman is a 19 y.o. female. Her chief complaint(s) include: ADHD Follow-up (med ck) Assessment 1. ADHD, predominantly inattentive type Plan Keagan was seen today for adhd follow-up. Diagnoses and all orders for this visit: ADHD, predominantly inattentive type Return if symptoms worsen or fail to improve. Keagan has a history of inattentive ADHD. She still has some symptoms, especially with testing and timed assignments, but overall has improved over time and is doing well without medication at this time. Letter written for [facility] stating ADHD diagnosis and requesting academic accommodations for test taking as needed to help with her ADHD. Subjective HPI Comments: Needs something for college stating she has ADHD so she can get academic accommodations. Was treated with strattera when young for ADHD. Has been off of medication for 6-7 years and has been doing well with school accommodations. Does not feel she needs meds at this time, just continued accommodations for testing. Feels like she has gotten better at focusing in class over time. Tends to run out of time for tests because she gets distracted. Just did a placement test in a room by herself and felt it went okay. Needs distractions limited. No problems with nonschoolwork related tasks. Is going to major in speech language pathology. Going to have [employer] classes and [employer] [facility] to start with. [facility] to start. She is unaccompanied. ADHD Follow-upThe information was obtained from the patient. The patient is not currently on any ADHD medications. The other interventions include limiting distractions. Her inattentive symptoms include: short attention span tasks/play and easy distractibility. Primary Care Review of Systems Objective Vital Signs 10/06/20 1148 BP: (!) 146/88 Pulse: 94 Weight: (!) 145 kg Height: 167.6 cm Body mass index is 51.6 kg/m . Physical Exam Constitutional: She appears well. She is active. No distress. HENT: Nose: No nasal discharge. Mouth/Throat: Mucous membranes are moist. Eyes: EOM are normal. Pupils are equal, round, and reactive to light. Cardiovascular: Normal rate and regular rhythm. Pulses are strong. Heart murmur not heard. Pulmonary/Chest: Effort normal and breath sounds normal. No respiratory distress. She has no wheezes. She has no rhonchi. She has no rales. Musculoskeletal: No pain, swelling, or limited range of motion at any joint. Neurological: She is alert. She exhibits normal muscle tone. Gait normal. Skin: Capillary refill takes less than 3 seconds. Skin is warm. Skin is not pale. Findings: No rash. Vitals reviewed: Blood pressure (!) 146/88, pulse 94, height 167.6 cm, weight (!) 145 kg. Normal [facility] Progress Noteon 05-07-2020 Public Accountant Authentication Interface Message Text Keagan Tillman is a 19 y.o. female patient. PHQ9 Assessment With Score Performed by: Georgie Cross MD Authorized by: Georgie Cross MD PHQ-9 See PHQ9 Flowsheet Feeling down, depressed, irritable or hopeless: Not at all Little interest or pleasure in doing things: Not at all Trouble falling or staying sleep, or sleeping too much: Several days Poor appetite, weight loss, or overeating: Not at all Feeling tired or having little energy: Several days Feeling bad about yourself - or feeling that you are a failure, or have let yourself or your family down: Not at all Trouble concentrating on things, like school work, reading or watching TV: Not at all Moving or speaking so slowly that other people could have noticed. Or the opposite - being so fidgety or restless that you were moving around a lot more than usual: Not at all Thoughts that you would be better off , or of hurting yourself in some way: Not at all In the past year have you felt depressed or sad most days, even if you felt OK sometimes?: No If you are experiencing any of the problems on this form, how difficult have these problems made it for you to do your work, take care of things at home or get along with other people?: Not difficult at all Has there been a time in the past month when you have had serious thoughts about ending your life?: No Have you ever, in your whole life, tried to kill yourself or made a suicide attempt?: Yes How long ago did you try to kill yourself or make a suicide attempt?: Over a year ago PHQ-9 Manual Score: 2 PHQ-9 Total Score: 2Health Risk Assessment - CRAFFT Authorized by: Georgie Cross MD CRAFFT Results: 1. Drink more than a few sips of beer, wine, or any drink containing alcohol? Put 0 if none.: 0 2. Use any marijuana (weed, oil, or hash by smoking, vaping, or in food) or synthetic marijuana (like K2, Spice)? Put 0 if none.: 0 3. Use anything else to get high (like other illegal drugs, prescription or rbpw-oif-ukegciy medications, and things that you sniff, mills, or vape)? Put 0 if none.: 0 4. Use any tobacco or nicotine products (for example, cigarettes, e-cigarettes, hookahs or smokeless tobacco)?: 0 5. Have you ever ridden in a CAR driven by someone (including yourself) who was high or had been using alcohol or drugs?: No Comments: reviewed. Electronically signed by: Kimberly Schroeder ID: Keagan Tillman is a 19 y.o. female. Her chief complaint(s) include: 19 YEAR WELL CHILD (physical form) Assessment 1. Routine general medical examination at a health care facility 2. Need for vaccination Plan Keagan was seen today for 19 year well child. Diagnoses and all orders for this visit: Routine general medical examination at a health care facility - PHQ9 Assessment With Score - Health Risk Assessment - CRAFFT Need for vaccination - Meningococcal B (BEXSERO) Growth and development reviewed Sports form completed Call for any questions/concerns/probl ems/changes Declined HPV vaccine All questions answered Return in about 1 year (around 05/07/2021) for well check. Subjective She is unaccompanied. 19 YEAR WELL CHILD Home: Keagan eats meals with family. Education: Keagan is in 12th grade and is doing well. Eating: Keagan eats regular meals including fruits and vegetables. Activities & Sports: Keagan has friends, has a job, performs at least 1 hour of physical activity daily, plays individual sports and plays team sports. Drugs: Keagan does not use tobacco and does not use alcohol. Menstruation Menstruation: regular periods Output Urine and Stool Pattern: Urine and Stool Pattern: Normal stool pattern, normal urine pattern. Sleep Sleeping Difficulty: no difficulty sleeping Screenings Previous Vaccine Reactions: No. Hearing Vision Concerns: The caregiver has no concerns about the patient's hearing. The caregiver has no concerns about the patient's vision. Primary Care Review of Systems Objective Vital Signs 05/07/20 0800 BP: 135/76 Pulse: 84 Temp: 37 C (98.6 F) TempSrc: Temporal Weight: (!) 138.1 kg Height: 167.7 cm Body mass index is 49.1 kg/m . Physical Exam Constitutional: She appears well. She is active. No distress. HENT: Head: Atraumatic. Ears: Right Ear: Tympanic membrane normal. Left Ear: Tympanic membrane normal. Mouth/Throat: Mucous membranes are moist. Eyes: Conjunctivae are normal. Cardiovascular: Normal rate and regular rhythm. Heart murmur not heard. Pulmonary/Chest: Breath sounds normal. There is normal air entry. Neurological: She is alert. Normal [facility] Progress Noteon 12-18-2019 Public Accountant Authentication Interface Message Text Patient ID: Keagan Tillman is a 19 y.o. female. Her chief complaint(s) include: Cough Assessment 1. Asthma, intermittent, uncomplicated 2. Seasonal allergic rhinitis, unspecified trigger Plan Keagan was seen today for cough. Diagnoses and all orders for this visit: Asthma, intermittent, uncomplicated - albuterol 108 (90 Base) MCG/ACT inhaler; Inhale 2 Puffs into the lungs every 4 hours as needed for Wheezing, Shortness of Breath or Cough Use with spacer. - predniSONE (DELTASONE) 20 MG tablet; Take 2 Tabs (40 mg) by mouth daily for 5 days Seasonal allergic rhinitis, unspecified trigger No follow-ups on file. Note written to use inhaler at school. Continue medication to help with allergies. Discussed using steroid to calm down allergic response. Subjective HPI Comments: Just started claritin D. Taking mucinex as needed. Usually gets this sort of cough this time of year. She is accompanied by her mother. Cough The onset has been acute. The duration has been 4 days. The course is worsening. The patient's symptoms have included congestion (a little stuffy) and cough. The patient's symptoms have included no fever, no eye discharge, no barky cough, no wheezing, no bilateral ear pain, no vomiting, no diarrhea and no rash. The patient has been exposed to no sick contacts at home . Primary Care Review of Systems Objective Vital Signs 12/18/19 1004 Temp: 36.5 C (97.7 F) TempSrc: Temporal Weight: (!) 134.9 kg There is no height or weight on file to calculate BMI. Physical Exam Constitutional: She appears well. She is active. No distress. HENT: Head: Atraumatic. Ears: Right Ear: Tympanic membrane normal. Left Ear: Tympanic membrane normal. Nose: Nasal discharge (minimal) present. Mouth/Throat: Mucous membranes are moist. No pharynx erythema. Eyes: Conjunctivae are normal. Cardiovascular: Normal rate and regular rhythm. Heart murmur not heard. Pulmonary/Chest: Breath sounds normal. There is normal air entry. clear Neurological: She is alert. Vitals reviewed: Temperature 36.5 C (97.7 F), temperature source Temporal, weight (!) 134.9 kg. Normal [facility] No Panel Information Enteric Bacteriology [facility] Work Phone: Vital Signs Date Time Vital Sign Value Performing Clinician Facility 07-17-2024 14:22-0400 Diastolic blood pressure 96 mm[Hg] Dr. Kathy Israel DO Work Phone: [facility] 07-17-2024 14:22-0400 Heart rate 66 /min Dr. Kathy Israel DO Work Phone: [facility] 07-17-2024 14:22-0400 Respiratory rate 16 /min Dr. Kathy Israel DO Work Phone: [facility] 07-17-2024 14:22-0400 SaO2% (BldA) [Mass fraction] 100 % Dr. Kathy Israel DO Work Phone: [facility] 07-17-2024 14:22-0400 Systolic blood pressure 137 mm[Hg] Dr. Kathy Israel DO Work Phone: [facility] 07-17-2024 12:52-0400 Body height 165.[address] Kathy Israel DO Work Phone: [facility] 07-17-2024 12:52-0400 Body mass index (BMI) [Ratio] 34.9 kg/m2 Dr. Kathy Israel DO Work Phone: [facility] 07-17-2024 12:52-0400 Body weight 95.[address] Kathy Israel DO Work Phone: [facility] 04-30-2024 11:33-0500 Body height 167.6 cm Karen Sprockel PA-C Work Phone: [facility] 04-30-2024 11:33-0500 Body mass index (BMI) [Ratio] 33.89 kg/m2 Karen Sprockel PA-C Work Phone: [facility] 04-30-2024 11:33-0500 Body temperature 97.39 [degF] Kaern Sprockel PA-C Work Phone: [facility] 04-30-2024 11:33-0500 Body weight 95.25 kg Karen Sprockel PA-C Work Phone: [facility] 04-30-2024 11:33-0500 Diastolic blood pressure 77 mm[Hg] Karen Sprockel PA-C Work Phone: [facility] 04-30-2024 11:33-0500 Heart rate 65 /min Karen Sprockel PA-C Work Phone: [facility] 04-30-2024 11:33-0500 Respiratory rate 18 /min Karen Sprockel PA-C Work Phone: [facility] 04-30-2024 11:33-0500 SaO2% (BldA) [Mass fraction] 100 % Karen Sprockel PA-C Work Phone: [facility] 04-30-2024 11:33-0500 Systolic blood pressure 133 mm[Hg] Karen Sprockel PA-C Work Phone: [facility] 05-02-2023 11:45-0500 Body height 167.64 cm Kathy Hendricksog KAUR [facility] 05-02-2023 11:38-0500 Body mass index (BMI) [Ratio] 36.9 kg/m2 [facility] 05-02-2023 11:38-0500 Body weight 103.87 kg [facility] 05-02-2023 11:38-0500 Diastolic blood pressure 84 mm[Hg] [facility] 05-02-2023 11:38-0500 Systolic blood pressure 126 mm[Hg] [facility] 04-25-2023 10:09-0500 Body mass index (BMI) [Ratio] 37.25 kg/m2 Karen Sprockel PAC Work Phone: [facility] 04-25-2023 10:09-0500 Body temperature 97.7 [degF] Karen Sprockel PAC Work Phone: [facility] 04-25-2023 10:09-0500 Body weight 104.69 kg Karen Sprockel PAC Work Phone: [facility] 04-25-2023 10:09-0500 Diastolic blood pressure 86 mm[Hg] Karen Sprockel PAC Work Phone: [facility] 04-25-2023 10:09-0500 Heart rate 76 /min Karen Sprockel PAC Work Phone: [facility] 04-25-2023 10:09-0500 Respiratory rate 16 /min Karen Sprockel PAC Work Phone: [facility] 04-25-2023 10:09-0500 SaO2% (BldA) [Mass fraction] 98 % Karen Sprockel PAC Work Phone: [facility] 04-25-2023 10:09-0500 Systolic blood pressure 135 mm[Hg] Karen Sprockel PAC Work Phone: [facility] 04-26-2022 13:33-0500 Body height 167.6 cm Karen Sprockel PA-C Work Phone: [facility] 04-26-2022 13:33-0500 Body mass index (BMI) [Ratio] 44.71 kg/m2 Karen Sprockel PA-C Work Phone: [facility] 04-26-2022 13:33-0500 Body temperature 98.6 [degF] Karen Sprockel PA-C Work Phone: [facility] 04-26-2022 13:33-0500 Body weight 125.65 kg Karen Sprockel PA-C Work Phone: [facility] 04-26-2022 13:33-0500 Diastolic blood pressure 90 mm[Hg] Karen Sprockel PA-C Work Phone: [facility] 04-26-2022 13:33-0500 Heart rate 76 /min Karen Sprockel PA-C Work Phone: [facility] 04-26-2022 13:33-0500 Respiratory rate 16 /min Karen Sprockel PA-C Work Phone: [facility] 04-26-2022 13:33-0500 SaO2% (BldA) [Mass fraction] 99 % Karen Sprockel PA-C Work Phone: [facility] 04-26-2022 13:33-0500 Systolic blood pressure 140 mm[Hg] Karen Sprockel PA-C Work Phone: [facility] 04-22-2022 10:26-0500 Body temperature 98.3 [degF] Dr. Kathy Israel Work Phone: [facility] 04-22-2022 10:26-0500 Diastolic blood pressure 84 mm[Hg] Dr. Kathy Israel Work Phone: [facility] 04-22-2022 10:26-0500 Heart rate 93 /min Dr. Kathy Israel Work Phone: [facility] 04-22-2022 10:26-0500 Respiratory rate 14 /min Dr. Kathy Israel Work Phone: [facility] 04-22-2022 10:26-0500 SaO2% (BldA) [Mass fraction] 96 % Dr. Kathy Israel Work Phone: [facility] 04-22-2022 10:26-0500 Systolic blood pressure 144 mm[Hg] Dr. Kathy Israel Work Phone: [facility] 04-12-2022 12:13-0500 Body temperature 97 [degF] Dr. Kathy Israel Work Phone: [facility] 04-12-2022 12:13-0500 Diastolic blood pressure 84 mm[Hg] Dr. Kathy Israel Work Phone: [facility] 04-12-2022 12:13-0500 Heart rate 67 /min Dr. Kathy Israel Work Phone: [facility] 04-12-2022 12:13-0500 Respiratory rate 16 /min Dr. Kathy Israel Work Phone: [facility] 04-12-2022 12:13-0500 SaO2% (BldA) [Mass fraction] 99 % Dr. Kathy Israel Work Phone: [facility] 04-12-2022 12:13-0500 Systolic blood pressure 139 mm[Hg] Dr. Kathy Israel Work Phone: [facility] 04-12-2022 10:07-0500 Body height 167.[address] Kathy Israel Work Phone: [facility] 04-12-2022 10:07-0500 Body mass index (BMI) [Ratio] 45.5 kg/m2 Dr. Kathy Israel Work Phone: [facility] 04-12-2022 10:07-0500 Body weight 127.[address] Kathy Israel Work Phone: [facility] 02-19-2022 09:43-0500 Body temperature 98.8 [degF] Dr. Kathy Israel Work Phone: [facility] 02-19-2022 09:43-0500 Diastolic blood pressure 82 mm[Hg] Dr. Kathy Israel Work Phone: [facility] 02-19-2022 09:43-0500 Heart rate 78 /min Dr. Kathy Israel Work Phone: [facility] 02-19-2022 09:43-0500 Respiratory rate 16 /min Dr. Kathy Israel Work Phone: [facility] 02-19-2022 09:43-0500 SaO2% (BldA) [Mass fraction] 98 % Dr. Kathy Israel Work Phone: [facility] 02-19-2022 09:43-0500 Systolic blood pressure 120 mm[Hg] Dr. Ktahy Israel Work Phone: [facility] 12-24-2021 09:48-0400 Respiratory rate 14 /min Dr. Kathy Israel Work Phone: [facility] Work Phone: 12-24-2021 08:06-0400 Body height 167.[address] Kathy Israel Work Phone: [facility] Work Phone: 12-24-2021 08:06-0400 Body mass index (BMI) [Ratio] 48.4 kg/m2 Dr. Kathy Israel Work Phone: [facility] Work Phone: 12-24-2021 08:06-0400 Body temperature 96.5 [degF] Dr. Kathy Israel Work Phone: [facility] Work Phone: 12-24-2021 08:06-0400 Body weight 136.[address] Kathy Israel Work Phone: [facility] Work Phone: 12-24-2021 08:06-0400 Diastolic blood pressure 103 mm[Hg] Dr. Kathy Israel Work Phone: [facility] Work Phone: 12-24-2021 08:06-0400 Heart rate 78 /min Dr. Kathy Israel Work Phone: [facility] Work Phone: 12-24-2021 08:06-0400 SaO2% (BldA) [Mass fraction] 100 % Dr. Kathy Israel Work Phone: [facility] Work Phone: 12-24-2021 08:06-0400 Systolic blood pressure 161 mm[Hg] Dr. Kathy Israel Work Phone: [facility] Work Phone: 10-23-2021 10:40-0400 Body mass index (BMI) [Percentile] Per age and sex 99.2 % Dr. Kathy Israel Work Phone: [facility] Work Phone: 10-23-2021 10:40-0400 Body mass index (BMI) [Ratio] 51.5 kg/m2 Dr. Kathy Israel Work Phone: [facility] Work Phone: 10-23-2021 10:40-0400 Body weight 144.[address] Kathy Israel Work Phone: [facility] Work Phone: 10-23-2021 10:40-0400 Diastolic blood pressure 70 mm[Hg] Dr. Kathy Israel Work Phone: [facility] Work Phone: 10-23-2021 10:40-0400 Systolic blood pressure 110 mm[Hg] Dr. Katyh Israel Work Phone: [facility] Work Phone: 10-15-2021 10:41-0400 Body temperature 98 [degF] Dr. Kathy Israel Work Phone: [facility] Work Phone: 10-15-2021 10:41-0400 Diastolic blood pressure 68 mm[Hg] Dr. Kathy Israel Work Phone: [facility] Work Phone: 10-15-2021 10:41-0400 Heart rate 82 /min Dr. Kathy Israel Work Phone: [facility] Work Phone: 10-15-2021 10:41-0400 Respiratory rate 14 /min Dr. Kathy Israel Work Phone: [facility] Work Phone: 10-15-2021 10:41-0400 SaO2% (BldA) [Mass fraction] 97 % Dr. Kathy Israel Work Phone: [facility] Work Phone: 10-15-2021 10:41-0400 Systolic blood pressure 114 mm[Hg] Dr. Kathy Israel Work Phone: [facility] Work Phone: 10-13-2021 10:35-0400 Body height 167.[address] Kathy Israel Work Phone: [facility] Work Phone: 10-13-2021 10:35-0400 Body mass index (BMI) [Percentile] Per age and sex 99.2 % Dr. Kathy Israel Work Phone: [facility] Work Phone: 10-13-2021 10:35-0400 Body mass index (BMI) [Ratio] 51.3 kg/m2 Dr. Kathy Israel Work Phone: [facility] Work Phone: 10-13-2021 10:35-0400 Body weight 144.[address] Kathy Israel Work Phone: [facility] Work Phone: 10-13-2021 10:35-0400 Diastolic blood pressure 85 mm[Hg] Dr. Kathy Israel Work Phone: [facility] Work Phone: 10-13-2021 10:35-0400 Heart rate 95 /min Dr. Kathy Israel Work Phone: [facility] Work Phone: 10-13-2021 10:35-0400 SaO2% (BldA) [Mass fraction] 97 % Dr. Kathy Israel Work Phone: [facility] Work Phone: 10-13-2021 10:35-0400 Systolic blood pressure 125 mm[Hg] Dr. Kathy Israel Work Phone: [facility] Work Phone: 10-06-2021 15:25-0400 Body temperature 98.5 [degF] Dr. Kathy Israel Work Phone: [facility] Work Phone: 10-06-2021 15:25-0400 Diastolic blood pressure 108 mm[Hg] Dr. Kathy Israel Work Phone: [facility] Work Phone: 10-06-2021 15:25-0400 Heart rate 88 /min Dr. Kathy Israel Work Phone: [facility] Work Phone: 10-06-2021 15:25-0400 Respiratory rate 16 /min Dr. Kathy Israel Work Phone: [facility] Work Phone: 10-06-2021 15:25-0400 SaO2% (BldA) [Mass fraction] 100 % Dr. Kathy Israel Work Phone: [facility] Work Phone: 10-06-2021 15:25-0400 Systolic blood pressure 140 mm[Hg] Dr. Kathy Israel Work Phone: [facility] Work Phone: 10-06-2021 13:12-0400 Body height 167.[address] Kathy Israel Work Phone: [facility] Work Phone: 10-06-2021 13:12-0400 Body mass index (BMI) [Percentile] Per age and sex 99.3 % Dr. Kathy Israel Work Phone: [facility] Work Phone: 10-06-2021 13:12-0400 Body mass index (BMI) [Ratio] 52.1 kg/m2 Dr. Kathy Israel Work Phone: [facility] Work Phone: 10-06-2021 13:12-0400 Body weight 146.[address] Kathy Israel Work Phone: [facility] Work Phone: 10-02-2021 11:15-0400 Body temperature 98.5 [degF] Dr. Kathy Israel Work Phone: [facility] Work Phone: 10-02-2021 11:15-0400 Diastolic blood pressure 85 mm[Hg] Dr. Kathy Israel Work Phone: [facility] Work Phone: 10-02-2021 11:15-0400 Heart rate 99 /min Dr. Kathy Israel Work Phone: [facility] Work Phone: 10-02-2021 11:15-0400 Respiratory rate 16 /min Dr. Kathy Israel Work Phone: [facility] Work Phone: 10-02-2021 11:15-0400 SaO2% (BldA) [Mass fraction] 100 % Dr. Kathy Israel Work Phone: [facility] Work Phone: 10-02-2021 11:15-0400 Systolic blood pressure 126 mm[Hg] Dr. Kathy Israel Work Phone: [facility] Work Phone: 10-02-2021 08:33-0400 Body height 167.[address] Kathy Israel Work Phone: [facility] Work Phone: 10-02-2021 08:33-0400 Body mass index (BMI) [Percentile] Per age and sex 99.2 % Dr. Kathy Israel Work Phone: [facility] Work Phone: 10-02-2021 08:33-0400 Body mass index (BMI) [Ratio] 51.2 kg/m2 Dr. Kathy Israel Work Phone: [facility] Work Phone: 10-02-2021 08:33-0400 Body weight [address] Kathy Israel Work Phone: [facility] Work Phone: 08-21-2021 14:50-0400 Body height 167.[address] Kathy Israel Work Phone: [facility] Work Phone: 08-21-2021 14:50-0400 Body mass index (BMI) [Percentile] Per age and sex 99.3 % Dr. Kathy Israel Work Phone: [facility] Work Phone: 08-21-2021 14:50-0400 Body mass index (BMI) [Ratio] 51.3 kg/m2 Dr. Kathy Israel Work Phone: [facility] Work Phone: 08-21-2021 14:50-0400 Body weight 144.[address] Kathy Israel Work Phone: [facility] Work Phone: 08-21-2021 14:50-0400 Diastolic blood pressure 86 mm[Hg] Dr. Kathy Israel Work Phone: [facility] Work Phone: 08-21-2021 14:50-0400 Heart rate 85 /min Dr. Kathy Israel Work Phone: [facility] Work Phone: 08-21-2021 14:50-0400 SaO2% (BldA) [Mass fraction] 97 % Dr. Kathy Israel Work Phone: [facility] Work Phone: 08-21-2021 14:50-0400 Systolic blood pressure 127 mm[Hg] Dr. Kathy Israel Work Phone: [facility] Work Phone: 08-13-2021 11:32-0400 Body mass index (BMI) [Percentile] Per age and sex 99.2 % Dr. Kathy Israel Work Phone: [facility] Work Phone: 08-13-2021 11:32-0400 Body mass index (BMI) [Ratio] 50.8 kg/m2 Dr. Kathy Israel Work Phone: [facility] Work Phone: 08-13-2021 11:32-0400 Body weight 142.[address] Kathy Israel Work Phone: [facility] Work Phone: 08-13-2021 11:32-0400 Diastolic blood pressure 100 mm[Hg] Dr. Kathy Israel Work Phone: [facility] Work Phone: 08-13-2021 11:32-0400 Systolic blood pressure 140 mm[Hg] Dr. Kathy Israel Work Phone: [facility] Work Phone: 06-08-2021 12:09-0400 Body temperature 98.2 [degF] Dr. Kathy Israel Work Phone: [facility] Work Phone: 06-08-2021 12:09-0400 Diastolic blood pressure 80 mm[Hg] Dr. Kathy Israel Work Phone: [facility] Work Phone: 06-08-2021 12:09-0400 Heart rate 84 /min Dr. Kathy Israel Work Phone: [facility] Work Phone: 06-08-2021 12:09-0400 Respiratory rate 16 /min Dr. Kathy Israel Work Phone: [facility] Work Phone: 06-08-2021 12:09-0400 SaO2% (BldA) [Mass fraction] 98 % Dr. Kathy Israel Work Phone: [facility] Work Phone: 06-08-2021 12:09-0400 Systolic blood pressure 132 mm[Hg] Dr. Kathy Israel Work Phone: [facility] Work Phone: Encounters Encounter Date Encounter Type Care Provider Facility Start: 08-17-2024 ambulatory Samir Friend Facility :[facility] Start: 07-17-2024 End: 07-17-[address] Kathy Israel DO Work Phone: [facility] Work Phone: Start: 07-17-2024 End: 07-17-2024 Patient encounter procedure Samir Diaz DO -MRI - [facility] Work Phone: Start: 07-17-2024 End: 07-17-2024 ambulatory Samir Diaz Facility:[facility] Start: 06-01-2024 End: 06-01-2024 Patient encounter procedure Samir Diaz DO -[facility] Work Phone: Start: 06-01-2024 End: 06-01-[address] Kathy Israel DO Work Phone: [facility] Work Phone: Start: 06-01-2024 End: 06-01-2024 ambulatory Samir Diaz Facility:[facility] Start: 04-30-2024 End: 04-30-2024 Office outpatient visit 15 minutes Karen C Sprtiarrael PA-C Work Phone: Division of Hematology & Oncology Comment on above: Von Willebrand disea se, type I (Primary Dx) Start: 04-30-2024 ambulatory KAREN C SPROCKEL Faci lity:[facility] Start: 01-20-2024 End: 01-20-2024 ambulatory Kathy Israel Facility:[facility] Start: 01-08-2024 End: 01-08-2024 Emergency department patient visit Kathy Chun Facility:[facility] Start: 09-30-2023 End: 09-30-2023 ambulatory Kathy AmaroChun Facility:[facility] Start: 08-15-2023 End: 08-15-2023 ambulatory Kathy AmaroChun Facility:[facility] Start: 08-15-2023 End: 08-15-2023 ambulatory Kathy AmaroChun Facility:[facility] Start: 05-04-2023 End: 05-04-2023 ambulatory Kathy Israel [facility] Work Phone: Start: 05-04-2023 End: 05-04-2023 Patient encounter procedure Kathy Chun [facility] [place] Work Phone: Start: 05-02-2023 End: 05-02-2023 ambulatory Kathy KAUR [facility] Work Phone: Start: 05-02-2023 End: 05-02-2023 Patient encounter procedure Kathy KAUR [facility]Laboratory, Specimen Work Phone: Start: 05-02-2023 End: 05-02-2023 Patient encounter procedure Kathy KAUR [facility] Work Phone: Start: 04-25-2023 End: 04-25-2023 Office outpatient visit 15 minutes Karen Schuler PAC Work Phone: Division of Hematology & Oncology Comment on above: Von Willebrand disea se (Primary Dx) Start: 03-14-2023 End: 03-14-2023 Patient encounter procedure Kathy Hendricksman NATASHA [facility] Work Phone: Start: 09-20-2022 End: 09-20-2022 ambulatory Kathy KAUR [facility] Work Phone: Start: 09-20-2022 End: 09-20-2022 Patient encounter procedure Kathy Chun KAUR [facility] Work Phone: Start: 05-03-2022 End: 05-03-[address] Kathy Israel Work Phone: [facility] Work Phone: Start: 05-03-2022 End: 05-03-[address] Kathy Israel Work Phone: [facility]Sleep Lab Start: 04-26-2022 End: 04-26-2022 Office outpatient visit 15 minutes Demian Christensen MD Work Phone: Division of Hematology & Oncology Comment on above: Von Willebrand disea se (Primary Dx) Start: 04-22-2022 End: 04-22-[address] [facility] Start: 04-12-2022 End: 04-12-[address] Kathy Israel Work Phone: [facility]Medical Out Start: 02-19-2022 End: 02-19-[address] Kathy Israel Work Phone: [facility] Start: 12-24-2021 End: 12-24-2021 Emergency department patient [facility] Kathy [facility] Start: 12-12-2021 End: 12-12-[address] [facility] Start: 12-03-2021 End: 12-03-[address] Kathy Israel Work Phone: [facility] Start: 11-27-2021 End: 11-27-[address] Kathy Israel Work Phone: [facility] Start: 10-23-2021 End: 10-23-[address] Kathy Israel Work Phone: [facility] Start: 10-15-2021 End: 10-15-[address] Kathy Irsael Work Phone: [facility] Start: 10-13-2021 End: 10-13-[address] Kathy Israel [facility] Start: 10-13-2021 End: 10-13-[address] Kathy Israel Work Phone: [facility] Start: 10-06-2021 Non-patient / Non-visit Dr. Kathy Israel Work Phone: [facility] Start: 10-06-2021 End: 10-06-2021 Admission to same day surgery center Dr. Kathy Israel Work Phone: [facility]-Endoscopy Start: 10-02-2021 Non-patient / Non-visit Dr. Kathy Israel Work Phone: [facility] Start: 10-02-2021 End: 10-02-2021 Admission to same day surgery center Dr. Kathy Israel Work Phone: [facility]Surgical Day Care Start: 09-11-2021 End: 09-11-[address] Kathy Israel Work Phone: [facility]-Ultrasound, [facility] Start: 09-04-2021 End: 09-04-[address] Kathy Israel Work Phone: [facility], [facility] Start: 09-04-2021 End: 09-04-[address] Kathy Israel Work Phone: [facility] Start: 08-21-2021 End: 08-21-[address] Kathy Israel Work Phone: [facility] Start: 08-13-2021 End: 08-13-[address] Kathy Israel Work Phone: [facility] Start: 06-08-2021 End: 06-08-[address] Kathy Israel Work Phone: [facility] Procedures Date Procedure Procedure Detail Performing Clinician Start: 06-01-2024 Albumin/Globulin ratio Dr. Kathy Israel DO Work Phone: Start: 06-01-[address] Kathy Israel DO Work Phone: Start: 06-01-2024 Endomysial antibody IgA level Dr. Kathy Israel DO Work Phone: Start: 06-01-[address] Kathy graves DO Work Phone: Start: 06-01-[address] e fraction Dr. Kathy Israel DO Work Phone: Start: 06-01-[address] Kathy Israel DO Work Phone: Start: 06-01-2024 In-vitro immunologic test Dr. Kathy Israel DO Work Phone: Comment on above: Test not performed Test not performedTe st not performed Start: 06-01-[address] Kathy graves DO Work Phone: Start: 05-04-2023 Pelvic echography Kathy KAUR Start: 04-25-2023 CBC AND ELECTRONIC DIFF Karen C Sprockel PAC Work Phone: Start: 04-25-2023 Complete blood count with white cell differential, automated Karen C Sprockel PAC Work Phone: Start: 04-25-2023 Comprehensive metabo lic panel Karen C Sprockel PAC Work Phone: Start: 04-25-2023 REQUEST FOR [facility] Karen C Sprockel PAC Work Phone: Start: 04-26-2022 CBC AND ELECTRONIC DIFF Karen C Sprockel PA-C Work Phone: Start: 04-26-2022 Complete blood count with white cell differential, automated Karen C Sprockel PA-C Work Phone: Start: 04-26-2022 Comprehensive metabo lic panel Karen C Sprockel PA-C Work Phone: Start: 10-06-[address] Kathy graves Work Phone: Start: 10-02-[address] Kathy Israel Work Phone: Start: 10-02-2021 Examination of femal e genital tract under anesthetic Dr. Kathy Israel Work Phone: Start: 09-11-[address] Vasile Israel Work Phone: Start: 09-11-[address] Kathy Israel Work Phone: Start: 09-04-2021 Computed tomography of abdomen and pelvis with contrast Dr. Kathy Israel Work Phone: Clostridium difficil e detection Dr. Kathy Israel Work Phone: Enteric Bacteriology Dr. Melvina Israel Work Phone: H/O: surgery H/O dilation and curettage Dr. Kathy Israel Work Phone: Lactoferrin measurement Dr. Kathy Israel Work Phone: Ova OR parasites identification Dr. Kathy Israel Work Phone: Viral antigen assay Dr. Kathy Israel Work Phone: Plan of Treatment Date Care Activity Detail Author Start: 04-29-2025 End: 04-29-2025 Patient encounter procedure 04/29/2025 11:00 AM EST Office Visit Division of Hematology & Oncology [address] [phone] Karen Schuler PA-C [address] [phone] Division of Hematology & Oncology Start: 07-17-2024 Following clinical p athway protocol [facility] Start: 07-17-2024 MRI of small intestine [facility] Start: 06-01-2024 [facility] Start: 04-30-2024 End: 04-30-2024 Patient encounter procedure 04/30/2024 11:30 AM EST Office Visit Division of Hematology & Oncology [address] [phone] Karen Schuler PAC [address] [place] [address] [place] [phone] Division of Hematology & Oncology Start: 01-29-2024 Tetanus vaccination TETANUS [facility] Start: 11-06-2023 COVID-19 VACCINE () COVID-19 VACCINE () [facility] Start: 11-06-2023 Influenza vaccination INFLUENZA VACC INE (#1) [facility] Start: 04-25-2023 End: 04-25-2024 VITAMIN C [facility] Comment on above: Expected: 04/25/2023 , Expires: 04/25/2024 Start: 04-25-2023 End: 04-25-2023 Patient encounter procedure 04/25/2023 Office Visit Hematology Karen Schuler PA-C [facility] [place] [address] [place] [phone] Division of Hematology & Oncology Start: 2022 Screening for malign ant neoplasm of cervix CERVICAL CANCER SCREENING DISCUSSION [facility] Start: 11-05-2022 COVID-19 VACCINE ( season) COVID-19 VACCINE () [facility] Start: 11-05-2022 Influenza vaccination INFLUENZA VACC INE (#1) [facility] Start: 09-20-2022 Procedure [facility] Start: 04-12-2022 Iv infusion therapy/prophylaxis /dx 1st to 1 hr THER/PROPH/DIAG IV INF INIT [facility] Start: 12-24-2021 [facility] Work Phone: Start: 12-12-2021 Protein S assay [facility] Work Phone: Start: 10-15-2021 Elastase, pancreatic (el-1), fecal; quantitative [facility] Work Phone: Start: 10-15-2021 Fat [Presence] in Stool [facility] Work Phone: Start: 10-15-2021 Giardia lamblia Ag [Presence] in Stool by Immunoassay [facility] Work Phone: Start: 10-15-2021 Ova and parasites identified in Unspecified specimen by Light microscopy [facility] Work Phone: Start: 10-15-2021 Protein measurement [facility] Work Phone: Start: 10-13-2021 End: 10-13-2021 Procedure [facility] Work Phone: Start: 10-06-2021 Colonoscopy w/biopsy single/multiple COLONOSCOPY AND BIOPSY [facility] Work Phone: Start: 10-06-2021 Egd transoral biopsy single/multiple EGD BIOPSY SINGLE/MULTIPLE [facility] Work Phone: Start: 10-06-2021 Patient discharge [facility] Work Phone: Start: 10-02-2021 Anesthesia vaginal procedure w/biopsy nos ANESTH VAGINAL PROCEDURES [facility] Work Phone: Start: 10-02-2021 Dilation & curettage dx&/ther nonobstetric DILATION AND CURETTAGE [facility] Work Phone: Start: 10-02-2021 Insertion intrauteri ne device iud INSERT INTRAUTERINE DEVICE [facility] Work Phone: Start: 10-02-2021 Ambulation without limitation [facility] Work Phone: Start: 10-02-2021 Medical regimen orde rs management [facility] Work Phone: Start: 10-02-2021 Medication education [facility] Work Phone: Start: 10-02-2021 Patient discharge [facility] Work Phone: Start: 10-02-2021 Procedure discontinued [facility] Work Phone: Start: 10-02-2021 Taking patient vital signs [facility] Work Phone: Start: 10-02-2021 Vital signs measurements [facility] Work Phone: Start: 10-02-2021 [facility] Work Phone: Start: 10-02-2021 [facility] Work Phone: Start: 10-02-2021 Urine test [facility] Work Phone: Start: 09-04-2021 Immunoglobulin measurement [facility] Work Phone: Start: 09-04-2021 Serum immunofixation [facility] Work Phone: Start: 09-04-2021 [facility] Work Phone: Start: 09-30-2020 COVID-19 VACCINE (3 - Booster for Moderna series) COVID-19 VACCINE (3 - Booster for Moderna series) [facility] Start: 2017 Screening for Chlamy ajay trachomatis CHLAMYDIA SCREEN [facility] Start: 2016 HIV screening HIV SCREENING DISCUSSION [facility] Start: 2016 HPV VACCINE (1 - 3-d ose series) HPV VACCINE (1 - 3-dose series) [facility] Start: 2016 Vaccination for corie n papillomavirus HPV VACCINE ADOL (1 - 3-dose series) [facility] Start: 2012 Vaccination for corie n papillomavirus HPV VACCINE ADOL (1 - 2-dose series) [facility] Start: 2001 Hepatitis C screening HEPATITI S C VIRUS SCREENING [facility] Start: 2001 Screening for Chlamy ajay trachomatis GONORRHEA SCREEN [facility] Albumin [Moles/volum e] in Serum or Plasma [facility] Work Phone: [facility]: Beef IgE Ab [Units/v olume] in Serum [facility] Chocolate IgE Ab [Units/volume] in Serum [facility] Clostridioides diffi cile DNA [Presence] in Unspecified specimen by JEREMÍAS with probe detection [facility] Work Phone: Codfish IgE Ab [Units/volume] in Serum [facility] [place] IgE Ab [Units/v olume] in Serum [facility] Cow milk IgE Ab [Units/volume] in Serum [facility] Elastase, pancreatic (el-1), fecal; quantitative [facility] Work Phone: Electrophoresis: [id number] [facility] Work Phone: Electrophoresis: ryne ma globulin [facility] Work Phone: Fat [Mass/mass] in Stool [facility] Work Phone: Fat [Presence] in Stool [facility] Work Phone: Fat.neutral [Presenc e] in Stool [facility] Work Phone: Food RAST [facility] Gastrointestinal pat hogens panel - Stool by JEREMÍAS with probe detection [facility] Work Phone: Giardia lamblia Ag [Presence] in Stool by Immunoassay [facility] Work Phone: Globulin measurement [facility] Work Phone: IgA [Mass/volume] in Serum or Plasma [facility] Work Phone: IgE [Units/volume] i n Serum or Plasma [facility] Work Phone: IgG [Mass/volume] in Serum or Plasma [facility] Work Phone: IgM [Mass/volume] in Serum or Plasma [facility] Work Phone: Lactoferrin [Presenc e] in Stool by Immunoassay [facility] Work Phone: MISCELLANEOUS SENDOUT MISCELLANE OUS SENDOUT Lab Routine Von Willebrand disease 04/25/2023 11:27 AM [facility] MISCELLANEOUS SENDOU T BILLING MISCELLANEOUS SENDOUT BILLING Lab Routine Von Willebrand disease 04/25/2023 11:27 AM EST [facility] MRI of small intestine [facility] Neutrophil cytoplasm ic Ab.classic [Units/volume] in Serum [facility] Work Phone: Ova and parasites identified in Unspecified specimen by Light microscopy [facility] Work Phone: P-ANCA measurement [facility] Work Phone: Patient Education ED Crohn's Dis ease ED Diarrhea, Unknown Cause ED Myalgias [facility] Work Phone: Patient referral [facility] Work Phone: Peanut IgE Ab [Units/volume] in Serum [facility] Pork IgE Ab [Units/v olume] in Serum [facility] Procedure [facility] Work Phone: Protein electrophore sis panel - Serum or Plasma [facility] Work Phone: Protein measurement [facility] Work Phone: Venus IgE Ab [Units/volume] in Serum [facility] Serum protein electrophoresis [facility] Work Phone: Shrimp IgE Ab [Units/volume] in Serum [facility] Soybean IgE Ab [Units/volume] in Serum [facility] Tuna IgE Ab [Units/v olume] in Serum [facility] Urine test [facility] Work Phone: US Pelvis [facility] Work Phone: US Pelvis transvaginal [facility] Work Phone: Wheat IgE Ab [Units/volume] in Serum [facility] Whole Egg IgE Ab [Units/volume] in Serum [facility] Immunizations Immunization Date Immunization Notes Care Provider Aquiles vinson 01-23-2022 influenza virus vacc ine, unspecified formulation Karen Ganga PAC Work Phone: [facility] 08-05-2020 COVID-19 vaccine, mR MARGUERITE Moderna, 100 mcg/0.5 mL Karen Ganga GREENC Work Phone: [facility] 07-05-2020 COVID-19 vaccine, mR MARGUERITE, Vincenta, 100 mcg/0.5 mL Karen Sprockel PA-C Work Phone: [facility] 05-07-2020 meningococcal B vacc ine, recombinant, OMV, adjuvanted Karen Sprockel PA-C Work Phone: [facility] 12-10-2019 influenza, injectabl e, quadrivalent, preservative free Karen Sprockel PA-C Work Phone: [facility] 05-07-2019 meningococcal B vacc ine, recombinant, OMV, adjuvanted Karen Sprockel PA-C Work Phone: [facility] 12-06-2018 influenza virus vacc ine, whole virus Karen Sprockel PA-C Work Phone: [facility] 12-06-2018 influenza, injectabl e, quadrivalent, contains preservative Karen Sprockel PA-C Work Phone: [facility] 12-06-2018 influenza, injectabl e, quadrivalent, preservative free Karen Sprockel PA-C Work Phone: [facility] 04-24-2018 meningococcal polysaccharide (groups A, C, Y and W-135) diphtheria toxoid conjugate vaccine (MCV4P) Karen Sprockel PA-C Work Phone: [facility] 12-04-2017 influenza virus vacc ine, whole virus Karen Sprockel PA-C Work Phone: [facility] 12-04-2017 influenza, injectabl e, quadrivalent, preservative free Karen Sprockel PA-C Work Phone: [facility] 01-10-2017 influenza virus vacc ine, split virus (incl. purified surface antigen) Karen Sprockel PA-C Work Phone: [facility] 01-10-2017 influenza, injectabl e, quadrivalent, preservative free Karen Sprockel PA-C Work Phone: [facility] 11-13-2016 influenza, injectabl e, quadrivalent, preservative free Karen Sprockel PA-C Work Phone: [facility] 03-16-2016 influenza, injectabl e, quadrivalent, preservative free Karen Sprockel PA-C Work Phone: [facility] 03-16-2016 influenza, seasonal, injectable, preservative free Karen Sprockel PA-C Work Phone: [facility] 01-04-2015 influenza, injectabl e, quadrivalent, preservative free Karen Sprockel PA-C Work Phone: [facility] 01-28-2014 meningococcal polysaccharide (groups A, C, Y and W-135) diphtheria toxoid conjugate vaccine (MCV4P) Karen Sprockel PA-C Work Phone: [facility] 01-28-2014 tetanus toxoid, redu shun diphtheria toxoid, and acellular pertussis vaccine, adsorbed Karen Sprockel PA-C Work Phone: [facility] 01-12-2014 influenza, live, intranasal, quadrivalent Karen Sprockel PA-C Work Phone: [facility] 12-05-2012 influenza, live, intranasal, quadrivalent Karen Sprockel PA-C Work Phone: [facility] 11-25-2011 Influenza Vaccine Nasal Abig ail Sprockel PAC Work Phone: [facility] 11-25-2011 influenza virus vacc ine, live, attenuated, for intranasal use Karen Sprockel PA-C Work Phone: [facility] 01-02-2011 Influenza Vaccine Nasal Abig ail Sprockel PAC Work Phone: [facility] 01-02-2011 influenza virus vacc ine, live, attenuated, for intranasal use Karen Sprockel PA-C Work Phone: [facility] 12-27-2009 Influenza Vaccine Nasal Abig ail Sprockel PAC Work Phone: [facility] 12-27-2009 influenza virus vacc ine, live, attenuated, for intranasal use Karen Sprockel PA-C Work Phone: [facility] 01-08-2009 novel Influenza-H1N1 -09, live virus for nasal administration Karen Sprockel PA-C Work Phone: [facility] 12-27-2008 Influenza Vaccine Nasal Abig ail Sprockel PAC Work Phone: [facility] 12-27-2008 influenza virus vacc ine, live, attenuated, for intranasal use Karen Sprockel PA-C Work Phone: [facility] 12-27-2007 influenza virus vacc ine, unspecified formulation Karen Sprockel PA-C Work Phone: [facility] 12-27-2007 influenza virus vacc ine, whole virus Karen Sprockel PA-C Work Phone: [facility] 12-19-2006 diphtheria, tetanus toxoids and acellular pertussis vaccine Karen Sprockel PA-C Work Phone: [facility] 12-19-2006 diphtheria, tetanus toxoids and acellular pertussis vaccine, unspecified formulation Karen Sprockel PA-C Work Phone: [facility] 12-19-2006 influenza virus vacc ine, unspecified formulation Karen Sprockel PA-C Work Phone: [facility] 12-19-2006 influenza virus vacc ine, whole virus Karen Sprockel PA-C Work Phone: [facility] 12-19-2006 measles, mumps and rubella virus vaccine Karen Sprockel PA-C Work Phone: [facility] 12-19-2006 poliovirus vaccine, inactivated Karen Sprockel PA-C Work Phone: [facility] 12-19-2006 varicella virus vaccine Abig ail Sprockel PA-C Work Phone: [facility] 01-13-2006 hepatitis A vaccine, pediatric/adolescent dosage, 2 dose schedule Karen Sprockel PA-C Work Phone: [facility] 01-13-2006 influenza virus vacc ine, unspecified formulation Karen Sprockel PA-C Work Phone: [facility] 01-13-2006 influenza virus vacc ine, whole virus Karen Sprockel PA-C Work Phone: [facility] 07-09-2005 hepatitis A vaccine, pediatric/adolescent dosage, 2 dose schedule Karen Sprockel PA-C Work Phone: [facility] 12-23-2004 influenza virus vacc ine, unspecified formulation Karen Sprockel PA-C Work Phone: [facility] 12-23-2004 influenza virus vacc ine, whole virus Karen Sprockel PA-C Work Phone: [facility] 12-30-2003 pneumococcal conjuga te vaccine, 7 valent Karen Sprockel PA-C Work Phone: [facility] 04-18-2003 diphtheria, tetanus toxoids and acellular pertussis vaccine Karen Sprockel PA-C Work Phone: [facility] 04-18-2003 diphtheria, tetanus toxoids and acellular pertussis vaccine, unspecified formulation Karen Sprockel PA-C Work Phone: [facility] 04-18-2003 haemophilus influenz ae type b conjugate and Hepatitis B vaccine Karen Sprockel PA-C Work Phone: [facility] 04-18-2003 varicella virus vaccine Abig ail Sprockel PA-C Work Phone: [facility] 02-07-2003 influenza virus vacc ine, unspecified formulation Karen Sprockel PA-C Work Phone: [facility] 02-07-2003 influenza virus vacc ine, whole virus Karen Sprockel PA-C Work Phone: [facility] 01-11-2003 influenza virus vacc ine, unspecified formulation Karen Sprockel PA-C Work Phone: [facility] 01-11-2003 influenza virus vacc ine, whole virus Karen Sprockel PA-C Work Phone: [facility] 01-11-2003 measles, mumps and rubella virus vaccine Karen Sprockel PA-C Work Phone: [facility] 10-03-2002 pneumococcal conjuga te vaccine, 7 valent Karen Sprockel PA-C Work Phone: [facility] 10-03-2002 poliovirus vaccine, inactivated Karen Sprockel PA-C Work Phone: [facility] 06-22-2002 diphtheria, tetanus toxoids and acellular pertussis vaccine Karen Sprockel PA-C Work Phone: [facility] 06-22-2002 diphtheria, tetanus toxoids and acellular pertussis vaccine, unspecified formulation Karen Sprockel PA-C Work Phone: [facility] 06-22-2002 haemophilus influenz ae type b vaccine, PRP-T conjugate Karen Sprockel PA-C Work Phone: [facility] 04-12-2002 diphtheria, tetanus toxoids and acellular pertussis vaccine Karen Sprockel PA-C Work Phone: [facility] 04-12-2002 diphtheria, tetanus toxoids and acellular pertussis vaccine, unspecified formulation Karen Sprockel PA-C Work Phone: [facility] 04-12-2002 haemophilus influenz ae type b vaccine, PRP-T conjugate Karen Sprockel PA-C Work Phone: [facility] 04-12-2002 pneumococcal conjuga te vaccine, 7 valent Karen Sprockel PA-C Work Phone: [facility] 04-12-2002 poliovirus vaccine, inactivated Karen Sprockel PA-C Work Phone: [facility] 02-09-2002 diphtheria, tetanus toxoids and acellular pertussis vaccine Karen Sprockel PA-C Work Phone: [facility] 02-09-2002 diphtheria, tetanus toxoids and acellular pertussis vaccine, unspecified formulation Karen Sprockel PA-C Work Phone: [facility] 02-09-2002 haemophilus influenz ae type b conjugate and Hepatitis B vaccine Karen Sprockel PA-C Work Phone: [facility] 02-09-2002 pneumococcal conjuga te vaccine, 7 valent Karen Sprockel PA-C Work Phone: [facility] 02-09-2002 poliovirus vaccine, inactivated Karen Sprockel PA-C Work Phone: [facility] 2001 hepatitis B vaccine, pediatric or pediatric/adolescent dosage Karen Schuler PA-C Work Phone: [facility] Payers Date Payer Category Payer Self-pay [id number] 2019 Managed Care (unspecified) [employer] HMO PPO POS [id number] 2019 Unknown ANTH [employer] HM O PPO POS [id number] 2019-Present [address] [place] [address] [id number] 2019 Unknown [id number] 2001 Unknown [id number] Private Health Insurance [facility] [id number] Unknown [id number] Unknown [id number] Unknown [id number] Unknown [id number] Unknown [id number] Unknown [id number] Unknown [id number] Unknown [id number] Unknown [id number] Social History Date Type Detail Facility Start: 08-21-2021 End: 05-02-2023 Tobacco smoking status MTIS Unknown if ever smoked [facility] Start: 2001 Sex Assigned At Female [facility] Start: 04-26-2022 Tobacco smoking stat NHIS Never smoked tobacco [facility] Start: 04-26-2022 End: 04-30-2024 Tobacco use and exposure Smokeless tobacco non-user [facility] Start: 04-26-2022 End: 04-30-2024 Alcohol intake Lifetime non-drinker (finding) [facility] Start: 04-23-2021 History SDOH Alcohol Frequency 1 [facility] Start: 2001 Sex Assigned At Not on file O SNY[facility] Start: 04-16-2022 End: 04-26-2022 Exposure to SARS-CoV-2 (event) Not sure [facility] Start: 04-25-2023 End: 04-30-2024 History of Social function [facility] Start: 04-25-2023 End: 04-30-2024 Tobacco use panel [facility] Adolescent depressio n screening assessment 0 [facility] Start: 01-08-2024 End: 04-30-2024 Tobacco smoking status NHIS Smokes tobacco daily [facility] Start: 04-30-2024 Tobacco Comment Vape [facility] Start: 12-15-2020 End: 06-05-2024 Sex Female (finding) [facility] Start: 04-26-2024 Gender identity Identifies as female gender (finding) [facility] Start: 04-26-2024 Sexual orientation Heterosexual (fin iglesia) [facility] Goals Date Patient Goal Desired Activity /State Mental Status Date Assessment Result Facility 07-17-2024 Cognitive function Level Of Cons ciousness Awake;Alert;Appropriate [facility] Work Phone: 04-12-2022 Cognitive function Voice/Name [facility] Work Phone: 10-06-2021 Cognitive function Voice/Name [facility] Work Phone: 10-02-2021 Cognitive function Voice/Name [facility] Work Phone: 10-02-2021 Cognitive function Patient Orien tation Person;Place;Time [facility] Work Phone: Clinical Notes 04-26-2022 to 06-01-2024 Note Date & Type Note Facility 06-01-2024 Evaluation note Diagnosis Onset Date Resolution 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 22 yo F with diagnosis of Von Willebrand Disease (most likely quantitative)presenting in clinic to establish care. 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 FVIII 62% (ref 71-193), vWF GPIbM activity 46% (ref 52-180), vWF Ag 53% (ref 50- 188), vWF Collagen III Binding 39% (ref 50-203), vWF multimer analysis normal INTERVAL HISTORY: Patient was last seen in 04/2023. Presents at today's appointment with father. Overall pt has done well over the last year. Did undergo wisdom teeth 12/2023 and had oral TXA and Stimate pre and post. Did well, denies overt bleeding issues. Reports menses are better since IUD, no longer having spotting between periods. Reports the first 3days are light and the last two she doesn't even realize she is bleeding very much. No upcoming procedures/surgeries at this time. Generalized sensitivity to touch to BLE for some time, baseline. Patient is interested in a new medical bracelet. Past Medical History: Diagnosis Date Asthma Bleeding disorder Crohn's colitis 09/2022 Past Surgical History: Procedure Laterality Date COLONOSCOPY DIAGNOSTIC 09/2022 INSERTION EAR TUBE Bilateral 2001 WISDOM TEETH EXTRACTION Family History Problem Relation Age of Onset Depression Mother Diabetes Mother Lipid Disorder Mother Anxiety Disorder Father Depression Father Heart Disease - Other Maternal Grandfather valve replacement Stroke Paternal Grandfather Social History Tobacco Use Smoking status: Every Day Smokeless tobacco: Never Tobacco comments: Vape Vaping Use Vaping status: Every Day Start date: 04/23/2018 Last attempt to quit: 04/23/2020 Substances: THC Substance Use Topics Alcohol use: Never Drug use: Yes Types: Marijuana Comment: Daily Review of Systems Constitutional: Negative for malaise/fatigue. HENT: Negative for nosebleeds. Cardiovascular: Negative for chest pain, dyspnea on exertion and leg swelling. Respiratory: Negative for hemoptysis and shortness of breath. Hematologic/Lymphatic: Negative for bleeding problem. Bruises/bleeds easily. Gastrointestinal: Negative for abdominal pain, hematemesis, hematochezia and melena. Genitourinary: Negative for hematuria and menorrhagia. Outpatient Medications Prior to Visit Medication Sig Dispense Refill busPIRone 15 MG tablet Take 1 tablet by mouth 2 times daily. tranexamic acid (Lysteda) 650 MG tablet Take 2 tablets by mouth 3 times daily. Start 4 hours prior to wisdom tooth extraction and continue for 5 days after as directed 32 tablet 0 Ustekinumab (STELARA IV) by Intravenous route. Desmopressin (Stimate) 1.5 MG/ML Solution nasal spray 1 spray each nostril prior to wisdom tooth extraction. Then, may use 1 spray each nostril daily up to three days for bleeds. Limit fluid intake to 40 oz per day while using (Patient not taking: Reported on 04/30/2024) 0.6 mL 0 Vitamin D, Ergocalciferol, 88072 units capsule Take 1 capsule by mouth once a week. (Patient not taking: Reported on 04/30/2024) 8 capsule 0 No facility-administered medications prior to visit. PHYSICAL EXAM: Vitals: 04/30/24 1133 BP: 133/77 Pulse: 65 Resp: 18 Temp: 97.4 degrees F (36.3 degrees C) TempSrc: Oral SpO2: 100% Weight: 95.3 kg (210 lb) Height: 1.676 m (5' 6) Physical Exam Constitutional: General: She is not in acute distress. Appearance: Normal appearance. She is not toxic-appearing. HENT: Head: Normocephalic and atraumatic. Eyes: Comments: EOMs intact to tracking examiner in room Cardiovascular: Rate and Rhythm: Normal rate and regular rhythm. Heart sounds: Normal heart sounds. Pulmonary: Breath sounds: Normal breath sounds. Abdominal: General: Bowel sounds are normal. There is no distension. Palpations: Abdomen is soft. Tenderness: There is no abdominal tenderness. Musculoskeletal: General: Tenderness (per patient this is baselined) present. No swelling. Skin: General: Skin is warm and dry. Neurological: General: No focal deficit present. Mental Status: She is alert. Psychiatric: Mood and Affect: Mood normal. ASSESSMENT AND PLAN: 23 yo F with diagnosis of Von Willebrand Disease (most likely quantitative), Type 1. Previously seen at [facility]. Workup prompted by severe menorrhagia (with [...] to DDAVP at 2 hours at least. Versiti vWD diagnostic evaluation supportive of vWD type 1. Outside lab order: CBC, CMP, Iron studies + Ferritin May need to consider Stimate challenge in the past. RTC 1 year with PA. Pt will contact clinic for bleeding events, upcoming procedures/surgeries at least two week in advanced. . Pt utilizes Ondeego. Karen Schuler PA-C Hematology * Joshua Brown RN - 04/30/2024 11:30 AM EST Patient is here for follow -up visit with diagnosis of Von Willebrand Disease . Have you had any s/s of bleeding? (nosebleeds, gums when brushing or flossing, stool/urine): no . Reports easy bruising . Any planned procedures/dental work? : no Periods- duration, products #/hr, flow: Reports normal regular periods . Refills needed?: No * Shayy Newberry [facility] - 04/30/2024 11:30 AM EST Patient seen by pharmacist today in conjunction with multidisciplinary team. Pt w/ vWD type 1. Kinetics: Versiti vWD diagnostic evaluation suggests a diagnosis of vWD type 1. FVIII 62% (ref 71-193), vWF GPIbM activity 46% (ref 52-180), vWF Ag 53% (ref 50-188), vWF Collagen III Binding 39% (ref 50-203), vWF multimer analysis normal. Stimate Challenge? no Insurance: [facility] (current): Fills TXA at local [facility] Stimate from [facility] Bleeding Log 04/30/24 Treatment: TXA for prn use (rare use), Stimate for procedure Bleeding history: Menorrhagia - relatively controlled with IUD Bleeding in the last 3 months? none Admissions related to bleeding disorder since last visit: No IV DDAVP + TXA for wisdom teeth removal (responded well, denies side effects) Upcoming procedures? No Upcoming high bleed risk activities? No Refill needed? No - Lysteda remaining at home, Stimate Treatment adequate to control bleeding? yes Considerations [...] Specialty Pharmacy, unless desired. PLAN Continue TXA prn Problem list updated with current emergency plan Defer to PAIGE Armendariz note for full therapy plan. * ANAHY Oseguera - 04/30/2024 11:30 AM EST Worker met with pt for annual comprehensive clinic visit. Pt with Von Willebrand in attendance withher father Dhaval. 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 Wellness: enjoys outdoor activities Mental Health: discussed Scholarships: discussed Medical team considerations: None identified. SW Interventions/Recommendations SW reviewed the bleeding disorder chapter benefits, provided flyer for an upcoming event, and will follow up with the bleeding disorder chapter regarding her bracelet replacement. SW will continue to remain available to provide assistance and support as needed. * Leeanne Gasca RN - 04/30/2024 11:30 AM EST Clinical Coordinator introduces self to patient and explains role and functioning of [facility]. Discussed with patient that [facility] requires a minimal 2 week notice for all non-emergent procedures including dental. Reviewed that anytime pt has a bleed/infuses factor [facility] requests to be notified. Pt states understanding Yellow emergency card updated. documented in this encounterGood [facility]itan [facility]02-24-2025 Instructions* Patient Instructions* Leeanne Gasca RN - 04/30/2024 11:30 AM EST Follow up in 1 year for an [facility] Comprehensive appointment with Karen on a Tuesday Outside lab order given for local labs [facility] ([facility]) Team: Providers: Dr. Demian Christensen; Alyson Torrez CNP; Karen Schuler PA-C Primary Clinic Nurse: Joshua Associate Clinic Nurse: Rosa Maria Clinical Nurse Coordinators: Danilo Aden Pharmacists: Chelsey Qiu and Esther Newberry Physical Therapist: Isatu Hahn Sebd Teacher: Kathy Upton Data/Research Coordinator: Nery Gramajo After Hours General Instructions Medication refills Please allow 1 week for all medication refills. You may request refills via Ondeego or by calling [phone]. Paperwork Please allow 2 weeks to complete all paperwork including but not limited to disability, FMLA, and insurance paperwork. Please clarify what to do once they are completed, including any fax numbers or addresses needed. [facility] is a secure way to get access to ask non-urgent questions and access your lab results online. For questions or concerns regarding Ondeego access or technical difficulties, please call [phone] or toll free at . Appointment's/ No show visits If you arrive late to your scheduled appointment, you may be asked to reschedule your visit. Pleasecall [phone] at least 24 hours in advance if you are not able to make it to your scheduled visit. If you have three no show visits within one year, you will be discharged from our practice. Patient Instructions: Von Willebrand Disease General Instructions Please download and use the Clip Interactive isabel to keep a log of bleeding episodes and treatment or Factor infusions. Bring the record to every visit with the buggy driver. Bleeding episode logs aid indiagnosis and treatment of Hemophilia. For non-emergent questions or issues during business hours please call the [facility] ([facility]) at [phone]. For any of the following, please notify the [facility] ([facility]) Nurses during normal business hours (M-F 8am-5pm) at [phone]; if after normal business hours, notify the Hematology triage line at [phone] and ask for the buggy driver ammunition officer: Any signs or symptoms of a bleeding episode: including prolonged bleeding after injury or surgery; joint or muscle pain; swelling; redness at site; oral or nose bleeding; heavy menstrual bleeding. Any time you use factor or think you may need to use factor. Serious bleeds require immediate physician assessment: For any of the following, please proceed to the emergency department (ED) for assessment and then notify the C at [phone]. Head trauma, concussion, eye injury, throat injury, blood in urine or stools, abdominal injury, groin bleed or injury, major trauma, car accident. Bleeding may occur spontaneously. Early treatment with Factor replacement will prevent complications. Emergency Department Locations and Instructions [facility] Emergency Department (Main [place]): [address] [address] Phone number: The [facility] Emergency Departments are currently unable to use/administer factor brought with you from home. The [facility] Emergency Department [facility]: [address] [place] [address] Phone number: The [facility] Emergency Departments are currently unable to use/administer factor brought with you from home. Surgeries and Procedures: A minimum notice of two weeks is required prior to all surgeries or procedures. Inability to notify the [facility] in this time frame could result in the need to postpone/reschedule yourupcoming surgery/procedure. Please notify the [facility] of ANY upcoming surgeries or procedures including dental and dermatological procedures. Pre-procedure and post-procedure treatment may be recommended. Completed recommendation letters will be provided to requesting provider s office approximately twoweeks prior to procedure date. If you have [...] this time frame could result in delays. The [facility] will be issuing travel letters to all patients at their comprehensive visits. If you did not receive one, please ask. Safety Measures: A medical alert is recommended [...] team prior to taking any of these medications documented in this encounterGood Samaritan Hospital02-19-2024 History of Present illness Narrative* Dexter Wong RN - 04/25/2023 10:00 AM EST Have you had any s/s of bleeding? [...] patient has not heard from them yet. * Chelsey Qiu [facility] - 04/25/2023 10:00 AM EST Patient seen by pharmacist today in conjunction with multidisciplinary team. Pt w/ vWD. Stimate Challenge? no Insurance: [facility] (current): Fills TXA at local [facility] Bleeding Log 04/25/23 Treatment: Has TXA for prn use, not using Bleeding history: Menorrhagia- relatively controlled with IUD Bleeding in the last 3 months? none Admissions related to bleeding disorder since last visit: No Upcoming procedures? Yes- wisdom teeth removal. Planning to do here as [place] will not allow with.Hasn't been able to schedule yet Upcoming high [...] PAIGE Armendariz note for full therapy plan. * Keiko Rdz RN - 04/25/2023 10:00 AM EST Clinical Coordinator introduces self to patient and [...] hears back she will contact pt via Mapado. Pt agreeable to this. * JOLIE Tapia - 04/25/2023 10:00 AM EST Hematology Clinic Hemostasis and Thrombosis DISEASE HISTORY: R/O Bleeding diathesis. 22 yo F with diagnosis of Von Willebrand Disease (most likely quantitative)presenting in clinic to establish care. -History: Menorrhagia [...] Ag 61% (ref 50-180), Risto 71% (ref 40- 200), normal multimer analysis, normal PFA INTERVAL HISTORY: Pt was last seen in clinic 04/2022. Presents with father at today's appointment. Pt last had IUD replaced in summer 2021. States periods are monthly, last 5 days and are not heavy,changing tampon 4-5 hours, not soaked. However recently [...] still has not heard from [facility]. Twilight teeth are starting to come in and [...] by mouth every 12 hours. (Patient not taking:Reported on 04/26/2022) methylphenidate ER 20 MG tablet [...] likely quantitative), Type 1. Previously seen at [facility]. Workup prompted by severe menorrhagia (with [...] vitamin D supplement. Will message pt via Ondeego TXA PRN for minor bleeds New referral to Dentistry Encouraged pt to reach out to OBGYN about spotting in between periods. Case was briefly discussed with attending Dr. Rocha. RTC 1 year with KAYLEE. Pt will contact clinic for bleeding events, upcoming procedures/surgeries. Pt utilizes Ondeego. Karen Schuler PA-C Hematology documented in this encounterOSU [facility] Instructions* Patient Instructions* Leeanne Gasca RN - 04/25/2023 10:00 AM EST AVLs Referral to Dentistry for wisdom teeth extraction Please call and schedule dental appointment: [phone] RTC 1 year with KAYLEE Ragsdale Tuesday [facility] Your Team: Providers: Dr. Demian Christensen, Alyson Torrez, NAMAN, and Karen Schuler PA-C Primary Clinic Nurse: Raquel Associate Clinic Nurse: Dexter Clinical Coordinators: Kevin GODFREY Pharmacists: Peterson Barbosa Physical Therapist: Isatu Sebd Teacher: Kathy Research Coordinator: Nery After Hours Medication refills Please allow 1 week for all medication refills. You may request refills via Ondeego or by calling [phone]. Paperwork Please allow 2 weeks to complete all paperwork including but not limited to disability, FMLA, and insurance paperwork. Please clarify what to do once they are completed, including any fax numbers or addresses needed. [facility] is a secure way to get access to ask non urgent questions and access your lab results online. For questions or concerns regarding Ondeego access or technical difficulties, please call [phone] or toll free at . Appointment's/ No show visits If you arrive late to your scheduled appointment, you may be asked to reschedule your visit. Pleasecall [phone] at least 24 hours in advance if you are not able to make it to your scheduled visit. If you have three no show visits within one year, you will be discharged from our practice. Hemophilia Patient Instructions Please download and use the Clip Interactive isabel to keep a log of bleeding episodes and treatment or Factor infusions. Bring the record to every visit with the buggy driver. Bleeding episode logs aid indiagnosis and treatment of Hemophilia. For non-emergent questions or issues during business hours please call the [facility] ([facility]) at [phone]. For any of the following, please notify the [facility] ([facility]) Nurses at [phone] during normal business hours, or after hours the Hematology triage line at [phone]. Any signs or symptoms of a bleeding [...] (ED) for assessment and then notify the [facility] at [phone]. Head trauma, concussion, eye injury, throat injury, blood in urine or stools, abdominal injury, groin bleed or injury, major trauma, car accident. Bleeding may occur spontaneously. Early treatment with Factor replacement will prevent complications. Emergency Department Locations and Instructions [facility] Emergency Department ([place]): [address] [place] [address] Phone number: The [facility] are currently unable to use/administer factor brought with you from home. The [facility] Emergency Department [facility]: [address] [place] [address] Phone number: The [facility] are currently unable to use/administer factor brought with you from home. Surgeries and Procedures: A minimum notice of two weeks is required prior to all surgeries or procedures. Inability to notify the [facility] in this time frame could result in the need to postpone/reschedule yourupcoming surgery/procedure. Please notify the [facility] of ANY upcoming surgeries or procedures including dental procedures. Pre procedure and post procedure treatment may be recommended. Completed recommendation letters will be provided to requesting provider's office approximately twoweeks prior to procedure date. If you have [...] all travel letters. Inability to notify the [facility] [...] bleed, severity and location of bleed, and othersymptoms experienced A record of all medication administrations, including date and time given, medication name, expiration date, lot number, amount used, and reason for use (prophylaxis, pre-surgery, bleed management) If a bleeding log is kept on paper, please bring these to your annual visit with the treatment team Options for phone/computer applications to keep bleeding logs include [employer]ear and Clip Interactive. Ask your treatment team for more information documented in this encounterGood Samaritan [facility]02-20-2023 History of Present illness Narrative* Karen Schuler PA-C - 04/26/2022 1:30 PM EST Hematology Clinic Hemostasis and Thrombosis ID: 20 yo F with diagnosis of Von Willebrand Disease (most likely quantitative) presenting in clinic to establish care. DISEASE HISTORY: 1. R/O Bleeding diathesis -History: Menorrhagia (2017) -Blood Type: O+ -IS-BAT: 7 (04/2021) -Bleeding history: *Epistaxis (+), until [...] (2015) --> No bleeding -Left knee arthroscopy (2018) --> No bleeing (intranasal [...] *Intranasal DDVAP challenge: 2017: 2 H --> Ralvqyn=616, Ghmvuipi=282, GTFAS=488 2. Anixery/ADHD INTERVAL HISTORY: Pt is doing well overall. Had IUD placed last summer where she was given pre IV DDAVP and post TXA,and tolerated it well. Menses currently last 4-5 days, with one heavy day where she has to change super tampon every 1.5h, does not need to change overnight. Pt reports she will be having an at home sleep study 05/03 to evaluate for possible ELIZA. Pt is likely going to need wisdom teeth extraction. States her oral surgeon in [place] recommends that she comes to [facility] for [...] by mouth every 12 hours. (Patient not taking:Reported on 04/26/2022) methylphenidate ER 20 MG tablet [...] kg (277 lb) Height: 1.676 m (5' 6) Physical Exam Constitutional: General: She is not [...] likely quantitative), Type 1. Previously seen at [facility]. Workup prompted by severe menorrhagia (with [...] have pt repeat labs in 3-4 months. Labsordered as OSH, will have pt obtain locally. Continue to use TXA prn Can continue to use Tylenol for pain control For upcoming wisdom teeth extraction likely will do IV DDAVP pre and oral TXA post op for 3-5 days.Given local oral surgeon not comfortable with pt getting IV DDAVP, will make referral to [facility]. Will repeat Stimate/DDAVP challenge for evaluation of response at 4 hours. RTC 1 year. Pt will contact clinic for bleeding events, upcoming procedures/surgeries. Pt will try to activate her MyChart. Karen Schuler PA-C Hematology * Leeanne Gasca RN - 04/26/2022 1:30 PM EST Have you had any s/s of bleeding? (nosebleeds, gums when brushing or flossing, stool/urine): Nose ring too long, increased nose bleeds recently Any planned procedures/dental work? 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 Patient uses super tampon and pad, changes every 1.5 hours on 1 heavy day of period. Took lysteda in August after IUD placement Refills needed?: No * ANAHY Oseguera - 04/26/2022 1:30 PM EST Worker met with pt for annual comprehensive clinic visit. She was in attendance with her significant other. 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 She denied any financial concerns at this time. Worker discussed bleeding disorder chapter new benefits and enrolled pt in their membership to [employer] mailing list.Pt was actively wearing her MedicAlert and requires a membership renewal. Workernoted her ID number and will have the chapter cover her renewal. No additional needs reported at this time. documented in this encounterGood Samaritan Hospital02-20-2023 Instructions* Patient Instructions* Arabella Mcclellan RN - 04/26/2022 1:30 PM EST RTO 1 year Tuesday morning AV LABS Provider: Kraen Schuler PA-C Primary Nurse: Arabella Associate Nurse: Raquel IMPORTANT: SURGICAL CLEARANCE: We MUST receive 2 WEEKS notice prior to any dental procedures, births, surgeries, and other procedures for Hematology clearance from our office. If you have not been seen by our office in over a yearwe cannot legally provide clearance. Failure to provide sufficient notice of at least two weeks prior may result in your surgery or procedure being delayed. Don't wait, communicate! Call [phone] let our office know about what the procedure is for and where to send the clearance to as soon as you are aware. Thank you. Medication refills Please allow 1 week for all medication refills. You may request refills via Ondeego or by calling [phone]. Paperwork Please allow 2 weeks to complete disability, FMLA, and insurance paperwork. Please clarify what to do once they are completed, including any fax numbers or addresses needed. [facility] is a secure way to get access to your labs online. Once you're online, you may need to send a message to the office to release results so that you can review the results of your blood tests. For non-emergent concerns, please send us a Ondeego message but describe your issue fully. As an example, tell us how long you've had the symptom, what makes it better or worse, what you've done for it already) and one of our nurses or nurse practitioners will respond emeka. For questions or concerns regarding Ondeego access or technical dificulties, please call [phone] or toll free at . Appointment's/ No show visits If you arrive late to your scheduled appointment, you may be asked to reschedule your visit. Pleasecall [phone] at least 24 hours in advance if you are not able to make it to your scheduled visit. If you have three no show visit's within one year, you will be discharged from our practice. documented in this encounterU [facility]* Diagnosis Onset Date Resolution Status Acute right otitis media acu te Abnormal uterine bleeding (AUB) acute Menorrhagia with irregular cycle acute Von Willebrand disease acute Abdominal pain acute Chronic diarrhea [facility] Work Phone: Evaluation note* Diagnosis Onset Date Resolution Status Acute right otitis media acu te Abnormal uterine bleeding (AUB) acute Menorrhagia with irregular cycle acute Von Willebrand disease acute Abdominal pain acute Chronic diarrhea chronic Menorrhagia with irregular cycle acute Von Willebrand disease [facility] Work Phone: Evaluation note* Diagnosis Onset Date Resolution Status Abnormal uterine bleeding (AUB) acute Menorrhagia with irregular cycle acute Von Willebrand disease acute Abdominal pain acute Chronic diarrhea chronic Menorrhagia with irregular cycle acute Von Willebrand disease [facility] Work Phone: Evaluation note* Diagnosis Onset Date Resolution Status Menorrhagia with irregular cycle acute Von Willebrand disease acute Abdominal pain acute Chronic diarrhea chronic Menorrhagia with irregular cycle acute Von Willebrand disease acute Crohn's disease acute Infected abrasion of skin of left upper arm acute [facility] Work Phone: Evaluation note* Diagnosis Onset Date Resolution Status Menorrhagia with irregular cycle acute Von Willebrand disease acute Crohn's disease acute Infected abrasion of skin of left upper arm acute IUD check up acute Crohn's disease [facility] Work Phone: Evaluation note* Diagnosis Von Willebrand disease- [facility]'s [facility] Diagnosis Onset Date Resolution Status Acute pharyngitis acute Acute bronchitis, unspecified acute Contact with or suspected ex posure to other viral communicable disease [facility] Work Phone: Evaluation note* Diagnosis Onset Date Resolution Status Crohn's disease [facility] Work Phone: Evaluation note* Diagnosis Von Willebrand disease- Primary [facility]illebrand's disease [facility] Diagnosis Onset Date Resolution Status Crohn's disease chronic Abnormal uterine bleeding (AUB) acute Pelvic pain [facility] Work Phone: Evaluation note* Diagnosis Von Willebrand disease, type I- Primary Von W[facility]brand's disease [facility] Additional Instructions COVID-negative. Electrolytes normal. Continue fluids for hydration. Continue medications by GI. Follow-up with GI.[facility] Work Phone: Reason for referral (narrative)No reason for referral information availableWM[facility] Work Phone: Summary Purpose Family History No Family History Records FoundNo Family History Records FoundNo Family History Records Found Advance Directives No Advanced Directives Records Found Advance Directive Response Recorded Date/ Time Living Will No June 08, 2021 11:48am Power of Coupon Clerk No June 08 11:48am Advance Directive Response Recorded Date/ Time Living Will No September 24, 2021 10:30am Power of Coupon Clerk No September 24 10:30am Advance Directive Response Recorded Date/ Time Living Will No September 24, 2021 10:16am Power of Coupon Clerk No September 24 10:16am Advance Directive Response Recorded Date/ Time Living Will No December 24 8:24am Power of Coupon Clerk No December 24, 2021 8:24am Advance Directive Response Recorded Date/ Time Living Will No December 24 7:24am Power of Coupon Clerk No December 24, 2021 7:24am Chief Complaint and Reason for Visit Chief Complaint EAR INFECTION heavy bleeding with Nexplanon, possible removal chronic diarrhea INT LABS ABD PAIN Reason for Visit Acute right otitis m edia Abnormal uterine bleeding (AUB) Menorrhagia with irregular cycle Von Willebrand disease Abdominal pain Chronic diarrhea Chief Complaint EAR INFECTION heavy bleeding with Nexplanon, possible removal chronic diarrhea INT LABS ABD PAIN ABNORMAL UTERINE AND VAGINAL BLEEDING Reason for Visit Acute right otitis m edia Abnormal uterine bleeding (AUB) Menorrhagia with irregular cycle Von Willebrand disease Abdominal pain Chronic diarrhea Chief Complaint EAR INFECTION heavy bleeding with Nexplanon, possible removal chronic diarrhea INT LABS ABD PAIN ABNORMAL UTERINE AND VAGINAL BLEEDING PELVIC EXAM UNDER ANES, IUD INSERT PELVIC EXAM UNDER ANES, IUD INSERT Reason for Visit Acute right otitis m edia Abnormal uterine bleeding (AUB) Menorrhagia with irregular cycle Von Willebrand disease Abdominal pain Chronic diarrhea Menorrhagia with irregular cycle Von Willebrand disease Chief Complaint heavy bleeding with Nexplanon, possible removal chronic diarrhea INT LABS ABD PAIN ABNORMAL UTERINE AND VAGINAL BLEEDING PELVIC EXAM UNDER ANES, IUD INSERT PELVIC EXAM UNDER ANES, IUD INSERT Reason for Visit Abnormal uterine ble eding (AUB) Menorrhagia with irregular cycle Von Willebrand disease Abdominal pain Chronic diarrhea Menorrhagia with irregular cycle Von Willebrand disease Chief Complaint heavy bleeding with Nexplanon, possible removal chronic diarrhea INT LABS ABD PAIN ABNORMAL UTERINE AND VAGINAL BLEEDING PELVIC EXAM UNDER ANES, IUD INSERT PELVIC EXAM UNDER ANES, IUD INSERT 6 WK FU E-ORDER E-ORDER CONCERN FOR INFECTION L ARM Reason for Visit Menorrhagia with irr egular cycle Von Willebrand disease Abdominal pain Chronic diarrhea Menorrhagia with irregular cycle Von Willebrand disease Crohn's disease Infected abrasion of skin of left upper arm Chief Complaint INT LABS ABD PAIN ABNORMAL UTERINE AND VAGINAL BLEEDING PELVIC EXAM UNDER ANES, IUD INSERT PELVIC EXAM UNDER ANES, IUD INSERT 6 WK FU E-ORDER E-ORDER CONCERN FOR INFECTION L ARM PEUA, IUD insert, possible D&C 6 W FU Injection dehydration Reason for Visit Menorrhagia with irr egular cycle Von Willebrand disease Crohn's disease Infected abrasion of skin of left upper arm IUD check up Crohn's disease Chief Complaint SORE THROAT, COUGH USTEKINUMAB Cough SNORING Reason for Visit Acute pharyngitis Acute bronchitis, unspecified Contact with or suspected exposure to other viral communicable disease Chief Complaint FU E-ORDER Reason for Visit Crohn's disease Chief Complaint 5 MO FU Cramping/Abnormal Vaginal Bleeding IUD CHECK Reason for Visit Crohn's disease Abnormal uterine bleeding (AUB) Pelvic pain Chief Complaint Admit Date BLOOD IN STOOL*REFUSED TO GO TO ER* Danilo aaron 2024 7:57am E[facility]ERS June 01, 2024 8:2 8am Reason for Visit Admit Date Proctalgia fugax June 01, 2024 7:5 7am Chronic diarrhea June 01, 2024 7:5 7am Crohn's disease June 01, 2024 7:5 7am Chief Complaint Admit Date BLOOD IN STOOL*REFUSED TO GO TO ER* Danilo aaron 2024 7:57am E[facility] June 01, 2024 8:2 8am CROHN'S DISEASE July 17, 2024 12:04 pm Reason for Referral Specialty Diagnoses / Procedures Referred By Dea thomas Referred To Contact Dentistry Diagnoses Von Willebrand disease Karen Schuler [address] [employer] [address] [address] Referral ID Status Reason Start Date Expiration Date V isits Requested Visits Authorized [id number] New Request 04/26/2022 05/21/2023 1 1 Scheduling Instructions [place] [place] [facility] Locations: [facility] [address] [address] [facility] [place] [address] [place] [address], [place] [address] [facility] [address], [address] [place] [address] Specialty Diagnoses / Procedures Referred By Dea thomas Referred To Contact Dentistry Diagnoses Von Willebrand disease Karen Schuler, PAC [address] [address] Referral ID Status Reason Start Date Expiration Date V isits Requested Visits Authorized [id number] New Request 04/25/2023 05/19/2024 1 1 Additional Source Comments INFORMATION SOURCE (unrecogn ized section and content) DATE CREATED AUTHOR 10/10/2020 [facility] DATE CREATED AUTHOR AUTHOR'S ORGANIZ ATION 05/01/2024 [facility] DATE CREATED AUTHOR AUTHOR'S ORGANIZ ATION 08/11/2024 [facility] Goals (unrecognized section and content) Goals may be documented in a n alternate sectionGoals may be documented in an alternate sectionGoals may be documented in an alternate sectionGoals may be documented in an alternate sectionGoals may be documented in an alternate sectionGoals may be documented in an alternate sectionGoals may be documented in an alternate sectionGoals may be documented in an alternate sectionGoals may be documented in an alternate section Reason for Visit (unrecogniz ed section and content) Reason Comments Follow-up Von Willebrand disea se Specialty Diagnoses / Procedures Referred By Dea thomas Referred To Contact Hematology Diagnoses New patient Procedures NEW BENIGN HEMATOLOGY Self, Self Demian Liu MD [address] [address] Referral ID Status Reason Start Date Expiration Date Visits Re quested Visits Authorized [id number] Closed 04/23/2021 05/18/2022 1 1 Reason Comments Follow-up [facility] Referral ID Status Reason Start Date Expiration Date V isits Requested Visits Authorized [id number] Pending Review 04/23/2021 05/18/2022 1 1 Reason Comments Follow-up Von Willebrand disea se. Care Teams (unrecognized sec tion and content) Industrial Tractor Driver Relationship Specialty Start Date End Date Kathy Israel DO [address] [place] [address] [place] [address] PCP - General Family Medicine 04/23/21 Team Status: Active Member Role Status Dates Dr. Betzaida Kessler MD Family Provider Active Kathy Israel Primary Care Provider Active Team Status: Inactive Member Role Status Dates Dr. Kathy Israel DO Primary Care Provider, Referrin g Provider Active Polo Abdullahi PA, PA Attending Provider Active Team Status: Inactive Member Role Status Dates Kathy Israel Primary Care Provider, Referring Provide r Active Maurice PAGE, PA Attending Provider Active Team Status: Inactive Member Role Status Dates Kathy Israel Primary Care Provider Active Dr. Kathy Israel DO Attending Provider, Referring P rovider Active Team Status: Inactive Member Role Status Dates Kathy Chun Primary Care Provider Active Emily Cast COMMUNITY HEALTH PLANNING DIRECTOR, COMMUNITY HEALTH PLANNING DIRECTOR-C Attending Provider, Referrin g Provider Active Team Status: Active Member Role Status Dates Dr. Betzaida Kessler MD Family Provider Active Kathy KAUR Primary Care Provider Active Team Status: Inactive Member Role Status Dates Kathy KAUR Primary Care Provider, Referring Pro vider Active Dr. Samir Diaz DO Attending Provider Active Team Status: Inactive Member Role Status Dates Kathy KAUR Primary Care Provider Active Dr. Samir Diaz DO Attending Provider, Referring Provider Active Industrial Tractor Driver Relationship Specialty Start Date End Date Kathy Israel DO [address] [place] [address] [place] [address] PCP - General Family Medicine 04/23/21 Team Status: Active Member Role Status Dates Dr. Betzaida Kessler MD Family Provider Active Dr. Kathy Israel DO Primary Care Provider Active Team Status: Inactive Member Role Status Dates Dr. Kathy Israel DO Primary Care Provider, Referrin g Provider Active Isabel Mcclellan COMMUNITY HEALTH PLANNING DIRECTOR, COMMUNITY HEALTH PLANNING DIRECTOR-C Attending Provider Active Team Status: Active Member Role Status Dates Dr. Kathy Israel DO Primary Care Provider Active Isabel Mcclellan COMMUNITY HEALTH PLANNING DIRECTOR, COMMUNITY HEALTH PLANNING DIRECTOR-C Attending Provider, Referring Provider Active Team Status: Inactive Member Role Status Dates Dr. Kathy Israel DO Primary Care Provider Active Isabel Mcclellan COMMUNITY HEALTH PLANNING DIRECTOR, COMMUNITY HEALTH PLANNING DIRECTOR-C Attending Provider, Referring Provider Active Industrial Tractor Driver Relationship Specialty Start Date End Date Kathy Israel DO [address] [place] [address] [place] [id number] PCP - General Family Medicine 04/23/21 Team Status: Active Member Role Status Dates Dr. Kathy Israel DO Primary Care Provider Active Team Status: Inactive Member Role Status Dates Dr. Kathy Israel DO Primary Care Provider Active Start: June 01, 2024 End: June 01, 2024 Dr. Kathy Israel DO Referring Provider Active Start: June 01, 2024 End: June 01, 2024 Dr. Samir Diaz DO Attending Provider Active Start: June 01, 2024 End: June 01, 2024 Team Status: Inactive Member Role Status Dates Dr. Kathy Israel DO Primary Care Provider Active Start: June 01, 2024 End: June 01, 2024 Dr. Samir Diaz DO Attending Provider Active Start: June 01, 2024 End: June 01, 2024 Dr. Samir Daiz DO Referring Provider Active Start: June 01, 2024 End: June 01, 2024 Team Status: Inactive Member Role Status Dates Dr. Kathy Israel DO Primary Care Provider Active Start: July 17, 2024 End: July 17, 2024 Dr. Samir Diaz DO Attending Provider Active Start: July 17, 2024 End: July 17, 2024 Dr. Samir Diaz DO Referring Provider Active Start: July 17, 2024 End: July 17, 2024 FOR RECORDS PERTAINING TO PATIENTS WHO ARE [...] BE BASED ON THE PRIMARY CLINICAL RECORDS. [employer] provides no warranty or guarantee of the accuracy or completeness of information in this document.
== END | disposition home or self-care (01) ==
LOC: NM 12:45
PROVIDERS: PCP Family Medicine; Referring Provider Internal Medicine Gastroenterology; Visit Provider Internal Medicine Gastroenterology
DX: K80.20 Calculus of gallbladder without cholecystitis without obstruction (principal)
CPT/HCPCS: 78227; A9537; J2805

== ENCOUNTER 2024-09-27 14:56 | Emergency (ER) | payer BC, SELFPAY ==
[2024-09-27 14:57] VITALS: BP 152/95; PULSE 86; RESP 18; TEMP 37; O2SAT 98; BMI 42.5
--- NOTE | 2024-09-27 15:20 | EX.ED.DYSGE1 ---
HPI <KAYLEE Mccarthy - Last Filed: 09/27/24 18:27> History of Present Illness Chief Complaint: Abd Pain Narrative Narrative: 23-year-old female with Crohn's disease on Stelara and remission presents with right upper quadrant abdominal pain and bilateral back pain. Around 10:30 AM she ate [employer] meatball sandwich and then went back to work and developed the pain. It started gradually and feels like it is under her right rib cage and in both mid to lower back regions. She has nausea but no vomiting. She was at work and did not have any pain medication to take. She states with her Crohn's she has anywhere from 1-4 bowel movements daily and they have seemed soft and normal. She went this morning. No blood or mucus. No urinary symptoms. No abdominal surgical history. She is on the second day of her menstrual cycle. PFSH <KAYLEE Mccarthy - Last Filed: 09/27/24 18:27> [facility] Medical History Crohn's disease Marijuana use Rash Restless legs Smoker Depression Abnormal uterine bleeding (AUB) Von Willebrand disease Asthma Knee pain Home Medications Medication Instructions Recorded Last Taken Type levonorgestrel (Mirena) 1 device intrauterine ONCE 10/23/21 Unknown History buspirone 15 mg tablet 15 mg PO BID 08/15/23 Unknown History ondansetron HCl 8 mg tablet 8 mg PO Q8H PRN nausea and 01/20/24 Unknown Rx vomiting #60 tabs ustekinumab 90 mg/mL subcutaneous 90 mg subcut Q8W #1 mL 05/29/24 Unknown Rx syringe (Stelara) venlafaxine 75 mg capsule,extended 75 mg PO DAILY 07/17/24 Unknown History release 24 hr ondansetron HCl 4 mg tablet 4 mg PO Q8H PRN nausea and 09/27/24 Unknown Rx vomiting #12 tabs Allergy/AdvReac Type Severity Reaction Status Date / Time nickel Allergy Hives Verified 09/27/24 14:58 amphetamine (From Adderall) AdvReac Diarrhea Verified 09/27/24 14:58 dextroamphetamine (From AdvReac Diarrhea Verified 09/27/24 14:58 Adderall) NSAIDS (Non-Steroidal AdvReac BLEEDING Verified 09/27/24 14:58 Anti-Inflamma Family History no significant family his Surgical History S/P D&C (status post dilation and curettage) History of endoscopy Hx of colonoscopy H/O knee surgery Social History pets and animals: Yes sexually active: No Smoking Status: Current every day smoker tobacco type: e-cigarettes alcohol intake: never substance use type: marijuana seatbelt use: always ROS <KAYLEE Mccarthy - Last Filed: 09/27/24 18:27> ROS ED ROS Narrative Constitutional: Negative for fever, chills, malaise. CVS: Negative for chest pain. Respiratory: Negative for shortness of breath, cough. GI: Positive for abdominal pain, nausea, vomiting. Negative for constipation, melena, hematochezia. : Negative for dysuria, hematuria or frequency. EXAM <KAYLEE Mccarthy - Last Filed: 09/27/24 18:27> Physical Exam Narrative Exam Narrative: CONST: Patient sitting in no acute distress. EYES: Normal inspection. ENT: Normal inspection, moist mucous membranes. NECK: Normal inspection. RESP: No respiratory distress, CTAB. CVS: Regular rate and rhythm, no murmur, no gallop. ABD: Soft with right upper quadrant tenderness, no guarding or rebound, nondistended, no hepatosplenomegaly. Back: Normal inspection, no CVA tenderness. SKIN: Color normal, no rash, warm, dry, intact. EXTREMITIES: Normal appearance, no pedal edema. NEURO: Alert and answering questions appropriately. PSYCH: Normal affect. Const Vital Signs: 09/27/24 14:57 09/27/24 17:36 Temperature 98.6 F 98.6 F Temperature Source Oral Pulse Rate 86 86 Respiratory Rate 18 18 Blood Pressure 152/95 H 152/95 H Blood Pressure Mean 114 114 Pulse Ox 98 98 Oxygen Delivery Method Room Air <Alan Lopez MD - Last Filed: 09/27/24 18:44> Physical Exam Const Vital Signs: 09/27/24 14:57 09/27/24 17:36 Temperature 98.6 F 98.6 F Temperature Source Oral Pulse Rate 86 86 Respiratory Rate 18 18 Blood Pressure 152/95 H 152/95 H Blood Pressure Mean 114 114 Pulse Ox 98 98 Oxygen Delivery Method Room Air [facility] <KAYLEE Mccarthy - Last Filed: 09/27/24 18:27> [facility] Narrative Medical decision making narrative: Differential includes but not limited to biliary colic, cholecystitis, choledocholithiasis, pancreatitis, GERD, PUD 23-year-old female has RUQ abdominal tenderness that started after eating a meatball sandwich. Pain also radiates to both flanks with associated nausea. She appears uncomfortable but nontoxic. Vital stable. Normal cardiopulmonary exam. She is tender in the RUQ. She is slightly grimaced may have a positive Zhou sign. Gallbladder ultrasound shows gallstones with sludge but no signs of cholecystitis. Her CBC, CMP, and lipase are all normal. is negative. UA negative. Her pain resolved after morphine and Zofran (she cannot have NSAIDs due to von Willebrand's disease). I think she had biliary colic but does not have signs of acute infection so does not require admission. After I relayed these findings she states that she had an MRI of her abdomen to monitor her Crohn's which showed gallstones recently seen Dr. Diaz did a HIDA scan which was normal. It looks like this was done in August. I referred her to general surgery to discuss an elective cholecystectomy and discussed dietary changes and return precautions. She will take Tylenol as needed and I prescribed Zofran. She was discharged in stable condition. Lab Data Labs: Laboratory Results - last 24 hr 09/27/24 09/27/24 15:22 16:15 WBC 9.0 RBC 4.64 Hgb 13.6 Hct 38.6 MCV 83.2 MCH 29.3 MCHC 35.2 RDW Std Deviation 36.3 RDW Coeff of Samantha 12.0 Plt Count 378 MPV 8.9 Immature Gran % (Auto) 0.400 Neut % (Auto) 66.6 Lymph % (Auto) 23.6 [place] % (Auto) 7.3 Eos % (Auto) 1.7 Baso % (Auto) 0.4 Absolute Neuts (auto) 6.0 Absolute Lymphs (auto) 2.12 Nucleated RBC % 0 Sodium 140 Potassium 4.1 Chloride 106 Carbon Dioxide 23.6 Anion Gap 11 BUN 15 Creatinine 0.81 Estim Creat Clear Calc 138.49 Est GFR (MDRD) Non-Af 105 BUN/Creatinine Ratio 19.0 Glucose 82 Calcium 9.7 Total Bilirubin 0.28 AST 18 ALT 20 Alkaline Phosphatase 76 Total Protein 7.0 Albumin 4.2 Globulin 2.7 Albumin/Globulin Ratio 1.6 Lipase 36 Serum , Qual NEGATIVE Urine Color Yellow Urine Clarity Sl. Cloudy Urine pH 7.0 Ur Specific [place] 1.015 Urine Protein Negative Urine Glucose (UA) Normal Urine Ketones Negative Urine Occult Blood 50 H Urine Nitrite Negative Urine Bilirubin Negative Urine Urobilinogen Normal Ur Leukocyte Esterase Negative Urine RBC 0-5 SEEN Urine WBC 0-5 SEEN Ur Squamous Epith Cells 0-5 SEEN Amorphous Sediment 2+ Urine Bacteria 1+ Urine Mucus 0 SEEN Radiography Diagnostic Testing: Clinical Impression(s) from Imaging Studies Gallbladder Ultrasound 09/27/24 15:30 IMPRESSION: Cholelithiasis and gallbladder sludge. No evidence of acute cholecystitis. Hepatomegaly with mild diffuse hepatic steatosis. No biliary ductal dilatation. Reading Location: [id number] <Alan Lopez MD - Last Filed: 09/27/24 18:44> [facility] Lab Data Labs: Laboratory Results - last 24 hr 09/27/24 09/27/24 15:22 16:15 WBC 9.0 RBC 4.64 Hgb 13.6 Hct 38.6 MCV 83.2 MCH 29.3 MCHC 35.2 RDW Std Deviation 36.3 RDW Coeff of Samantha 12.0 Plt Count 378 MPV 8.9 Immature Gran % (Auto) 0.400 Neut % (Auto) 66.6 Lymph % (Auto) 23.6 [place] % (Auto) 7.3 Eos % (Auto) 1.7 Baso % (Auto) 0.4 Absolute Neuts (auto) 6.0 Absolute Lymphs (auto) 2.12 Nucleated RBC % 0 Sodium 140 Potassium 4.1 Chloride 106 Carbon Dioxide 23.6 Anion Gap 11 BUN 15 Creatinine 0.81 Estim Creat Clear Calc 138.49 Est GFR (MDRD) Non-Af 105 BUN/Creatinine Ratio 19.0 Glucose 82 Calcium 9.7 Total Bilirubin 0.28 AST 18 ALT 20 Alkaline Phosphatase 76 Total Protein 7.0 Albumin 4.2 Globulin 2.7 Albumin/Globulin Ratio 1.6 Lipase 36 Serum , Qual NEGATIVE Urine Color Yellow Urine Clarity Sl. Cloudy Urine pH 7.0 Ur Specific [place] 1.015 Urine Protein Negative Urine Glucose (UA) Normal Urine Ketones Negative Urine Occult Blood 50 H Urine Nitrite Negative Urine Bilirubin Negative Urine Urobilinogen Normal Ur Leukocyte Esterase Negative Urine RBC 0-5 SEEN Urine WBC 0-5 SEEN Ur Squamous Epith Cells 0-5 SEEN Amorphous Sediment 2+ Urine Bacteria 1+ Urine Mucus 0 SEEN Radiography Diagnostic Testing: Clinical Impression(s) from Imaging Studies Gallbladder Ultrasound 09/27/24 15:30 IMPRESSION: Cholelithiasis and gallbladder sludge. No evidence of acute cholecystitis. Hepatomegaly with mild diffuse hepatic steatosis. No biliary ductal dilatation. Reading Location: [facility] Treatment and Re-Evaluation :: Dr. Lopez: I have personally performed a face to face assessment of the patient and have reviewed the DOUGIE Note. I performed a substantive portion of the visit including all aspects of the following. My hollins findings include: History is right upper quadrant abdominal pain after eating meatball sub-. History of Crohn. Exam is afebrile. Vital signs noted. Nontoxic-appearing. Cardiovascular examination regular rate and rhythm. Lungs clear to auscultation bilaterally. Abdomen is soft with mild tenderness to the right upper quadrant. No guarding or rebound. Positive bowel sounds. Medical Decision Making: Differential diagnosis includes but not limited to acute cholecystitis versus Crohn exacerbation versus pancreatitis. Check labs. Check ultrasound. Cholelithiasis with sludge but no evidence of acute cholecystitis. Laboratory work grossly unremarkable with normal WBC count. LFTs and lipase normal. Repeat examination by PA-CT shows improvement. Potion motivated for discharge. Follow-up general surgery. Discharge. Other additions or changes: [None] Discharge Plan Triage Chief Complaint: Abd Pain ED Midlevel Provider: Pamela Mendoza ED Provider: Alan Lopez Dx/Rx/DC Orders Clinical Impression: Biliary colic, Cholelithiasis Instructions: ED Gallstones with Biliary Colic Prescriptions: New ondansetron HCl 4 mg tablet 4 mg PO Q8H PRN (Reason: nausea and vomiting) Qty: 12 0RF No Action Mirena 20 mcg/24 hours (7 yrs) 52 mg intrauterine device 1 device intrauterine ONCE Rx Instructions: as a single dose buspirone 15 mg tablet 15 mg PO BID ondansetron HCl 8 mg tablet 8 mg PO Q8H PRN (Reason: nausea and vomiting) Qty: 60 2RF venlafaxine 75 mg capsule,extended release 24hr 75 mg PO DAILY Stelara 90 mg/mL syringe 90 mg subcut Q8W Qty: 1 6RF Rx Instructions: Approved 05.24.22-06.23.23 ID: [id number] Primary Care Provider: Daryl Mccollum Referrals: Coery Mahajan MD [Med Staff - Active Staff] - Daryl Mccollum DO [Primary Care Provider] - Activity Restrictions/Additional Instructions: Your ultrasound shows gallstones which are likely the source of your pain. Your gallbladder is not infected but you will likely need it surgically removed in the future. Call the general surgeon's office for an appointment. In the meantime avoid fried or fatty foods, take Tylenol or ibuprofen as needed for pain, or if you have severe pain please come back to the ER. Print Language: Latvian Disposition Disposition: Home, Self Care Discharge Date/Time: 09/27/24 17:37
--- NOTE | 2024-09-27 15:30 | US_ITS ---
PROCEDURE: GALLBLADDER 09/27/2024 REASON FOR EXAM: RUQ PAIN COMPARISON: Nuclear HIDA scan 08/17/2024. Abdominal MRI and CT 07/17/2024, 01/08/2024. FINDINGS: Liver: Enlarged measuring roughly 20 cm in length. Mild increased parenchymal echogenicity compatible with mild fatty infiltration. No discrete focal lesion is seen in the liver. Gallbladder: Cholelithiasis with a shadowing calculus at the gallbladder neck. Small amount of dependent echogenic sludge within the gallbladder. No wall thickening or pericholecystic fluid. No sonographic Zhou's sign was elicited by the ep technologist on this exam. Common bile duct: Within normal limits measuring up to 0.7 cm in diameter. Pancreas: Visualized portions of the pancreas appear normal. Other: Normal appearance of the right kidney. No upper abdominal ascites. US/Gallbladder IMPRESSION: Cholelithiasis and gallbladder sludge. No evidence of acute cholecystitis. Hepatomegaly with mild diffuse hepatic steatosis. No biliary ductal dilatation . Reading Location: [id number]
[2024-09-27 15:31] LABS: Hematocrit 38.6 % (37-47); Hemoglobin 13.6 g/dL (12.0-15.0); Immature Granulocytes Count 0.040 X10^3/uL (0.0-0.0); Mean Corp Hgb Conc 35.2 g/dL (32-36); Mean Corpuscular Volume 83.2 fL (81-99); Mean Platelet Vol. 8.9 fl (6.2-12.0); NRBC Flagged by Analyzer 0 % (0-5); Platelet Count 378 K/mm3 (150-450); RBC Distribution Width CV 12.0 % (11.6-14.6); RBC Distribution Width SD 36.3 fl (35.1-43.9); Red Blood Count 4.64 M/mm3 (4.2-5.4); White Blood Count 9.0 K/mm3 (4.4-11.0)
[2024-09-27 16:20] LABS: Mucous, Urine 0 SEEN /hpf (<or=2+)
[2024-09-27 16:26] LABS: Color, Urine Yellow (Yellow); Glucose, Dipstick Normal (Normal); Ketone-Dipstick Negative (Negative); Leukocyte Esterase-Dipstick Negative /ul (Negative); Nitrite-Dipstick Negative (Negative); Occult Blood-Urine 50 /ul (Negative); Protein-Dipstick Negative (Negative); Specific Gravity, Urine 1.015 (1.002-1.030); Urine Bilirubin Dipstick Negative (Negative)
[2024-09-27 16:32] LABS: Internal QC Validated? YES +Cl - CLEAR BKGD; Pregnancy, Serum, hCG Quali. NEGATIVE Negative; Record Kit Lot#, Serum Preg. 962302
[2024-09-27 16:56] LABS: AST(SGOT) 18 U/L (<=31); Alanine Aminotransfer ALT/SGPT 20 U/L (<=34); Albumin, Serum 4.2 g/dL (3.5-5.0); Alkaline Phosphatase 76 U/L (35-104); Anion Gap 11 (5-15); BUN 15 mg/dL (4-19); BUN/Creat Ratio 19.0 RATIO (10-20); Calcium,Total 9.7 mg/dL (7.6-11.0); Carbon Dioxide 23.6 mmol/L (21.0-32.0); Chloride 106 mmol/L (98-108); Estimated Creatinine Clearance 138.49 ml/min (50-250); Globulin 2.7 g/dL (2.2-4.2); Glucose 82 mg/dL (70-99); Lipase 36 U/L (13-75); Potassium 4.1 mmol/L (3.3-5.1)
[2024-09-27 17:17] LABS: Red Blood Cells-Urine 0-5 SEEN /hpf (0-5); Squamous Epithelial Cells - UA 0-5 SEEN /hpf (5-10)
[2024-09-27 17:36] VITALS: BP 152/95; PULSE 86; RESP 18; TEMP 37; O2SAT 98
== END 2024-09-27 17:37 | disposition home or self-care (01) ==
PROVIDERS: Physician Assistant; Emergency Provider Emergency Medicine; PCP Family Medicine; Referring Provider Emergency Medicine; Visit Provider Emergency Medicine
DX: K80.70 Calculus of gallbladder and bile duct without cholecystitis without obstruction (principal); K50.90 Crohn's disease, unspecified, without complications; F17.290 Nicotine dependence, other tobacco product, uncomplicated
CPT/HCPCS: 76705; 80053; 81001; 83690; 84703; 85025; 96374; 96375; 99283; A4216; J2405

== ENCOUNTER → 2024-10-19 | Outpatient (CLI) | payer BC, SELFPAY ==
--- NOTE | 2024-10-19 13:52 | RAD_ITS ---
PROCEDURE: FEMUR MIN 2 VIEWS 10/19/2024 REASON FOR EXAM: PAIN TECHNIQUE: Right femur four views COMPARISON: None FINDINGS: There is no fracture or dislocation identified mineralization is normal. Joint spaces are maintained. There is no soft tissue abnormality or radiopaque foreign body identified. There is no visible atherosclerosis. Mineralization is normal. RAD/Femur Min 2 Views IMPRESSION: No fracture or dislocation is identified. Reading Location: [facility]
--- NOTE | 2024-10-19 13:52 | RAD_ITS ---
EXAM: Right tibia and fibula two views CLINICAL HISTORY: Pain COMPARISON: None TECHNIQUE: Right tibia and fibula two views FINDINGS: There is no fracture or dislocation identified. The joint spaces are maintained. Mineralization is normal. There is no visible soft tissue abnormality or radiopaque foreign body. There is no visible atherosclerosis. RAD/Tibia & Fibula 2 Views IMPRESSION: No fracture or dislocation is identified. Reading Location: [facility]
--- NOTE | 2024-10-19 13:52 | RAD_ITS ---
PROCEDURE: FEMUR MIN 2 VIEWS 10/19/2024 REASON FOR EXAM: PAIN TECHNIQUE: Left femur four views COMPARISON: None FINDINGS: There is no fracture or dislocation identified. The joint spaces are maintained. An IUD is partly visible in the pelvis. Mineralization is normal. There is no visible atherosclerosis. RAD/Femur Min 2 Views IMPRESSION: No fracture or dislocation is identified. Reading Location: [facility]
--- NOTE | 2024-10-19 13:52 | RAD_ITS ---
EXAM: Tibia fibula x-ray. CLINICAL HISTORY: Chronic pain. COMPARISON: None. TECHNIQUE: Three views. FINDINGS: No evidence acute fracture or dislocation. The soft tissues are unremarkable. RAD/Tibia & Fibula 2 Views IMPRESSION: No acute osseous abnormalities. Reading Location: [id number]
== END | disposition home or self-care (01) ==
LOC: RAD 13:47
PROVIDERS: PCP Family Medicine; Referring Provider Family Medicine; Visit Provider Family Medicine
DX: M79.604 Pain in right leg (principal); M79.605 Pain in left leg
CPT/HCPCS: 73552; 73590

== ENCOUNTER 2024-11-07 10:10 | Day surgery (SDC) | payer BC, SELFPAY ==
[2024-11-07] VITALS (12 sets, daily range): BP systolic 101–132; BP diastolic 58–86; PULSE 78–94; RESP 12–20; TEMP 36–37.1; O2SAT 94–100; BMI 44.1
--- NOTE | 2024-11-07 10:28 | EKG12_ITS ---
Test Reason : PRE OP Blood Pressure : */* mmHG Vent. Rate : 84 BPM Atrial Rate : 84 BPM P-R Int : 186 ms QRS Dur : 84 ms QT Int : 362 ms P-R-T Axes : 31 26 9 degrees QTcB Int : 427 ms Normal sinus rhythm Normal ECG When compared with ECG of 02-Nov-2013 12:23, PREVIOUS ECG IS PRESENT Confirmed by SHAWN RIVERA, KIKO ([id number]), photo editor KRYSTEN BAILEY ([id number]) on 11/12/2024 8:57:23 AM Referred By: Corey Mahajan Confirmed By: KIKO ESCOBAR MD
[2024-11-07 10:32] LABS: Internal QC Validated? YES +Cl - CLEAR BKGD; Pregnancy, Urine Negative Negative
[2024-11-07 10:33] LABS: Record Kit Lot#,Urine Preg 947241
[2024-11-07] MEDS: Lactated Ringers 1,000 ML 15 ML IV (10:52)
[2024-11-07] MEDS: NORMAL SALINE 0.9% IV (10:53)
[2024-11-07] MEDS: TRANEXAMIC ACID 1,000 MG in 0.9% Normal Saline (100mL Bag) 100 ML 440 MG IV (10:53)
[2024-11-07] MEDS: DESMOPRESSIN ACETATE IV (10:53)
--- NOTE | 2024-11-07 11:00 | RAD_ITS ---
PROCEDURE: CHOLANGIOGRAM/ O R,INITIAL 11/07/2024 REASON FOR EXAM: LAP CLARITZA W/ IOC TECHNIQUE: Procedure Code: RADCHO Modality: DX Procedure: CHOLANGIOGRAM/ O R,INITIAL. Radiation dose: 8.6 seconds of fluoroscopy. 7.87 mGy. COMPARISON: None FINDINGS: An intraoperative cholangiogram was performed by the surgeon. Imaging was provided. The intra and extrahepatic biliary ducts are unremarkable. No filling defect is seen. There is free flow of contrast into the duodenum. RAD/Cholangiogram/ O R,Initial IMPRESSION: Unremarkable intraoperative cholangiogram. Reading Location: [place] [id number]
--- NOTE | 2024-11-07 11:03 | PCM.HP.BLA ---
History and Physical Date of Admission: 11/07/24 Intake Vital Signs 09/27/2513:57 10/10/2508:39 Height 5 ft 5 in 5 ft 5 in Weight: 259 lb BMI 43.1 BP 128/84 H Blood Pressure Location Rt brachial Position Sitting Respiration 17 Pulse 92 Pulse Source Monitor Pulse Oximetry (%) 100 Oxygen Delivery Method room air Intake Visit Reasons: ER F/U - GALLBLADDER Chief Complaint: er f/u gallbladder Is patient in pain?: No Allergies nickel Allergy (Verified 10/10/24 09:43) Hivesamphetamine (From Adderall) Adverse Reaction (Verified 10/10/24 09:43) Diarrheadextroamphetamine (From Adderall) Adverse Reaction (Verified 10/10/24 09:43) DiarrheaNSAIDS (Non-Steroidal Anti-Inflamma Adverse Reaction (Verified 10/10/24 09:43) BLEEDING Medications ?Medication ?Instructions ?Recorded ?Confirmed ?Type levonorgestrel (Mirena) 1 device intrauterine ONCE 10/23/21 10/10/24 History buspirone 15 mg tablet 15 mg PO BID 08/15/23 10/10/24 History ustekinumab 90 mg/mL subcutaneous 90 mg subcut Q8W #1 mL 05/29/24 10/10/24 Rx syringe (Stelara) venlafaxine 75 mg capsule,extended 75 mg PO DAILY 07/17/24 10/10/24 History release 24 hr ondansetron HCl 4 mg tablet 4 mg PO Q8H PRN nausea and 09/27/24 10/10/24 Rx vomiting #12 tabs PFSH Medical History Crohn's disease Marijuana use Rash Restless legs Smoker Depression Abnormal uterine bleeding (AUB) Von Willebrand disease Asthma Knee pain Surgical History S/P D&C (status post dilation and curettage) History of endoscopy Hx of colonoscopy H/O knee surgery Social History pets and animals: Yes sexually active: No Smoking Status: Current every day smoker tobacco type: e-cigarettes alcohol intake: never substance use type: marijuana seatbelt use: always HPI HPI HPI: Patient is a 23-year-old female here with right upper quadrant attacks. She has been having several attacks that started in her right upper quadrant radiate to the back. She says there is nausea but no vomiting. She says she has had 2 these attacks. They have brought her to the emergency room. ROS General General: Yes weight change and fatigue; No appetite, colon cancer, breast cancer or weakness HEENT HEENT: No difficulty swallowing, eye injury, eye surgery, swollen glands or hoarseness Endo Endocrine: No thyroid disease, diabetes mellitus, thyroid cancer, Hair loss, heat intolerance or cold intolerance Skin Skin: No rash or changing moles Musc Musculoskeletal: No back problems, arthritis, rheumatoid arthritis, gout or joint pain Cardio Cardiovascular: No murmur, pacemaker, heart disease, atrial fibrillation, high blood pressure, heart attack, heart stent, palpitations, shortness of breath with exertion or chest pain Psych Psychiatric: Yes depression and anxiety; No hearing voices Resp Respiratory: No shortness of breath, No sleep apnea, No cough, No COPD, No asthma, No emphysema and No wheezing Gastro Gastrointestinal: Yes abdominal pain, Yes nausea or vomiting, No diarrhea, Yes constipation, No blood in stool, Yes acid reflux, No hemorrhoids, No ulcers, Yes gallbladder problem and No black,tarry stools Michael Hematologic: No blood thinners, Yes blood disorders, No bleeding, No anemia and No blood clots Neuro Neurologic: No system reviewed and no additional complaints, except as documented, No as per HPI, No abnormal gait, No abnormal hearing, No abnormal movements, No abnormal speech, No behavioral changes, No burning sensations, No confusion, No convulsions, No disequilibrium, No dizziness, No localized weakness, No frequent falls, No headache(s), No lack of coordination, No loss of vision, No memory loss, No numbness, No other visual disturbances, No radicular pain, No restless legs, No sensory deficit, No syncope, No tingling, No tremor(s), No weakness and No other Exam Const General: cooperative Orientation: alert and oriented x3 HENMT Head: normal to inspection Neck Neck: normal visual inspection and full ROM Chest Chest palpation & inspection: normal inspection of the chest Resp Effort & Inspection: normal respiratory effort Auscultation: clear to auscultation bilaterally Cardio Rate: regular rate Rhythm: regular rhythm GI Inspection: non-distended Palpation: soft and nontender Skin General: no rashes or lesions noted Neuro General: patient alert and patient oriented x3 Extrem General: full ROM Psych Appearance: grossly normal Mental Status: mental status grossly normal Assessment and Plan Assessment and Plan (1) Gall stones: Status: Acute Plan: The patient had an ultrasound that showed a gallstone in the neck of the gallbladder. I recommended laparoscopic cholecystectomy to remove this. I discussed the procedure in detail with the patient. I discussed the risks, benefits, and alternatives of the procedure. I discussed the risks including but not limited to bleeding, infection, injury to surrounding organs such as the liver, bile duct, bowels. I did discuss the possibility of having to convert to an open procedure as well as the possibility that if any injuries occurred this may necessitate further surgery at a tertiary care center. Corey Mahajan MD Pager: [facility] [address] [place] [address], [address] [place] [address] Office: I have examined the patient and the H&P has been reviewed. There are no clinical changes since date of exam. Patient is getting her TXA infusion currently.
--- NOTE | 2024-11-07 11:06 | PCM.PRE.AN2 ---
ASA Classification* ASA Classification ASA Classification: 3 (vWD -- patient receiving desmopression and TXA preoperatively. Crohns, anxiety. LIMIT FLUIDS to 500 mL DURING PROCEDURE. ) Assessment & Plan Anesthesia* Anesthesia Assessment Anesthesia Assessment: Discussed sedation and/or anesthesia options, risks, benefits, and alternatives with patient/parents/legal guardian/POA. Questions invited. The patient/parents/legal guardian/POA seems to understand and agrees to proceed with anesthesia plan. Reviewed the physical assessment, medical history, allergy history and patient home medications list prior to surgery/procedure/anesthetic and documented any changes. Performed airway and anesthesia risk assessments. Anesthesia Type Anesthesia Type: General History Source History Obtained from:: Patient and Chart Anesthesia Focused Assessment* Temperature: 98.7 F Pulse Rate: 85 Blood Pressure: 132/86 Respiratory Rate: 16 Pulse Ox: 100 Oxygen Delivery Method: Room Air Airway Assessment Mouth opens: >3 cm Mallampati Score: III Neck Range of motion (ROM): Full ROM Labs Anesthesia Preop lab: CBC WBC 9.0 K/mm3 (4.4-11.0) 09/27/24 15:22 09/27/24 RBC 4.64 M/mm3 (4.2-5.4) 09/27/24 15:22 09/27/24 Hgb 13.6 g/dL (12.0-15.0) 09/27/24 15:22 09/27/24 Hct 38.6 % (37-47) 09/27/24 15:22 09/27/24 Plt Count 378 K/mm3 (150-450) 09/27/24 15:22 09/27/24 CHEMISTRY Potassium 4.1 mmol/L (3.3-5.1) 09/27/24 15:22 09/27/24 Sodium 140 mmol/L (133-145) 09/27/24 15:22 09/27/24 BUN 15 mg/dL (4-19) 09/27/24 15:22 09/27/24 Creatinine 0.81 mg/dL (0.70-1.20) 09/27/24 15:22 09/27/24 Glucose 82 mg/dL (70-99) 09/27/24 15:22 09/27/24 POC Glucose 76 mg/dL (70-110) 11/02/13 13:57 11/02/13 TSH 2.28 uIU/mL (0.358-3.74) 09/04/21 09:33 09/04/21 COAG PT Pending 11/07/24 10:46 11/07/24 Urine Test Negative Negative 11/07/24 10:20 11/07/24 Tst Clinic Negative 08/24/19 13:39 08/24/19 Pre-Assessment Diagnosis/Proposed Procedure Planned Operative Procedure(s): TALYA VICENTE WITH GRAMS Anesthesia History Anesthesia History - 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 When Was Last Pacemaker Check QUESTION #4 FULL TEXT: You/Your Family Experience fever (hyperthermia) with Anesthesia Last Oral Intake Last Oral intake: Last Oral Intake NPO since 20:00 11/07/24 10:46 Meds taken in AM with sips of Yes 11/07/24 10:46 water? Meds patient instructed to take am of surgery PONV PONV - strand and binder controller: PONV - strand and binder controller Female Yes 10/24/24 13:25 HX of Motion Sickness Yes 10/24/24 13:25 HX of N/V After Surgery No 10/24/24 13:25 Non-Smoker No 10/24/24 13:25 Duration of Surgery greater No 10/24/24 13:25 than 60 minutes Number of Risk Factors 2 10/24/24 13:25 PONV Score Moderate Risk 10/24/24 13:25 Height & Weight Height & Weight: Anesthesia: Height & Weight Height 5 ft 6 in 11/07/24 10:46 Weight: 124 kg 11/07/24 10:46 Body Mass Index (BMI) 44.1 11/07/24 10:46 Respiratory Assessment Respiratory Assessment - strand and binder controller: Respiratory Tract Infection Hx - strand and binder controller Hx Respiratory Tract Infection No 10/24/24 13:25 STOP Sleep Apnea STOP Sleep Apnea - strand and binder controller: STOP Sleep Apnea - strand and binder controller Hx Hypertension No 10/24/24 13:25 Hx Sleep Apnea No 10/24/24 13:25 CPAP BIPAP Do you snore loudly (louder No 10/24/24 13:25 than talking or can be heard Do you often feel tired/ Yes 10/24/24 13:25 fatigued/ sleepy during daytime? Has anyone observed you stop No 10/24/24 13:25 breathing during sleep? STOP Results Negative 10/24/24 13:25 QUESTION #5 FULL TEXT : Do you snore loudly (louder than talking or can be heard through closed doors)? 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 Specify any problems Hx of Preganancy in last 3 No 10/24/24 13:25 Months Nurse Filling Out Transfusion DSCHRIBER 10/24/24 13:25 & Questions: Date: 10/24/24 10/24/24 13:25 Time: 13:26 10/24/24 13:25 Patient unable to answer at this time (ie. confused, unrespo /Reproduction History /Reproductive History - strand and binder controller: /Reproductive Hx- strand and binder controller Hx Now No 10/24/24 13:25 Gestational Age (in weeks): EDC: Hx Hx Para Hx Section SAB No 10/24/24 13:25 Active Medications Active Medications: Current Medications Generic Name Dose Route Start Last Admin Trade Name Freq PRN Reason Stop Dose Admin Cefotetan Disodium 2 gm/ 100 mls @ 200 mls/hr 11/07/24 12:00 Sodium Chloride IV 11/07/24 12:29 INTRAOP ONE Tranexamic Acid 1,000 mg/ 110 mls @ 440 mls/hr 11/07/24 12:00 11/07/24 10:53 Sodium Chloride IV 11/07/24 12:14 440 mls/hr PREOP ONE Administration Desmopressin Acetate 35 mcg/ 58.75 mls @ 235 mls/hr 11/07/24 12:00 11/07/24 10:53 Sodium Chloride IV 11/07/24 12:14 235 mls/hr PREOP ONE Administration Lactated Ringer's 1,000 mls @ 15 mls/hr 11/07/24 10:30 11/07/24 10:52 IV 15 mls/hr .Q48H DERICK Administration PFSH Medical History (Updated 10/24/24 @ 13:34 by Kristina Oconnell) Wears glasses Anxiety Alcohol use Heartburn Asthma Leg cramps History of pain when walking History of edema Crohn's disease Marijuana use Restless legs Smoker Depression Abnormal uterine bleeding (AUB) Von Willebrand disease Home Medications ?Medication ?Instructions ?Recorded ?Last Taken ?Type levonorgestrel (Mirena) 1 device intrauterine ONCE 10/23/21 Unknown History buspirone 15 mg tablet 15 mg PO BID 08/15/23 11/06/24 History ustekinumab 90 mg/mL subcutaneous 90 mg subcut Q8W #1 mL 05/29/24 Unknown Rx syringe (Stelara) venlafaxine 75 mg capsule,extended 75 mg PO DAILY 07/17/24 11/06/24 History release 24 hr ondansetron HCl 4 mg tablet 4 mg PO Q8H PRN nausea and 09/27/24 Unknown Rx vomiting #12 tabs Allergy/AdvReac Type Severity Reaction Status Date / Time nickel Allergy Hives Verified 10/24/24 13:23 amphetamine (From Adderall) AdvReac Diarrhea Verified 10/24/24 13:23 dextroamphetamine (From AdvReac Diarrhea Verified 10/24/24 13:23 Adderall) NSAIDS (Non-Steroidal AdvReac BLEEDING Verified 10/24/24 13:23 Anti-Inflamma Surgical History (Updated 10/24/24 @ 13:34 by Kristina Oconnell) Hx of wisdom tooth extraction S/P D&C (status post dilation and curettage) History of endoscopy Hx of colonoscopy H/O knee surgery Social History pets and animals: Yes sexually active: No Smoking Status: Current every day smoker tobacco type: e-cigarettes alcohol intake: never substance use type: marijuana seatbelt use: always Review of Systems (Anesthesia) ROS Narrative System reviewed and no additional complaints, except as documented. Physical Exam Const alert and oriented x3 Nutritional Appearance: obese Resp normal respiratory effort, normal air movement and clear to auscultation bilaterally Cardio regular rate, regular rhythm, no murmurs and diaphoretic
[2024-11-07 11:11] LABS: Prothrombin Time (Protime)PT. 13.3 SECONDS (11.7-14.9)
[2024-11-07 11:12] LABS: Partial Thromboplast Time 29.0 Seconds (24.1-36.2)
[2024-11-07] MEDS: Midazolam 2 MG/2 ML Syringe IV (11:22)
[2024-11-07] MEDS: Lactated Ringers 1,000 ML 1000 ML IV (11:22)
[2024-11-07] MEDS: Lidocaine 1% (5 ml sdv) 5 ML Vial IV (11:28)
[2024-11-07] MEDS: fentaNYL 100 MCG/2 ML Ampul 200 MCG IV (11:45)
--- NOTE | 2024-11-07 12:00 | GALL_PTH ---
PATIENT: KEAGAN TILLMAN [place] [facility] [id number] AGE/SX: 23/F ROOM: RE11/07/[address]: Dr. Corey Mahajan MD : 2000 BED: DIS: 11/07/2024 SPEC #: [id number] RECD: 11/07/24 13:52 STATUS: LIZZ REZeinab #: [id number] GUDELIA: 11/07/24 12:[address]: Corey Mahajan DEPT: SURGICAL PATHOLOGY RECD BY: Luis Solorio ENTERED: 11/07/24 14:42 SP TYPE: JONH MARSH DR: Dr. Daryl Mccollum, DO Tissues: A - Gallbladder, NOS Procedures: Surgery Specimen Level III HEADER OPERATION: Laparoscopic cholecystectomy with IOC PRE-OP DIAGNOSIS: Gallstones TISSUE SUBMITTED: A- Gallbladder MICROSCOPIC DIAGNOSIS A. Gallbladder, laparoscopic cholecystectomy: Chronic cholecystitis, cholelithiasis. and cholesterolosis. MICROSCOPIC DESCRIPTION Slides are reviewed. GROSS DESCRIPTION A. Received in formalin labeled with the patient's name and date of . Designated as gallbladder is a 8.8 x 2.4 x 2.4 cm bradley-pink to green, intact and focally adhesed gallbladder with attached patent cystic duct (inked black, shaved). A lymph node is not present. Opening reveals yellow-green, tenacious bile and a 1.8 cm bile-stained, crystalline cholelith. The mucosa is bradley-pink to red and granular with a maximum wall thickness of 0.3 cm. Cholesterolosis is present. Material Flow Engineer sections are submitted in 1 cassette. ND 11/07/2024 CPT:79295
[2024-11-07] MEDS: Bupiv/Epi 0.25% 30 ML Vial (12:08)
--- NOTE | 2024-11-07 12:24 | OP.PCM_ITS ---
Operative Report (Standard) Operative Information Date of Procedure: 11/07/24 Pre-Operative Diagnosis: Cholelithiasis and biliary colic Post-Operative Diagnosis: Same Surgery/Procedure Performed: Laparoscopic cholecystectomy with cholangiogram credit support counselor: Yes Enterprise Records Analyst: Sabina Macdonald Tasks completed by certified first assistant: Opening & closing and Retracting Type of Anesthesia: General/Regional RN Documented Start/Stop Times: Operation Date: 11/07/24 12:00 Case Time Into Pre-Op 11/07/24 10:19 Anesthesia Start 11/07/24 11:21 Into Room 11/07/24 11:21 Out of Pre-Op 11/07/24 11:21 Procedure Start 11/07/24 11:41 Procedure Start Time: 11:41 Procedure Stop Time: 12:35 Select all DRAINS/GRAFTS/IMPLANTS that apply: None Estimated Blood Loss: 10 Specimen collected: Yes Description of specimen(s) removed: Gallbladder Description of surgery: Patient was given TXA and presurgery for her von Willebrand's. After obtaining informed consent patient was brought back to the operating room. General anesthesia was induced. The abdomen was prepped and draped in usual sterile fashion. A small midline incision was made superior to the umbilicus and deepened to the level of fascia. The fascia was elevated and incised. Next the peritoneum was elevated and incised in the same fashion. Finger sweep was performed and the Escamilla trocar was placed into the abdomen. The balloon was inflated. The abdomen was inflated to 15 mmHg. Next a camera was introduced into the abdomen and the abdomen was inspected. Next under direct visualization three 5-mm ports were placed one subxiphoid and 2 subcostal. Next the gallbladder was elevated and retracted toward the right shoulder. The peritoneum was stripped from the gallbladder. The infundibulum was located and retracted laterally. Next the triangle of Calot was dissected and the cystic duct and cystic artery were identified. Cholangiograms were performed. The Chen clamp was used to clamp across the infundibulum and the catheter needle was inserted into the gallbladder. Under fluoroscopy contrast was instilled into the gallbladder and the common duct, cystic duct as well as proximal hepatic ducts were identified. There was good filling of the duodenum. There were no filling defects noted in the common bile duct. The clamp was removed as well as the needle and the infundibulum was grasped once more. Three hemolock clips were placed across the cystic duct. The cystic duct was then divided leaving 2 clips on the stump. The cystic artery was clipped and divided in the same fashion. The hook cautery was then used to take the gallbladder off of the gallbladder bed. Hemostasis was obtained. Gallbladder fossa was irrigated and no active bleeding or bile leakage was noted. Next the camera was introduced in the subxiphoid port. An Endopouch bag was placed through the umbilical port and the gallbladder was placed into it. The gallbladder was then removed through the umbilical incision. The camera was then reinserted through the umbilical port. The gallbladder fossa was inspected once more and noted to be hemostatic with no leaking bile. Surgicel powder was sprayed over the gallbladder fossa. The abdomen was suctioned dry. The 5 mm ports were removed under direct visualization. The umbilical port was then removed and the air was removed from the abdomen. Next using an 0 Vicryl suture the umbilical fascia was closed in a [id number] fashion. The umbilical port site was irrigated local anesthetic was administered to all the incisions. All the incisions were closed with interrupted subcuticular 4-0 Monocryl sutures followed by Steri-Strips and dressings. The patient was awoken and taken to PACU in stable condition. Surgical Findings: None Complications Complications: No Admit VTE Documentation VTE Mechan Device Prophylaxis: SCD's
--- NOTE | 2024-11-07 12:27 | DCINST_ITS ---
Discharge Instructions Procedure Gallbladder Diet Discharge Diet: Light diet - advance as tolerated Activity Discharge Activity: May Not Drive (for 2-3 days or while taking narcotic pain medications.) and - (Do not drive, work heavy equipment or sign legal documents for 24 hours.) May shower in (days): 1 Lifting Restrictions: 20 lbs for 2 weeks Additional Activity Instructions:: Pain medication may cause nausea. You should typically eat light foods as you take your pain medications. Pain medication may also cause constipation. If this is a problem for you, please discuss with your doctor. Alternate ibuprofen and Tylenol for pain control, oxycodone for breakthrough pain Dressing / Incision Call your doctor if your incision/area has: Continuous Slow Oozing, Sudden Increased Bleeding, Increased Pain/ Swelling, Increased Redness and Foul Smelling Discharge Call your doctor if you observe: Fever of 101 or Higher Suture Line Care: Avoid Pulling/Pushing and Avoid Pinching/Bending Remove Dressing in: 2 days Additional Dressing/Incision Instructions:: Leave operative bandaids on for 2 days. When you remove dressing, leave Steri-Strips on until your follow-up appointment, or until the Steri-Strips fall off on their own. Follow Up Care Please Follow Up With: Corey Mahajan MD When: Please call to schedule 2 week follow up appointment. [phone] Test Results: Test results from this visit will be discussed in further detail at your follow- up appointment, if applicable. Discharge Plan Admission Attending Provider: Corey Mahajan Primary Care Provider: Daryl Mccollum Instructions Print Language: Andorran Discharge Orders/Prescriptions Prescriptions: New oxycodone 5 mg Tablet 5 - 10 mg PO Q4H PRN PRN (Reason: Pain Score 4-10) 5 Days Qty: 20 0RF No Action Mirena 20 mcg/24 hours (7 yrs) 52 mg intrauterine device 1 device intrauterine ONCE Rx Instructions: as a single dose buspirone 15 mg tablet 15 mg PO BID venlafaxine 75 mg capsule,extended release 24hr 75 mg PO DAILY ondansetron HCl 4 mg tablet 4 mg PO Q8H PRN (Reason: nausea and vomiting) Qty: 12 0RF Stelara 90 mg/mL syringe 90 mg subcut Q8W Qty: 1 6RF Rx Instructions: Approved 05.24.22-06.23.23 ID: [id number] Referrals / Follow Up: Daryl Mccollum DO [Primary Care Provider] - Disposition Disposition (needs filled in before D/C Order can be placed): Home, Self Care
--- NOTE | 2024-11-07 12:41 | PCM.POST.ANE ---
Anesthesia: Postop Eval I Current Vital Signs Temperature: 96.8 F Pulse Rate: 86 Blood Pressure: 113/59 Respiratory Rate: 20 Pulse Ox: 98 Oxygen Delivery Method: Room Air Assessment Airway patent: Yes Spontaneous unlabored respirations: Yes Mental status: Awake and Calm nausea: No Vomiting: No Anesthesia Complication: No Fluid Hydration Crystalloid volume administer (ml): 1,000 Total IV fluid infused: 1,000 Progress Note Anesthesia document: Postop Eval 1 completed: Yes
--- NOTE | 2024-11-07 13:41 | POSTOPAN2_ITS ---
Anesthesia Postop Eval I Sum Postop Eval Completion status Anesthesia document: Postop Eval 1 completed: Yes Anesthesia Postop Eval I Summary Anesthesia Postop Eval I Summary: Anesthesia Postop Eval I: Assessment Summary Airway patent Yes 11/07/24 12:42 [email or web address] Spontaneous unlabored Yes 11/07/24 12:42 [email or web address] [email or web address] respirations Mental status Awake,Calm 11/07/24 12:42 [email or web address] [email or web address] nausea No 11/07/24 12:42 [email or web address] [email or web address] Vomiting No 11/07/24 12:42 [email or web address] [email or web address] Anesthesia Postop Eval I: Fluid Summary Crystalloid volume administer 1,000 11/07/24 12:42 [email or web address] (ml) Colloids volume administered ( ml) Blood Product volume administered (ml) Total IV fluid infused 1,000 11/07/24 12:42 [email or web address] Anesthesia Postop Eval I: Summary Notes Anesthesia Complication No 11/07/24 12:42 [email or web address] Anesthesia Complication Comment: Post-operative progress note Anesthesia: Postop Eval II Evaluation Mental status: Awake Pain Level: 0 nausea: No Vomiting: No Progress Note Post-operative progress note: Nauseous in PACU, received 10 mg reglan and nausea resolved Complications Anesthesia Complication: No
--- NOTE | 2024-11-07 13:41 | PCM.POSTANE2 ---
Anesthesia Postop Eval I Sum Postop Eval Completion status Anesthesia document: Postop Eval 1 completed: Yes Anesthesia Postop Eval I Summary Anesthesia Postop Eval I Summary: Anesthesia Postop Eval I: Assessment Summary Airway patent Yes 11/07/24 12:42 [email or web address] Spontaneous unlabored Yes 11/07/24 12:42 [email or web address] [email or web address] respirations Mental status Awake,Calm 11/07/24 12:42 [email or web address] [email or web address] nausea No 11/07/24 12:42 [email or web address] Vomiting No 11/07/24 12:42 [email or web address] [email or web address] Anesthesia Postop Eval I: Fluid Summary Crystalloid volume administer 1,000 11/07/24 12:42 [email or web address] (ml) Colloids volume administered ( ml) Blood Product volume administered (ml) Total IV fluid infused 1,000 11/07/24 12:42 [email or web address] [email or web address] Anesthesia Postop Eval I: Summary Notes Anesthesia Complication No 11/07/24 12:42 [email or web address] Anesthesia Complication Comment: Post-operative progress note Anesthesia: Postop Eval II Evaluation Mental status: Awake Pain Level: 0 nausea: No Vomiting: No Progress Note Post-operative progress note: Nauseous in PACU, received 10 mg reglan and nausea resolved Complications Anesthesia Complication: No
== END 2024-11-07 16:22 | disposition home or self-care (01) ==
LOC: SDC 10:12 → AC 11:03
PROVIDERS: Anesthesiology; PCP Family Medicine; Referring Provider Surgery; Visit Provider Surgery
PROC: (CPT 47610; principal; 2024-11-07 11:40)
DX: K80.10 Calculus of gallbladder with chronic cholecystitis without obstruction (principal); D68.00 Von Willebrand disease, unspecified; J45.909 Unspecified asthma, uncomplicated; F17.290 Nicotine dependence, other tobacco product, uncomplicated; F41.9 Anxiety disorder, unspecified; F32.A Depression, unspecified; Z79.899 Other long term (current) drug therapy; E66.9 Obesity, unspecified
CPT/HCPCS: 47563; 00790; 74300; 76000; 81025; 85610; 85730; 88304; 93005; J2405; J2597

== ENCOUNTER 2025-03-05 08:30 | Outpatient (RCR) | payer BC, SELFPAY ==
--- NOTE | 2024-12-14 12:58 | HP.PTEVAL_ITS ---
Patient's Visit Information Visit Information Visit Information: KEAGAN TILLMAN is a 24 year old F referred to Physical Therapy by Dr. Daryl Mccollum DO with a diagnosis of BLE pain. Date of Evaluation: 12/07/24 Physical Therapist: Monster Rodriguez DPT Visit Plan Frequency: 2x /Week Duration: 2 Months Plan: In Aquatic setting: BLE and core strengthening Subjective Subjective: Pt. is here today for her initial evaluation with diagnosis of BLE pain. pt. reports having intermittent BLE pain. She reports constant pain to the point where she can not put pressure on either of her legs. pt. is also having periods where walking and especially stair negotiation is painful. Pt. reports no N/T. 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 Pt. reports having increased BLE pain since high school. Pt. reports light touch is fine, but firm touch is very painful. Pt. is sleeping okay. Pt. is hopeful to reduce symptoms in order to walk and get around better without increase in symptoms. Pain B LEs: Pain Intensity (Out of 10): 0 Pain Intensity Range: 0 and 5 Objective Objective: POSTURE: Pt. has fairly normal posture in stance, normal knee positi oning. PALPATION: Pt. is very tender throughout BLEs especially at anterior shins. No pain with light touch. NEURO: Normal throughout ROM: Pt. has normal ROM throughout BLEs. Pt. has slight tightness in B calves and HS. MMT: Pt. has good strength 5-/5 throughout BLEs, core strength: poor. GAIT: Pt. ambulates well. She does have slight increased toe walking, but not severe. No increase in pain with walking today. STAIRS: Pt. is able to complete with reciprocal pattern. Balance/Special Test Scores Lower Extremity Functional Score: 52 Goals Goal 1:: LTG: Pt. to be able to ambulate 1 mile without increase in BLE pain. Goal Time Frame: 4-6 Weeks Goal 2:: LTG: Pt. to be I with aquatic program to BLE and core strengthening. Goal Time Frame: 4-6 Weeks Goal 3:: LTG: pt. to be able to negotiate steps without increase in symptoms. Rehabilitation Potential Physical Therapy Diagnosis: Pt has signs and symptoms consistent with BLE pain. Pt. has decent strength, but her symptoms seem to be more Rehabilitation Potential: Good Anticipated Interventions Patient/Client Instruction: Educate patient on: Condition, Plan of Care, Risk Factors and Benefits of Fitness Program For the Purpose of:: To improve health and function, To foster healthy habits, To improve decision making, To facilitate caregiver knowledge, To improve self management, To prevent re-injury and To improve ability to perform tasks related to life management Therapeutic Exercise to Include: Strength training, Power training, Endurance training, Balance training, Postural training, Flexibilty training, Gait and locomotor training, In an aquatic setting and Dynamic Lumbar Stabilization For the Purpose of:: To decrease pain, To decrease swelling/inflammation, To increase ROM, To improve nutrient delivery to tissue, To increase oxygenation perfusion, To improve muscle performance and motor function, To improve ability to perform ADL's, To increase tolerance to activity/condition/position, To improve performance and independence with ADL's, To decrease soft tissue restriction, To increase flexibility/ROM and To improve endurance Text: Thank you for the opportunity to evaluate your patient. For Medicare and Medicare HMO plans, please review the plan of care and approve it. It will need to be FAXED BACK to us at [phone] for Medicare purposes. For Medicare only, by signing this I certify the plan of care. Please let me know if there are questions or concerns regarding this plan of care. Physician Signature: Date:
--- NOTE | 2025-01-10 12:01 | HP.PTREVAL ---
Re-Evaluation Intro: Dr. Daryl Mccollum, DO, It has been my pleasure to treat KEAGAN TILLMAN over the last 8 visits for BLE pain. Please see the progress note below for an update on the physical therapy plan of care! Subjective Subjective: Pt. reports having some leg soreness today, but not severe. Pt. reports changing some medications which may be helping her symptoms as well. Objective Objective/Function: MMT: RLE; Knee: ext 33.8#, flex 20.1#; hip: flex 21.4#, abd 16.7# LLE: knee: ext 18.3#, flexion 24.1#; hip: flex 18.8#, abd 13.3# GAIT: pt. has fairly normal gait pattern. STAIRS: Pt. is able to complete without LOB, but did have some BLE pain. Plan Plan Plan: Progress patient to land. Focus on BLE strengthening, core stability. Pt. encouraged to add a walking routine. Start with mat progressing to functional strengthening. Balance/Gait/Functional tests Balance/Special Test Scores Lower Extremity Functional Score: 58 Goals Goals Goal 1:: LTG: Pt. to be able to ambulate 1 mile without increase in BLE pain. Goal Time Frame: 4-6 Weeks Goal Progress: Progressing Goal 2:: LTG: Pt. to be I with aquatic program to BLE and core strengthening. Goal Time Frame: 4-6 Weeks Goal Progress: Goal Met Goal 3:: LTG: pt. to be able to negotiate steps without increase in symptoms. Goal Progress: Progressing Goal 4:: LTG: Pt. to have 5/5 strength throughout BLEs. Goal Time Frame: 4-6 Weeks Goal Progress: Progressing Anticipated Interventions Anticipated Interventions Patient/Client Instruction: Educate patient on: Condition, Plan of Care, Risk Factors and Benefits of Fitness Program For the Purpose of:: To improve health and function, To foster healthy habits, To improve decision making, To facilitate caregiver knowledge, To improve self management, To prevent re-injury and To improve ability to perform tasks related to life management Therapeutic Exercise to Include: Strength training, Power training, Endurance training, Balance training, Postural training, Flexibilty training, Gait and locomotor training, In an aquatic setting and Dynamic Lumbar Stabilization For the Purpose of:: To decrease pain, To decrease swelling/inflammation, To increase ROM, To improve nutrient delivery to tissue, To increase oxygenation perfusion, To improve muscle performance and motor function, To improve ability to perform ADL's, To increase tolerance to activity/condition/position, To improve performance and independence with ADL's, To decrease soft tissue restriction, To increase flexibility/ROM and To improve endurance Re-Evaluation Ending Re-evaluation ending: Please do not hesitate to contact me at [phone] by phone or if you have questions or concerns regarding this new plan of care! Sincerely, ANTWAN SultanaT
--- NOTE | 2025-02-07 09:02 | HP.PTREVAL ---
Re-Evaluation Intro: Dr. Daryl Mccollum, DO, It has been my pleasure to treat KEAGAN TILLMAN over the last 15 visits for BLE pain. Please see the progress note below for an update on the physical therapy plan of care! Subjective Subjective: Pt. reports overall doing better, but seems to have continued pain with the cold weather. Stairs are going much better. pt. reports having 4/10 pain today, its not crazy. She does have pain up to 8/10 at times upon waking up. She does attribute this to cold weather. Pt. reports being 40% better overall. Pt. reports doing things, like stairs better. Objective Objective/Function: MMT: RLE knee: ext 45.9#, flex 29.0#; hip: flex 38, 48.4# LLE: knee: ext 31.8#, flex 21.0#, hip: flex 31.9#, abd 33.7# STAIRS: Pt. is able to complete without HRs on either side Pt. is overall doing better with her strengthening. She does have some L sided LE weakness when compared to the R side. She did describe and show photo of her L leg after a few visits of PT and was red and splotchy. No signs of infection, nothing today. She said this went away with in a few hours. I am not sure what may have caused this. She is also describing some B UE pain now as well. At this point she is going to work on her LE strengthening at home and in PT we are going to work on more manual myofacial techniques. Plan Plan Plan: Pt. to work on LE strengthening exercises at home. In PT: add HS stretch with contract relax techniques, IT band stretching (progress to Hep), pilar stretching for quad Manual to IT band, HS and quads. Focus on techniques for facial tension, stick rolling of above muscle groups. Able to progress to self myofascial release techniques. PT extended x1 per week for 4 weeks. I did talked to her about reaching out to physician about multiple joint pain and now in her arms. Balance/Gait/Functional tests Balance/Special Test Scores Lower Extremity Functional Score: 64 Goals Goals Goal 1:: LTG: Pt. to be able to ambulate 1 mile without increase in BLE pain. Goal Time Frame: 4-6 Weeks Goal Progress: Progressing Goal 2:: LTG: Pt. to be I with aquatic program to BLE and core strengthening. Goal Time Frame: 4-6 Weeks Goal Progress: Goal Met Goal 3:: LTG: pt. to be able to negotiate steps without increase in symptoms. Goal Progress: Progressing Goal 4:: LTG: Pt. to have 5/5 strength throughout BLEs. Goal Time Frame: 4-6 Weeks Goal Progress: Progressing Goal 5:: LTG: pt. to reports 0/10 pain in BLEs with all ADLs and work activities. Goal Time Frame: 2-4 Weeks Goal Progress: Progressing Anticipated Interventions Anticipated Interventions Patient/Client Instruction: Educate patient on: Condition, Plan of Care, Risk Factors and Benefits of Fitness Program For the Purpose of:: To improve health and function, To foster healthy habits, To improve decision making, To facilitate caregiver knowledge, To improve self management, To prevent re-injury and To improve ability to perform tasks related to life management Therapeutic Exercise to Include: Strength training, Power training, Endurance training, Balance training, Postural training, Flexibilty training, Gait and locomotor training, In an aquatic setting and Dynamic Lumbar Stabilization For the Purpose of:: To decrease pain, To decrease swelling/inflammation, To increase ROM, To improve nutrient delivery to tissue, To increase oxygenation perfusion, To improve muscle performance and motor function, To improve ability to perform ADL's, To increase tolerance to activity/condition/position, To improve performance and independence with ADL's, To decrease soft tissue restriction, To increase flexibility/ROM and To improve endurance Re-Evaluation Ending Re-evaluation ending: Please do not hesitate to contact me at [phone] by phone or if you have questions or concerns regarding this new plan of care! Sincerely, Monster Rodriguez DPT
--- NOTE | 2025-03-05 09:24 | HP.PTDCSUM ---
Discharge Summary D/C summary: It has been my pleasure to treat KEAGAN PLAZAG referred by Dr. Daryl Mccollum DO, with the diagnosis of BLE pain for a total of 18 visit(s). Discharge Date: 03/05/25 Please see the following information for a summary of their discharge status. Subjective Subjective: Pt. reports overall doing better, but still seems to have B hip and knee pain with changes in the weather. Pt. was doing well, but more sore over the past few days. Pt. has been tolerating her exercises well. Pain B LEs: Pain Intensity (Out of 10): 1 Overall Improvement % Improvement: 70 Objective Objective/Function: Pt. has full ROM of B hips and knees today. Symmetrical strength noted throughout. I talked to her about starting a walking program. Pt. consents. Pt. is to do her leg strengthening exercises 2-3 times per week. Pt. also consents to this. Pt. will be DC from PT at this point in time. Goals Goal 1:: LTG: Pt. to be able to ambulate 1 mile without increase in BLE pain. Goal Progress: Goal Met Goal 2:: LTG: Pt. to be I with aquatic program to BLE and core strengthening. Goal Progress: Goal Met Goal 3:: LTG: pt. to be able to negotiate steps without increase in symptoms. Goal Progress: Goal Met Goal 4:: LTG: Pt. to have 5/5 strength throughout BLEs. Goal Progress: Goal Met Goal 5:: LTG: pt. to reports 0/10 pain in BLEs with all ADLs and work activities. Goal Progress: Progressing Plan Plan: PT. to be DC to [facility]. D/C Information d/c sentence: If there are questions or concerns regarding this patient's physical therapy, please feel free to call me at [phone]. Thank you for the referral of this patient. Sincerely, Monster Blanchard Sipos, DPT Balance/Gait/Functional tests Balance/Special Test Scores Lower Extremity Functional Score: 70 Improvement % Improvement: 70
== END 2025-03-05 10:21 | disposition home or self-care (01) ==
LOC: PT 08:30
PROVIDERS: PCP Family Medicine; Referring Provider Family Medicine; Visit Provider Family Medicine
DX: M79.604 Pain in right leg (principal); M79.605 Pain in left leg; R26.9 Unspecified abnormalities of gait and mobility
CPT/HCPCS: 97110; 97113; 97161; 97530